=== PATIENT | female | born 1955 | race Caucasian/White ===

== ENCOUNTER → 2017-06-19 | Outpatient (REF) ==
--- NOTE | 2017-06-20 07:25 | REP ---
LUMBOSACRAL SPINE: CLINICAL: Pain and disability. TECHNIQUE: AP, lateral and coned down views of the lumbosacral spine. COMPARISON: None. FINDINGS: Alignment and lordosis is relatively well maintained. Advanced degenerative disc osteophyte complex at the L5-S1 level includes end plate sclerosis, marginal spurring, disc space narrowing and hypertrophic facet disease. Approximately 1.5 m of chronic anterolisthesis at the L4-5 level is suggested with associated hypertrophic facet changes, minimal end plate sclerosis and very subtle marginal spurring. Moderate multilevel degenerative changes are noted throughout the remainder of the examination and include end plate sclerosis, marginal spurring and disc space narrowing. No acute fracture/compression injury. Multiple gallstones are identified. IMPRESSION: Moderate to advanced multilevel degenerative changes as described above. Signed by Navjot Salcedo MD 06/25/2017 12:02 A
== END ==
LOC: M SMT 14:00
PROVIDERS: ATTEND Internal Medicine
DX: M51.36 Other intervertebral disc degeneration, lumbar region (principal)

== ENCOUNTER → 2017-07-20 | Outpatient (CLI) | payer OTHER ==
[2017-07-20 11:11] LABS: BASO % 0.4 % (0.0-1.0); EOS # 0.1 10^3/uL (0.0-0.50); EOS % 1.4 % (0.0-3.0); HEMATOCRIT 41.3 % (36.0-47.0); HEMOGLOBIN 13.4 g/dl (12.0-16.0); IMMATURE GRANULOCYTE % 0.3 % (0-0); LYMPH # 3.1 10^3/uL (1.5-4.5); LYMPH % 39.1 % (24.0-44.0); MEAN CORPUSCULAR HEMOGLOBIN 29.6 pg (27.0-33.0); MEAN CORPUSCULAR HGB CONC 32.4 g/dl (32.0-36.5); MEAN CORPUSCULAR VOLUME 91.4 fl (80.0-96.0); MONO # 0.4 10^3/uL (0.0-0.8); MONO % 5.1 % (0.0-5.0); NEUTROPHILS # 4.2 10^3/uL (1.8-7.7); NEUTROPHILS % 53.7 % (36.0-66.0); PLATELET COUNT, AUTOMATED 331 10^3/uL (150-450); RED BLOOD COUNT 4.52 10^6/uL (4.00-5.40); RED CELL DISTRIBUTION WIDTH 13.2 % (11.5-14.5); WHITE BLOOD COUNT 7.8 10^3/uL (4.0-10.0)
[2017-07-20 11:33] LABS: TOTAL 25(OH) VITAMIN D 36.6 NG/ML (30.0-100.0)
[2017-07-20 11:36] LABS: ALBUMIN 3.8 GM/DL (3.2-5.2); ALBUMIN/GLOBULIN RATIO 1.06 (1.00-1.93); ALKALINE PHOSPHATASE 133 U/L (45-117); ALT/SGPT 74 U/L (12-78); ANION GAP 6 MEQ/L (8-16); AST/SGOT 31 U/L (7-37); BILIRUBIN,TOTAL 0.3 MG/DL (0.2-1.0); BLOOD UREA NITROGEN 15 MG/DL (7-18); CALCIUM LEVEL 9.2 MG/DL (8.8-10.2); CARBON DIOXIDE LEVEL 29 MEQ/L (21-32); CHLORIDE LEVEL 108 MEQ/L (98-107); CHOLESTEROL LEVEL 285 MG/DL (<200); CHOLESTEROL RISK RATIO 4.253 (<5); CREATININE FOR GFR 0.72 MG/DL (0.55-1.02); FREE T4 0.96 NG/DL (0.76-1.46); GLOMERULAR FILTRATION RATE > 60.0 (>45); GLUCOSE, FASTING 106 MG/DL (80-110); HDL CHOLESTEROL 67 MG/DL (>40); LDL CHOLESTEROL 151.4 MG/DL (<100); NON-HDL-C 218 MG/DL; POTASSIUM SERUM 4.3 MEQ/L (3.5-5.1); SODIUM LEVEL 143 MEQ/L (136-145); TOTAL PROTEIN 7.4 GM/DL (6.4-8.2); TRIGLYCERIDES LEVEL 333 MG/DL (<150)
== END ==
LOC: M LAB 10:45
DX: Z00.00 Encounter for general adult medical examination without abnormal findings (principal)
CPT/HCPCS: 72052

== ENCOUNTER → 2017-08-06 | Outpatient (REF) | payer OTHER, MEDICAID | LOC: M LAB REF 18:35 | DX: Z12.4 Encounter for screening for malignant neoplasm of cervix (principal) | CPT/HCPCS: 88142 ==

== ENCOUNTER → 2017-08-07 | Outpatient (CLI) | payer OTHER | LOC: M WHC 13:22 | DX: Z12.31 Encounter for screening mammogram for malignant neoplasm of breast (principal) | CPT/HCPCS: 77067 ==

== ENCOUNTER 2017-08-27 09:08 | Outpatient (RCR) | payer OTHER | END 2017-09-12 | LOC: M PT 09:08 | DX: Z51.89 Encounter for other specified aftercare (principal); M54.2 Cervicalgia; M54.42 Lumbago with sciatica, left side | CPT/HCPCS: 97010 ==

== ENCOUNTER → 2017-09-21 | Outpatient (CLI) | payer OTHER | LOC: M PAIN 13:30 | DX: G89.29 Other chronic pain (principal); M79.1 Myalgia; M54.5 Low back pain; L71.9 Rosacea, unspecified; Z79.899 Other long term (current) drug therapy | CPT/HCPCS: G0463 ==

== ENCOUNTER → 2017-10-29 | Outpatient (CLI) | payer OTHER ==
[~2017-10-29] MED LIST: BUPIVACAINE HCL 0.25% 10 ML VIAL As Ordered; BUPIVACAINE HCL 0.25% 30 ML VIAL As Ordered; TRIAMCINOLONE ACETONIDE SUSP 40 MG/ML VIAL (J3301) As Ordered; diazePAM 5 MG TAB As Ordered; oxyCODONE 5MG TAB As Ordered
== END ==
LOC: M PAIN 15:00
DX: G89.29 Other chronic pain (principal); M25.511 Pain in right shoulder; M25.512 Pain in left shoulder; M54.5 Low back pain; M79.1 Myalgia; L71.9 Rosacea, unspecified; Z79.899 Other long term (current) drug therapy
CPT/HCPCS: J3301

== ENCOUNTER → 2017-11-19 | Outpatient (CLI) | payer OTHER | LOC: M PAIN 14:45 | DX: M79.7 Fibromyalgia (principal); L71.9 Rosacea, unspecified; Z79.899 Other long term (current) drug therapy | CPT/HCPCS: G0463 ==

== ENCOUNTER → 2017-12-25 | Outpatient (CLI) | payer OTHER | LOC: M PAIN 14:30 | DX: M79.7 Fibromyalgia (principal); M54.42 Lumbago with sciatica, left side; L71.9 Rosacea, unspecified; Z79.899 Other long term (current) drug therapy | CPT/HCPCS: G0463 ==

== ENCOUNTER → 2018-02-11 | Outpatient (CLI) | payer OTHER | LOC: M PAIN 14:30 | DX: M79.7 Fibromyalgia (principal); L71.9 Rosacea, unspecified; Z79.899 Other long term (current) drug therapy | CPT/HCPCS: G0463 ==

== ENCOUNTER 2018-03-19 16:33 | Emergency (ER) | payer OTHER | END 2018-03-19 18:54 | disposition home or self-care (01) | LOC: M ED 16:33 | DX: M79.7 Fibromyalgia (principal); M54.2 Cervicalgia; Z79.899 Other long term (current) drug therapy | CPT/HCPCS: 99283 ==

== ENCOUNTER → 2018-05-14 | Outpatient (CLI) | payer OTHER | LOC: M PAIN 13:15 | DX: M79.7 Fibromyalgia (principal); L71.9 Rosacea, unspecified; Z79.899 Other long term (current) drug therapy | CPT/HCPCS: G0463 ==

== ENCOUNTER → 2018-06-19 | Outpatient (CLI) | payer OTHER ==
[~2018-06-19] MED LIST changes: -BUPIVACAINE HCL 0.25% 10 ML VIAL As Ordered; -BUPIVACAINE HCL 0.25% 30 ML VIAL As Ordered; +DULO1CAP2; +NAPR-49 PO; +ROBA500T PO; -TRIAMCINOLONE ACETONIDE SUSP 40 MG/ML VIAL (J3301) As Ordered; -diazePAM 5 MG TAB As Ordered; -oxyCODONE 5MG TAB As Ordered
--- NOTE | 2018-07-11 00:27 | ECWPNPC ---
PATIENT NAME: CATALINA MEYERS : 1955 GENDER: FEMALE VISIT DATE: 06/19/2018 DISCHARGE DATE: 06/19/18 1420 VISIT LOCKED DATE TIME: PHYSICIAN: JULY SOSA RESOURCE: JULY SOSA HISTORY OF PRESENT ILLNESS HISTORY OF PRESENT ILLNESS: HERE FOR F/U OF CHRONIC LOW BACK PAIN AND LOWER EXTREMITY PAIN.ALSO SUFFERS FROM CHRONIC GENERALIZED BODY PAIN AND ARM PAIN.DESCRIBES EPISODES OF LOWER EXTREMITY WEAKNESS AND LEGS GIVING OUT.RATING PAIN VAS 10/10.CURRENTLY USING NAPROXEN 500MG BID ,CYMBALTA 30MG BID,AND METHOCARBOMAL 500MG Q6H.NAPROXEN AND METHACARBOMAL WERE STARTED AT LAST VISIT.REPORTING NO IMPROVEMENT IN PAIN SINCE STARTING THESE MEDICATIONS. PAIN THE PATIENT DESCRIBES THE PAIN... FALL RISK SCREENING: SCREENING :NO FALLS IN THE PAST YEAR CURRENT MEDICATIONS TAKING MULTIVITAMIN - TABLET CHEWABLE VITMAIN ELIZA ORALLY 1 TAB BID, FROM CHIROPRACTER TAKING CYMBALTA 30 MG CAPSULE DELAYED RELEASE PARTICLES 1 CAPSULE ORALLY BID TAKING NAPROXEN 500 MG TABLET 1 TABLET WITH FOOD OR MILK NEEDED ORALLY EVERY 12 HRS TAKING METHOCARBAMOL 500 MG TABLET 1 CAP ORALLY EVERY 6H PRN NOT-TAKING GABAPENTIN 300 MG CAPSULE 1 CAPSULE BEFORE BEDTIME ORALLY FOR PAIN BEFORE BEDTIME FOR ONE WEEK THEN INCREASE TO BID NOT-TAKING CALCIUM 600 + D 600-400 MG-UNIT TABLET OTC 1 TABLET ORALLY ONCE A DAY NOT-TAKING VITAMIN D 5000 UNIT TABLET OTC 1 TABLET ORALLY ONCE A DAY NOT-TAKING MULTIVITAMINS OTC TABLET 1 TABLET ORALLY ONCE A DAY NOT-TAKING VITAMIN B-12 500MG OTC 1 TABLET ORALLY ONCE A DAY NOT-TAKING PREMPRO 0.625-2.5 MG TABLET 1 TABLET ORALLY ONCE A DAY MEDICATION LIST REVIEWED AND RECONCILED WITH THE PATIENT PAST MEDICAL HISTORY ROSACEA UTERINE PROLAPSE CYSTOCELE HX ENDOMETRIAL POLYPS/PMB LEFT SIDE SCIATICA, LUMBAGO ALLERGIES N.K.D.A. SURGICAL HISTORY TUBAL LIGATION ENDOMETRIAL POLYP REMOVAL/HYSTEROSCOPY, D&C (ANIKET) 2010 COLONOSCOPY: NEGATIVE FOR POLYPS; DIVERTICULOSIS; HEMORRHOIDS (JEFFREY) 2010 LEFT SHOULDER- ROTATOR CUFF, 3 TEARS, AMB SURGERY 2015 FAMILY HISTORY FATHER: 69 YRS, AMI MOTHER: 80 YRS, CAUSE OF UNKNOWN TO PT SON(S): ALIVE 35,31 YRS, ONE SON 3 HRS AFTER . TWO OTHER SONS, BOTH ALIVE, NO KNOWN MEDICAL PROBLEMS DAUGHTER(S): ALIVE 34,27 YRS, BOTH, NO KNOWN MEDICAL PROBLEMS DENIES FAMILY HX BREAST, COLON OR OVARIAN CANCERS. SOCIAL HISTORY GENERAL: TOBACCO USE ARE YOU A:: NEVER SMOKER . ALCOHOL SCREENING DID YOU HAVE A DRINK CONTAINING ALCOHOL IN THE PAST YEAR?YES HOW OFTEN DID YOU HAVE A DRINK CONTAINING ALCOHOL IN THE PAST YEAR?MONTHLY OR LESS (1 POINT) HOW MANY DRINKS DID YOU HAVE ON A TYPICAL DAY WHEN YOU WERE DRINKING IN THE PAST YEAR?3 OR 4 (1 POINT) HOW OFTEN DID YOU HAVE SIX OR MORE DRINKS ON ONE OCCASION IN THE PAST YEAR?LESS THAN MONTHLY (1 POINT) POINTS3 INTERPRETATIONPOSITIVE RECREATIONAL DRUG USE DRUG USE?NO CAFFEINE CAFFEINE USE?YES 2 CUPS DAILY SEXUAL HX HAD SEX IN THE LAST 12 MONTHS (VAGINAL, ORAL, OR ANAL)?YES WITHMEN ONLY USE PROTECTION?NO PREVENTION STRATEGIES DISCUSSED:OTHER HAVE YOU EVER HAD AN STD?YES CHLAMYDIA?NO GC?NO SYPHILIS?NO HERPES?NO LMP:POST MENOPAUSE HIV / HEP-C SCREENING HIV TEST OFFERED TO PATIENT:NO HEP-C TEST OFFERED TO PATIENT:NO JEHOVAH'S WITNESS [id number] NONE LANGUAGE LANGUAGES SPOKEN:ANGUILLAN EDUCATION LEVEL OF EDUCATION:HIGH SCHOOL LEARNING BARRIERS / SPECIAL NEEDS CHANGE FROM LAST VISIT?NO BARRIERS TO LEARNING?NO HEARING IMPAIRED?NO VISION IMPAIRED?YES :CORRECTIVE LENSES COGNITIVELY IMPAIRED?NO READINESS TO LEARN?YES DOMESTIC VIOLENCE DENIES SEXUAL, PHYSICAL OR EMOTIONAL ABUSE. OCCUPATION: NOT WORKING , PHYICALLY DISABLED. DIET: NO HX EATING DISORDERS. EXERCISE: WALKS. MARITAL STATUS: , 2008, WERE 34 YRS, REMARRIED 2014. OTHERS AT HOME: CHILD (ADULT SON),. PAIN CLINIC PFS, CLERGY, PUBLIC HEALTH REFERRALS PFS REFERRAL NEEDED?NO CLERGY REFERRAL NEEDED?NO PUBLIC HEALTH REFERRAL NEEDED?NO WAS THE PROVIDER NOTIFIED OF ANY PERTINENT INFO?NO HAS THE PATIENT BEEN EDUCATED REGARDING HIS/HER PLAN OF CARE?YES HAS THE PATIENT BEEN EDUCATED REGARDING PAIN, THE RISK FOR PAIN, THE IMPORTANCE OF EFFECTIVE PAIN MANAGEMENT, AND THE PAIN ASSESSMENT PROCESS?YES ADVANCE DIRECTIVE ADVANCE DIRECTIVE DISCUSSED WITH PATIENT:YES HCP INFORMATION GIVEN, PATIENT REFUSED ASSISTANCE WITH FILLING IT OUT. 06/19/18 1316 JS REVIEWED WITH PT 12/25/17 1423 BVREVIEWED WITH PATIENT 06/19/18 1316 JS. HOSPITALIZATION/MAJOR DIAGNOSTIC PROCEDURE NO HOSPITALIZATION HISTORY. REVIEW OF SYSTEMS REVIEWED BY: PROVIDER: JULY TERRY . CONSTITUTIONAL: ANY CHANGE IN YOUR MEDICAL CONDITION? YES, STATES HER KNEES WENT OUT WALKING DOWN STAIRS AT A FOOTBALL GAME AND THAT WAS NOTHING THAT HAS HAPPENED TO HER IN THE PAST. ALSO BENT DOWN A COUPLE OF DAYS AGO TO PICK SOMETHING UP AND THAT SHE LOST HER BALANCE AND WOULD HAVE FALLEN IF HER HAD NOT BEEN WITH HER . CHILLS NO . FEVER NO . INFECTION: DO YOU HAVE NEW INFECTIONS? NO . DO YOU HAVE HISTORY OF MRSA? NO . MUSCULOSKELETAL: ANY NEW PATTERNS OF PAIN OR NUMBNESS? YES, STATES WORSENING PAIN AND WEAKNESS TO BILATERAL LEGS, CAUSING HER TO LOSE HER BALANCE. STATES PAIN 10/10 AT THIS TIME TO LOW BACK AND BILATERAL LEGS . GASTROENTEROLOGY: ANY NEW CHANGE IN BOWEL CONTROL? NO . GENITOURINARY: ANY NEW CHANGE IN BLADDER CONTROL? NO . IS THERE A CHANCE YOU COULD BE ? NO . HEMATOLOGY/LYMPH: DO YOU TAKE ANY BLOOD THINNERS? (FOR EXAMPLE- COUMADIN, PLAVIX, AGGRENOX, PLATEL, PRADAXA, OR XARELTO) NO . WHEN WAS YOUR LAST DOSE? DATE: TIME: . NEUROLOGY: HAVE YOU FALLEN IN THE PAST 6 MONTHS? NO . ANY NEW EXTREMITY NUMBNESS OR WEAKNESS? NO . CARDIOLOGY: DO YOU HAVE A PACEMAKER OR DEFIBRILLATOR? NO . RESPIRATORY: HAVE YOU BEEN SICK IN THE PAST WEEK? NO . FEVER NO . FLU LIKE SYMPTOMS? NO . COUGH NO . INTEGUMENTARY: DO YOU HAVE ANY RASHES OR OPEN SORES? NO . ALLERGIC/IMMUNO: ARE YOU ALLERGIC TO SHELLFISH OR IV DYE? NO . ANY NEW ALLERGIES? NO . PSYCHIATRIC: DO YOU HAVE THOUGHTS OF HURTING YOURSELF OR SOMEONE ELSE? NO . ARE YOU ABUSED, NEGLECTED, OR IN AN UNSAFE ENVIRONMENT? NO . ENDOCRINOLOGY: ARE YOU DIABETIC? NO . OTHER: DO YOU NEED ANY PRESCRIPTIONS? NO . IF YES, PLEASE LIST: ____ . ANY NEW PROBLEMS WITH YOUR MEDICATIONS? NO . WHEN DID YOU LAST EAT? ____ . WHEN DID YOU LAST DRINK? ____ . WHAT DID YOU LAST DRINK? ____ . NAME OF PERSON DRIVING YOU HOME? ____ . DO YOU HAVE ANY OTHER QUESTIONS OR CONCERNS NO . VITAL SIGNS WT 163.8 LBS, HT 61 IN, BMI 30.95 INDEX, BP 133/63 MM HG, HR 104 /MIN, RR 18 /MIN, TEMP 98.1 F, OXYGEN SAT % 94%, SAFE IN ENV? (Y/N) YES, NA INITIALS AW 1308, REVIEWED BY: CARRIE. EXAMINATION GENERAL EXAMINATION: GENERAL APPEARANCE:AWAKE,ALERT ,PLEAASANT . PSYCHAFFECT NORMAL . LUNGS:LUNG GARCIA ARE CLEAR TO AUSCULTATION BILATERALLY. GOOD MOVEMENT OF AIR . HEART:S1, S2 IN A REGULAR RATE AND RHYTHM. NO SIGNIFICANT MURMURS, RUBS OR GALLOPS NOTED . MUSCULOSKELETAL:MUSCLE STRENGTH TESTING 5/5 BILATERAL UPPER/LOWER EXTREMITIES. NEUROLOGIC EXAM:NORMAL SENSATION TO LIGHT TOUCH UPPER/LOWER EXTREMITIES. ASSESSMENTS FIBROMYALGIA - M79.7 (PRIMARY) TREATMENT FIBROMYALGIA STOP CYMBALTA CAPSULE DELAYED RELEASE PARTICLES, 30 MG, 1 CAPSULE, ORALLY, BID CONTINUE NAPROXEN TABLET, 500 MG, 1 TABLET WITH FOOD OR MILK NEEDED, ORALLY, EVERY 12 HRS CONTINUE METHOCARBAMOL TABLET, 500 MG, 1 CAP, ORALLY, EVERY 6H [facility]:LOWER EXTREMITY WEAKNESS/NEUROPATHY SYMPTOMS OTHERS START LYRICA CAPSULE, 100 MG, 1 CAPSULE, ORALLY, BID MDD2, 30 DAY(S), 60, REFILLS 2 NOTES: PATIENT HAS TRIED GABAPENTIN AND CYMBALTA WITHOUT IMPROVEMENT IN HER FIBROMYALGIA SYMPTOMS.RECOMMEND TRIAL OF LYRICA 100MG BID. PROCEDURE CODES FA211 ESTABILISHED PATIENT [facility] CHARGE DISPOSITION & COMMUNICATION FOLLOW UP 2 MONTHS ELECTRONICALLY SIGNED BY HARRISON RUSHING ON 07/10/2018 AT 09:19 AM EST DISCLAIMER : THIS IS A VISIT SUMMARY EXTRACTED FROM THE [employer] [facility] CHART. IT IS NOT A COPY OF THE [employer] PROGRESS NOTE. MTDD
== END ==
LOC: M PAIN 13:15
PROVIDERS: ATTEND Nurse Practitioner Family
DX: M79.7 Fibromyalgia (principal); L71.9 Rosacea, unspecified; Z79.899 Other long term (current) drug therapy

== ENCOUNTER → 2018-07-11 | Outpatient (CLI) | payer OTHER ==
[~2018-07-11] MED LIST changes: -NAPR-49 PO; +NAPR-50 PO
[2018-07-11 12:01] LABS: BASO % 0.3 % (0.0-1.0); EOS # 0.1 10^3/uL (0.0-0.50); EOS % 1.3 % (0.0-3.0); HEMATOCRIT 39.4 % (36.0-47.0); HEMOGLOBIN 12.6 g/dl (12.0-15.5); LYMPH # 2.8 10^3/uL (1.5-4.5); LYMPH % 31.6 % (24.0-44.0); MEAN CORPUSCULAR HEMOGLOBIN 30.4 pg (27.0-33.0); MEAN CORPUSCULAR VOLUME 94.9 fl (80.0-96.0); MONO # 0.3 10^3/uL (0.0-0.8); MONO % 3.7 % (0.0-5.0); NEUTROPHILS # 5.6 10^3/uL (1.8-7.7); NEUTROPHILS % 62.8 % (36.0-66.0); PLATELET COUNT, AUTOMATED 369 10^3/uL (150-450); RED BLOOD COUNT 4.15 10^6/uL (4.00-5.40); WHITE BLOOD COUNT 8.9 10^3/uL (4.0-10.0)
[2018-07-11 12:19] LABS: HEMOGLOBIN A1c 6.5 %
[2018-07-11 12:53] LABS: ALBUMIN 3.8 GM/DL (3.2-5.2); ALT/SGPT 63 U/L (12-78); BILIRUBIN,TOTAL 0.4 MG/DL (0.2-1.0); BLOOD UREA NITROGEN 19 MG/DL (7-18); CALCIUM LEVEL 9.1 MG/DL (8.8-10.2); CARBON DIOXIDE LEVEL 26 MEQ/L (21-32); CHLORIDE LEVEL 105 MEQ/L (98-107); CREATININE FOR GFR 0.84 MG/DL (0.55-1.30); FOLATE > 24.0 NG/ML (>5.4); GLOMERULAR FILTRATION RATE > 60.0 (>45); GLUCOSE, FASTING 117 MG/DL (70-100); POTASSIUM SERUM 4.2 MEQ/L (3.5-5.1); RHEUMATOID FACTOR QUANT < 10.0 IU/ML (<15.0); SODIUM LEVEL 141 MEQ/L (136-145); VITAMIN B12 LEVEL 495 PG/ML (247-911)
[2018-07-11 13:05] LABS: ERYTHROCYTE SEDIMENTATION RATE 43 mm/hr (0-30)
[2018-07-12 12:01] LABS: ALBUMIN 4.05 GM/DL (3.29-5.55); ALBUMIN % 57.9 % (55.8-66.1); ALPHA-1-GLOBULIN % 4.7 % (2.9-4.9); ALPHA-1-GLOBULINS 0.33 GM/DL (0.17-0.41); ALPHA-2-GLOBULINS 0.91 GM/DL (0.42-0.99); BETA-1-GLOBULINS 0.49 GM/DL (0.28-0.60); BETA-2-GLOBULINS 0.47 GM/DL (0.19-0.55); BETA-2-GLOBULINS % 6.7 % (3.2-6.5); GAMMA GLOBULIN % 10.7 % (11.1-18.8)
[2018-07-12 12:02] LABS: GAMMA GLOBULINS 0.75 GM/DL (0.65-1.58)
[2018-07-13 00:06] LABS: Lyme Disease IgG/IgM Antibodie <0.91 ISR (0.00-0.90); Lyme Disease IgM Ab Quantitati <0.80 index (0.00-0.79)
[2018-07-14 08:52] LABS: DRVV SCREEN 45.2 SEC
[2018-07-14 09:02] LABS: PTT LUPUS TYPE ANTICOAG SCREEN 1.1 (0-1.2)
[2018-07-16 00:32] LABS: ANCA-ATYPICAL <1:20 titer (Neg:<1:20); ANTI DOUBLE STRAND-DNA AB <1 IU/mL (0-9); ANTINUCLEAR ANTIBODIES DIRECT Negative (Negative); CERULOPLASMIN 29.4 mg/dL (19.0-39.0); COPPER PLASMA 125 ug/dL (72-166); CYTOPLASMIC NEUTROP AB ANCA-C <1:20 titer (Neg:<1:20); IgG P18 AB Absent (.); IgG P23 AB Absent (.); IgG P28 AB Absent (.); IgG P30 AB Absent (.); IgG P39 AB Absent (.); IgG P41 AB Absent (.); IgG P45 AB Absent (.); IgG P66 AB Absent (.); IgG P93 AB Absent (.); IgM P23 AB Absent (.); IgM P39 AB Absent (.); IgM P41 AB Absent (.); LEAD BLOOD ADULT <1 ug/dL (0-4); LYME IgG WB INTERPRETATION Negative (.); LYME IgM WB INTERPRETATION Negative (.); MERCURY LEVEL None Detected ug/L (0.0-14.9); PERINUCLEAR AB ANCA-P <1:20 titer (Neg:<1:20); SJOGREN'S ANTI SS-A <0.2 AI (0.0-0.9); SJOGREN'S ANTI SS-B <0.2 AI (0.0-0.9); VITAMIN B1 LEVEL WHOLE BLOOD 163.1 nmol/L (66.5-200.0); VITAMIN B6,PYRIDOXAL PHOSPHATE 15.7 ug/L (2.0-32.8); VITAMIN E(GAMMA TOCOPHEROL) 1.5 mg/L (0.5-4.9)
== END ==
LOC: M LAB 11:15
PROVIDERS: ATTEND Psychiatry & Neurology Neurology
DX: G62.9 Polyneuropathy, unspecified (principal)

== ENCOUNTER → 2018-08-20 | Outpatient (REF) | payer OTHER ==
[2018-08-24 00:06] LABS: HPV HYBRID CAPTURE II Positive (Negative)
== END ==
LOC: M LAB REF 09:29
PROVIDERS: ATTEND Obstetrics & Gynecology
DX: Z12.4 Encounter for screening for malignant neoplasm of cervix (principal); Z11.51 Encounter for screening for human papillomavirus (HPV); N95.2 Postmenopausal atrophic vaginitis

== ENCOUNTER → 2018-08-23 | Outpatient (CLI) | payer OTHER ==
--- NOTE | 2018-08-23 14:11 | REPMRS ---
Patient History The patient states she had a clinical breast exam in 2018. No known family history of cancer. Took estrogen for 6 years. Digital Mammo Screening Bilat: August 23, 2018 - Exam #: [id number] Bilateral CC and MLO view(s) were taken. Technologist: Lydia Felix, Technologist Prior study comparison: August 07, 2017, digital woman screen mammo, performed at [facility]. July 26, 2015, digital woman screen mammo, performed at [facility]. August 08, 2012, digital woman screen mammo, performed at [facility]. FINDINGS: The breast tissue is almost entirely fat. There has been no change in the appearance of the mammogram from the prior studies. There is no interval development of dominant mass, architectural distortion, or clustered microcalcification typical of malignancy. 3-D tomosynthesis shows no additional findings. Assessment: BI-RADS/ACR category 1 mammogram. Negative Mammogram. Recommendation Routine screening mammogram of both breasts in 1 year (for women over age 40). This patient's Lifetime Breast Cancer RIsk is estimated at 6.1 %. This mammogram was interpreted with the aid of an FDA-approved computer-aided dectection system. Electronically Signed By: James Giles MD 08/23/18 [id number]
== END ==
LOC: M RAD 11:10
PROVIDERS: ATTEND Obstetrics & Gynecology
DX: Z12.31 Encounter for screening mammogram for malignant neoplasm of breast (principal)

== ENCOUNTER → 2018-08-23 | Outpatient (CLI) | payer OTHER ==
[2018-08-23 11:21] LABS: HEMOGLOBIN A1c 6.6 %
[2018-08-23 12:31] LABS: ALBUMIN 3.9 GM/DL (3.2-5.2); ALT/SGPT 48 U/L (12-78); BILIRUBIN,TOTAL 0.4 MG/DL (0.2-1.0); BLOOD UREA NITROGEN 22 MG/DL (7-18); CALCIUM LEVEL 9.1 MG/DL (8.8-10.2); CARBON DIOXIDE LEVEL 27 MEQ/L (21-32); CHLORIDE LEVEL 107 MEQ/L (98-107); CHOLESTEROL LEVEL 262 MG/DL (<200); CHOLESTEROL RISK RATIO 4.943 (<5); CREATININE FOR GFR 0.88 MG/DL (0.55-1.30); GLOMERULAR FILTRATION RATE > 60.0 (>45); GLUCOSE, FASTING 110 MG/DL (70-100); HDL CHOLESTEROL 53 MG/DL (>40); LDL CHOLESTEROL 157 MG/DL (<100); NON-HDL-C 209 MG/DL; POTASSIUM SERUM 4.8 MEQ/L (3.5-5.1); SODIUM LEVEL 142 MEQ/L (136-145); TOTAL PROTEIN 7.5 GM/DL (6.4-8.2); TRIGLYCERIDES LEVEL 262 MG/DL (<150)
[2018-08-23 12:37] LABS: TOTAL 25(OH) VITAMIN D 28.1 NG/ML (30.0-100.0)
== END ==
LOC: M LAB 10:21
PROVIDERS: ATTEND Nurse Practitioner Family
DX: E78.2 Mixed hyperlipidemia (principal)

== ENCOUNTER → 2018-09-23 | Outpatient (CLI) | payer OTHER ==
--- NOTE | 2018-10-09 01:21 | ECWPNPC ---
PATIENT NAME: CATALINA MEYERS : 1955 GENDER: FEMALE VISIT DATE: 09/23/2018 DISCHARGE DATE: 09/23/18 1522 VISIT LOCKED DATE TIME: PHYSICIAN: JULY SOSA RESOURCE: JULY SOSA REASON FOR APPOINTMENT 1. FIRBOMYALGIA HISTORY OF PRESENT ILLNESS HISTORY OF PRESENT ILLNESS: HERE FOR F/U OF CHRONIC LOW BACK PAIN AND GENERALIZED BODY PAIN.RATING PAIN VAS 10/10.TAKING CYMBALTA 60MG DAILY.CONTINUES WITH SEVERE LOW BACK PAIN. PAIN THE PATIENT DESCRIBES THE PAIN... FALL RISK SCREENING: SCREENING : NO FALLS IN THE PAST YEAR. CURRENT MEDICATIONS TAKING MULTIVITAMIN - TABLET CHEWABLE VITMAIN ELIZA ORALLY 1 TAB BID, FROM CHIROPRACTER TAKING LYRICA 100 MG CAPSULE 1 CAPSULE ORALLY BID MDD2, NOTES: PT REPORTS HAS NOT STARED YET TAKING GABAPENTIN 300 MG CAPSULE 1 CAPSULE ORALLY Q8H TID TAKING METHOCARBAMOL 500 MG TABLET 1 CAP ORALLY EVERY 6H PRN TAKING CYMBALTA 60 MG CAPSULE DELAYED RELEASE PARTICLES 1 CAPSULE ORALLY ONCE A DAY TAKING METFORMIN HCL 500 MG TABLET 1 TABLET WITH A MEAL ORALLY BID TAKING ASPIRIN 81 81 MG TABLET CHEWABLE 1 TABLET ORALLY ONCE A DAY TAKING ATORVASTATIN CALCIUM 20 MG TABLET 1 TABLET ORALLY ONCE A DAY TAKING GLUCOMETER DIRECTED DXE11.9 - TAKING BLOOD GLUCOSE TEST - STRIP DIRECTED DXE11.9 DAILY TAKING LANCETS - MISCELLANEOUS DIRECTED DXE11.9 DAILY TAKING NAPROXEN 500 MG TABLET 1 TABLET WITH FOOD OR MILK NEEDED ORALLY EVERY 12 HRS NOT-TAKING CYMBALTA 30 MG CAPSULE DELAYED RELEASE PARTICLES 1 CAPSULE ORALLY BID MEDICATION LIST REVIEWED AND RECONCILED WITH THE PATIENT PAST MEDICAL HISTORY ROSACEA UTERINE PROLAPSE CYSTOCELE HX ENDOMETRIAL POLYPS/PMB LEFT SIDE SCIATICA, LUMBAGO SYPHILLIS-COMPLETED AT [facility] SYMPTOMATIC MENOPAUSAL OR FEMALE CLIMACTERIC STATES POSTMENOPAUSAL ATROPHIC VAGINITIS COUNSELING ON OTHER SEXUALLY TRANSMITTED DISEASES HGSIL ON PAP SMEAR NERVE CONDUCTION STUDY: NEUROLOGY ALLERGIES N.K.D.A. SURGICAL HISTORY TUBAL LIGATION ENDOMETRIAL POLYP REMOVAL/HYSTEROSCOPY, D&C (ANIKET) 2010 COLONOSCOPY: NEGATIVE FOR POLYPS; DIVERTICULOSIS; HEMORRHOIDS (JEFFREY) 2010 LEFT SHOULDER- ROTATOR CUFF, 3 TEARS, AMB SURGERY 2015 FAMILY HISTORY FATHER: 69 YRS, AMI MOTHER: 80 YRS, CAUSE OF UNKNOWN TO PT SON(S): ALIVE 35,31 YRS, ONE SON 3 HRS AFTER . TWO OTHER SONS, BOTH ALIVE, NO KNOWN MEDICAL PROBLEMS DAUGHTER(S): ALIVE 34,27 YRS, BOTH, NO KNOWN MEDICAL PROBLEMS DENIES FAMILY HX BREAST, COLON OR OVARIAN CANCERS. SOCIAL HISTORY GENERAL: TOBACCO USE ARE YOU A:: NEVER SMOKER . ALCOHOL SCREENING DID YOU HAVE A DRINK CONTAINING ALCOHOL IN THE PAST YEAR?YES HOW OFTEN DID YOU HAVE SIX OR MORE DRINKS ON ONE OCCASION IN THE PAST YEAR?LESS THAN MONTHLY (1 POINT) HOW MANY DRINKS DID YOU HAVE ON A TYPICAL DAY WHEN YOU WERE DRINKING IN THE PAST YEAR?3 OR 4 (1 POINT) HOW OFTEN DID YOU HAVE A DRINK CONTAINING ALCOHOL IN THE PAST YEAR?MONTHLY OR LESS (1 POINT) POINTS3 INTERPRETATIONPOSITIVE RECREATIONAL DRUG USE DRUG USE?NO CAFFEINE CAFFEINE USE?YES 2 CUPS DAILY SEXUAL HX HAD SEX IN THE LAST 12 MONTHS (VAGINAL, ORAL, OR ANAL)?YES WITHMEN ONLY PREVENTION STRATEGIES DISCUSSED:OTHER USE PROTECTION?NO LMP:POST MENOPAUSE HAVE YOU EVER HAD AN STD?YES HERPES?NO SYPHILIS?NO GC?NO CHLAMYDIA?NO HIV / HEP-C SCREENING HIV TEST OFFERED TO PATIENT:NO HEP-C TEST OFFERED TO PATIENT:NO SABIANIST [id number] NONE LANGUAGE LANGUAGES SPOKEN:UKRAINIAN EDUCATION LEVEL OF EDUCATION:HIGH SCHOOL LEARNING BARRIERS / SPECIAL NEEDS CHANGE FROM LAST VISIT?NO BARRIERS TO LEARNING?NO HEARING IMPAIRED?NO VISION IMPAIRED?YES COGNITIVELY IMPAIRED?NO :CORRECTIVE LENSES READINESS TO LEARN?YES DOMESTIC VIOLENCE DENIES SEXUAL, PHYSICAL OR EMOTIONAL ABUSE. OCCUPATION: NOT WORKING , PHYICALLY DISABLED. DIET: NO HX EATING DISORDERS. EXERCISE: WALKS. MARITAL STATUS: , 2007, WERE 34 YRS, REMARRIED 2014. OTHERS AT HOME: CHILD (ADULT SON),. PAIN CLINIC PFS, CLERGY, PUBLIC HEALTH REFERRALS PFS REFERRAL NEEDED?NO CLERGY REFERRAL NEEDED?NO PUBLIC HEALTH REFERRAL NEEDED?NO WAS THE PROVIDER NOTIFIED OF ANY PERTINENT INFO?NO HAS THE PATIENT BEEN EDUCATED REGARDING HIS/HER PLAN OF CARE?YES HAS THE PATIENT BEEN EDUCATED REGARDING PAIN, THE RISK FOR PAIN, THE IMPORTANCE OF EFFECTIVE PAIN MANAGEMENT, AND THE PAIN ASSESSMENT PROCESS?YES ADVANCE DIRECTIVE ADVANCE DIRECTIVE DISCUSSED WITH PATIENT:YES HCP INFORMATION GIVEN, PATIENT REFUSED ASSISTANCE WITH FILLING IT OUT. REVIEWED WITH PT 12/25/17 1827 BVREVIEWED WITH PATIENT 06/19/18 1316 JS. HOSPITALIZATION/MAJOR DIAGNOSTIC PROCEDURE DENIES PAST HOSPITALIZATION REVIEW OF SYSTEMS REVIEWED BY: PROVIDER: JULY TERRY . CONSTITUTIONAL: ANY CHANGE IN YOUR MEDICAL CONDITION? NO . CHILLS NO . FEVER NO . INFECTION: DO YOU HAVE NEW INFECTIONS? NO . DO YOU HAVE HISTORY OF MRSA? NO . MUSCULOSKELETAL: ANY NEW PATTERNS OF PAIN OR NUMBNESS? YES, NECK AND RIGHT ARM COLDNESS FOLLOWED BY NUMBNESS . GASTROENTEROLOGY: ANY NEW CHANGE IN BOWEL CONTROL? NO . GENITOURINARY: ANY NEW CHANGE IN BLADDER CONTROL? NO . IS THERE A CHANCE YOU COULD BE ? NO . HEMATOLOGY/LYMPH: DO YOU TAKE ANY BLOOD THINNERS? (FOR EXAMPLE- COUMADIN, PLAVIX, AGGRENOX, PLATEL, PRADAXA, OR XARELTO) NO . WHEN WAS YOUR LAST DOSE? DATE: TIME: . NEUROLOGY: HAVE YOU FALLEN IN THE PAST 12 MONTHS? NO . ANY NEW EXTREMITY NUMBNESS OR WEAKNESS? YES, RIGHT ARM COLDNESS FOLLOWED BY NUMBNESS . CARDIOLOGY: DO YOU HAVE A PACEMAKER OR DEFIBRILLATOR? NO . RESPIRATORY: HAVE YOU BEEN SICK IN THE PAST WEEK? NO . FEVER NO . FLU LIKE SYMPTOMS? NO . COUGH NO . INTEGUMENTARY: DO YOU HAVE ANY RASHES OR OPEN SORES? YES, RASH TO LOWER LEFT LEG X 1 WEEK, PT STATES HER BOOTS ARE NEW X 2 WEEKS . ALLERGIC/IMMUNO: ARE YOU ALLERGIC TO IV DYE? NO . ANY NEW ALLERGIES? NO . PSYCHIATRIC: DO YOU HAVE THOUGHTS OF HURTING YOURSELF OR SOMEONE ELSE? NO . ARE YOU ABUSED, NEGLECTED, OR IN AN UNSAFE ENVIRONMENT? NO . ENDOCRINOLOGY: ARE YOU DIABETIC? YES . OTHER: DO YOU NEED ANY PRESCRIPTIONS? NO . IF YES, PLEASE LIST: ____ . ANY NEW PROBLEMS WITH YOUR MEDICATIONS? NO . WHEN DID YOU LAST EAT? ____ . WHEN DID YOU LAST DRINK? ____ . WHAT DID YOU LAST DRINK? ____ . NAME OF PERSON DRIVING YOU HOME? ____ . DO YOU HAVE ANY OTHER QUESTIONS OR CONCERNS YES, RECEIVED FLU VACCINE IN PAST 21 DAYS (08/2018) . VITAL SIGNS WT 165 LBS, HT 61 IN, BMI 31.17 INDEX, BP 136/89 MM HG, HR 112 /MIN, RR 18 /MIN, TEMP 95.9 F, OXYGEN SAT % 94%, NA INITIALS AW 1420, REVIEWED BY: EM. EXAMINATION GENERAL EXAMINATION: GENERAL APPEARANCE:AWAKE,ALERT ,PLEAASANT . PSYCHAFFECT NORMAL . LUNGS:LUNG GARCIA ARE CLEAR TO AUSCULTATION BILATERALLY. GOOD MOVEMENT OF AIR . HEART:S1, S2 IN A REGULAR RATE AND RHYTHM. NO SIGNIFICANT MURMURS, RUBS OR GALLOPS NOTED . ASSESSMENTS FIBROMYALGIA - M79.7 (PRIMARY) TREATMENT FIBROMYALGIA CONTINUE GABAPENTIN CAPSULE, 300 MG, 1 CAPSULE, ORALLY, Q8H TID CONTINUE METHOCARBAMOL TABLET, 500 MG, 1 CAP, ORALLY, EVERY 6H PRN CONTINUE CYMBALTA CAPSULE DELAYED RELEASE PARTICLES, 60 MG, 1 CAPSULE, ORALLY, ONCE A DAY START PERCOCET TABLET, 5-325 MG, 1 TABLET NEEDED, ORALLY, Q8H PRN MDD3 #45 TAB SHOULD LAST 30 DAYS, 30 DAY(S), 45, REFILLS 0 NOTES: ISTOP REGISTRY REVIEWED AND DEMONSTRATES COMPLLIANCE. , [facility] NARCOTIC AGREEMENT WAS REVIEWED AND SIGNED TODAY BY THE PATIENT. SEE ATTACHED DOCUMENT FOR FULL DETAILS; SPECIFIC ISSUES WERE REVIEWED: 1) KEEP PAIN MEDS IN THEIR ORIGINAL BOTTLES AND ANY WEEKLY PLANNERS ARE TO BE BROUGHT TO THE PAIN CENTER AT EVERY VISIT. 2) THE PATIENT IS NOT TO INCREASE DOSING OR TIMING OF THEIR PAIN MEDICATION WITHOUT SPECIFIC DIRECTION OF THEIR PAIN CENTERPROVIDER (NOT ER OR OTHER PROVIDERS). 3) ALL PAIN MEDS ARE TO BE KEPT SECURED, IN A LOCKED BOX. 4) NO PAIN MEDS ARE TO BE SHARED WITH ANY OTHER PERSON FOR ANY REASON. 5) NO PAIN MEDS MAY BE TAKEN FROM ANY FRIENDS OR RELATIVES FOR ANY REASON 6) NO MEDS OR SUBSTANCES WHICH ARE NOT LEGAL ARE TO BE USED- NO MARIJUANA, NO COCAINE, AMPHETAMINES, HEROIN, OR OTHERS ARE EVER TO BE USED. 7)URINE TESTING IS DONE TO ACCOUNT FOR MEDS AND SUBSTANCES BEING TAKEN AND WILL BE DONE RANDOMLY.. PROCEDURE CODES FA211 ESTABILISHED PATIENT [facility] FACILITY CHARGE DISPOSITION & COMMUNICATION FOLLOW UP 25 DAYS ELECTRONICALLY SIGNED BY HARRISON RUSHING ON 10/07/2018 AT 04:31 PM EDT DISCLAIMER : THIS IS A VISIT SUMMARY EXTRACTED FROM THE [employer] CHART. IT IS NOT A COPY OF THE [employer] PROGRESS NOTE. MTDD
== END ==
LOC: M PAIN 14:15
PROVIDERS: ATTEND Nurse Practitioner Family
DX: M79.7 Fibromyalgia (principal); E11.9 Type 2 diabetes mellitus without complications; L71.9 Rosacea, unspecified; Z79.84 Long term (current) use of oral hypoglycemic drugs; Z79.82 Long term (current) use of aspirin; Z79.899 Other long term (current) drug therapy

== ENCOUNTER → 2018-10-17 | Outpatient (CLI) | payer OTHER ==
[~2018-10-17] MED LIST changes: -NAPR-50 PO; +NAPR-837 PO
--- NOTE | 2018-11-01 01:46 | ECWPNPC ---
PATIENT NAME: CATALINA MEYERS : 1955 GENDER: FEMALE VISIT DATE: 10/17/2018 DISCHARGE DATE: 10/17/181536 VISIT LOCKED DATE TIME: PHYSICIAN: JULY SOSA RESOURCE: JULY SOSA REASON FOR APPOINTMENT 1. 25 DAYS HISTORY OF PRESENT ILLNESS HISTORY OF PRESENT ILLNESS: HERE FOR F/U OF CHRONIC GENERALIZED BODY PAIN.STARTED ON HYDROCODONE AT LAST VISIT TO USE SPARINGLY FOR SEVERE PAIN.THIS IS HELPING AND SHE IS USING THIS INFREQUENTLY WITH GOOD EFFECT.RATING PAIN VAS 7/10. PAIN THE PATIENT DESCRIBES THE PAIN... FALL RISK SCREENING: SCREENING :NO FALLS REPORTED IN THE LAST YEAR CURRENT MEDICATIONS TAKING MULTIVITAMIN - TABLET CHEWABLE VITMAIN ELIZA ORALLY 1 TAB BID, FROM CHIROPRACTER TAKING LYRICA 100 MG CAPSULE 1 CAPSULE ORALLY BID MDD2, NOTES: PT REPORTS HAS NOT STARED YET TAKING METFORMIN HCL 500 MG TABLET 1 TABLET WITH A MEAL ORALLY BID TAKING ASPIRIN 81 81 MG TABLET CHEWABLE 1 TABLET ORALLY ONCE A DAY TAKING ATORVASTATIN CALCIUM 20 MG TABLET 1 TABLET ORALLY ONCE A DAY TAKING GLUCOMETER DIRECTED DXE11.9 - TAKING BLOOD GLUCOSE TEST - STRIP DIRECTED DXE11.9 DAILY TAKING LANCETS - MISCELLANEOUS DIRECTED DXE11.9 DAILY TAKING NAPROXEN 500 MG TABLET 1 TABLET WITH FOOD OR MILK NEEDED ORALLY EVERY 12 HRS TAKING GABAPENTIN 300 MG CAPSULE 1 CAPSULE ORALLY Q8H TID TAKING METHOCARBAMOL 500 MG TABLET 1 CAP ORALLY EVERY 6H PRN TAKING CYMBALTA 60 MG CAPSULE DELAYED RELEASE PARTICLES 1 CAPSULE ORALLY ONCE A DAY TAKING PERCOCET 5-325 MG TABLET 1 TABLET NEEDED ORALLY Q8H PRN MDD3 #45 TAB SHOULD LAST 30 DAYS NOT-TAKING CYMBALTA 30 MG CAPSULE DELAYED RELEASE PARTICLES 1 CAPSULE ORALLY BID MEDICATION LIST REVIEWED AND RECONCILED WITH THE PATIENT PAST MEDICAL HISTORY ROSACEA UTERINE PROLAPSE CYSTOCELE HX ENDOMETRIAL POLYPS/PMB LEFT SIDE SCIATICA, LUMBAGO SYPHILLIS-COMPLETED AT [facility] SYMPTOMATIC MENOPAUSAL OR FEMALE CLIMACTERIC STATES POSTMENOPAUSAL ATROPHIC VAGINITIS COUNSELING ON OTHER SEXUALLY TRANSMITTED DISEASES HGSIL ON PAP SMEAR NERVE CONDUCTION STUDY: NEUROLOGY DIABETES TYPE 2 ALLERGIES N.K.D.A. SURGICAL HISTORY TUBAL LIGATION ENDOMETRIAL POLYP REMOVAL/HYSTEROSCOPY, D&C (ANIKET) 2010 COLONOSCOPY: NEGATIVE FOR POLYPS; DIVERTICULOSIS; HEMORRHOIDS (JEFFREY) 2010 LEFT SHOULDER- ROTATOR CUFF, 3 TEARS, AMB SURGERY 2016 FAMILY HISTORY FATHER: 69 YRS, AMI MOTHER: 80 YRS, CAUSE OF UNKNOWN TO PT SON(S): ALIVE 35,31 YRS, ONE SON 3 HRS AFTER . TWO OTHER SONS, BOTH ALIVE, NO KNOWN MEDICAL PROBLEMS DAUGHTER(S): ALIVE 34,27 YRS, BOTH, NO KNOWN MEDICAL PROBLEMS DENIES FAMILY HX BREAST, COLON OR OVARIAN CANCERS. SOCIAL HISTORY GENERAL: TOBACCO USE ARE YOU A:NONSMOKER LATEX QUESTIONNAIRE LATEX ALLERGY : HAVE YOU EVER DEVELOPED ANY TYPE OF REACTION AFTER HANDLING LATEX PRODUCTS SUCH RUBBER GLOVES, CONDOMS, DIAPHRAGMS, BALLOONS, SOCKS, OR UNDERWEAR?NO LATEX ALLERGY : HAVE YOU EVER DEVELOPED ANY TYPE OF REACTION DURING OR AFTER DENTAL APPOINTMENT, VAGINAL/RECTAL EXAMINATION, SURGICAL PROCEDURE, OR ANY OTHER EXPOSURE?NO LATEX RISK : HAVE YOU EVER HAD ANY DIFFICULTY BREATHING OR HIVES AFTER EATING OR HANDLING ANY FRUITS, OR VEGETABLES; SUCH KIWI, BANANAS, STONE FRUITS, OR CHESTNUTSNO LATEX RISK : DO YOU HAVE A PREVIOUS PERSONAL HISTORY OF MORE THAN NINE SURGERIES, SPINA BIFIDA, OR REPEATED CATHERTIZATIONS? NO LATEX RISK : ARE YOU FREQUENTLY EXPOSED TO LATEX PRODUCTS IN YOUR OCCUPATION?NO DATE ASKED : 10/17/2018 ALCOHOL SCREENING DID YOU HAVE A DRINK CONTAINING ALCOHOL IN THE PAST YEAR?YES HOW OFTEN DID YOU HAVE SIX OR MORE DRINKS ON ONE OCCASION IN THE PAST YEAR?LESS THAN MONTHLY (1 POINT) HOW MANY DRINKS DID YOU HAVE ON A TYPICAL DAY WHEN YOU WERE DRINKING IN THE PAST YEAR?3 OR 4 (1 POINT) HOW OFTEN DID YOU HAVE A DRINK CONTAINING ALCOHOL IN THE PAST YEAR?MONTHLY OR LESS (1 POINT) POINTS3 INTERPRETATIONPOSITIVE RECREATIONAL DRUG USE DRUG USE?NO CAFFEINE CAFFEINE USE?YES 2 CUPS DAILY SEXUAL HX HAD SEX IN THE LAST 12 MONTHS (VAGINAL, ORAL, OR ANAL)?YES WITHMEN ONLY PREVENTION STRATEGIES DISCUSSED:OTHER USE PROTECTION?NO LMP:POST MENOPAUSE HAVE YOU EVER HAD AN STD?YES HERPES?NO SYPHILIS?NO GC?NO CHLAMYDIA?NO HIV / HEP-C SCREENING HIV TEST OFFERED TO PATIENT:NO HEP-C TEST OFFERED TO PATIENT:NO RESTORATION [id number] NONE LANGUAGE LANGUAGES SPOKEN:[place]NADI[place] EDUCATION LEVEL OF EDUCATION:HIGH SCHOOL LEARNING BARRIERS / SPECIAL NEEDS CHANGE FROM LAST VISIT?NO BARRIERS TO LEARNING?NO HEARING IMPAIRED?NO VISION IMPAIRED?YES COGNITIVELY IMPAIRED?NO :CORRECTIVE LENSES READINESS TO LEARN?YES DOMESTIC VIOLENCE DENIES SEXUAL, PHYSICAL OR EMOTIONAL ABUSE. OCCUPATION: NOT WORKING , PHYICALLY DISABLED. DIET: NO HX EATING DISORDERS. EXERCISE: WALKS. MARITAL STATUS: , 2007, WERE 34 YRS, REMARRIED 2014. OTHERS AT HOME: CHILD (ADULT SON),. PAIN CLINIC PFS, CLERGY, PUBLIC HEALTH REFERRALS PFS REFERRAL NEEDED?NO CLERGY REFERRAL NEEDED?NO PUBLIC HEALTH REFERRAL NEEDED?NO WAS THE PROVIDER NOTIFIED OF ANY PERTINENT INFO?YES HAS THE PATIENT BEEN EDUCATED REGARDING HIS/HER PLAN OF CARE?YES HAS THE PATIENT BEEN EDUCATED REGARDING PAIN, THE RISK FOR PAIN, THE IMPORTANCE OF EFFECTIVE PAIN MANAGEMENT, AND THE PAIN ASSESSMENT PROCESS?YES ADVANCE DIRECTIVE ADVANCE DIRECTIVE DISCUSSED WITH PATIENT:YES HCP YRN MEYERS [phone] 2ND HCP LIZBETH RIVAS REVIEWED WITH PT 12/25/17 1426 BVREVIEWED WITH PATIENT 06/19/18 1316 JS. HOSPITALIZATION/MAJOR DIAGNOSTIC PROCEDURE NO HOSPITALIZATION HISTORY. REVIEW OF SYSTEMS REVIEWED BY: PROVIDER: JULY TERRY . CONSTITUTIONAL: ANY CHANGE IN YOUR MEDICAL CONDITION? NO . CHILLS NO . FEVER NO . INFECTION: DO YOU HAVE NEW INFECTIONS? NO . DO YOU HAVE HISTORY OF MRSA? NO . MUSCULOSKELETAL: ANY NEW PATTERNS OF PAIN OR NUMBNESS? NO . GASTROENTEROLOGY: ANY NEW CHANGE IN BOWEL CONTROL? NO . GENITOURINARY: ANY NEW CHANGE IN BLADDER CONTROL? NO . IS THERE A CHANCE YOU COULD BE ? NO . HEMATOLOGY/LYMPH: DO YOU TAKE ANY BLOOD THINNERS? (FOR EXAMPLE- COUMADIN, PLAVIX, AGGRENOX, PLATEL, PRADAXA, OR XARELTO) YES, ASA . WHEN WAS YOUR LAST DOSE? DATE: TIME: . NEUROLOGY: HAVE YOU FALLEN IN THE PAST 12 MONTHS? NO . ANY NEW EXTREMITY NUMBNESS OR WEAKNESS? NO . CARDIOLOGY: DO YOU HAVE A PACEMAKER OR DEFIBRILLATOR? NO . RESPIRATORY: HAVE YOU BEEN SICK IN THE PAST WEEK? NO . FEVER NO . FLU LIKE SYMPTOMS? NO . COUGH YES, COUGH, NO FEVER . INTEGUMENTARY: DO YOU HAVE ANY RASHES OR OPEN SORES? NO . ALLERGIC/IMMUNO: ARE YOU ALLERGIC TO IV DYE? NO . ANY NEW ALLERGIES? NO . PSYCHIATRIC: DO YOU HAVE THOUGHTS OF HURTING YOURSELF OR SOMEONE ELSE? NO . ARE YOU ABUSED, NEGLECTED, OR IN AN UNSAFE ENVIRONMENT? NO . ENDOCRINOLOGY: ARE YOU DIABETIC? YES, FSBS 105 10/17/18 . OTHER: DO YOU NEED ANY PRESCRIPTIONS? NO . IF YES, PLEASE LIST: ____ . ANY NEW PROBLEMS WITH YOUR MEDICATIONS? NO . WHEN DID YOU LAST EAT? ____ . WHEN DID YOU LAST DRINK? ____ . WHAT DID YOU LAST DRINK? ____ . NAME OF PERSON DRIVING YOU HOME? ____ . DO YOU HAVE ANY OTHER QUESTIONS OR CONCERNS NO . VITAL SIGNS WT 165.6 LBS, HT 61 IN, BMI 31.29 INDEX, BP 161/84 MM HG, HR 91 /MIN, RR 18 /MIN, TEMP 97.0 F, OXYGEN SAT % 93%, SAFE IN ENV? (Y/N) Y, NA INITIALS SC 14:58, REVIEWED BY: MARCUS. EXAMINATION GENERAL EXAMINATION: GENERAL APPEARANCE:AWAKE,ALERT ,PLEAASANT . PSYCHAFFECT NORMAL . LUNGS:LUNG GARCIA ARE CLEAR TO AUSCULTATION BILATERALLY. GOOD MOVEMENT OF AIR . HEART:S1, S2 IN A REGULAR RATE AND RHYTHM. NO SIGNIFICANT MURMURS, RUBS OR GALLOPS NOTED . ASSESSMENTS FIBROMYALGIA - M79.7 (PRIMARY) TREATMENT FIBROMYALGIA CONTINUE LYRICA CAPSULE, 100 MG, 1 CAPSULE, ORALLY, BID MDD2, NOTES: PT REPORTS HAS NOT STARED YET CONTINUE CYMBALTA CAPSULE DELAYED RELEASE PARTICLES, 60 MG, 1 CAPSULE, ORALLY, ONCE A DAY CONTINUE PERCOCET TABLET, 5-325 MG, 1 TABLET NEEDED, ORALLY, Q8H PRN MDD3 #45 TAB SHOULD LAST 30 DAYS NOTES: ISTOP REGISTRY REVIEWED AND DEMONSTRATES COMPLLIANCE. (REF # ) BRINGS IN MEDICATIONS WHICH IS APPROPRIATE FOR WHAT WAS DISPENSED. RECENT URINE TOXICOLOGY REVIEWED. NO UNAUTHORIZED MEDICATIONS. NO ILLICIT SUBSTANCES AND PRESCRIBED MEDICATIONS WERE PRESENT. URINE TOX TODAY, RISKS AND BENEFITS OF NARCOTIC/OPIOD MEDICATIONS WERE REVIEWED WITH PATIENT - THIS INCLUDES BUT IS NOT LIMITED TO RISK OF DEPENDANCE/DEVELOPMENT OF ADDICTION, MOOD DISTURBANCE AND DEPRESSION, OSTEOPOROSIS, HORMONAL AND LABIDAL CHANGES, RESPIRATORY DEPRESSION AND . PATIENT IS ADVISED NOT TO DRIVE OR DRINK ALCOHOL WHILE ON THESE MEDICATIONS. PROCEDURE CODES FA211 ESTABILISHED PATIENT [facility] FACILITY CHARGE DISPOSITION & COMMUNICATION FOLLOW UP 2 MONTHS ELECTRONICALLY SIGNED BY HARRISON RUSHING ON 10/31/2018 AT 01:11 PM EDT DISCLAIMER : THIS IS A VISIT SUMMARY EXTRACTED FROM THE [employer] CHART. IT IS NOT A COPY OF THE [employer] PROGRESS NOTE. MARY ANN
== END ==
LOC: M PAIN 14:45
PROVIDERS: ATTEND Nurse Practitioner Family
DX: M79.7 Fibromyalgia (principal); E11.9 Type 2 diabetes mellitus without complications; Z79.84 Long term (current) use of oral hypoglycemic drugs; Z79.82 Long term (current) use of aspirin; Z79.899 Other long term (current) drug therapy

== ENCOUNTER 2018-12-12 13:48 | Outpatient (RCR) | payer OTHER | END 2018-12-13 | LOC: M PT 13:48 | PROVIDERS: ATTEND Psychiatry & Neurology Neurology | DX: Z47.89 Encounter for other orthopedic aftercare (principal); M54.5 Low back pain; M54.2 Cervicalgia ==

== ENCOUNTER → 2019-01-06 | Outpatient (CLI) | payer OTHER ==
--- NOTE | 2019-01-07 01:49 | ECWPNPC ---
PATIENT NAME: CATALINA MEYERS : 1955 GENDER: FEMALE VISIT DATE: 01/06/2019 DISCHARGE DATE: 01/06/19 1504 VISIT LOCKED DATE TIME: PHYSICIAN: ELIEL RAZO RESOURCE: ELIEL RAZO REASON FOR APPOINTMENT 1. 6 WK F/U HISTORY OF PRESENT ILLNESS HISTORY OF PRESENT ILLNESS: 63 YEAR OLD FEMALE IN FOR FOLLOW UP RELATED TO CHRONIC LOW BACK PAIN WITH RADICULAR SYMPTOMS. SHE DOES ADMIT TO AN INCREASE IN PAIN RECENTLY RATING IT AT A 6/10 WHICH RESULTED HER IN TAKING AN EXTRA PERCOCET THROUGHOUT THE DAY. SHE FURTHER STATES THE PAIN THAT IS SHOOTING DOWN HER LEGS IS THE WORST. PAIN THE PATIENT DESCRIBES THE PAIN... FALL RISK SCREENING: SCREENING :NO FALLS REPORTED IN THE LAST YEAR CURRENT MEDICATIONS TAKING MULTIVITAMIN - TABLET CHEWABLE DIRECTED ORALLY OTC, DAILY TAKING GLUCOMETER DIRECTED DXE11.9 - TAKING BLOOD GLUCOSE TEST - STRIP DIRECTED DXE11.9 DAILY TAKING LANCETS - MISCELLANEOUS DIRECTED DXE11.9 DAILY TAKING NAPROXEN 500 MG TABLET 1 TABLET WITH FOOD OR MILK NEEDED ORALLY EVERY 12 HRS TAKING METHOCARBAMOL 500 MG TABLET 1 CAP ORALLY EVERY 6H PRN TAKING CYMBALTA 60 MG CAPSULE DELAYED RELEASE PARTICLES 1 CAPSULE ORALLY ONCE A DAY TAKING GABAPENTIN 300 MG CAPSULE 1 CAPSULE ORALLY Q8H TID TAKING SHINGRIX 50 MCG SUSPENSION RECONSTITUTED DIRECTED INTRAMUSCULAR ONCE, REPEAT 2-6 MONTHS TAKING PERCOCET 5-325 MG TABLET 1 TABLET NEEDED ORALLY Q8H PRN MDD3 #45 TAB SHOULD LAST 30 DAYS TAKING ATORVASTATIN CALCIUM 20 MG TABLET 1 TABLET ORALLY ONCE A DAY TAKING ASPIRIN 81 81 MG TABLET CHEWABLE 1 TABLET ORALLY ONCE A DAY TAKING METFORMIN HCL 500 MG TABLET 1 TABLET WITH A MEAL ORALLY BID NOT-TAKING LYRICA 100 MG CAPSULE 1 CAPSULE ORALLY BID MDD2, NOTES: PT REPORTS HAS NOT STARED YET NOT-TAKING CYMBALTA 30 MG CAPSULE DELAYED RELEASE PARTICLES 1 CAPSULE ORALLY BID MEDICATION LIST REVIEWED AND RECONCILED WITH THE PATIENT PAST MEDICAL HISTORY ROSACEA UTERINE PROLAPSE CYSTOCELE HX ENDOMETRIAL POLYPS/PMB LEFT SIDE SCIATICA, LUMBAGO SYPHILLIS-COMPLETED AT [facility] SYMPTOMATIC MENOPAUSAL OR FEMALE CLIMACTERIC STATES POSTMENOPAUSAL ATROPHIC VAGINITIS COUNSELING ON OTHER SEXUALLY TRANSMITTED DISEASES HGSIL ON PAP SMEAR NERVE CONDUCTION STUDY: NEUROLOGY DIABETES TYPE 2 COLONOSCOPY 2010, ENTIRE COLON CLEAR ALLERGIES N.K.D.A. SURGICAL HISTORY TUBAL LIGATION ENDOMETRIAL POLYP REMOVAL/HYSTEROSCOPY, D&C (ANIKET) 2010 COLONOSCOPY: NEGATIVE FOR POLYPS; DIVERTICULOSIS; HEMORRHOIDS (JEFFREY) 2010 LEFT SHOULDER- ROTATOR CUFF, 3 TEARS, AMB SURGERY 2016 FAMILY HISTORY FATHER: 69 YRS, AMI MOTHER: 80 YRS, CAUSE OF UNKNOWN TO PT SON(S): ALIVE 35,31 YRS, ONE SON 3 HRS AFTER . TWO OTHER SONS, BOTH ALIVE, NO KNOWN MEDICAL PROBLEMS DAUGHTER(S): ALIVE 34,27 YRS, BOTH, NO KNOWN MEDICAL PROBLEMS DENIES FAMILY HX BREAST, COLON OR OVARIAN CANCERS. SOCIAL HISTORY GENERAL: TOBACCO USE ARE YOU A:NONSMOKER HIV / HEP-C SCREENING HIV TEST OFFERED TO PATIENT:NO HEP-C TEST OFFERED TO PATIENT:NO OTHERS AT HOME: CHILD (ADULT SON),. EDUCATION LEVEL OF EDUCATION:HIGH SCHOOL DIET: NO HX EATING DISORDERS. LANGUAGE LANGUAGES SPOKEN:[place] DOMESTIC VIOLENCE DENIES SEXUAL, PHYSICAL OR EMOTIONAL ABUSE. RECREATIONAL DRUG USE DRUG USE?NO EXERCISE: WALKS. LEARNING BARRIERS / SPECIAL NEEDS CHANGE FROM LAST VISIT?NO BARRIERS TO LEARNING?NO HEARING IMPAIRED?NO VISION IMPAIRED?YES COGNITIVELY IMPAIRED?NO :CORRECTIVE LENSES READINESS TO LEARN?YES PAIN CLINIC PFS, CLERGY, PUBLIC HEALTH REFERRALS PFS REFERRAL NEEDED?NO CLERGY REFERRAL NEEDED?NO PUBLIC HEALTH REFERRAL NEEDED?NO WAS THE PROVIDER NOTIFIED OF ANY PERTINENT INFO?YES HAS THE PATIENT BEEN EDUCATED REGARDING HIS/HER PLAN OF CARE?YES HAS THE PATIENT BEEN EDUCATED REGARDING PAIN, THE RISK FOR PAIN, THE IMPORTANCE OF EFFECTIVE PAIN MANAGEMENT, AND THE PAIN ASSESSMENT PROCESS?YES LATEX QUESTIONNAIRE LATEX ALLERGY : HAVE YOU EVER DEVELOPED ANY TYPE OF REACTION AFTER HANDLING LATEX PRODUCTS SUCH RUBBER GLOVES, CONDOMS, DIAPHRAGMS, BALLOONS, SOCKS, OR UNDERWEAR?NO LATEX ALLERGY : HAVE YOU EVER DEVELOPED ANY TYPE OF REACTION DURING OR AFTER DENTAL APPOINTMENT, VAGINAL/RECTAL EXAMINATION, SURGICAL PROCEDURE, OR ANY OTHER EXPOSURE?NO LATEX RISK : HAVE YOU EVER HAD ANY DIFFICULTY BREATHING OR HIVES AFTER EATING OR HANDLING ANY FRUITS, OR VEGETABLES; SUCH KIWI, BANANAS, STONE FRUITS, OR CHESTNUTSNO LATEX RISK : DO YOU HAVE A PREVIOUS PERSONAL HISTORY OF MORE THAN NINE SURGERIES, SPINA BIFIDA, OR REPEATED CATHERTIZATIONS? NO LATEX RISK : ARE YOU FREQUENTLY EXPOSED TO LATEX PRODUCTS IN YOUR OCCUPATION?NO DATE ASKED : 10/17/2018 CAFFEINE CAFFEINE USE?YES 2 CUPS DAILY ADVANCE DIRECTIVE ADVANCE DIRECTIVE DISCUSSED WITH PATIENT:YES HCP YRN KEELYESPINOZA [phone] 2ND HCP LIZBETH RIVAS PRESYBETERIAN [id number] NONE MARITAL STATUS: , 2007, WERE 34 YRS, REMARRIED 2014. ALCOHOL SCREENING DID YOU HAVE A DRINK CONTAINING ALCOHOL IN THE PAST YEAR?YES HOW OFTEN DID YOU HAVE SIX OR MORE DRINKS ON ONE OCCASION IN THE PAST YEAR?LESS THAN MONTHLY (1 POINT) HOW MANY DRINKS DID YOU HAVE ON A TYPICAL DAY WHEN YOU WERE DRINKING IN THE PAST YEAR?3 OR 4 (1 POINT) HOW OFTEN DID YOU HAVE A DRINK CONTAINING ALCOHOL IN THE PAST YEAR?MONTHLY OR LESS (1 POINT) POINTS3 INTERPRETATIONPOSITIVE OCCUPATION: NOT WORKING , PHYICALLY DISABLED. SEXUAL HX HAD SEX IN THE LAST 12 MONTHS (VAGINAL, ORAL, OR ANAL)?YES WITHMEN ONLY PREVENTION STRATEGIES DISCUSSED:OTHER USE PROTECTION?NO LMP:POST MENOPAUSE HAVE YOU EVER HAD AN STD?YES HERPES?NO SYPHILIS?NO GC?NO CHLAMYDIA?NO REVIEWED WITH PT 12/25/17 1423 BVREVIEWED WITH PATIENT 06/19/18 1316 JSREVIEWED WITH PATIENT 01/06/19 1420 JS. HOSPITALIZATION/MAJOR DIAGNOSTIC PROCEDURE NO HOSPITALIZATION HISTORY. REVIEW OF SYSTEMS REVIEWED BY: PROVIDER: TARYN HERNANDEZ . CONSTITUTIONAL: ANY CHANGE IN YOUR MEDICAL CONDITION? NO . CHILLS NO . FEVER NO . INFECTION: DO YOU HAVE NEW INFECTIONS? NO . DO YOU HAVE HISTORY OF MRSA? NO . MUSCULOSKELETAL: ANY NEW PATTERNS OF PAIN OR NUMBNESS? YES, STATES INCREASED PAIN AND NUMBNESS TO BILATERAL LEGS - STARTED LAST SUNDAY, MADE IT DIFFICULT TO WALK . GASTROENTEROLOGY: ANY NEW CHANGE IN BOWEL CONTROL? NO . GENITOURINARY: ANY NEW CHANGE IN BLADDER CONTROL? NO . IS THERE A CHANCE YOU COULD BE ? NO . HEMATOLOGY/LYMPH: DO YOU TAKE ANY BLOOD THINNERS? (FOR EXAMPLE- COUMADIN, PLAVIX, AGGRENOX, PLATEL, PRADAXA, OR XARELTO) NO . WHEN WAS YOUR LAST DOSE? DATE: TIME: . NEUROLOGY: HAVE YOU FALLEN IN THE PAST 12 MONTHS? NO . ANY NEW EXTREMITY NUMBNESS OR WEAKNESS? NO . CARDIOLOGY: DO YOU HAVE A PACEMAKER OR DEFIBRILLATOR? NO . RESPIRATORY: HAVE YOU BEEN SICK IN THE PAST WEEK? NO . FEVER NO . FLU LIKE SYMPTOMS? NO . COUGH NO . INTEGUMENTARY: DO YOU HAVE ANY RASHES OR OPEN SORES? NO . ALLERGIC/IMMUNO: ARE YOU ALLERGIC TO IV DYE? NO . ANY NEW ALLERGIES? NO . PSYCHIATRIC: DO YOU HAVE THOUGHTS OF HURTING YOURSELF OR SOMEONE ELSE? NO . ARE YOU ABUSED, NEGLECTED, OR IN AN UNSAFE ENVIRONMENT? NO . ENDOCRINOLOGY: ARE YOU DIABETIC? YES . OTHER: DO YOU NEED ANY PRESCRIPTIONS? NO . IF YES, PLEASE LIST: ____ . ANY NEW PROBLEMS WITH YOUR MEDICATIONS? NO . WHEN DID YOU LAST EAT? ____ . WHEN DID YOU LAST DRINK? ____ . WHAT DID YOU LAST DRINK? ____ . NAME OF PERSON DRIVING YOU HOME? ____ . DO YOU HAVE ANY OTHER QUESTIONS OR CONCERNS NO . VITAL SIGNS WT 159.6 LBS, HT 61 IN, BMI 30.15 INDEX, BP 125/65 MM HG, HR 90 /MIN, RR 18 /MIN, TEMP 97.1 F, OXYGEN SAT % 94%, SAFE IN ENV? (Y/N) YES, NA INITIALS NH 13:56, REVIEWED BY: CARRIE. EXAMINATION GENERAL EXAMINATION: GENERAL APPEARANCE:NO ACUTE DISTRESS, WELL NOURISHED AND HYDRATED. LUNGS:CLEAR TO AUSCULTATION BILATERALLY, NO WHEEZES, RHONCHI, RALES. HEART:NO MURMURS, REGULAR RATE AND RHYTHM. BACK:POINT TENDER OVER L5-S1. NO ERYTHEMA, INCREASED WARMTH, OR SKIN ERUPTIONS NOTED AT SITE OF L5-S1. ASSESSMENTS LUMBAGO WITH SCIATICA, LEFT SIDE - M54.42 (PRIMARY) LUMBAGO WITH SCIATICA, RIGHT SIDE - M54.41 TREATMENT LUMBAGO WITH SCIATICA, LEFT SIDE NOTES: L5/S1 LESI. CLINICAL NOTES: 63 YEAR OLD FEMALE IN WITH A HX OF CHRONIC LOW BACK PAIN WITH RADICULAR SYMPTOMS. SHE DOES ADMIT TO INCREASED PAIN IN HER LEGS. EQUAL STRENGTH OF THE LOWER EXTREMITIES WITH FULL SENSATION. POSITIVE STRAIGHT LEG RAISE TEST BILATERALLY. GIVEN PRESENTING SYMPTOMS AND RESULTS OF PHYSICAL EXAMINATION RECOMMENDED BILATERAL EPIDURAL INJECTION AT L5-S1. WILL CONTINUE WITH CURRENT MEDICATIONS. PATIENT HAS EXPRESSED UNDERSTANDING OF AND WAS IN AGREEMENT WITH TREATMENT PLAN. , ISTOP REGISTRY REVIEWED AND DEMONSTRATES COMPLLIANCE. (REF # [id number] ) BRINGS IN MEDICATIONS WHICH IS APPROPRIATE FOR WHAT WAS DISPENSED. RECENT URINE TOXICOLOGY REVIEWED. NO UNAUTHORIZED MEDICATIONS. NO ILLICIT SUBSTANCES AND PRESCRIBED MEDICATIONS WERE PRESENT. , RISKS AND BENEFITS OF NARCOTIC/OPIOD MEDICATIONS WERE REVIEWED WITH PATIENT - THIS INCLUDES BUT IS NOT LIMITED TO RISK OF DEPENDANCE/DEVELOPMENT OF ADDICTION, MOOD DISTURBANCE AND DEPRESSION, OSTEOPOROSIS, HORMONAL AND LABIDAL CHANGES, RESPIRATORY DEPRESSION AND . PATIENT IS ADVISED NOT TO DRIVE OR DRINK ALCOHOL WHILE ON THESE MEDICATIONS. OTHERS CONTINUE PERCOCET TABLET, 5-325 MG, 1 TABLET NEEDED, ORALLY, Q8H PRN MDD3 #45 TAB SHOULD LAST 30 DAYS CONTINUE CYMBALTA CAPSULE DELAYED RELEASE PARTICLES, 30 MG, 1 CAPSULE, ORALLY, BID CONTINUE GABAPENTIN CAPSULE, 300 MG, 1 CAPSULE, ORALLY, Q8H TID PREVENTIVE MEDICINE PAIN CLINIC TEACHING: PROCEDURE TEACHING PRINTED AND REVIEWED INFORMATION ON EPIDURAL INJECTION WITH PATIENT. ALSO REVIEWED PRE-PROCEDURE INSTRUCTIONS. PATIENT VERBALIZED AN UNDERSTANDING. CYNDI BRUNO 01/06/2019 3:07:03 PM > . PROCEDURE CODES FA211 ESTABILISHED PATIENT [facility] CHARGE DISPOSITION & COMMUNICATION FOLLOW UP POST PROCEDURE (REASON: EPIDURAL L5-S1) ELECTRONICALLY SIGNED BY HARRISON DALEY ON 01/06/2019 AT 04:30 PM EDT DISCLAIMER : THIS IS A VISIT SUMMARY EXTRACTED FROM THE [email or web address] CHART. IT IS NOT A COPY OF THE [email or web address] PROGRESS NOTE. MARY ANN
== END ==
LOC: M PAIN 14:00
PROVIDERS: ATTEND Family Medicine
DX: M54.42 Lumbago with sciatica, left side (principal); M54.41 Lumbago with sciatica, right side; L71.9 Rosacea, unspecified; N81.4 Uterovaginal prolapse, unspecified; E11.9 Type 2 diabetes mellitus without complications; Z79.82 Long term (current) use of aspirin; Z79.84 Long term (current) use of oral hypoglycemic drugs; Z79.899 Other long term (current) drug therapy

== ENCOUNTER 2019-01-09 11:49 | Outpatient (RCR) | payer OTHER | END 2019-01-12 | LOC: M PT 11:49 | PROVIDERS: ATTEND Psychiatry & Neurology Neurology | DX: M54.5 Low back pain (principal); M54.2 Cervicalgia ==

== ENCOUNTER 2019-01-22 13:45 | Outpatient (RCR) | payer OTHER | END 2019-02-12 | LOC: M PT 13:45 | PROVIDERS: ATTEND Psychiatry & Neurology Neurology | DX: Z51.89 Encounter for other specified aftercare (principal); M54.2 Cervicalgia; M54.5 Low back pain ==

== ENCOUNTER → 2019-01-22 | Outpatient (CLI) | payer OTHER ==
[~2019-01-22] MED LIST changes: -DULO1CAP2; +DULO1CAP5
[2019-01-22 15:32] LABS: HEMOGLOBIN A1c 6.3 %
[2019-01-22 15:40] LABS: ALT/SGPT 37 U/L (12-78); BILIRUBIN,TOTAL 0.4 MG/DL (0.2-1.0); BLOOD UREA NITROGEN 21 MG/DL (7-18); CALCIUM LEVEL 9.7 MG/DL (8.8-10.2); CARBON DIOXIDE LEVEL 28 MEQ/L (21-32); CHLORIDE LEVEL 108 MEQ/L (98-107); CREATININE FOR GFR 0.96 MG/DL (0.55-1.30); GLOMERULAR FILTRATION RATE > 60.0 (>45); GLUCOSE, FASTING 94 MG/DL (70-100); POTASSIUM SERUM 4.7 MEQ/L (3.5-5.1); SODIUM LEVEL 143 MEQ/L (136-145); TOTAL PROTEIN 7.1 GM/DL (6.4-8.2)
[2019-01-22 15:48] LABS: TOTAL 25(OH) VITAMIN D 39.4 NG/ML (30.0-100.0)
== END ==
LOC: M LAB 14:36
PROVIDERS: ATTEND Nurse Practitioner Family
DX: E11.9 Type 2 diabetes mellitus without complications (principal); E78.2 Mixed hyperlipidemia; E55.9 Vitamin D deficiency, unspecified

== ENCOUNTER → 2019-02-04 | Outpatient (CLI) | payer OTHER | LOC: M PAIN 09:15 | PROVIDERS: ATTEND Anesthesiology | DX: M79.7 Fibromyalgia (principal); Z53.8 Procedure and treatment not carried out for other reasons ==

== ENCOUNTER → 2019-02-25 | Outpatient (CLI) | payer OTHER ==
--- NOTE | 2019-02-27 00:35 | ECWPNPC ---
PATIENT NAME: CATALINA MEYERS : 1955 GENDER: FEMALE VISIT DATE: 02/25/2019 DISCHARGE DATE: 02/25/19 1432 VISIT LOCKED DATE TIME: PHYSICIAN: ELIEL RAZO RESOURCE: ELIEL RAZO REASON FOR APPOINTMENT 1. FOLLOW UP-DISCUSS MEDS AND NO PROC HISTORY OF PRESENT ILLNESS HISTORY OF PRESENT ILLNESS: PAIN THE PATIENT DESCRIBES THE PAIN... 63 YEAR OLD FEMALE IN FOR CHRONIC PAIN FOLLOW UP. SHE WAS SCHEDULED FOR AN LESI AND HAS SINCE DECLINED TO HAVE THE PROCEDURE DONE SHE FEARS THE POTENTIAL SIDE EFFECTS. SHE HAS REQUESTED AN INCREASE IN THE QUANTITY OF PERCOCET SHE IS GIVEN. SHE RATES HER PAIN AT A 9/10 CURRENTLY AND DESCRIBES IT ACHING, SHARP, AND SHOOTING. SHE DENIES TAKING ANY MEDICATION TODAY. HER SCRIPT WAS FILLED ON 02/09/19 AND SHE IS NOTED TO HAVE 6 PILLS LEFT TODAY. FALL RISK SCREENING: SCREENING :NO FALLS REPORTED IN THE LAST YEAR CURRENT MEDICATIONS TAKING CYMBALTA 60 MG CAPSULE DELAYED RELEASE PARTICLES 1 CAPSULE ORALLY DAILY TAKING GABAPENTIN 300 MG CAPSULE 1 CAPSULE ORALLY Q8H TID TAKING MULTIVITAMIN - TABLET CHEWABLE DIRECTED ORALLY OTC, DAILY TAKING GLUCOMETER DIRECTED DXE11.9 - TAKING LANCETS - MISCELLANEOUS DIRECTED DXE11.9 DAILY TAKING NAPROXEN 500 MG TABLET 1 TABLET WITH FOOD OR MILK NEEDED ORALLY EVERY 12 HRS TAKING SHINGRIX 50 MCG SUSPENSION RECONSTITUTED DIRECTED INTRAMUSCULAR ONCE, REPEAT 2-6 MONTHS TAKING ATORVASTATIN CALCIUM 20 MG TABLET 1 TABLET ORALLY ONCE A DAY TAKING ASPIRIN 81 81 MG TABLET CHEWABLE 1 TABLET ORALLY ONCE A DAY TAKING METFORMIN HCL 500 MG TABLET 1 TABLET WITH A MEAL ORALLY BID TAKING METHOCARBAMOL 500 MG TABLET 1 CAP ORALLY EVERY 6H PRN TAKING BLOOD GLUCOSE TEST - STRIP DIRECTED DXE11.9 DAILY TAKING PERCOCET 5-325 MG TABLET 1 TABLET NEEDED ORALLY Q8H PRN MDD3 #45 TAB SHOULD LAST 30 DAYS TAKING CYMBALTA 60 MG CAPSULE DELAYED RELEASE PARTICLES 1 CAPSULE ORALLY ONCE A DAY NOT-TAKING LYRICA 100 MG CAPSULE 1 CAPSULE ORALLY BID MDD2, NOTES: PT REPORTS HAS NOT STARED YET MEDICATION LIST REVIEWED AND RECONCILED WITH THE PATIENT PAST MEDICAL HISTORY ROSACEA UTERINE PROLAPSE CYSTOCELE HX ENDOMETRIAL POLYPS/PMB LEFT SIDE SCIATICA, LUMBAGO SYPHILLIS-COMPLETED AT [facility] SYMPTOMATIC MENOPAUSAL OR FEMALE CLIMACTERIC STATES POSTMENOPAUSAL ATROPHIC VAGINITIS COUNSELING ON OTHER SEXUALLY TRANSMITTED DISEASES HGSIL ON PAP SMEAR NERVE CONDUCTION STUDY: NEUROLOGY DIABETES TYPE 2 COLONOSCOPY 2010, ENTIRE COLON CLEAR BACK PAIN ALLERGIES N.K.D.A. SURGICAL HISTORY TUBAL LIGATION ENDOMETRIAL POLYP REMOVAL/HYSTEROSCOPY, D&C (ANIKET) 2010 COLONOSCOPY: NEGATIVE FOR POLYPS; DIVERTICULOSIS; HEMORRHOIDS (REINMARINA) 2010 LEFT SHOULDER- ROTATOR CUFF, 3 TEARS, AMB SURGERY 2015 FAMILY HISTORY FATHER: 69 YRS, AMI MOTHER: 80 YRS, CAUSE OF UNKNOWN TO PT SON(S): ALIVE 35,31 YRS, ONE SON 3 HRS AFTER . TWO OTHER SONS, BOTH ALIVE, NO KNOWN MEDICAL PROBLEMS DAUGHTER(S): ALIVE 34,27 YRS, BOTH, NO KNOWN MEDICAL PROBLEMS DENIES FAMILY HX BREAST, COLON OR OVARIAN CANCERS. SOCIAL HISTORY GENERAL: TOBACCO USE ARE YOU A:NONSMOKER HIV / HEP-C SCREENING HIV TEST OFFERED TO PATIENT:NO HEP-C TEST OFFERED TO PATIENT:NO OTHERS AT HOME: CHILD (ADULT SON),. EDUCATION LEVEL OF EDUCATION:HIGH SCHOOL DIET: NO HX EATING DISORDERS. LANGUAGE LANGUAGES SPOKEN:[place] DOMESTIC VIOLENCE DENIES SEXUAL, PHYSICAL OR EMOTIONAL ABUSE. RECREATIONAL DRUG USE DRUG USE?NO EXERCISE: WALKS. LEARNING BARRIERS / SPECIAL NEEDS CHANGE FROM LAST VISIT?NO BARRIERS TO LEARNING?NO HEARING IMPAIRED?NO VISION IMPAIRED?YES COGNITIVELY IMPAIRED?NO :CORRECTIVE LENSES READINESS TO LEARN?YES PAIN CLINIC PFS, CLERGY, PUBLIC HEALTH REFERRALS PFS REFERRAL NEEDED?NO CLERGY REFERRAL NEEDED?NO PUBLIC HEALTH REFERRAL NEEDED?NO WAS THE PROVIDER NOTIFIED OF ANY PERTINENT INFO?YES HAS THE PATIENT BEEN EDUCATED REGARDING HIS/HER PLAN OF CARE?YES HAS THE PATIENT BEEN EDUCATED REGARDING PAIN, THE RISK FOR PAIN, THE IMPORTANCE OF EFFECTIVE PAIN MANAGEMENT, AND THE PAIN ASSESSMENT PROCESS?YES LATEX QUESTIONNAIRE LATEX ALLERGY : HAVE YOU EVER DEVELOPED ANY TYPE OF REACTION AFTER HANDLING LATEX PRODUCTS SUCH RUBBER GLOVES, CONDOMS, DIAPHRAGMS, BALLOONS, SOCKS, OR UNDERWEAR?NO LATEX ALLERGY : HAVE YOU EVER DEVELOPED ANY TYPE OF REACTION DURING OR AFTER DENTAL APPOINTMENT, VAGINAL/RECTAL EXAMINATION, SURGICAL PROCEDURE, OR ANY OTHER EXPOSURE?NO DATE ASKED : 10/17/2018 LATEX RISK : HAVE YOU EVER HAD ANY DIFFICULTY BREATHING OR HIVES AFTER EATING OR HANDLING ANY FRUITS, OR VEGETABLES; SUCH KIWI, BANANAS, STONE FRUITS, OR CHESTNUTSNO LATEX RISK : DO YOU HAVE A PREVIOUS PERSONAL HISTORY OF MORE THAN NINE SURGERIES, SPINA BIFIDA, OR REPEATED CATHERIZATIONS? NO LATEX RISK : ARE YOU FREQUENTLY EXPOSED TO LATEX PRODUCTS IN YOUR OCCUPATION?NO CAFFEINE CAFFEINE USE?YES 2 CUPS DAILY ADVANCE DIRECTIVE ADVANCE DIRECTIVE DISCUSSED WITH PATIENT:YES HCP YRN MEYERS [phone] 2ND HCP LIZBETH ROB TAOISM [id number] NONE MARITAL STATUS: , 2007, WERE 34 YRS, REMARRIED 2014. ALCOHOL SCREENING DID YOU HAVE A DRINK CONTAINING ALCOHOL IN THE PAST YEAR?YES HOW OFTEN DID YOU HAVE SIX OR MORE DRINKS ON ONE OCCASION IN THE PAST YEAR?LESS THAN MONTHLY (1 POINT) HOW MANY DRINKS DID YOU HAVE ON A TYPICAL DAY WHEN YOU WERE DRINKING IN THE PAST YEAR?3 OR 4 (1 POINT) HOW OFTEN DID YOU HAVE A DRINK CONTAINING ALCOHOL IN THE PAST YEAR?MONTHLY OR LESS (1 POINT) POINTS3 INTERPRETATIONPOSITIVE OCCUPATION: NOT WORKING , PHYICALLY DISABLED. SEXUAL HX HAD SEX IN THE LAST 12 MONTHS (VAGINAL, ORAL, OR ANAL)?YES WITHMEN ONLY PREVENTION STRATEGIES DISCUSSED:OTHER USE PROTECTION?NO LMP:POST MENOPAUSE HAVE YOU EVER HAD AN STD?YES HERPES?NO SYPHILIS?NO GC?NO CHLAMYDIA?NO REVIEWED WITH PT 12/25/17 1423 BVREVIEWED WITH PATIENT 06/19/18 1316 JSREVIEWED WITH PATIENT 01/06/19 1420 JSREVIEWED WITH PATIENT 02/25/19 1337 NLJ. HOSPITALIZATION/MAJOR DIAGNOSTIC PROCEDURE NO HOSPITALIZATION HISTORY. REVIEW OF SYSTEMS REVIEWED BY: PROVIDER: TARYN HERNANDEZ . CONSTITUTIONAL: ANY CHANGE IN YOUR MEDICAL CONDITION? NO . CHILLS NO . FEVER NO . INFECTION: DO YOU HAVE NEW INFECTIONS? NO . DO YOU HAVE HISTORY OF MRSA? NO . MUSCULOSKELETAL: ANY NEW PATTERNS OF PAIN OR NUMBNESS? YES- INCREASED PAIN IN NECK DOWN BILATERAL ARMS AND DOWN BILATERAL LEGS . GASTROENTEROLOGY: ANY NEW CHANGE IN BOWEL CONTROL? NO . GENITOURINARY: ANY NEW CHANGE IN BLADDER CONTROL? NO . IS THERE A CHANCE YOU COULD BE ? NO . HEMATOLOGY/LYMPH: DO YOU TAKE ANY BLOOD THINNERS? (FOR EXAMPLE- COUMADIN, PLAVIX, AGGRENOX, PLATEL, PRADAXA, OR XARELTO) YES- ASPRIN 81 MG DAILY . WHEN WAS YOUR LAST DOSE? DATE: TIME: . NEUROLOGY: HAVE YOU FALLEN IN THE PAST 12 MONTHS? NO . ANY NEW EXTREMITY NUMBNESS OR WEAKNESS? NO . CARDIOLOGY: DO YOU HAVE A PACEMAKER OR DEFIBRILLATOR? NO . RESPIRATORY: HAVE YOU BEEN SICK IN THE PAST WEEK? NO . FEVER NO . FLU LIKE SYMPTOMS? NO . COUGH NO . INTEGUMENTARY: DO YOU HAVE ANY RASHES OR OPEN SORES? NO . ALLERGIC/IMMUNO: ARE YOU ALLERGIC TO IV DYE? NO . ANY NEW ALLERGIES? NO . PSYCHIATRIC: DO YOU HAVE THOUGHTS OF HURTING YOURSELF OR SOMEONE ELSE? NO . ARE YOU ABUSED, NEGLECTED, OR IN AN UNSAFE ENVIRONMENT? NO . ENDOCRINOLOGY: ARE YOU DIABETIC? YES . OTHER: DO YOU NEED ANY PRESCRIPTIONS? YES- NEEDS PERCOCET REFILLED . IF YES, PLEASE LIST: ____PERCOCET REFILL, AND WOULD LIKE THEM INCREASED . ANY NEW PROBLEMS WITH YOUR MEDICATIONS? NO . WHEN DID YOU LAST EAT? ____ . WHEN DID YOU LAST DRINK? ____ . WHAT DID YOU LAST DRINK? ____ . NAME OF PERSON DRIVING YOU HOME? ____ . DO YOU HAVE ANY OTHER QUESTIONS OR CONCERNS YES- PATIENT DID NOT HAVE LESI DONE- STATES SHE DOES NOT WANT TO HAVE IT DONE, STATES PERCOCET IS NOT LASTING THE FULL 8 HOURS. . VITAL SIGNS WT 157 LBS, HT 61 IN, BMI 29.66 INDEX, BP 184/79 MM HG, HR 82 /MIN, RR 18 /MIN, TEMP 96.1 F, OXYGEN SAT % 98%, SAFE IN ENV? (Y/N) YES, NA INITIALS NM 13:41, REVIEWED BY: MERLY. EXAMINATION GENERAL EXAMINATION: GENERALNO ACUTE DISTRESS, WELL NOURISHED AND HYDRATED. PSYCHAPPROPRIATE MOOD AND AFFECT . LUNGS:CLEAR TO AUSCULTATION BILATERALLY, NO WHEEZES, RHONCHI, RALES. HEART:NO MURMURS, REGULAR RATE AND RHYTHM. ASSESSMENTS LOW BACK PAIN - M54.5 LUMBAGO WITH SCIATICA, LEFT SIDE - M54.42 LUMBAGO WITH SCIATICA, RIGHT SIDE - M54.41 TREATMENT OTHERS INCREASE GABAPENTIN CAPSULE, 300 MG, 1 CAPSULE IN THE AM AND IN THE AFTERNOON 2 BEFORE BED, ORALLY, Q8H TID, 30 DAYS, 120 CLINICAL NOTES: 63 YEAR OLD FEMALE IN FOR CHRONIC PAIN FOLLOW UP. GIVEN PRESENTING SYMPTOMS AND RESULTS OF PHYSICAL EXAMINATION RECOMMENDED INCREASING GABAPENTIN AND KEEPING PERCOCET QUANTITY THE SAME. PERCOCET DISCUSSED WITH PATIENT AND SHE WAS REMINDED THAT THIS WAS TO BE USED SPARINGLY AND THAT 45 TABS ARE TO LAST HER 30 DAYS. PATIENT HAS EXPRESSED UNDERSTANDING OF AND WAS IN AGREEMENT WITH TREATMENT PLAN. GIVEN TIME TO ASK QUESTIONS AND EXPRESS CONCERNS. , ISTOP REGISTRY REVIEWED AND DEMONSTRATES COMPLLIANCE. (REF # [id number] ) BRINGS IN MEDICATIONS WHICH IS APPROPRIATE FOR WHAT WAS DISPENSED. RECENT URINE TOXICOLOGY REVIEWED. NO UNAUTHORIZED MEDICATIONS. NO ILLICIT SUBSTANCES AND PRESCRIBED MEDICATIONS WERE PRESENT. PROCEDURE CODES FA211 ESTABILISHED [facility]IENT [facility] DISPOSITION & COMMUNICATION FOLLOW UP 2 MONTHS (REASON: MEDICATION CHANGE ) ELECTRONICALLY SIGNED BY HARRISON DALEY ON 02/26/2019 AT 01:25 PM EDT DISCLAIMER : THIS IS A VISIT SUMMARY EXTRACTED FROM THE [employer] CHART. IT IS NOT A COPY OF THE [employer] PROGRESS NOTE. MARY ANN
== END ==
LOC: M PAIN 13:30
PROVIDERS: ATTEND Family Medicine
DX: M54.42 Lumbago with sciatica, left side (principal); M54.41 Lumbago with sciatica, right side; G89.29 Other chronic pain; E11.9 Type 2 diabetes mellitus without complications; Z79.82 Long term (current) use of aspirin; Z79.84 Long term (current) use of oral hypoglycemic drugs; Z79.899 Other long term (current) drug therapy

== ENCOUNTER → 2019-03-19 | Outpatient (REF) | payer OTHER ==
[2019-03-19 14:23] LABS: ALBUMIN 3.6 GM/DL (3.2-5.2); ALT/SGPT 45 U/L (12-78); BILIRUBIN,TOTAL 0.4 MG/DL (0.2-1.0); BLOOD UREA NITROGEN 21 MG/DL (7-18); CARBON DIOXIDE LEVEL 30 MEQ/L (21-32); CHLORIDE LEVEL 109 MEQ/L (98-107); CREATININE FOR GFR 0.79 MG/DL (0.55-1.30); GLOMERULAR FILTRATION RATE > 60.0 (>45); GLUCOSE, FASTING 89 MG/DL (70-100); POTASSIUM SERUM 4.7 MEQ/L (3.5-5.1); SODIUM LEVEL 145 MEQ/L (136-145); TOTAL PROTEIN 6.4 GM/DL (6.4-8.2)
[2019-03-19 14:24] LABS: HEMOGLOBIN A1c 6.3 %
[2019-03-19 14:31] LABS: TOTAL 25(OH) VITAMIN D 36.1 NG/ML (30.0-100.0)
== END ==
LOC: M SFHCPLAZ 11:53
PROVIDERS: ATTEND Nurse Practitioner Family
DX: E11.9 Type 2 diabetes mellitus without complications (principal); E78.2 Mixed hyperlipidemia; E55.9 Vitamin D deficiency, unspecified

== ENCOUNTER → 2019-04-25 | Outpatient (CLI) | payer OTHER | LOC: M PAIN 13:30 | PROVIDERS: ATTEND Family Medicine | DX: M54.42 Lumbago with sciatica, left side (principal); M54.41 Lumbago with sciatica, right side; G89.29 Other chronic pain; E11.9 Type 2 diabetes mellitus without complications; Z79.82 Long term (current) use of aspirin; Z79.84 Long term (current) use of oral hypoglycemic drugs; Z79.899 Other long term (current) drug therapy ==

== ENCOUNTER → 2019-06-04 | Outpatient (REF) | payer OTHER ==
[2019-06-04 13:23] LABS: BASO % 0.4 % (0.0-1.0); EOS # 0.1 10^3/uL (0.0-0.5); EOS % 0.9 % (0.0-3.0); HEMATOCRIT 39.8 % (36.0-47.0); HEMOGLOBIN 12.2 g/dl (12.0-15.5); LYMPH % 32.6 % (24.0-44.0); MEAN CORPUSCULAR HEMOGLOBIN 29.1 pg (27.0-33.0); MEAN CORPUSCULAR HGB CONC 30.7 g/dl (32.0-36.5); MONO # 0.5 10^3/uL (0.0-0.8); MONO % 5.1 % (0.0-5.0); NEUTROPHILS # 5.7 10^3/uL (1.5-8.5); NEUTROPHILS % 60.7 % (36.0-66.0); PLATELET COUNT, AUTOMATED 374 10^3/uL (150-450); RED BLOOD COUNT 4.19 10^6/uL (4.00-5.40); WHITE BLOOD COUNT 9.3 10^3/uL (4.0-10.0)
[2019-06-04 13:50] LABS: BLOOD UREA NITROGEN 20 MG/DL (7-18); CALCIUM LEVEL 9.4 MG/DL (8.8-10.2); CARBON DIOXIDE LEVEL 31 MEQ/L (21-32); CHLORIDE LEVEL 108 MEQ/L (98-107); CREATININE FOR GFR 0.86 MG/DL (0.55-1.30); GLOMERULAR FILTRATION RATE > 60.0 (>45); GLUCOSE, FASTING 100 MG/DL (70-100); POTASSIUM SERUM 4.6 MEQ/L (3.5-5.1); SODIUM LEVEL 144 MEQ/L (136-145)
== END ==
LOC: M SFHCPLAZ 11:45
PROVIDERS: ATTEND Family Medicine
DX: Z01.818 Encounter for other preprocedural examination (principal)

== ENCOUNTER → 2019-06-25 | Outpatient (CLI) | payer OTHER ==
--- NOTE | 2019-06-27 04:13 | ECWPNPC ---
PATIENT NAME: CATALINA MEYERS : 1955 GENDER: FEMALE VISIT DATE: 06/25/2019 DISCHARGE DATE: 06/25/19 1419 VISIT LOCKED DATE TIME: PHYSICIAN: ELIEL RAZO RESOURCE: ELIEL RAZO REASON FOR APPOINTMENT 1. MEDS HISTORY OF PRESENT ILLNESS HISTORY OF PRESENT ILLNESS: PAIN THE PATIENT DESCRIBES THE PAIN... 63-YEAR-OLD FEMALE IN FOR CHRONIC PAIN FOLLOW-UP. SHE RATES HER PAIN CURRENTLY AT A 7 OUT OF 10 AND DESCRIBES IT ACHING, SORE, AND SHOOTING. SHE DOES ADMIT TO RECENT BACK SURGERY AND AN UPCOMING RIGHT ROTATOR CUFF REPAIR. FALL RISK SCREENING: SCREENING :NO FALLS REPORTED IN THE LAST YEAR CURRENT MEDICATIONS TAKING CYMBALTA 60 MG CAPSULE DELAYED RELEASE PARTICLES 1 CAPSULE ORALLY DAILY TAKING MULTIVITAMIN - TABLET CHEWABLE DIRECTED ORALLY OTC, DAILY TAKING GLUCOMETER DIRECTED DXE11.9 - TAKING BLOOD GLUCOSE TEST - STRIP DIRECTED DXE11.9 DAILY TAKING GABAPENTIN 300 MG CAPSULE 1 CAPSULE IN THE AM AND IN THE AFTERNOON 2 BEFORE BED ORALLY Q8H TID TAKING METFORMIN HCL 500 TABLET 1 TABLET WITH A MEAL ORALLY BID TAKING ATORVASTATIN CALCIUM 20 MG TABLET 1 TABLET ORALLY ONCE A DAY TAKING LANCETS - MISCELLANEOUS DIRECTED DXE11.9 DAILY TAKING METHOCARBAMOL 500 MG TABLET 1 CAP ORALLY EVERY 6H PRN TAKING PERCOCET 5-325 MG TABLET 1 TABLET NEEDED ORALLY Q8H PRN MDD3 #45 TAB SHOULD LAST 30 DAYS TAKING OXYCODONE-ACETAMINOPHEN 5-325 MG TABLET ORALLY 7 DAY SUPPLY, NOTES: POST OP NOT-TAKING ASPIRIN 81 81 MG TABLET CHEWABLE 1 TABLET ORALLY ONCE A DAY, NOTES: HOLDING CURRENTLY NOT-TAKING NAPROXEN 500 MG TABLET 1 TABLET WITH FOOD ORALLY EVERY 12 HRS, NOTES: CURRENTLY HOLDING PER SURGEON NOT-TAKING CIPRO 500 MG TABLET 1 TABLET ORALLY EVERY 12 HRS NOT-TAKING METFORMIN HCL 500 MG TABLET 1 TABLET WITH A MEAL ORALLY TWICE DAILY NOT-TAKING SHINGRIX 50 MCG SUSPENSION RECONSTITUTED DIRECTED INTRAMUSCULAR ONCE, REPEAT 2-6 MONTHS NOT-TAKING CYMBALTA 60 MG CAPSULE DELAYED RELEASE PARTICLES 1 CAPSULE ORALLY ONCE A DAY, NOTES: DUPLICATE NOT-TAKING LYRICA 100 MG CAPSULE 1 CAPSULE ORALLY BID MDD2, NOTES: PT REPORTS HAS NOT STARED YET MEDICATION LIST REVIEWED AND RECONCILED WITH THE PATIENT PAST MEDICAL HISTORY ROSACEA UTERINE PROLAPSE CYSTOCELE HX ENDOMETRIAL POLYPS/PMB LEFT SIDE SCIATICA, LUMBAGO SYPHILLIS-COMPLETED AT [facility] SYMPTOMATIC MENOPAUSAL OR FEMALE CLIMACTERIC STATES POSTMENOPAUSAL ATROPHIC VAGINITIS COUNSELING ON OTHER SEXUALLY TRANSMITTED DISEASES HGSIL ON PAP SMEAR NERVE CONDUCTION STUDY: NEUROLOGY DIABETES TYPE 2 COLONOSCOPY 2010, ENTIRE COLON CLEAR BACK PAIN ALLERGIES N.K.D.A. SURGICAL HISTORY TUBAL LIGATION ENDOMETRIAL POLYP REMOVAL/HYSTEROSCOPY, D&C (ANIKET) 2010 COLONOSCOPY: NEGATIVE FOR POLYPS; DIVERTICULOSIS; HEMORRHOIDS (REINMARINA) 2010 LEFT SHOULDER- ROTATOR CUFF, 3 TEARS, AMB SURGERY 2016 BACK SURGERY 2019-06-2 FAMILY HISTORY FATHER: 69 YRS, AMI MOTHER: 80 YRS, CAUSE OF UNKNOWN TO PT SON(S): ALIVE 35,31 YRS, ONE SON 3 HRS AFTER . TWO OTHER SONS, BOTH ALIVE, NO KNOWN MEDICAL PROBLEMS DAUGHTER(S): ALIVE 34,27 YRS, BOTH, NO KNOWN MEDICAL PROBLEMS DENIES FAMILY HX BREAST, COLON OR OVARIAN CANCERS. SOCIAL HISTORY GENERAL: TOBACCO USE ARE YOU A:NONSMOKER HIV / HEP-C SCREENING HIV TEST OFFERED TO PATIENT:NO HEP-C TEST OFFERED TO PATIENT:NO OTHERS AT HOME: CHILD (ADULT SON),. EDUCATION LEVEL OF EDUCATION:HIGH SCHOOL DIET: NO HX EATING DISORDERS. LANGUAGE LANGUAGES SPOKEN:[place] DOMESTIC VIOLENCE DENIES SEXUAL, PHYSICAL OR EMOTIONAL ABUSE. RECREATIONAL DRUG USE DRUG USE?NO EXERCISE: WALKS. LEARNING BARRIERS / SPECIAL NEEDS CHANGE FROM LAST VISIT?NO BARRIERS TO LEARNING?NO HEARING IMPAIRED?NO VISION IMPAIRED?YES COGNITIVELY IMPAIRED?NO :CORRECTIVE LENSES READINESS TO LEARN?YES PAIN CLINIC PFS, CLERGY, PUBLIC HEALTH REFERRALS PFS REFERRAL NEEDED?NO CLERGY REFERRAL NEEDED?NO PUBLIC HEALTH REFERRAL NEEDED?NO WAS THE PROVIDER NOTIFIED OF ANY PERTINENT INFO?YES HAS THE PATIENT BEEN EDUCATED REGARDING HIS/HER PLAN OF CARE?YES HAS THE PATIENT BEEN EDUCATED REGARDING PAIN, THE RISK FOR PAIN, THE IMPORTANCE OF EFFECTIVE PAIN MANAGEMENT, AND THE PAIN ASSESSMENT PROCESS?YES LATEX QUESTIONNAIRE LATEX ALLERGY : HAVE YOU EVER DEVELOPED ANY TYPE OF REACTION AFTER HANDLING LATEX PRODUCTS SUCH RUBBER GLOVES, CONDOMS, DIAPHRAGMS, BALLOONS, SOCKS, OR UNDERWEAR?NO LATEX ALLERGY : HAVE YOU EVER DEVELOPED ANY TYPE OF REACTION DURING OR AFTER DENTAL APPOINTMENT, VAGINAL/RECTAL EXAMINATION, SURGICAL PROCEDURE, OR ANY OTHER EXPOSURE?NO DATE ASKED : 10/17/2018 LATEX RISK : HAVE YOU EVER HAD ANY DIFFICULTY BREATHING OR HIVES AFTER EATING OR HANDLING ANY FRUITS, OR VEGETABLES; SUCH KIWI, BANANAS, STONE FRUITS, OR CHESTNUTSNO LATEX RISK : DO YOU HAVE A PREVIOUS PERSONAL HISTORY OF MORE THAN NINE SURGERIES, SPINA BIFIDA, OR REPEATED CATHERIZATIONS? NO LATEX RISK : ARE YOU FREQUENTLY EXPOSED TO LATEX PRODUCTS IN YOUR OCCUPATION?NO CAFFEINE CAFFEINE USE?YES 2 CUPS DAILY ADVANCE DIRECTIVE ADVANCE DIRECTIVE DISCUSSED WITH PATIENT:YES HCP YRN MEYERS [phone] 2ND HCP LIZBETH RIVAS [facility] [id number] NONE MARITAL STATUS: , 2007, WERE 34 YRS, REMARRIED 2014. ALCOHOL SCREENING DID YOU HAVE A DRINK CONTAINING ALCOHOL IN THE PAST YEAR?YES HOW OFTEN DID YOU HAVE SIX OR MORE DRINKS ON ONE OCCASION IN THE PAST YEAR?LESS THAN MONTHLY (1 POINT) HOW MANY DRINKS DID YOU HAVE ON A TYPICAL DAY WHEN YOU WERE DRINKING IN THE PAST YEAR?3 OR 4 (1 POINT) HOW OFTEN DID YOU HAVE A DRINK CONTAINING ALCOHOL IN THE PAST YEAR?MONTHLY OR LESS (1 POINT) POINTS3 INTERPRETATIONPOSITIVE OCCUPATION: NOT WORKING , PHYICALLY DISABLED. SEXUAL HX HAD SEX IN THE LAST 12 MONTHS (VAGINAL, ORAL, OR ANAL)?YES WITHMEN ONLY PREVENTION STRATEGIES DISCUSSED:OTHER USE PROTECTION?NO LMP:POST MENOPAUSE HAVE YOU EVER HAD AN STD?YES HERPES?NO SYPHILIS?NO GC?NO CHLAMYDIA?NO REVIEWED WITH PT 12/25/17 1423 BVREVIEWED WITH PATIENT 06/19/18 1316 JSREVIEWED WITH PATIENT 01/06/19 1420 JSREVIEWED WITH PATIENT 02/25/19 1337 NLJREVIEWED WITH PATIENT 04/25/19 1348 NLJ. HOSPITALIZATION/MAJOR DIAGNOSTIC PROCEDURE BACK SURGERY 2019-06-19 REVIEW OF SYSTEMS REVIEWED BY: PROVIDER: TARYN TERRY-Mode . CONSTITUTIONAL: ANY CHANGE IN YOUR MEDICAL CONDITION? NO . CHILLS NO . FEVER NO . INFECTION: DO YOU HAVE NEW INFECTIONS? NO . DO YOU HAVE HISTORY OF MRSA? NO . MUSCULOSKELETAL: ANY NEW PATTERNS OF PAIN OR NUMBNESS? YES RIGHT SHOULDER HAS BEEN IDENTIFIED WITH ROTATOR CUFF TEAR WILL BE SEEING ORTHO 07-21-18 . GASTROENTEROLOGY: ANY NEW CHANGE IN BOWEL CONTROL? NO . GENITOURINARY: ANY NEW CHANGE IN BLADDER CONTROL? NO . IS THERE A CHANCE YOU COULD BE ? NO . HEMATOLOGY/LYMPH: DO YOU TAKE ANY BLOOD THINNERS? (FOR EXAMPLE- COUMADIN, PLAVIX, AGGRENOX, PLATEL, PRADAXA, OR XARELTO) NO . WHEN WAS YOUR LAST DOSE? DATE: TIME: . NEUROLOGY: HAVE YOU FALLEN IN THE PAST 12 MONTHS? NO . ANY NEW EXTREMITY NUMBNESS OR WEAKNESS? NO . CARDIOLOGY: DO YOU HAVE A PACEMAKER OR DEFIBRILLATOR? NO . RESPIRATORY: HAVE YOU BEEN SICK IN THE PAST WEEK? NO . FEVER NO . FLU LIKE SYMPTOMS? NO . COUGH NO . INTEGUMENTARY: DO YOU HAVE ANY RASHES OR OPEN SORES? NO . ALLERGIC/IMMUNO: ARE YOU ALLERGIC TO IV DYE? NO . ANY NEW ALLERGIES? NO . PSYCHIATRIC: DO YOU HAVE THOUGHTS OF HURTING YOURSELF OR SOMEONE ELSE? NO . ARE YOU ABUSED, NEGLECTED, OR IN AN UNSAFE ENVIRONMENT? NO . ENDOCRINOLOGY: ARE YOU DIABETIC? NO . OTHER: DO YOU NEED ANY PRESCRIPTIONS? METHOCARBONAL AND DISCUSSED POST OP MEDICATIONS . IF YES, PLEASE LIST: ____ . ANY NEW PROBLEMS WITH YOUR MEDICATIONS? NO . WHEN DID YOU LAST EAT? ____ . WHEN DID YOU LAST DRINK? ____ . WHAT DID YOU LAST DRINK? ____ . NAME OF PERSON DRIVING YOU HOME? ____ . VITAL SIGNS WT 157.2 LBS, HT 61 IN, BMI 29.70 INDEX, BP 131/63 MM HG, HR 110 /MIN, RR 18 /MIN, TEMP 97.5 F, OXYGEN SAT % 97%, NA INITIALS AW 1331. EXAMINATION GENERAL EXAMINATION: GENERALNO ACUTE DISTRESS, WELL NOURISHED AND HYDRATED. PSYCHAPPROPRIATE MOOD AND AFFECT . LUNGS:CLEAR TO AUSCULTATION BILATERALLY, NO WHEEZES, RHONCHI, RALES. HEART:NO MURMURS, REGULAR RATE AND RHYTHM. ASSESSMENTS LUMBAGO WITH SCIATICA, LEFT SIDE - M54.42 (PRIMARY) LUMBAGO WITH SCIATICA, RIGHT SIDE - M54.41 TREATMENT LUMBAGO WITH SCIATICA, LEFT SIDE REFILL METHOCARBAMOL TABLET, 500 MG, 1 CAP, ORALLY, EVERY 6H PRN, 30 DAYS, 50, REFILLS 1 CLINICAL NOTES: 63-YEAR-OLD FEMALE IN FOR CHRONIC PAIN FOLLOW-UP. GIVEN PRESENTING SYMPTOMS AND RESULTS OF PHYSICAL EXAMINATION RECOMMENDED CONTINUATION OF CURRENT MEDICATION REGIMEN WITH FOLLOW-UP IN 3 MONTHS. PATIENT HAS EXPRESSED UNDERSTANDING OF AND WAS IN AGREEMENT WITH TREATMENT PLAN. GIVEN TIME TO ASK QUESTIONS AND EXPRESS CONCERNS., ISTOP REGISTRY REVIEWED AND DEMONSTRATES COMPLLIANCE. (REF # [id number] ) BRINGS IN MEDICATIONS WHICH IS APPROPRIATE FOR WHAT WAS DISPENSED. RECENT URINE TOXICOLOGY REVIEWED. NO UNAUTHORIZED MEDICATIONS. NO ILLICIT SUBSTANCES AND PRESCRIBED MEDICATIONS WERE PRESENT. PROCEDURE CODES FA211 ESTABILISHED PATIENT [facility] CHARGE DISPOSITION & COMMUNICATION FOLLOW UP 3 MONTHS (REASON: BACK PAIN) ELECTRONICALLY SIGNED BY HARRISON DALEY ON 06/26/2019 AT 10:31 AM EST DISCLAIMER : THIS IS A VISIT SUMMARY EXTRACTED FROM THE [employer] CHART. IT IS NOT A COPY OF THE [employer] PROGRESS NOTE. MTDD
== END ==
LOC: M PAIN 13:30
PROVIDERS: ATTEND Family Medicine
DX: M54.42 Lumbago with sciatica, left side (principal); M54.41 Lumbago with sciatica, right side; G89.29 Other chronic pain; E11.9 Type 2 diabetes mellitus without complications; Z79.84 Long term (current) use of oral hypoglycemic drugs; Z79.891 Long term (current) use of opiate analgesic; Z79.899 Other long term (current) drug therapy

== ENCOUNTER → 2019-08-11 | Outpatient (REF) | payer OTHER ==
[2019-08-11 19:06] LABS: HEMATOCRIT 39.4 % (36.0-47.0); HEMOGLOBIN 11.8 g/dl (12.0-15.5); MEAN CORPUSCULAR HEMOGLOBIN 27.5 pg (27.0-33.0); MEAN CORPUSCULAR HGB CONC 29.9 g/dl (32.0-36.5); MEAN CORPUSCULAR VOLUME 91.8 fl (80.0-96.0); PLATELET COUNT, AUTOMATED 423 10^3/uL (150-450); RED BLOOD COUNT 4.29 10^6/uL (4.00-5.40); WHITE BLOOD COUNT 8.4 10^3/uL (4.0-10.0)
[2019-08-11 19:26] LABS: BLOOD UREA NITROGEN 18 MG/DL (7-18); CALCIUM LEVEL 9.2 MG/DL (8.8-10.2); CARBON DIOXIDE LEVEL 31 MEQ/L (21-32); CHLORIDE LEVEL 106 MEQ/L (98-107); CREATININE FOR GFR 0.88 MG/DL (0.55-1.30); GLOMERULAR FILTRATION RATE > 60.0 (>45); GLUCOSE, FASTING 121 MG/DL (70-100); POTASSIUM SERUM 4.5 MEQ/L (3.5-5.1); SODIUM LEVEL 144 MEQ/L (136-145)
== END ==
LOC: M SFHCPLAZ 14:36
PROVIDERS: ATTEND Family Medicine
DX: Z01.818 Encounter for other preprocedural examination (principal)

== ENCOUNTER → 2019-08-13 | Outpatient (CLI) | payer OTHER ==
--- NOTE | 2019-08-13 15:28 | ECHO ---
DATE OF PROCEDURE: 08/13/2019 AGE: 63. GENDER: Female. Height 61 inches. Weight 155 pounds. Body surface area 1.7 meters squared. Location: Outpatient REFERRING PHYSICIAN: Dr. Radha Polanco INDICATION: Murmur. MEASUREMENTS 2-D measurements: RV - 3.0 cm LV - 4.0 cm Septum 1.0 cm Posterior wall 1.0 cm Aortic root 2.9 cm LA 3.3 cm LVEF 75% DOPPLER MEASUREMENTS: AV 1.6 meters per second LVOT diameter 1.8 cm MV-E 81, A 95, E/A ratio 0.85 Early mitral deceleration time 176 milliseconds E prime medial 7.3, A prime medial 9.9, E prime lateral 12.3 Average E/E prime ratio 8.3 /PCWP 12 mmHg PV 0.8 meters per second Pulmonary artery acceleration time 120 milliseconds RVSP 29 mmHg IVC 1.1 cm COMMENTS: Normal sinus rhythm without intraventricular conduction disturbance. M-mode and two-dimensional echocardiography was performed with pulsed, continuous wave, color flow and tissue Doppler studies. Normal left ventricular size, wall thickness and hyperkinetic wall motion. Normal left atrial size with grade 1 LV diastolic dysfunction but currently normal estimated mean left atrial pressure. Normal right heart chamber sizes and motion and estimated pulmonary arterial pressure. Normal IVC size and collapse against an elevated central venous pressure. Marginal aortic valvular sclerosis without stenosis and only trace insufficiency. Normal aortic root and proximal ascending aortic diameters. Normal appearing and functioning mitral valve. Normal appearing tricuspid valve with very mild insufficiency (physiologic). No apparent intracardiac mass or pericardial effusion. Thank you, Foreign Mejia MD [facility]
== END ==
LOC: M CARPUL 11:32
PROVIDERS: ATTEND Family Medicine
DX: R01.1 Cardiac murmur, unspecified (principal)

== ENCOUNTER 2019-09-10 12:30 | Outpatient (RCR) | payer OTHER | END 2019-09-13 | LOC: M PT 12:30 | PROVIDERS: ATTEND Orthopaedic Surgery | DX: M25.511 Pain in right shoulder (principal); S46.011D Strain of muscle(s) and tendon(s) of the rotator cuff of right shoulder, subsequent encounter; Z98.890 Other specified postprocedural states ==

== ENCOUNTER → 2019-09-11 | Outpatient (REF) | payer OTHER ==
[2019-09-11 12:29] LABS: BASO % 0.3 % (0.0-1.0); EOS # 0.1 10^3/uL (0.0-0.5); EOS % 1.5 % (0.0-3.0); HEMATOCRIT 34.3 % (36.0-47.0); HEMOGLOBIN 10.4 g/dl (12.0-15.5); LYMPH # 2.3 10^3/uL (1.5-5.0); LYMPH % 31.5 % (24.0-44.0); MEAN CORPUSCULAR HEMOGLOBIN 27.4 pg (27.0-33.0); MEAN CORPUSCULAR HGB CONC 30.3 g/dl (32.0-36.5); MEAN CORPUSCULAR VOLUME 90.5 fl (80.0-96.0); MONO # 0.4 10^3/uL (0.0-0.8); MONO % 5.3 % (0.0-5.0); NEUTROPHILS # 4.4 10^3/uL (1.5-8.5); PLATELET COUNT, AUTOMATED 440 10^3/uL (150-450); RED BLOOD COUNT 3.79 10^6/uL (4.00-5.40); WHITE BLOOD COUNT 7.2 10^3/uL (4.0-10.0)
[2019-09-11 12:53] LABS: BLOOD UREA NITROGEN 23 MG/DL (7-18); CALCIUM LEVEL 9.3 MG/DL (8.8-10.2); CARBON DIOXIDE LEVEL 29 MEQ/L (21-32); CHLORIDE LEVEL 107 MEQ/L (98-107); CREATININE FOR GFR 0.85 MG/DL (0.55-1.30); GLOMERULAR FILTRATION RATE > 60.0 (>45); GLUCOSE, FASTING 126 MG/DL (70-100); POTASSIUM SERUM 4.4 MEQ/L (3.5-5.1); SODIUM LEVEL 142 MEQ/L (136-145)
== END ==
LOC: M SFHCPLAZ 10:17
PROVIDERS: ATTEND Nurse Practitioner Family
DX: R31.0 Gross hematuria (principal)

== ENCOUNTER → 2019-09-12 | Outpatient (REF) | payer OTHER ==
[2019-09-12 13:09] LABS: AMORPHOUS SEDIMENT SMALL (NEGATIVE); APPEARANCE, URINE CLOUDY (CLEAR); BACTERIA, URINE AUTO NEGATIVE (NEGATIVE); BILIRUBIN, URINE AUTO NEGATIVE (NEGATIVE); BLOOD, URINE BLOOD 3+ (NEGATIVE); COLOR, URINE RED (YELLOW); GLUCOSE, URINE (UA) AUTO NEGATIVE (NEGATIVE); KETONE, URINE AUTO NEGATIVE (NEGATIVE); LEUKOCYTE ESTERASE, URINE AUTO NEGATIVE (NEGATIVE); MUCUS, URINE SMALL (NEGATIVE); NITRITE, URINE AUTO NEGATIVE (NEGATIVE); PROTEIN, URINE AUTO 2+ mg/dL (NEGATIVE); RBC, URINE AUTO TNTC /HPF (0-3); SPECIFIC GRAVITY URINE AUTO 1.014 (1.002-1.035); SQUAMOUS EPITHELIAL CELL UR AU 1 /HPF (0-6); TRANSITIONAL EPITHELIAL AUTO 1 /HPF; UROBILINOGEN, URINE AUTO 0.2 mg/dL (0.0-2.0); WBC, URINE AUTO 10 /HPF (0-3)
== END ==
LOC: M SFHCPLAZ 12:44
PROVIDERS: ATTEND Nurse Practitioner Family
DX: R31.0 Gross hematuria (principal)

== ENCOUNTER → 2019-09-16 | Outpatient (CLI) | payer OTHER ==
[~2019-09-16] MED LIST changes: +ISOVUE-370 76% 100ML VIAL (Q9967) As Ordered ONE
--- NOTE | 2019-09-16 09:09 | REPVR ---
PROCEDURE INFORMATION: Exam: CT Abdomen And Pelvis Without And With Contrast; Urography Exam date and time: 09/16/2019 7:56 AM Age: 63 years old Clinical indication: Other: Hematuria TECHNIQUE: Imaging protocol: Computed tomography of the abdomen and pelvis without and with intravenous contrast. Exam focused on the kidneys and ureters. Radiation optimization: All CT scans at this facility use at least one of these dose optimization techniques: automated exposure control; mA and/or kV adjustment per patient size (includes targeted exams where dose is matched to clinical indication); or iterative reconstruction. Contrast material: ISOVUE 370; Contrast volume: 100 ml; Contrast route: IV; COMPARISON: CR Spine. Lumbosacral, complete 07/20/2017 11:07 AM FINDINGS: Liver: Hepatomegaly and steatosis. Gallbladder and bile ducts: Cholelithiasis. Pancreas: Normal. No ductal dilation. Spleen: Normal. No splenomegaly. Adrenals: Normal. No mass. Kidneys and ureters: Normal. No hydronephrosis. Visualized ureters are unremarkable. Stomach and bowel: Normal. No obstruction. No mucosal thickening. Intraperitoneal space: Unremarkable. No free air. No significant fluid collection. Lymph nodes: Unremarkable. No enlarged lymph nodes. Vasculature: Unremarkable. No abdominal aortic aneurysm. Bladder: Focal enhancing exophytic soft tissue mass along the right posterolateral urinary bladder wall measuring approximately 1 cm in diameter. Reproductive: Unremarkable. Bones/joints: Postoperative changes in the lower lumbar spine. Transpedicular screws are noted at L4-L5. 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 Soft tissues: Unremarkable. IMPRESSION: Focal enhancing exophytic soft tissue mass along the right posterolateral urinary bladder wall measuring approximately 1 cm in diameter. Electronically signed by: Blake Samuels On 09/16/2019 09:08:50 AM
== END ==
LOC: M RAD 07:41
PROVIDERS: ATTEND Nurse Practitioner Family
DX: N32.89 Other specified disorders of bladder (principal); R31.0 Gross hematuria
CPT/HCPCS: 74178; Q9967

== ENCOUNTER → 2019-09-22 | Outpatient (REF) | payer OTHER ==
[~2019-09-22] MED LIST changes: -ISOVUE-370 76% 100ML VIAL (Q9967) As Ordered ONE
== END ==
LOC: M SMT 16:47
PROVIDERS: ATTEND Nurse Practitioner Family
DX: R31.0 Gross hematuria (principal)

== ENCOUNTER → 2019-09-24 | Outpatient (CLI) | payer OTHER ==
--- NOTE | 2019-09-26 06:02 | ECWPNPC ---
PATIENT NAME: CATALINA MEYERS : 1955 GENDER: FEMALE VISIT DATE: 09/24/2019 DISCHARGE DATE: 09/24/19 1220 VISIT LOCKED DATE TIME: PHYSICIAN: ELIEL RAZO RESOURCE: ELIEL RAZO REASON FOR APPOINTMENT 1. 3 MONTHS HISTORY OF PRESENT ILLNESS HISTORY OF PRESENT ILLNESS: PAIN THE PATIENT DESCRIBES THE PAIN... 63-YEAR-OLD FEMALE IN FOR CHRONIC PAIN FOLLOW-UP. SHE RATES HER PAIN CURRENTLY AT AN 8 OUT OF 10 AND DESCRIBES IT ACHING, SORE, AND SHOOTING. SHE FEELS HER MEDICATIONS ARE WORKING WELL AND DENIES MED SIDE EFFECTS AT THIS TIME. FALL RISK SCREENING: SCREENING :NO FALLS REPORTED IN THE LAST YEAR CURRENT MEDICATIONS TAKING CYMBALTA 60 MG CAPSULE DELAYED RELEASE PARTICLES 1 CAPSULE ORALLY DAILY TAKING MULTIVITAMIN - TABLET CHEWABLE DIRECTED ORALLY OTC, DAILY TAKING OXYCODONE-ACETAMINOPHEN 5-325 MG TABLET ORALLY 7 DAY SUPPLY, NOTES: POST OP TAKING GLUCOMETER DIRECTED DXE11.9 - TAKING LANCETS - MISCELLANEOUS DIRECTED DXE11.9 DAILY TAKING METHOCARBAMOL 500 MG TABLET 1 CAP ORALLY EVERY 6H PRN TAKING ATORVASTATIN CALCIUM 20 MG TABLET 1 TABLET ORALLY ONCE A DAY TAKING METFORMIN HCL 500 TABLET 1 TABLET WITH A MEAL ORALLY BID TAKING BLOOD GLUCOSE TEST - STRIP DIRECTED DXE11.9 DAILY AND PRN TAKING GABAPENTIN 300 MG CAPSULE 1 CAPSULE IN THE AM AND IN THE AFTERNOON 2 BEFORE BED ORALLY Q8H TID NOT-TAKING SULFAMETHOXAZOLE-TRIMETHOPRIM 800-160 MG TABLET 1 TABLET 1 HOUR PRIOR TO YOUR CYSTOSCOPY ORALLY ONCE NOT-TAKING ASPIRIN ADULT 325 MG TABLET 1 TAB ORALLY DAILY X 28 DAYS PER ORTHO MEDICATION LIST REVIEWED AND RECONCILED WITH THE PATIENT PAST MEDICAL HISTORY ROSACEA UTERINE PROLAPSE CYSTOCELE HX ENDOMETRIAL POLYPS/PMB LEFT SIDE SCIATICA, LUMBAGO SYPHILLIS-COMPLETED AT [facility] SYMPTOMATIC MENOPAUSAL OR FEMALE CLIMACTERIC STATES POSTMENOPAUSAL ATROPHIC VAGINITIS COUNSELING ON OTHER SEXUALLY TRANSMITTED DISEASES HGSIL ON PAP SMEAR NERVE CONDUCTION STUDY: NEUROLOGY DIABETES TYPE 2 COLONOSCOPY 2010, ENTIRE COLON CLEAR BACK PAIN BLADDER TUMOR ALLERGIES N.K.D.A. SURGICAL HISTORY TUBAL LIGATION ENDOMETRIAL POLYP REMOVAL/HYSTEROSCOPY, D&C (ANIKET) 2010 COLONOSCOPY: NEGATIVE FOR POLYPS; DIVERTICULOSIS; HEMORRHOIDS (JEFFREY) 2010 LEFT SHOULDER- ROTATOR CUFF, 3 TEARS, AMB SURGERY 2016 BACK SURGERY 2018--2 RIGHT ROTATOR CUFF SURGERY 2/4/20 FAMILY HISTORY FATHER: 69 YRS, AMI MOTHER: 80 YRS, CAUSE OF UNKNOWN TO PT SON(S): ALIVE 35,31 YRS, ONE SON 3 HRS AFTER . TWO OTHER SONS, BOTH ALIVE, NO KNOWN MEDICAL PROBLEMS DAUGHTER(S): ALIVE 34,27 YRS, BOTH, NO KNOWN MEDICAL PROBLEMS DENIES FAMILY HX BREAST, COLON OR OVARIAN CANCERS. SOCIAL HISTORY GENERAL: TOBACCO USE ARE YOU A:NONSMOKER HIV / HEP-C SCREENING HIV TEST OFFERED TO PATIENT:NO HEP-C TEST OFFERED TO PATIENT:NO OTHERS AT HOME: CHILD (ADULT SON),. EDUCATION LEVEL OF EDUCATION:HIGH SCHOOL DIET: NO HX EATING DISORDERS. LANGUAGE LANGUAGES SPOKEN:TRINIDADIAN DOMESTIC VIOLENCE DENIES SEXUAL, PHYSICAL OR EMOTIONAL ABUSE. RECREATIONAL DRUG USE DRUG USE?NO EXERCISE: WALKS. LEARNING BARRIERS / SPECIAL NEEDS CHANGE FROM LAST VISIT?NO BARRIERS TO LEARNING?NO HEARING IMPAIRED?NO VISION IMPAIRED?YES COGNITIVELY IMPAIRED?NO :CORRECTIVE LENSES READINESS TO LEARN?YES LEARNING PREFERENCES?NO LEARNING CAPABILITIES PRESENT?YES EMOTIONAL BARRIERS?NO SPECIAL DEVICES?YES :WALKER GIFT CONSULTANT NEEDED?NO PAIN CLINIC PFS, CLERGY, PUBLIC HEALTH REFERRALS PFS REFERRAL NEEDED?NO CLERGY REFERRAL NEEDED?NO PUBLIC HEALTH REFERRAL NEEDED?NO WAS THE PROVIDER NOTIFIED OF ANY PERTINENT INFO?YES HAS THE PATIENT BEEN EDUCATED REGARDING HIS/HER PLAN OF CARE?YES HAS THE PATIENT BEEN EDUCATED REGARDING PAIN, THE RISK FOR PAIN, THE IMPORTANCE OF EFFECTIVE PAIN MANAGEMENT, AND THE PAIN ASSESSMENT PROCESS?YES LATEX QUESTIONNAIRE LATEX ALLERGY : HAVE YOU EVER DEVELOPED ANY TYPE OF REACTION AFTER HANDLING LATEX PRODUCTS SUCH RUBBER GLOVES, CONDOMS, DIAPHRAGMS, BALLOONS, SOCKS, OR UNDERWEAR?NO LATEX ALLERGY : HAVE YOU EVER DEVELOPED ANY TYPE OF REACTION DURING OR AFTER DENTAL APPOINTMENT, VAGINAL/RECTAL EXAMINATION, SURGICAL PROCEDURE, OR ANY OTHER EXPOSURE?NO DATE ASKED : 09/24/2019 LATEX RISK : HAVE YOU EVER HAD ANY DIFFICULTY BREATHING OR HIVES AFTER EATING OR HANDLING ANY FRUITS, OR VEGETABLES; SUCH KIWI, BANANAS, STONE FRUITS, OR CHESTNUTSNO LATEX RISK : DO YOU HAVE A PREVIOUS PERSONAL HISTORY OF MORE THAN NINE SURGERIES, SPINA BIFIDA, OR REPEATED CATHERIZATIONS? NO LATEX RISK : ARE YOU FREQUENTLY EXPOSED TO LATEX PRODUCTS IN YOUR OCCUPATION?NO CAFFEINE CAFFEINE USE?YES 2 CUPS DAILY ADVANCE DIRECTIVE ADVANCE DIRECTIVE DISCUSSED WITH PATIENT:YES HCP YRN MEYERS [phone] 2ND HCP LIZBETH RIVAS CONGREGATION [id number] NONE MARITAL STATUS: , 2008, WERE 34 YRS, REMARRIED 2014. ALCOHOL SCREENING DID YOU HAVE A DRINK CONTAINING ALCOHOL IN THE PAST YEAR?YES HOW OFTEN DID YOU HAVE SIX OR MORE DRINKS ON ONE OCCASION IN THE PAST YEAR?LESS THAN MONTHLY (1 POINT) HOW MANY DRINKS DID YOU HAVE ON A TYPICAL DAY WHEN YOU WERE DRINKING IN THE PAST YEAR?3 OR 4 (1 POINT) HOW OFTEN DID YOU HAVE A DRINK CONTAINING ALCOHOL IN THE PAST YEAR?MONTHLY OR LESS (1 POINT) POINTS3 INTERPRETATIONPOSITIVE OCCUPATION: NOT WORKING , PHYICALLY DISABLED. SEXUAL HX HAD SEX IN THE LAST 12 MONTHS (VAGINAL, ORAL, OR ANAL)?YES WITHMEN ONLY PREVENTION STRATEGIES DISCUSSED:OTHER USE PROTECTION?NO LMP:POST MENOPAUSE HAVE YOU EVER HAD AN STD?YES HERPES?NO SYPHILIS?NO GC?NO CHLAMYDIA?NO HOSPITALIZATION/MAJOR DIAGNOSTIC PROCEDURE BACK SURGERY 2019-06-19 SHOULDER SURGERY 2019-08-19 REVIEW OF SYSTEMS REVIEWED BY: PROVIDER: TARYN TERRY-Mode . CONSTITUTIONAL: ANY CHANGE IN YOUR MEDICAL CONDITION? NO . CHILLS NO . FEVER NO . INFECTION: DO YOU HAVE NEW INFECTIONS? NO . DO YOU HAVE HISTORY OF MRSA? NO . MUSCULOSKELETAL: ANY NEW PATTERNS OF PAIN OR NUMBNESS? YES,PAIN HAS GOTTEN WORSE . GASTROENTEROLOGY: ANY NEW CHANGE IN BOWEL CONTROL? NO . GENITOURINARY: ANY NEW CHANGE IN BLADDER CONTROL? NO . IS THERE A CHANCE YOU COULD BE ? NO . HEMATOLOGY/LYMPH: DO YOU TAKE ANY BLOOD THINNERS? (FOR EXAMPLE- COUMADIN, PLAVIX, AGGRENOX, PLATEL, PRADAXA, OR XARELTO) NO . WHEN WAS YOUR LAST DOSE? DATE: TIME: . NEUROLOGY: HAVE YOU FALLEN IN THE PAST 12 MONTHS? NO . ANY NEW EXTREMITY NUMBNESS OR WEAKNESS? NO . CARDIOLOGY: DO YOU HAVE A PACEMAKER OR DEFIBRILLATOR? NO . RESPIRATORY: HAVE YOU BEEN SICK IN THE PAST WEEK? NO . FEVER NO . FLU LIKE SYMPTOMS? NO . COUGH NO . INTEGUMENTARY: DO YOU HAVE ANY RASHES OR OPEN SORES? NO . ALLERGIC/IMMUNO: ARE YOU ALLERGIC TO IV DYE? NO . ANY NEW ALLERGIES? NO . PSYCHIATRIC: DO YOU HAVE THOUGHTS OF HURTING YOURSELF OR SOMEONE ELSE? NO . ARE YOU ABUSED, NEGLECTED, OR IN AN UNSAFE ENVIRONMENT? NO . ENDOCRINOLOGY: ARE YOU DIABETIC? YES . OTHER: DO YOU NEED ANY PRESCRIPTIONS? YES, REFIIL FOR METHOCARBAMOL . IF YES, PLEASE LIST: ____ . ANY NEW PROBLEMS WITH YOUR MEDICATIONS? NO . WHEN DID YOU LAST EAT? ____ . WHEN DID YOU LAST DRINK? ____ . WHAT DID YOU LAST DRINK? ____ . NAME OF PERSON DRIVING YOU HOME? ____ . DO YOU HAVE ANY OTHER QUESTIONS OR CONCERNS NO . VITAL SIGNS WT 160.8 LBS, HT 61 IN, BMI 30.38 INDEX, BP 138/65 MM HG, HR 94 /MIN, RR 18 /MIN, TEMP 97.9 F, OXYGEN SAT % 94, SAFE IN ENV? (Y/N) YES, REVIEWED BY: ALFA HERNANDEZ LPN. EXAMINATION GENERAL EXAMINATION: GENERALNO ACUTE DISTRESS, WELL NOURISHED AND HYDRATED. PSYCHAPPROPRIATE MOOD AND AFFECT . LUNGS:CLEAR TO AUSCULTATION BILATERALLY, NO WHEEZES, RHONCHI, RALES. HEART:NO MURMURS, REGULAR RATE AND RHYTHM. 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 GIVEN PRESENTING SYMPTOMS AND RESULTS OF PHYSICAL EXAMINATION RECOMMENDED CONTINUATION OF CURRENT MEDICATION REGIMEN WITH FOLLOW-UP IN 3 MONTHS. PATIENT HAS EXPRESSED UNDERSTANDING OF AND WAS IN AGREEMENT WITH TREATMENT PLAN. GIVEN TIME TO ASK QUESTIONS AND EXPRESS CONCERNS., ISTOP REGISTRY REVIEWED AND DEMONSTRATES COMPLLIANCE. (REF # [id number] ) BRINGS IN MEDICATIONS WHICH IS APPROPRIATE FOR WHAT WAS DISPENSED. RECENT URINE TOXICOLOGY REVIEWED. NO UNAUTHORIZED MEDICATIONS. NO ILLICIT SUBSTANCES AND PRESCRIBED MEDICATIONS WERE PRESENT. LUMBAGO WITH SCIATICA, LEFT SIDE REFILL METHOCARBAMOL TABLET, 500 MG, 1 CAP, ORALLY, EVERY 6H PRN, 30 DAYS, 120 PROCEDURE CODES FA211 ESTABILISHED PATIENT [facility] CHARGE DISPOSITION & COMMUNICATION FOLLOW UP 3 MONTHS (REASON: BACK PAIN ) ELECTRONICALLY SIGNED BY HARRISON DALEY ON 09/25/2019 AT 08:35 AM EDT DISCLAIMER : THIS IS A VISIT SUMMARY EXTRACTED FROM THE [facility] CHART. IT IS NOT A COPY OF THE [facility] PROGRESS NOTE. MARY ANN
== END ==
LOC: M PAIN 11:30
PROVIDERS: ATTEND Family Medicine
DX: M79.7 Fibromyalgia (principal); M54.42 Lumbago with sciatica, left side

== ENCOUNTER → 2019-10-02 | Outpatient (CLI) | payer OTHER ==
[~2019-10-02] MED LIST changes: +ATOR1TAB21 PO; +DULO1CAP6 PO; +GABA-843 PO; +GABA600T4 PO; +METF500T13 PO; +METH1TAB40 PO; +MULTCAP PO; +OXYC1TAB23 PO
[2019-10-02 15:26] LABS: BLOOD UREA NITROGEN 25 MG/DL (7-18); CREATININE FOR GFR 0.83 MG/DL (0.55-1.30); GLOMERULAR FILTRATION RATE > 60.0 (>45)
== END ==
LOC: M LAB 14:34
PROVIDERS: ATTEND Physician Assistant Medical
DX: Z01.818 Encounter for other preprocedural examination (principal); M54.5 Low back pain; M43.16 Spondylolisthesis, lumbar region

== ENCOUNTER → 2019-10-03 | Outpatient (REF) | payer OTHER ==
[2019-10-03 17:52] LABS: HEMOGLOBIN A1c 6.3 %
== END ==
LOC: M SFHCPLAZ 14:58
PROVIDERS: ATTEND Family Medicine
DX: E11.9 Type 2 diabetes mellitus without complications (principal)

== ENCOUNTER → 2019-10-07 | Outpatient (CLI) | payer OTHER ==
[2019-10-07 14:13] LABS: BASO % 0.3 % (0.0-1.0); EOS # 0.1 10^3/uL (0.0-0.5); EOS % 1.4 % (0.0-3.0); HEMATOCRIT 35.7 % (36.0-47.0); HEMOGLOBIN 10.8 g/dl (12.0-15.5); LYMPH # 2.2 10^3/uL (1.5-5.0); LYMPH % 31.7 % (24.0-44.0); MEAN CORPUSCULAR HEMOGLOBIN 26.9 pg (27.0-33.0); MEAN CORPUSCULAR HGB CONC 30.3 g/dl (32.0-36.5); MONO # 0.3 10^3/uL (0.0-0.8); MONO % 4.8 % (0.0-5.0); NEUTROPHILS # 4.3 10^3/uL (1.5-8.5); NEUTROPHILS % 61.7 % (36.0-66.0); PLATELET COUNT, AUTOMATED 365 10^3/uL (150-450); RED BLOOD COUNT 4.01 10^6/uL (4.00-5.40); WHITE BLOOD COUNT 6.9 10^3/uL (4.0-10.0)
[2019-10-07 14:19] LABS: BLOOD UREA NITROGEN 21 MG/DL (7-18); CALCIUM LEVEL 9.4 MG/DL (8.8-10.2); CARBON DIOXIDE LEVEL 27 MEQ/L (21-32); CHLORIDE LEVEL 107 MEQ/L (98-107); CREATININE FOR GFR 0.95 MG/DL (0.55-1.30); GLOMERULAR FILTRATION RATE > 60.0 (>45); GLUCOSE, FASTING 221 MG/DL (70-100); SODIUM LEVEL 141 MEQ/L (136-145)
[2019-10-07 14:22] LABS: INR 0.92; PROTHROMBIN TIME 12.1 SECONDS (11.8-14.0)
== END ==
LOC: M PLALAB 11:46
PROVIDERS: ATTEND Urology
DX: R31.0 Gross hematuria (principal)

== ENCOUNTER 2019-10-09 13:29 | Outpatient (RCR) | payer OTHER | END 2019-10-14 | LOC: M PT 13:29 | PROVIDERS: ATTEND Orthopaedic Surgery | DX: Z51.89 Encounter for other specified aftercare (principal); Z47.89 Encounter for other orthopedic aftercare ==

== ENCOUNTER 2019-10-10 09:47 | Day surgery (SDC) | payer OTHER ==
[~2019-10-10] VITALS: Ht 154.9 cm; Wt 70.3 kg
[~2019-10-10 09:47] MED LIST changes: +LR 1,000 ML IV ONE; +ceFAZolin SOD 2 GM in IV 1 EA IV ONE
[2019-10-10] MEDS ORDERED: ONDANSETRON 4MG/2ML VIAL (J2405) As Ordered ONE (12:58)
[2019-10-10] MEDS ORDERED: dexameTHASONE 4 MG/ML 1ML VIAL (J1100) As Ordered ONE (12:58)
[2019-10-10] MEDS ORDERED: propofoL 200 MG/20 ML VIAL As Ordered ONE (12:58)
[2019-10-10] MEDS ORDERED: LIDOCAINE 2% INJ 100 MG/5 ML SDV (FOR ANES.) As Ordered ONE (12:58)
[2019-10-10] MEDS ORDERED: ROCURONIUM BROMIDE 50 MG/5 ML VIAL As Ordered ONE (12:58)
[2019-10-10] MEDS ORDERED: MIDAZOLAM INJ 2 MG/2 ML VIAL (J2250) As Ordered ONE (12:58)
[2019-10-10] MEDS ORDERED: fentaNYL 250 MCG/5 ML INJECTION (J3010) As Ordered ONE (12:58)
[2019-10-10] MEDS ORDERED: PHENYLephrine HCL 500 MCG/5 ML (100MCG/ML) SYRINGE (J2370) As Ordered ONE (14:09)
[2019-10-10] MEDS ORDERED: SUGAMMADEX SODIUM 500 MG/5 ML VIAL (BRIDION) As Ordered ONE (14:16)
[2019-10-10] MEDS: PERCOCET 5MG/325MG TAB PO PRN ×2 (14:57→15:22)
[2019-10-10] MEDS: fentaNYL 100 MCG/2 ML INJECTION (J3010) IV PRN ×4 (14:57→15:15)
[2019-10-10] MEDS ORDERED: LR 1,000 ML IV SCH (15:00)
[2019-10-10] MEDS ORDERED: ONDANSETRON 4MG/2ML VIAL (J2405) IV PRN (15:00)
[2019-10-10] MEDS ORDERED: ACETAMINOPHEN TAB 650MG DOSE (2X325MG) PO PRN (15:00)
[2019-10-10 17:50] VITALS: BP 132/67
--- NOTE | 2019-10-10 23:16 | RO ---
DATE OF PROCEDURE: 10/10/2019 PREPROCEDURE DIAGNOSIS: Bladder tumor. POSTPROCEDURE DIAGNOSIS: Bladder tumor. PROCEDURE: Cystoscopy, transurethral resection of bladder tumor (between 2 and 5 cm), examination under anesthesia SURGEON: Demarcus Winston MD INDUSTRIAL PSYCHOLOGY PROFESSOR: None. ANESTHESIA: General. OPERATIVE INDICATIONS: This is a 63-year-old female who was found to have an approximately 3 cm sized bladder tumor on office cystoscopy. She was brought to the operating room today for treatment. DESCRIPTION OF PROCEDURE: The patient was brought to the operating room and general anesthesia was induced. Prophylactic antibiotics were infused. She was then placed in the dorsal lithotomy position and prepped and draped in the usual sterile fashion. At this point a bimanual pelvic exam under anesthesia was performed. It was notable for freely mobile bladder. There were no palpable bladder masses. At this point the resectoscope was inserted into the meatus and advanced into the bladder using the visual obturator. The bladder was then thoroughly examined and the only abnormality seen was an approximately 3 cm sized tumor on the right posterior wall with a small satellite lesion next to it. These tumors were completely resected using the resectoscope. I made sure to resect down to the muscle layer. Once that was done all specimens were removed from the bladder. I then cauterized the base of the resection using the coagulation current. Once satisfied with hemostasis I observed the right ureteral orifice which was nearby and it still effluxed clear urine. I then removed the resectoscope and inserted and #18- Kinyarwanda Aviles catheter into the bladder. The balloon was filled with 10 mL of sterile water and then the catheter was connected to gravity drainage. This marked the conclusion of the procedure. The patient was taken out of the dorsal lithotomy position, awakened from anesthesia and transported to the recovery room in stable condition. ESTIMATED BLOOD LOSS: 5 mL COMPLICATIONS: None. SPECIMENS: Bladder tumors. PLAN: The patient will followup in the clinic next week for pathology results. Of note given the deep resection obtained today I want to leave her catheter in for at least 7 days to aid in bladder healing. MARY ANN
== END 2019-10-10 18:00 | disposition home or self-care (01) ==
LOC: M SDC 09:47
PROVIDERS: ATTEND Urology
DX: C67.9 Malignant neoplasm of bladder, unspecified (principal); E11.9 Type 2 diabetes mellitus without complications; E78.5 Hyperlipidemia, unspecified; R51 Headache; Z79.84 Long term (current) use of oral hypoglycemic drugs; Z79.899 Other long term (current) drug therapy
CPT/HCPCS: 52235; 88305; J0690; J1100; J2250; J2370; J2405; J3010

== ENCOUNTER → 2019-11-13 | Outpatient (RCR) | payer OTHER ==
[~2019-11-13] MED LIST changes: -LR 1,000 ML IV ONE; -ceFAZolin SOD 2 GM in IV 1 EA IV ONE
== END ==
LOC: M PT 10-29 11:23
PROVIDERS: ATTEND Orthopaedic Surgery
DX: M54.5 Low back pain (principal)

== ENCOUNTER 2019-12-11 13:24 | Outpatient (RCR) | payer OTHER | END 2019-12-14 | LOC: M PT 13:24 | PROVIDERS: ATTEND Orthopaedic Surgery | DX: Z47.89 Encounter for other orthopedic aftercare (principal); M25.511 Pain in right shoulder; M54.5 Low back pain ==

== ENCOUNTER → 2019-12-25 | Outpatient (CLI) | payer MEDICARE, OTHER ==
[2019-12-25 13:03] LABS: C REACTIVE PROTEIN QUANTITATIV 0.67 MG/DL (0.00-0.30)
== END ==
LOC: M LAB 12:11
PROVIDERS: ATTEND Nurse Practitioner Family
DX: Z00.00 Encounter for general adult medical examination without abnormal findings (principal); M54.5 Low back pain

== ENCOUNTER → 2019-12-25 | Outpatient (CLI) | payer OTHER ==
--- NOTE | 2019-12-30 05:20 | ECWPNPC ---
PATIENT NAME: CATALINA FRANZ : 1955 GENDER: FEMALE VISIT DATE: 12/25/2019 DISCHARGE DATE: 12/25/19 1332 VISIT LOCKED DATE TIME: PHYSICIAN: ELIEL RAZO RESOURCE: ELIEL RAZO HISTORY OF PRESENT ILLNESS GENERAL: -64-YEAR-OLD FEMALE IN FOR CHRONIC PAIN FOLLOW-UP. SHE RATES HER PAIN CURRENTLY AT AN 8 OUT OF 10 AND DESCRIBES IT ACHING AND STABBING. SHE FEELS HER MEDICATIONS ARE HELPFUL BUT DOES QUESTION IF AN INCREASE DOSE WOULD BE OF MORE BENEFIT. PAIN SCREENING: PATIENT HAS A COMPLAINT OF ACUTE OR CHRONIC PAIN :YES LOCATION OF PAIN:LOW BACK INTENSITY OF PAIN (SCALE OF 1 TO 10):8 WHAT DOES YOUR PAIN FEEL LIKE:ACHING, STABBING DURATION:CONTINOUS, CONSTANT, ALL DAY PAIN IS INCREASED BY:ACTIVITIES, PROLONGED STANDING PAIN IS DECREASED BY:USE OF PAIN MEDICATIONS OXYCODONE PAIN HAS INTERFERED WITH THE FOLLOWING:MOOD, WALKING ABILITY, SLEEP, RELATIONSHIP WITH OTHERS, ENJOYMENT OF LIFE PLAN/GOALS/TREATMENT/INTERVENTION/FOLLOW UP:SEE PLAN FALL RISK SCREENING: SCREENING :NO FALLS REPORTED IN THE LAST YEAR NURSING NOTE: INCREASE IN OXYCODONE-. PAIN CENTER INTAKE QUESTIONS: DO YOU HAVE A HISTORY OF MRSA? :NO DO YOU TAKE A BLOOD THINNERS? :NO DO YOU HAVE ANY BLEEDING DISORDERS? :NO ANY NEW NUMBNESS OR WEAKNESS IN YOUR LEGS OR ARMS? :NO ANY PACEMAKER,DEFIBRILLATOR, OR DORSAL COLUMN STIMULATOR? :NO DO YOU HAVE ANY RASHES OR OPEN SORES? :NO ARE YOU ALLERGIC TO IV DYE? :NO ARE YOU DIABETIC? :YES ANY NEW PROBLEMS WITH YOUR MEDICATIONS? :NO HAVE YOU RECEIVED A VACCINE IN THE PAST 30 DAYS? :NO DO YOU PLAN TO RECEIVE A VACCINE IN THE NEXT 21 DAYS? :NO DO YOU NEED ANY PRESCRIPTION? :YES OXYCODONE DO YOU TAKE ANY IMMUNOSUPPRESSIVE MEDICATIONS? :NO IS THERE A CHANCE YOU COULD BE ? :NO ARE YOU BREAST FEEDING? :NO CURRENT MEDICATIONS TAKING ATORVASTATIN CALCIUM 20 MG TABLET 1 TABLET ORALLY ONCE A DAY TAKING MULTIVITAMIN - TABLET CHEWABLE DIRECTED ORALLY OTC, DAILY TAKING GLUCOMETER DIRECTED DXE11.9 - TAKING LANCETS MISC - MISCELLANEOUS DIRECTED DXE11.9 DAILY TAKING TYLENOL EXTRA STRENGTH 500 MG TABLET 1 TABLET NEEDED ORALLY EVERY 6 HRS TAKING METFORMIN HCL 500 TABLET 1 TABLET WITH A MEAL ORALLY TWICE DAILY TAKING BLOOD GLUCOSE TEST - STRIP DIRECTED DXE11.9 DAILY AND PRN TAKING METHOCARBAMOL 500 MG TABLET 1 CAP ORALLY EVERY 6H PRN TAKING CYMBALTA 60 MG CAPSULE DELAYED RELEASE PARTICLES 1 CAPSULE ORALLY DAILY TAKING OXYCODONE-ACETAMINOPHEN 5-325 MG TABLET 1 TABLET NEEDED ORALLY EVERY 8 HRS NEEDED 45 TABS TO LAST 30 DAYS, NOTES: POST OP TAKING GABAPENTIN 300 MG CAPSULE 1 CAPSULE IN THE AM AND IN THE AFTERNOON 2 BEFORE BED ORALLY Q8H TID NOT-TAKING ASPIRIN ADULT 325 MG TABLET 1 TAB ORALLY DAILY X 28 DAYS PER ORTHO MEDICATION LIST REVIEWED AND RECONCILED WITH THE PATIENT PAST MEDICAL HISTORY ROSACEA UTERINE PROLAPSE CYSTOCELE HX ENDOMETRIAL POLYPS/PMB LEFT SIDE SCIATICA, LUMBAGO SYPHILLIS-COMPLETED AT [facility] SYMPTOMATIC MENOPAUSAL OR FEMALE CLIMACTERIC STATES POSTMENOPAUSAL ATROPHIC VAGINITIS COUNSELING ON OTHER SEXUALLY TRANSMITTED DISEASES HGSIL ON PAP SMEAR NERVE CONDUCTION STUDY: NEUROLOGY DIABETES TYPE 2 COLONOSCOPY 2010, ENTIRE COLON CLEAR BACK PAIN BLADDER TUMOR: LOW GRADE UROTHELIAL CARCINOMA ALLERGIES N.K.D.A. SURGICAL HISTORY TUBAL LIGATION ENDOMETRIAL POLYP REMOVAL/HYSTEROSCOPY, D&C (ANIKET) 2010 COLONOSCOPY: NEGATIVE FOR POLYPS; DIVERTICULOSIS; HEMORRHOIDS (JEFFREY) 2010 LEFT SHOULDER- ROTATOR CUFF, 3 TEARS, AMB SURGERY 2015 BACK SURGERY LAMINECTOMY W/ FUSION L4-5, L5-S1 DR SUBRAMANIAN, [facility] 2018--2 RIGHT ROTATOR CUFF SURGERY 08/19/19 TURBT 10/10/2019 FAMILY HISTORY FATHER: 69 YRS, AMI MOTHER: 80 YRS, CAUSE OF UNKNOWN TO PT SON(S): ALIVE 35,31 YRS, ONE SON 3 HRS AFTER . TWO OTHER SONS, BOTH ALIVE, NO KNOWN MEDICAL PROBLEMS DAUGHTER(S): ALIVE 34,27 YRS, BOTH, NO KNOWN MEDICAL PROBLEMS 2 SON(S) , 2 DAUGHTER(S) - HEALTHY. DENIES FAMILY HX BREAST, COLON OR OVARIAN CANCERS. SOCIAL HISTORY GENERAL: TOBACCO USE ARE YOU A:NONSMOKER LATEX QUESTIONNAIRE LATEX ALLERGY : HAVE YOU EVER DEVELOPED ANY TYPE OF REACTION AFTER HANDLING LATEX PRODUCTS SUCH RUBBER GLOVES, CONDOMS, DIAPHRAGMS, BALLOONS, SOCKS, OR UNDERWEAR?NO LATEX ALLERGY : HAVE YOU EVER DEVELOPED ANY TYPE OF REACTION DURING OR AFTER DENTAL APPOINTMENT, VAGINAL/RECTAL EXAMINATION, SURGICAL PROCEDURE, OR ANY OTHER EXPOSURE?NO LATEX RISK : HAVE YOU EVER HAD ANY DIFFICULTY BREATHING OR HIVES AFTER EATING OR HANDLING ANY FRUITS, OR VEGETABLES; SUCH KIWI, BANANAS, STONE FRUITS, OR CHESTNUTSNO LATEX RISK : DO YOU HAVE A PREVIOUS PERSONAL HISTORY OF MORE THAN NINE SURGERIES, SPINA BIFIDA, OR REPEATED CATHERIZATIONS? NO LATEX RISK : ARE YOU FREQUENTLY EXPOSED TO LATEX PRODUCTS IN YOUR OCCUPATION?NO DATE ASKED : 12/25/2019 ALCOHOL SCREENING DID YOU HAVE A DRINK CONTAINING ALCOHOL IN THE PAST YEAR?YES HOW OFTEN DID YOU HAVE SIX OR MORE DRINKS ON ONE OCCASION IN THE PAST YEAR?LESS THAN MONTHLY (1 POINT) HOW MANY DRINKS DID YOU HAVE ON A TYPICAL DAY WHEN YOU WERE DRINKING IN THE PAST YEAR?3 OR 4 (1 POINT) HOW OFTEN DID YOU HAVE A DRINK CONTAINING ALCOHOL IN THE PAST YEAR?MONTHLY OR LESS (1 POINT) POINTS3 INTERPRETATIONPOSITIVE RECREATIONAL DRUG USE DRUG USE?NO CAFFEINE CAFFEINE USE?YES 2 CUPS DAILY SEXUAL HX HAD SEX IN THE LAST 12 MONTHS (VAGINAL, ORAL, OR ANAL)?YES WITHMEN ONLY PREVENTION STRATEGIES DISCUSSED:OTHER USE PROTECTION?NO LMP:POST MENOPAUSE HAVE YOU EVER HAD AN STD?YES HERPES?NO SYPHILIS?NO GC?NO CHLAMYDIA?NO HIV / HEP-C SCREENING HIV TEST OFFERED TO PATIENT:NO HEP-C TEST OFFERED TO PATIENT:NO HINDU [id number] NONE LANGUAGE LANGUAGES SPOKEN:ROMANIAN EDUCATION LEVEL OF EDUCATION:HIGH SCHOOL LEARNING BARRIERS / SPECIAL NEEDS CHANGE FROM LAST VISIT?NO BARRIERS TO LEARNING?NO HEARING IMPAIRED?NO VISION IMPAIRED?YES COGNITIVELY IMPAIRED?NO :CORRECTIVE LENSES READINESS TO LEARN?YES LEARNING PREFERENCES?NO LEARNING CAPABILITIES PRESENT?YES EMOTIONAL BARRIERS?NO SPECIAL DEVICES?YES :WALKER PROFESSIONAL SERVICES CONSULTANT NEEDED?NO DOMESTIC VIOLENCE DENIES SEXUAL, PHYSICAL OR EMOTIONAL ABUSE. OCCUPATION: NOT WORKING , PHYICALLY DISABLED. DIET: NO HX EATING DISORDERS. EXERCISE: WALKS. MARITAL STATUS: , 2007, WERE 34 YRS, REMARRIED 2014. OTHERS AT HOME: CHILD (ADULT SON),. PAIN CLINIC PFS, CLERGY, PUBLIC HEALTH REFERRALS PFS REFERRAL NEEDED?NO CLERGY REFERRAL NEEDED?NO PUBLIC HEALTH REFERRAL NEEDED?NO WAS THE PROVIDER NOTIFIED OF ANY PERTINENT INFO?YES HAS THE PATIENT BEEN EDUCATED REGARDING HIS/HER PLAN OF CARE?YES HAS THE PATIENT BEEN EDUCATED REGARDING PAIN, THE RISK FOR PAIN, THE IMPORTANCE OF EFFECTIVE PAIN MANAGEMENT, AND THE PAIN ASSESSMENT PROCESS?YES ADVANCE DIRECTIVE ADVANCE DIRECTIVE DISCUSSED WITH PATIENT:YES HCP YRN MEYERS [phone] 2ND HCP LIZBETH RIVAS HOSPITALIZATION/MAJOR DIAGNOSTIC PROCEDURE BACK SURGERY 2019-06-19 SHOULDER SURGERY 2019-08-19 REVIEW OF SYSTEMS CONSTITUTIONAL: ANY RECENT FEVER OR ILLNESS NO . CHILLS NO . GASTROENTEROLOGY: BOWEL INCONTINENCE NO . ANY NEW CHANGE IN BOWEL CONTROL? NO . ABDOMINAL PAIN NO . CONSTIPATION NO . GENITOURINARY: ANY NEW CHANGE IN BLADDER CONTROL? NO . IS THERE A CHANCE YOU COULD BE ? NO . URINARY INCONTINENCE NO . CARDIOLOGY: CHEST PRESSURE NO . CHEST PAIN NO . RESPIRATORY: COUGH NO . SHORTNESS OF BREATH NO . VITAL SIGNS WT 164.6 LBS, HT 61 IN, BMI 31.10 INDEX, BP 137/65 MM HG, HR 100 /MIN, RR 17 /MIN, TEMP 97.1 F, OXYGEN SAT % 98%, NA INITIALS SC 12:43. EXAMINATION GENERAL EXAMINATION: GENERALNO ACUTE DISTRESS, WELL NOURISHED AND HYDRATED. PSYCHAPPROPRIATE MOOD AND AFFECT . LUNGS:CLEAR TO AUSCULTATION BILATERALLY, NO WHEEZES, RHONCHI, RALES. HEART:NO MURMURS, REGULAR RATE AND RHYTHM. ASSESSMENTS LUMBAGO WITH SCIATICA, LEFT SIDE - M54.42 (PRIMARY) LUMBAGO WITH SCIATICA, RIGHT SIDE - M54.41 TREATMENT LUMBAGO WITH SCIATICA, LEFT SIDE INCREASE OXYCODONE-ACETAMINOPHEN TABLET, 7.5-325 MG, 1 TABLET NEEDED, ORALLY, DAILY NEEDED, 30 DAYS, 30, NOTES: POST OP INCREASE GABAPENTIN TABLET, 600 MG, 1 CAPSULE, ORALLY, Q8H TID, 30 DAYS, 90 CLINICAL NOTES: 64-YEAR-OLD FEMALE IN FOR CHRONIC PAIN FOLLOW-UP. GIVEN PRESENTING SYMPTOMS RECOMMEND INCREASING PERCOCET TO 7.5 MG WITH FOLLOW-UP IN 2 MONTHS TO DETERMINE EFFICACY OF TREATMENT. FURTHER RECOMMENDED INCREASING GABAPENTIN TO 600 MG 3 TIMES A DAY. PATIENT HAS EXPRESSED UNDERSTANDING OF AND WAS IN AGREEMENT WITH TREATMENT PLAN. GIVEN TIME TO ASK QUESTIONS AND EXPRESS CONCERNS. , ISTOP REGISTRY REVIEWED AND DEMONSTRATES COMPLLIANCE. (REF # [id number] ) BRINGS IN MEDICATIONS WHICH IS APPROPRIATE FOR WHAT WAS DISPENSED. RECENT URINE TOXICOLOGY REVIEWED. NO UNAUTHORIZED MEDICATIONS. NO ILLICIT SUBSTANCES AND PRESCRIBED MEDICATIONS WERE PRESENT. PROCEDURE CODES FA211 ESTABILISHED PATIENT [facility] CHARGE DISPOSITION & COMMUNICATION FOLLOW UP 2 MONTHS (REASON: BACK PAIN ) ELECTRONICALLY SIGNED BY HARRISON DALEY ON 12/29/2019 AT 08:35 AM EDT DISCLAIMER : THIS IS A VISIT SUMMARY EXTRACTED FROM THE [facility] CHART. IT IS NOT A COPY OF THE [facility] PROGRESS NOTE. MARY ANN
== END ==
LOC: M PAIN 13:00
PROVIDERS: ATTEND Family Medicine
DX: M54.42 Lumbago with sciatica, left side (principal); M54.41 Lumbago with sciatica, right side

== ENCOUNTER 2020-01-01 15:15 | Outpatient (RCR) | payer OTHER | END 2020-01-13 | LOC: M PT 15:15 | PROVIDERS: ATTEND Orthopaedic Surgery | DX: M79.601 Pain in right arm (principal); M54.5 Low back pain ==

== ENCOUNTER → 2020-01-05 | Outpatient (CLI) | payer OTHER ==
[2020-01-05 14:34] LABS: BLOOD UREA NITROGEN 19 MG/DL (7-18); CREATININE FOR GFR 0.85 MG/DL (0.55-1.30); GLOMERULAR FILTRATION RATE > 60.0 (>45)
== END ==
LOC: M LAB 13:34
PROVIDERS: ATTEND Orthopaedic Surgery Orthopaedic Surgery of the Spine
DX: Z00.00 Encounter for general adult medical examination without abnormal findings (principal); M54.5 Low back pain

== ENCOUNTER → 2020-01-16 | Outpatient (CLI) | payer OTHER ==
[2020-01-16 11:04] LABS: ALBUMIN 3.6 GM/DL (3.2-5.2); ALT/SGPT 60 U/L (12-78); BILIRUBIN,TOTAL 0.3 MG/DL (0.2-1.0); BLOOD UREA NITROGEN 17 MG/DL (7-18); CALCIUM LEVEL 9.3 MG/DL (8.8-10.2); CARBON DIOXIDE LEVEL 26 MEQ/L (21-32); CHLORIDE LEVEL 111 MEQ/L (98-107); CHOLESTEROL LEVEL 213 MG/DL (<200); CHOLESTEROL RISK RATIO 3.132 (<5); CREATININE FOR GFR 0.83 MG/DL (0.55-1.30); GLOMERULAR FILTRATION RATE > 60.0 (>45); GLUCOSE, FASTING 110 MG/DL (70-100); HDL CHOLESTEROL 68 MG/DL (>40); LDL CHOLESTEROL 118 MG/DL (<100); NON-HDL-C 145 MG/DL; POTASSIUM SERUM 4.2 MEQ/L (3.5-5.1); SODIUM LEVEL 144 MEQ/L (136-145); TRIGLYCERIDES LEVEL 136 MG/DL (<150)
[2020-01-16 11:12] LABS: CREATININE, URINE 57.4 MG/DL; MALB URINE SIEMENS 9.6 MG/L; MAU/CREAT RATIO 16.7 MCG/MG (0.0-30.0); TOTAL 25(OH) VITAMIN D 41.8 NG/ML (30.0-100.0)
[2020-01-16 11:18] LABS: HEMOGLOBIN A1c 6.5 %
== END ==
LOC: M LAB 10:11
PROVIDERS: ATTEND Nurse Practitioner Family
DX: E11.9 Type 2 diabetes mellitus without complications (principal); E55.9 Vitamin D deficiency, unspecified; E78.2 Mixed hyperlipidemia; Z79.899 Other long term (current) drug therapy

== ENCOUNTER → 2020-02-16 | Outpatient (REF) | payer OTHER | LOC: M SMT 07:07 | PROVIDERS: ATTEND Urology | DX: C67.9 Malignant neoplasm of bladder, unspecified (principal) | CPT/HCPCS: 52000; 88108; G0463 ==

== ENCOUNTER → 2020-02-19 | Outpatient (CLI) | payer OTHER ==
--- NOTE | 2020-03-10 10:43 | REPMRS ---
Patient History The patient states she has not had a clinical breast exam in over a year. Patient is postmenopausal and has history of other cancer at age 63. No known family history of cancer. Took estrogen for 6 years. Digital Woman Screen Mammo: February 19, 2020 - Exam #: [id number] Bilateral CC and MLO view(s) were taken. Technologist: Kaylie Mccollum, Technologist Prior study comparison: August 23, 2018, bilateral digital mammo screening bilat, performed at [facility]. August 07, 2017, digital woman screen mammo performed at [facility]. July 26, 2015, digital woman screen mammo performed at [facility]. FINDINGS: There are scattered fibroglandular densities. The Volpara volumetric breast density category is:B. There has been no change in the appearance of the mammogram from the prior studies. There is a mild amount of scattered fibroglandular density which is fairly symmetric. There is no interval development of dominant mass, architectural distortion, or grouped microcalcification suggestive of malignancy. 3-D tomosynthesis shows no additional findings. Report was delayed due to a protracted computer network disruption experienced by this facility. Assessment: BI-RADS/ACR category 1 mammogram. Negative Mammogram. Recommendation Routine screening mammogram of both breasts in 1 year (for women over age 40). This patient's Lifetime Breast Cancer Risk is estimated at 5.7 %. This mammogram was interpreted with the aid of an FDA-approved computer-aided dectection system. Electronically Signed By: James Giles MD 03/10/20 2366
== END ==
LOC: M WHC 15:09
PROVIDERS: ATTEND Nurse Practitioner Family
DX: Z12.31 Encounter for screening mammogram for malignant neoplasm of breast (principal)

== ENCOUNTER → 2020-02-24 | Outpatient (CLI) | payer OTHER | LOC: M PAIN 08:15 | PROVIDERS: ATTEND Family Medicine | DX: M54.42 Lumbago with sciatica, left side (principal); M54.41 Lumbago with sciatica, right side ==

== ENCOUNTER → 2020-04-21 | Outpatient (CLI) | payer OTHER ==
[2020-04-21 14:55] LABS: HEMOGLOBIN A1c 6.1 %
[2020-04-21 15:08] LABS: ALBUMIN 3.6 GM/DL (3.2-5.2); ALT/SGPT 67 U/L (12-78); BILIRUBIN,TOTAL 0.4 MG/DL (0.2-1.0); BLOOD UREA NITROGEN 20 MG/DL (7-18); CALCIUM LEVEL 9.5 MG/DL (8.8-10.2); CARBON DIOXIDE LEVEL 30 MEQ/L (21-32); CHLORIDE LEVEL 106 MEQ/L (98-107); CREATININE FOR GFR 0.93 MG/DL (0.55-1.30); GLOMERULAR FILTRATION RATE > 60.0 (>45); GLUCOSE, FASTING 98 MG/DL (70-100); POTASSIUM SERUM 4.5 MEQ/L (3.5-5.1); SODIUM LEVEL 140 MEQ/L (136-145); TOTAL PROTEIN 7.3 GM/DL (6.4-8.2)
[2020-04-21 15:14] LABS: TOTAL 25(OH) VITAMIN D 29.6 NG/ML (30.0-100.0)
== END ==
LOC: M LAB 13:44
PROVIDERS: ATTEND Nurse Practitioner Family
DX: E55.9 Vitamin D deficiency, unspecified (principal); E11.9 Type 2 diabetes mellitus without complications; Z79.899 Other long term (current) drug therapy

== ENCOUNTER 2020-05-10 12:06 | Emergency (ER) | payer OTHER ==
[~2020-05-10] VITALS: Ht 165.1 cm; Wt 77.5 kg
[2020-05-10] MEDS ORDERED: DULO1CAP6 PO (13:37)
[2020-05-10 13:47] LABS: BASO % 0.2 % (0.0-1.0); EOS # 0.1 10^3/uL (0.0-0.5); EOS % 1.2 % (0.0-3.0); HEMATOCRIT 36.5 % (36.0-47.0); HEMOGLOBIN 11.1 g/dl (12.0-15.5); LYMPH # 2.1 10^3/uL (1.5-5.0); MEAN CORPUSCULAR HEMOGLOBIN 27.8 pg (27.0-33.0); MEAN CORPUSCULAR HGB CONC 30.4 g/dl (32.0-36.5); MEAN CORPUSCULAR VOLUME 91.5 fl (80.0-96.0); MONO # 0.5 10^3/uL (0.0-0.8); NEUTROPHILS # 6.1 10^3/uL (1.5-8.5); NEUTROPHILS % 68.3 % (36.0-66.0); PLATELET COUNT, AUTOMATED 379 10^3/uL (150-450); RED BLOOD COUNT 3.99 10^6/uL (4.00-5.40); WHITE BLOOD COUNT 8.9 10^3/uL (4.0-10.0)
[2020-05-10 14:15] LABS: BLOOD UREA NITROGEN 16 MG/DL (7-18); C REACTIVE PROTEIN QUANTITATIV 3.22 MG/DL (0.00-0.30); CALCIUM LEVEL 9.7 MG/DL (8.8-10.2); CARBON DIOXIDE LEVEL 29 MEQ/L (21-32); CHLORIDE LEVEL 107 MEQ/L (98-107); CREATININE FOR GFR 0.89 MG/DL (0.55-1.30); ERYTHROCYTE SEDIMENTATION RATE 56 mm/hr (0-30); GLOMERULAR FILTRATION RATE > 60.0 (>45); GLUCOSE, FASTING 86 MG/DL (70-100); NT-PRO BNP 58 PG/ML (<125); SODIUM LEVEL 140 MEQ/L (136-145)
[2020-05-10 14:55] VITALS: BP 136/76
== END 2020-05-10 14:59 | disposition home or self-care (01) ==
LOC: M ED 12:06
DX: M25.571 Pain in right ankle and joints of right foot (principal); M25.572 Pain in left ankle and joints of left foot; E11.9 Type 2 diabetes mellitus without complications; M79.7 Fibromyalgia; E78.5 Hyperlipidemia, unspecified; Z79.84 Long term (current) use of oral hypoglycemic drugs; Z79.891 Long term (current) use of opiate analgesic; Z79.899 Other long term (current) drug therapy

== ENCOUNTER → 2020-05-10 | Outpatient (CLI) | payer OTHER ==
--- NOTE | 2020-05-11 09:10 | ECWPNPC ---
PATIENT NAME: CATALINA FRANZ : 1955 GENDER: FEMALE VISIT DATE: 05/10/2020 DISCHARGE DATE: 05/10/20 1146 VISIT LOCKED DATE TIME: PHYSICIAN: ELIEL RAZO PHYSICIAN PAGER NO: ACTIVE RESOURCE: ELIEL RAZO REASON FOR APPOINTMENT 1. F/U- CLEARED HISTORY OF PRESENT ILLNESS DEPRESSION SCREENING: PHQ-2 (2015 EDITION) LITTLE INTEREST OR PLEASURE IN DOING THINGS?SEVERAL DAYS FEELING DOWN, DEPRESSED, OR HOPELESS?NOT AT ALL TOTAL SCORE1 64-YEAR-OLD FEMALE IN FOR CHRONIC PAIN FOLLOW-UP. SHE FEELS HER MEDICATIONS ARE HELPFUL AND DENIES MED SIDE EFFECTS AT THIS TIME. SHE RATES HER PAIN CURRENTLY AT AN 8 OUT OF 10 AND DESCRIBES IT ACHING, SHARP, AND CONTINUOUS. GENERAL: -. FALL RISK SCREENING: SCREENING :NO FALLS REPORTED IN THE LAST YEAR PAIN SCREENING: PATIENT HAS A COMPLAINT OF ACUTE OR CHRONIC PAIN :YES LOCATION OF PAIN:LOW BACK, LEG(S), FEET INTENSITY OF PAIN (SCALE OF 1 TO 10):8 WHAT DOES YOUR PAIN FEEL LIKE:ACHING, CONTINOUS, SHARP DURATION:CONTINOUS, CONSTANT PAIN IS INCREASED BY:ACTIVITIES PAIN IS DECREASED BY:USE OF PAIN MEDICATIONS NURSING NOTE: -. PAIN CENTER INTAKE QUESTIONS: DO YOU HAVE A HISTORY OF MRSA? :NO DO YOU TAKE A BLOOD THINNERS? :NO DO YOU HAVE ANY BLEEDING DISORDERS? :NO ANY NEW NUMBNESS OR WEAKNESS IN YOUR LEGS OR ARMS? :YES NOTES NEW NUMBNESS FROM THIGHS TO FEET X 1 WEEK BILATERALLY ANY PACEMAKER,DEFIBRILLATOR, OR DORSAL COLUMN STIMULATOR? :NO DO YOU HAVE ANY RASHES OR OPEN SORES? :NO ARE YOU ALLERGIC TO IV DYE? :NO ARE YOU DIABETIC? :YES ANY NEW PROBLEMS WITH YOUR MEDICATIONS? :NO HAVE YOU RECEIVED A VACCINE IN THE PAST 30 DAYS? :YES FLU VACCINE 1 WEEK AGO DO YOU PLAN TO RECEIVE A VACCINE IN THE NEXT 21 DAYS? :NO DO YOU NEED ANY PRESCRIPTION? :NO DO YOU TAKE ANY IMMUNOSUPPRESSIVE MEDICATIONS? :NO IS THERE A CHANCE YOU COULD BE ? :NO ARE YOU BREAST FEEDING? :NO CURRENT MEDICATIONS TAKING ATORVASTATIN CALCIUM 20 MG TABLET 1 TABLET ORALLY ONCE A DAY TAKING METFORMIN HCL 500 TABLET 1 TABLET WITH A MEAL ORALLY TWICE DAILY TAKING BLOOD GLUCOSE TEST - STRIP DIRECTED FOR ONE TOUCH DXE11.9 DAILY AND PRN TAKING GLUCOMETER (VERIO IQ) GLUCOMETER DIRECTED DX: E11.9 ONE TOUCH TWICE DAILY NEEDED TAKING MULTIVITAMIN - TABLET CHEWABLE DIRECTED ORALLY OTC, DAILY TAKING GLUCOMETER DIRECTED DXE11.9 - TAKING METHOCARBAMOL 500 MG TABLET 1 CAP ORALLY EVERY 6H PRN TAKING CYMBALTA 60 MG CAPSULE DELAYED RELEASE PARTICLES 1 CAPSULE ORALLY DAILY TAKING GABAPENTIN 600 MG TABLET 1 CAPSULE ORALLY Q8H TAKING OXYCODONE-ACETAMINOPHEN 7.5-325 MG TABLET 1 TABLET NEEDED ORALLY BID NEEDED MDD 2 45 TABS TO LAST 30 DAYS, NOTES: POST OP TAKING LANCETS - MISCELLANEOUS DIRECTED DXE11.9 DAILY NOT-TAKING VITAMIN D-3 25 MCG (1000 UT) CAPSULE 1 CAPSULE ORALLY ONCE A DAY WITH MEAL NOT-TAKING METFORMIN HCL 500 MG TABLET TAKE 1 TABLET BY MOUTH TWICE DAILY WITH A MEAL , NOTES: DUPLICATE SEE ABOVE NOT-TAKING TYLENOL EXTRA STRENGTH 500 MG TABLET 1 TABLET NEEDED ORALLY EVERY 6 HRS MEDICATION LIST REVIEWED AND RECONCILED WITH THE PATIENT PAST MEDICAL HISTORY ROSACEA UTERINE PROLAPSE CYSTOCELE HX ENDOMETRIAL POLYPS/PMB LEFT SIDE SCIATICA, LUMBAGO SYPHILLIS-COMPLETED AT [facility] SYMPTOMATIC MENOPAUSAL OR FEMALE CLIMACTERIC STATES POSTMENOPAUSAL ATROPHIC VAGINITIS COUNSELING ON OTHER SEXUALLY TRANSMITTED DISEASES HGSIL ON PAP SMEAR NERVE CONDUCTION STUDY: NEUROLOGY DIABETES TYPE 2 COLONOSCOPY 2010, ENTIRE COLON CLEAR BACK PAIN BLADDER TUMOR: LOW GRADE UROTHELIAL CARCINOMA HEART MURMUR - ECHO 07/2019 NORMAL ALLERGIES N.K.D.A. SURGICAL HISTORY TUBAL LIGATION ENDOMETRIAL POLYP REMOVAL/HYSTEROSCOPY, D&C (ANIKET) 2010 COLONOSCOPY: NEGATIVE FOR POLYPS; DIVERTICULOSIS; HEMORRHOIDS (JEFFREY) 2010 LEFT SHOULDER- ROTATOR CUFF, 3 TEARS, AMB SURGERY 2016 BACK SURGERY LAMINECTOMY W/ FUSION L4-5, L5-S1 DR SUBRAMANIAN, [facility] 2018-12-2 RIGHT ROTATOR CUFF SURGERY 08/19/19 TURBT 10/10/2019 FAMILY HISTORY FATHER: 69 YRS, AMI MOTHER: 80 YRS, CAUSE OF UNKNOWN TO PT SON(S): ALIVE 35,31 YRS, ONE SON 3 HRS AFTER . TWO OTHER SONS, BOTH ALIVE, NO KNOWN MEDICAL PROBLEMS DAUGHTER(S): ALIVE 34,27 YRS, BOTH, NO KNOWN MEDICAL PROBLEMS 2 SON(S) , 2 DAUGHTER(S) - HEALTHY. DENIES FAMILY HX BREAST, COLON OR OVARIAN CANCERS. SOCIAL HISTORY GENERAL: TOBACCO USE ARE YOU A:NONSMOKER LATEX QUESTIONNAIRE LATEX ALLERGY : HAVE YOU EVER DEVELOPED ANY TYPE OF REACTION AFTER HANDLING LATEX PRODUCTS SUCH RUBBER GLOVES, CONDOMS, DIAPHRAGMS, BALLOONS, SOCKS, OR UNDERWEAR?NO LATEX ALLERGY : HAVE YOU EVER DEVELOPED ANY TYPE OF REACTION DURING OR AFTER DENTAL APPOINTMENT, VAGINAL/RECTAL EXAMINATION, SURGICAL PROCEDURE, OR ANY OTHER EXPOSURE?NO LATEX RISK : HAVE YOU EVER HAD ANY DIFFICULTY BREATHING OR HIVES AFTER EATING OR HANDLING ANY FRUITS, OR VEGETABLES; SUCH KIWI, BANANAS, STONE FRUITS, OR CHESTNUTSNO LATEX RISK : DO YOU HAVE A PREVIOUS PERSONAL HISTORY OF MORE THAN NINE SURGERIES, SPINA BIFIDA, OR REPEATED CATHERIZATIONS? NO LATEX RISK : ARE YOU FREQUENTLY EXPOSED TO LATEX PRODUCTS IN YOUR OCCUPATION?NO DATE ASKED : 05/10/2020 ALCOHOL SCREENING DID YOU HAVE A DRINK CONTAINING ALCOHOL IN THE PAST YEAR?YES HOW OFTEN DID YOU HAVE A DRINK CONTAINING ALCOHOL IN THE PAST YEAR?MONTHLY OR LESS (1 POINT) HOW MANY DRINKS DID YOU HAVE ON A TYPICAL DAY WHEN YOU WERE DRINKING IN THE PAST YEAR?3 OR 4 (1 POINT) HOW OFTEN DID YOU HAVE SIX OR MORE DRINKS ON ONE OCCASION IN THE PAST YEAR?NEVER (0 POINTS) POINTS2 INTERPRETATIONNEGATIVE RECREATIONAL DRUG USE DRUG USE?NO CAFFEINE CAFFEINE USE?YES 2 CUPS DAILY SEXUAL HX HAD SEX IN THE LAST 12 MONTHS (VAGINAL, ORAL, OR ANAL)?YES WITHMEN ONLY PREVENTION STRATEGIES DISCUSSED:OTHER USE PROTECTION?NO LMP:POST MENOPAUSE HAVE YOU EVER HAD AN STD?YES HERPES?NO SYPHILIS?NO GC?NO CHLAMYDIA?NO HIV / HEP-C SCREENING HIV TEST OFFERED TO PATIENT:NO HEP-C TEST OFFERED TO PATIENT:NO BAHAI [id number] NONE LANGUAGE LANGUAGES SPOKEN:TAMAZIGHT EDUCATION LEVEL OF EDUCATION:HIGH SCHOOL LEARNING BARRIERS / SPECIAL NEEDS CHANGE FROM LAST VISIT?NO BARRIERS TO LEARNING?NO HEARING IMPAIRED?NO VISION IMPAIRED?YES :CORRECTIVE LENSES COGNITIVELY IMPAIRED?NO READINESS TO LEARN?YES LEARNING PREFERENCES?NO LEARNING CAPABILITIES PRESENT?YES EMOTIONAL BARRIERS?NO SPECIAL DEVICES?NO TRAINING DIRECTOR NEEDED?NO DOMESTIC VIOLENCE DO YOU FEEL SAFE IN YOUR ENVIRONMENT?YES OCCUPATION: NOT WORKING , PHYICALLY DISABLED. DIET: NO HX EATING DISORDERS. EXERCISE: WALKS. MARITAL STATUS: , 2007, WERE 34 YRS, REMARRIED 2014. OTHERS AT HOME: CHILD (ADULT SON),. PAIN CLINIC PFS, CLERGY, PUBLIC HEALTH REFERRALS PFS REFERRAL NEEDED?NO CLERGY REFERRAL NEEDED?NO PUBLIC HEALTH REFERRAL NEEDED?NO WAS THE PROVIDER NOTIFIED OF ANY PERTINENT INFO?YES HAS THE PATIENT BEEN EDUCATED REGARDING HIS/HER PLAN OF CARE?YES HAS THE PATIENT BEEN EDUCATED REGARDING PAIN, THE RISK FOR PAIN, THE IMPORTANCE OF EFFECTIVE PAIN MANAGEMENT, AND THE PAIN ASSESSMENT PROCESS?YES ADVANCE DIRECTIVE ADVANCE DIRECTIVE DISCUSSED WITH PATIENT:YES HCP YRN DAMONAaronALEXIS [phone] 2ND HCP LIZBETH [facility]NEIDERSOLITARIO HOSPITALIZATION/MAJOR DIAGNOSTIC PROCEDURE BACK SURGERY 2019-06-19 SHOULDER SURGERY 2019-08-19 REVIEW OF SYSTEMS CONSTITUTIONAL: ANY RECENT FEVER NO . CHILLS NO . WEIGHT CHANGE OF UNKNOWN REASONS NO . GASTROENTEROLOGY: NEW UNEXPLAINABLE CHANGES IN BOWEL CONTROL NO . CONSTIPATION NO . GENITOURINARY: ANY NEW CHANGE IN BLADDER CONTROL? NO . NEUROLOGY: NEW ONSET DIZZINESS OR NEUROLOGICAL CHANGES NOT MENTIONED NO . NEW NUMBNESS OR PAIN PATTERNS NOT MENTIONED AND PERTINENT TO TODAY'S VISIT NO . CARDIOLOGY: NEW CHEST PRESSURE NO . NEW CHEST PAIN NO . RESPIRATORY: UNEXPLAINABLE COUGH NO . NEW SHORTNESS OF BREATH NO . VITAL SIGNS WT 171.2 LBS, HT 61 IN, BMI 32.34 INDEX, BP 123/58 MM HG, HR 100 /MIN, RR 18 /MIN, TEMP 96.8 F, OXYGEN SAT % 91%, SAFE IN ENV? (Y/N) YES, REVIEWED BY: ANNA. EXAMINATION GENERAL EXAMINATION: GENERALNO ACUTE DISTRESS, WELL NOURISHED AND HYDRATED. PSYCHAPPROPRIATE MOOD AND AFFECT . LUNGS:CLEAR TO AUSCULTATION BILATERALLY, NO WHEEZES, RHONCHI, RALES. HEART:NO MURMURS, REGULAR RATE AND RHYTHM. ASSESSMENTS LOW BACK PAIN - M54.5 (PRIMARY) LUMBAGO WITH SCIATICA, LEFT SIDE - M54.42 TREATMENT LUMBAGO WITH SCIATICA, LEFT SIDE REFILL OXYCODONE-ACETAMINOPHEN TABLET, 7.5-325 MG, 1 TABLET NEEDED, ORALLY, BID NEEDED MDD 2 45 TABS TO LAST 30 DAYS, 30 DAYS, 60, NOTES: POST OP CLINICAL NOTES: 64-YEAR-OLD FEMALE IN FOR CHRONIC PAIN FOLLOW-UP. GIVEN PRESENTING SYMPTOMS RECOMMEND CONTINUATION OF CURRENT MEDICATION REGIMEN WITH FOLLOW-UP IN 3 MONTHS. DISCUSSED ANKLE EDEMA WITH PATIENT AND ENCOURAGED HER TO FOLLOW-UP IN THE ER FOR FURTHER EVALUATION. PATIENT HAS EXPRESSED UNDERSTANDING OF AND WAS IN AGREEMENT WITH TREATMENT PLAN. GIVEN TIME TO ASK QUESTIONS AND EXPRESS CONCERNS. , ISTOP REGISTRY REVIEWED AND DEMONSTRATES COMPLLIANCE. (REF # [id number] ) BRINGS IN MEDICATIONS WHICH IS APPROPRIATE FOR WHAT WAS DISPENSED. RECENT URINE TOXICOLOGY REVIEWED. NO UNAUTHORIZED MEDICATIONS. NO ILLICIT SUBSTANCES AND PRESCRIBED MEDICATIONS WERE PRESENT. PROCEDURE CODES FA211 ESTABILISHED PATIENT [facility] FACILITY CHARGE DISPOSITION & COMMUNICATION FOLLOW UP 3 MONTHS (REASON: BACK PAIN) ELECTRONICALLY SIGNED BY HARRISON DALEY ON 05/11/2020 AT 09:09 AM EDT DISCLAIMER : THIS IS A VISIT SUMMARY EXTRACTED FROM THE [employer] CHART. IT IS NOT A COPY OF THE [employer] PROGRESS NOTE. EBD
== END ==
LOC: M PAIN 10:00
PROVIDERS: ATTEND Family Medicine
DX: M54.42 Lumbago with sciatica, left side (principal); E11.9 Type 2 diabetes mellitus without complications; Z79.891 Long term (current) use of opiate analgesic; Z79.899 Other long term (current) drug therapy

== ENCOUNTER 2020-08-06 17:29 | Emergency (ER) | payer OTHER ==
[~2020-08-06] VITALS: Ht 165.1 cm; Wt 72.6 kg
[~2020-08-06 17:29] MED LIST changes: +GABA-282 PO; -GABA-843 PO; +METH-1164 PO; -METH1TAB40 PO
[2020-08-06] MEDS ORDERED: ONDANSETRON 4MG/2ML VIAL IV ONE (18:45)
[2020-08-06] MEDS ORDERED: NS 1,000 ML IV ONE (18:45)
[2020-08-06] MEDS ORDERED: KETOROLAC 30 MG/ML 1ML VIAL IV ONE (18:45)
[2020-08-06 19:00] LABS: BASO % 0.2 % (0.0-1.0); EOS # 0.1 10^3/uL (0.0-0.5); EOS % 1.1 % (0.0-3.0); HEMATOCRIT 39.7 % (36.0-47.0); HEMOGLOBIN 12.3 g/dl (12.0-15.5); LYMPH # 3.3 10^3/uL (1.5-5.0); LYMPH % 33.8 % (24.0-44.0); MEAN CORPUSCULAR HEMOGLOBIN 27.3 pg (27.0-33.0); MEAN CORPUSCULAR VOLUME 88.2 fl (80.0-96.0); MONO # 0.6 10^3/uL (0.0-0.8); MONO % 5.7 % (0.0-5.0); NEUTROPHILS # 5.7 10^3/uL (1.5-8.5); NEUTROPHILS % 58.9 % (36.0-66.0); PLATELET COUNT, AUTOMATED 352 10^3/uL (150-450); WHITE BLOOD COUNT 9.7 10^3/uL (4.0-10.0)
[2020-08-06] MEDS ORDERED: ISOVUE-370 76% 100ML VIAL As Ordered ONE (19:20)
[2020-08-06 19:31] LABS: ALBUMIN 3.9 GM/DL (3.2-5.2); ALT/SGPT 29 U/L (12-78); BILIRUBIN,DIRECT < 0.1 MG/DL (0.0-0.2); BILIRUBIN,TOTAL 0.2 MG/DL (0.2-1.0); LIPASE 166 U/L (73-393); TOTAL PROTEIN 7.6 GM/DL (6.4-8.2)
--- NOTE | 2020-08-06 20:13 | REPVR ---
PROCEDURE INFORMATION: Exam: CT Abdomen And Pelvis With Contrast Exam date and time: 08/06/2020 7:27 PM Age: 64 years old Clinical indication: Abdominal pain; Localized; Right lower quadrant (rlq); Additional info: Rlq pain TECHNIQUE: Imaging protocol: Computed tomography of the abdomen and pelvis with intravenous contrast. Radiation optimization: All CT scans at this facility use at least one of these dose optimization techniques: automated exposure control; mA and/or kV adjustment per patient size (includes targeted exams where dose is matched to clinical indication); or iterative reconstruction. Contrast material: ISOVUE 370; Contrast volume: 100 ml; Contrast route: INTRAVENOUS (IV); COMPARISON: CT ABD PELVIS W/O FOL BY WIT 09/16/2019 8:04 AM FINDINGS: Lungs: Calcified granuloma within the lateral aspect of the left lower lobe. Liver: Unremarkable. No mass. Gallbladder and bile ducts: Multiple calcified stones within the gallbladder. No cholecystitis. Normal caliber common bile duct. Pancreas: Unremarkable. No ductal dilation. Spleen: Unremarkable. No splenomegaly. Adrenal glands: Normal. No mass. Kidneys and ureters: Unremarkable. No stones. No hydronephrosis. Stomach and bowel: There is a well-defined fluid collection containing a small amount of gas within the right lower quadrant abutting multiple loops of distal ileum. This measures approximately 4.4 cm long by 5.1 cm transverse by 3.4 cm AP and is seen on axial images 97 through 110, sagittal images 37 through 50 and coronal images 32 through 45. This is new compared to the previous CT scan of the abdomen performed on 09/16/2019. No inflammatory changes are present within the surrounding fat and no wall thickening of adjacent loops of small bowel is noted. It is uncertain whether this represents an extraluminal collection or a collection the communicates with the small bowel. Follow-up evaluation with CT scan utilizing enteric contrast as well as surgical consultation is recommended. The stomach, small bowel and colon have normal appearances. Appendix: A normal appendix is visible on axial images 93 through 100. No appendicitis. Intraperitoneal space: Unremarkable. No free air. No significant fluid collection. Vasculature: Unremarkable. No abdominal aortic aneurysm. Lymph nodes: Slightly prominent bilateral hilar lymph nodes. Urinary bladder: Unremarkable as visualized. Reproductive: Unremarkable as visualized. Bones/joints: No acute fracture. Soft tissues: Unremarkable. IMPRESSION: 1. No acute abdominopelvic process. 2. Cholelithiasis. 3. Indeterminate cystic mass containing a small amount of gas within the right lower quadrant abutting multiple loops of distal ileum. No adjacent inflammatory changes are present. It is uncertain whether this represents an extraluminal collection or a collection which communicates with the small bowel. A distended Meckel's diverticulum without surrounding inflammatory change is possible. A cystic neoplasm is not excluded. Follow-up evaluation with CT scan utilizing enteric contrast as well as surgical consultation is recommended. Electronically signed by: Timur Sagastume On 08/06/2020 20:13:00 PM
[2020-08-06] MEDS ORDERED: BACT800T5 PO (21:46)
[2020-08-06] MEDS ORDERED: ONDA4TAB6 PO (21:50)
[2020-08-06 21:59] VITALS: BP 134/79
[2020-08-06] MEDS ORDERED: BACTRIM 160MG/800MG DS TAB PO ONE (22:00)
--- NOTE | 2020-08-09 10:58 | ED PDOC ---
Post-Departure Follow-Up ct abd/p faxed to dr espinoza and mirela baez for fu Ebenezer Doty MD Aug 09, 2020 10:58
== END 2020-08-06 22:11 | disposition home or self-care (01) ==
LOC: M ED 17:29
DX: R19.00 Intra-abdominal and pelvic swelling, mass and lump, unspecified site (principal); N39.0 Urinary tract infection, site not specified; M79.7 Fibromyalgia; Z78.0 Asymptomatic menopausal state; Z79.899 Other long term (current) drug therapy
CPT/HCPCS: 74177; 80047; 80076; 81001; 83690; 85025; 87086; 96361; 96374; 96375; 99284; J1885; J2405; Q9967

== ENCOUNTER → 2020-08-10 | Outpatient (CLI) | payer OTHER ==
[~2020-08-10] MED LIST changes: +BACT800T5 PO; +ONDA4TAB6 PO
--- NOTE | 2020-08-12 05:03 | ECWPNPC ---
PATIENT NAME: CATALINA MEYERS : 1955 GENDER: FEMALE VISIT DATE: 08/10/2020 DISCHARGE DATE: 08/10/20 1218 VISIT LOCKED DATE TIME: PHYSICIAN: ELIEL RAZO PHYSICIAN PAGER NO: ACTIVE RESOURCE: ELIEL RAZO REASON FOR APPOINTMENT 1. BACK PAIN HISTORY OF PRESENT ILLNESS GENERAL: 64-YEAR-OLD FEMALE FOR CHRONIC PAIN FOLLOW-UP. SHE RATES HER PAIN CURRENTLY AT AN 8 OUT OF 10 AND DESCRIBES IT ACHING, AND SHOOTING. SHE FEELS MEDICATIONS ARE HELPFUL AND DENIES MED SIDE EFFECTS AT THIS TIME. -. FALL RISK SCREENING: SCREENING :ONE FALL WITHOUT INJURY IN THE PAST YEAR PAIN SCREENING: PATIENT HAS A COMPLAINT OF ACUTE OR CHRONIC PAIN :YES LOCATION OF PAIN:LEG(S) INTENSITY OF PAIN (SCALE OF 1 TO 10):8 WHAT DOES YOUR PAIN FEEL LIKE:ACHING, SHOOTING DURATION:CONTINOUS, CONSTANT PAIN IS INCREASED BY:ACTIVITIES PAIN IS DECREASED BY:USE OF PAIN MEDICATIONS TREATMENT/MEDICATIONS USED TO MANAGE PAIN:OPIOIDS LEVEL OF RELIEF FROM PAIN TREATMENTS IN THE PAST:50% PAIN HAS INTERFERED WITH THE FOLLOWING:BATHING/DRESSING, WALKING ABILITY, HOUSEWORK, SLEEP, TRANSPORTATION, TOILETING NURSING NOTE: -. PAIN CENTER INTAKE QUESTIONS: DO YOU HAVE A HISTORY OF MRSA? :NO DO YOU TAKE A BLOOD THINNERS? :NO DO YOU HAVE ANY BLEEDING DISORDERS? :NO ANY NEW NUMBNESS OR WEAKNESS IN YOUR LEGS OR ARMS? :NO ANY PACEMAKER,DEFIBRILLATOR, OR DORSAL COLUMN STIMULATOR? :NO DO YOU HAVE ANY RASHES OR OPEN SORES? :NO ARE YOU ALLERGIC TO IV DYE? :NO ARE YOU DIABETIC? :YES ANY NEW PROBLEMS WITH YOUR MEDICATIONS? :NO HAVE YOU RECEIVED A VACCINE IN THE PAST 30 DAYS? :NO DO YOU PLAN TO RECEIVE A VACCINE IN THE NEXT 21 DAYS? :NO DO YOU NEED ANY PRESCRIPTION? :YES OXY DO YOU TAKE ANY IMMUNOSUPPRESSIVE MEDICATIONS? :NO IS THERE A CHANCE YOU COULD BE ? :NO ARE YOU BREAST FEEDING? :NO CURRENT MEDICATIONS TAKING METFORMIN HCL 500 TABLET 1 TABLET WITH A MEAL ORALLY TWICE DAILY TAKING BLOOD GLUCOSE TEST - STRIP DIRECTED FOR ONE TOUCH DXE11.9 DAILY AND PRN TAKING GLUCOMETER (VERIO IQ) GLUCOMETER DIRECTED DX: E11.9 ONE TOUCH TWICE DAILY NEEDED TAKING MULTIVITAMIN - TABLET CHEWABLE DIRECTED ORALLY OTC, DAILY TAKING GLUCOMETER DIRECTED DXE11.9 - TAKING LANCETS - MISCELLANEOUS DIRECTED DXE11.9 DAILY TAKING ATORVASTATIN CALCIUM 20 MG TABLET TAKE 1 TABLET BY MOUTH EVERY DAY TAKING CYMBALTA 60 MG CAPSULE DELAYED RELEASE PARTICLES 1 CAPSULE ORALLY DAILY TAKING GABAPENTIN 600 MG TABLET 1 CAPSULE ORALLY Q8H TAKING OXYCODONE-ACETAMINOPHEN 7.5-325 MG TABLET 1 TABLET NEEDED ORALLY BID NEEDED MDD 2 45 TABS TO LAST 30 DAYS, NOTES: POST OP TAKING METHOCARBAMOL 500 MG TABLET 1 CAP ORALLY EVERY 6H PRN NOT-TAKING VITAMIN D-3 25 MCG (1000 UT) CAPSULE 1 CAPSULE ORALLY ONCE A DAY WITH MEAL NOT-TAKING METFORMIN HCL 500 MG TABLET TAKE 1 TABLET BY MOUTH TWICE DAILY WITH A MEAL , NOTES: DUPLICATE SEE ABOVE NOT-TAKING TYLENOL EXTRA STRENGTH 500 MG TABLET 1 TABLET NEEDED ORALLY EVERY 6 HRS MEDICATION LIST REVIEWED AND RECONCILED WITH THE PATIENT PAST MEDICAL HISTORY ROSACEA UTERINE PROLAPSE CYSTOCELE HX ENDOMETRIAL POLYPS/PMB LEFT SIDE SCIATICA, LUMBAGO SYPHILLIS-COMPLETED AT [facility] SYMPTOMATIC MENOPAUSAL OR FEMALE CLIMACTERIC STATES POSTMENOPAUSAL ATROPHIC VAGINITIS COUNSELING ON OTHER SEXUALLY TRANSMITTED DISEASES HGSIL ON PAP SMEAR NERVE CONDUCTION STUDY: NEUROLOGY DIABETES TYPE 2 COLONOSCOPY 2010, ENTIRE COLON CLEAR BACK PAIN BLADDER TUMOR: LOW GRADE UROTHELIAL CARCINOMA HEART MURMUR - ECHO 07/2019 NORMAL INTESTINE MASS ALLERGIES N.K.D.A. SURGICAL HISTORY TUBAL LIGATION ENDOMETRIAL POLYP REMOVAL/HYSTEROSCOPY, D&C (ANIKET) 2010 COLONOSCOPY: NEGATIVE FOR POLYPS; DIVERTICULOSIS; HEMORRHOIDS (JEFFREY) 2010 LEFT SHOULDER- ROTATOR CUFF, 3 TEARS, AMB SURGERY 2015 BACK SURGERY LAMINECTOMY W/ FUSION L4-5, L5-S1 DR SUBRAMANIAN, [facility] 2018--2 RIGHT ROTATOR CUFF SURGERY 08/19/19 TURBT 10/10/2019 SOCIAL HISTORY GENERAL: TOBACCO USE ARE YOU A:NONSMOKER LATEX QUESTIONNAIRE LATEX ALLERGY : HAVE YOU EVER DEVELOPED ANY TYPE OF REACTION AFTER HANDLING LATEX PRODUCTS SUCH RUBBER GLOVES, CONDOMS, DIAPHRAGMS, BALLOONS, SOCKS, OR UNDERWEAR?NO LATEX ALLERGY : HAVE YOU EVER DEVELOPED ANY TYPE OF REACTION DURING OR AFTER DENTAL APPOINTMENT, VAGINAL/RECTAL EXAMINATION, SURGICAL PROCEDURE, OR ANY OTHER EXPOSURE?NO DATE ASKED : 05/10/2020 LATEX RISK : HAVE YOU EVER HAD ANY DIFFICULTY BREATHING OR HIVES AFTER EATING OR HANDLING ANY FRUITS, OR VEGETABLES; SUCH KIWI, BANANAS, STONE FRUITS, OR CHESTNUTSNO LATEX RISK : DO YOU HAVE A PREVIOUS PERSONAL HISTORY OF MORE THAN NINE SURGERIES, SPINA BIFIDA, OR REPEATED CATHERIZATIONS? NO LATEX RISK : ARE YOU FREQUENTLY EXPOSED TO LATEX PRODUCTS IN YOUR OCCUPATION?NO ALCOHOL SCREENING DID YOU HAVE A DRINK CONTAINING ALCOHOL IN THE PAST YEAR?YES HOW OFTEN DID YOU HAVE SIX OR MORE DRINKS ON ONE OCCASION IN THE PAST YEAR?NEVER (0 POINTS) HOW MANY DRINKS DID YOU HAVE ON A TYPICAL DAY WHEN YOU WERE DRINKING IN THE PAST YEAR?3 OR 4 (1 POINT) HOW OFTEN DID YOU HAVE A DRINK CONTAINING ALCOHOL IN THE PAST YEAR?MONTHLY OR LESS (1 POINT) POINTS2 INTERPRETATIONNEGATIVE RECREATIONAL DRUG USE DRUG USE?NO CAFFEINE CAFFEINE USE?YES 2 CUPS DAILY SEXUAL HX HAD SEX IN THE LAST 12 MONTHS (VAGINAL, ORAL, OR ANAL)?YES WITHMEN ONLY PREVENTION STRATEGIES DISCUSSED:OTHER USE PROTECTION?NO LMP:POST MENOPAUSE HAVE YOU EVER HAD AN STD?YES HERPES?NO SYPHILIS?NO GC?NO CHLAMYDIA?NO HIV / HEP-C SCREENING HIV TEST OFFERED TO PATIENT:NO HEP-C TEST OFFERED TO PATIENT:NO BUDDHISM [id number] NONE LANGUAGE LANGUAGES SPOKEN:SAMI EDUCATION LEVEL OF EDUCATION:HIGH SCHOOL LEARNING BARRIERS / SPECIAL NEEDS CHANGE FROM LAST VISIT?NO BARRIERS TO LEARNING?NO HEARING IMPAIRED?NO VISION IMPAIRED?YES COGNITIVELY IMPAIRED?NO :CORRECTIVE LENSES READINESS TO LEARN?YES LEARNING PREFERENCES?NO LEARNING CAPABILITIES PRESENT?YES EMOTIONAL BARRIERS?NO SPECIAL DEVICES?NO HEAVY THREADER NEEDED?NO DOMESTIC VIOLENCE DO YOU FEEL SAFE IN YOUR ENVIRONMENT?YES OCCUPATION: NOT WORKING , PHYICALLY DISABLED. DIET: NO HX EATING DISORDERS. EXERCISE: WALKS. MARITAL STATUS: , 2008, WERE 34 YRS, REMARRIED 2014. OTHERS AT HOME: CHILD (ADULT SON),. - PFS REFERRAL NEEDED?NO CLERGY REFERRAL NEEDED?NO PUBLIC HEALTH REFERRAL NEEDED?NO WAS THE PROVIDER NOTIFIED OF ANY PERTINENT INFO?YES HAS THE PATIENT BEEN EDUCATED REGARDING HIS/HER PLAN OF CARE?YES HAS THE PATIENT BEEN EDUCATED REGARDING PAIN, THE RISK FOR PAIN, THE IMPORTANCE OF EFFECTIVE PAIN MANAGEMENT, AND THE PAIN ASSESSMENT PROCESS?YES ADVANCE DIRECTIVE ADVANCE DIRECTIVE DISCUSSED WITH PATIENT:YES HCP YRN MEYERS [phone] 2ND HCP LIZBETH RIVAS HOSPITALIZATION/MAJOR DIAGNOSTIC PROCEDURE BACK SURGERY 2019-06-19 SHOULDER SURGERY 2019-08-19 REVIEW OF SYSTEMS CONSTITUTIONAL: ANY RECENT FEVER NO . CHILLS NO . WEIGHT CHANGE OF UNKNOWN REASONS NO . GASTROENTEROLOGY: NEW UNEXPLAINABLE CHANGES IN BOWEL CONTROL NO . CONSTIPATION NO . GENITOURINARY: ANY NEW CHANGE IN BLADDER CONTROL? NO . NEUROLOGY: NEW ONSET DIZZINESS OR NEUROLOGICAL CHANGES NOT MENTIONED NO . NEW NUMBNESS OR PAIN PATTERNS NOT MENTIONED AND PERTINENT TO TODAY'S VISIT NO . CARDIOLOGY: NEW CHEST PRESSURE NO . NEW CHEST PAIN NO . RESPIRATORY: UNEXPLAINABLE COUGH NO . NEW SHORTNESS OF BREATH NO . VITAL SIGNS WT 159 LBS, HT 61 IN, BMI 30.04 INDEX, BP 139/59 MM HG, HR 107 /MIN, RR 16 /MIN, TEMP 98.7 F, OXYGEN SAT % 95, SAFE IN ENV? (Y/N) Y, REVIEWED BY: EM. EXAMINATION GENERAL EXAMINATION: GENERALNO ACUTE DISTRESS, WELL NOURISHED AND HYDRATED. PSYCHAPPROPRIATE MOOD AND AFFECT . LUNGS:CLEAR TO AUSCULTATION BILATERALLY, NO WHEEZES, RHONCHI, RALES. HEART:NO MURMURS, REGULAR RATE AND RHYTHM. ASSESSMENTS LUMBAGO WITH SCIATICA, RIGHT SIDE - M54.41 (PRIMARY), RISK: (NULL) LUMBAGO WITH SCIATICA, LEFT SIDE - M54.42, RISK: (NULL) TREATMENT LUMBAGO WITH SCIATICA, RIGHT SIDE REFILL GABAPENTIN TABLET, 600 MG, 1 CAPSULE, ORALLY, Q8H, 30 DAYS, 90, REFILLS 2 REFILL OXYCODONE-ACETAMINOPHEN TABLET, 7.5-325 MG, 1 TABLET NEEDED, ORALLY, BID NEEDED MDD 2 45 TABS TO LAST 30 DAYS, 30 DAYS, 60, NOTES: POST OP NOTES: 64-YEAR-OLD FEMALE IN FOR CHRONIC PAIN FOLLOW-UP. GIVEN PRESENTING SYMPTOMS RECOMMENDED CONTINUATION OF CURRENT MEDICATION REGIMEN WITH FOLLOW-UP IN 3 MONTHS. PATIENT HAS EXPRESSED UNDERSTANDING OF AND WAS IN AGREEMENT WITH TREATMENT PLAN. GIVEN TIME TO ASK QUESTIONS AND EXPRESS CONCERNS. , ISTOP REGISTRY REVIEWED AND DEMONSTRATES COMPLLIANCE. (REF # [id number] ) BRINGS IN MEDICATIONS WHICH IS APPROPRIATE FOR WHAT WAS DISPENSED. RECENT URINE TOXICOLOGY REVIEWED. NO UNAUTHORIZED MEDICATIONS. NO ILLICIT SUBSTANCES AND PRESCRIBED MEDICATIONS WERE PRESENT. PROCEDURE CODES FA211 ESTABILISHED PATIENT [facility] CHARGE DISPOSITION & COMMUNICATION FOLLOW UP 3 MONTHS (REASON: BACK PAIN ) ELECTRONICALLY SIGNED BY HARRISON DALEY ON 08/11/2020 AT 01:01 PM EST DISCLAIMER : THIS IS A VISIT SUMMARY EXTRACTED FROM THE [employer] CHART. IT IS NOT A COPY OF THE [employer] PROGRESS NOTE. MARY ANN
== END ==
LOC: M PAIN 11:30
PROVIDERS: ATTEND Family Medicine
DX: M54.41 Lumbago with sciatica, right side (principal); M54.42 Lumbago with sciatica, left side; E11.9 Type 2 diabetes mellitus without complications; Z79.84 Long term (current) use of oral hypoglycemic drugs; Z79.899 Other long term (current) drug therapy

== ENCOUNTER → 2020-08-16 | Outpatient (CLI) | payer OTHER ==
[~2020-08-16] MED LIST changes: -METH-1164 PO; +METH1TAB40 PO
[2020-08-16 13:31] LABS: BLOOD UREA NITROGEN 20 MG/DL (7-18); CREATININE FOR GFR 0.96 MG/DL (0.55-1.30); GLOMERULAR FILTRATION RATE > 60.0 (>45)
== END ==
LOC: M LAB 12:28
PROVIDERS: ATTEND Surgery
DX: Z01.812 Encounter for preprocedural laboratory examination (principal)

== ENCOUNTER → 2020-09-08 | Outpatient (CLI) | payer OTHER ==
[~2020-09-08] MED LIST changes: +METH-1164 PO; -METH1TAB40 PO; +OXYC1TAB15 PO; +VITMTA PO
--- NOTE | 2020-09-10 00:35 | ECGEPIP ---
[facility] Test Date: 2020-09-08 Pat Name: CATALINA MEYERS Department: Room: - Gender: Female Research Center Director: [facility] : 1955 Requested By: RICHI Carty Order Number: [id number] Reading MD: Aubrey Holland Measurements Intervals [place] Rate: 94 P: 49 GA: 154 QRS: -16 QRSD: 82 T: 24 QT: 358 QTc: 447 Interpretive Statements Normal sinus rhythm Inferior infarct , age undetermined Anterior infarct , age undetermined Last tracing on 03/01/16 at 13:52, minimal changes Electronically Signed on 09-10-2020 0:34:49 EST by Aubrey Holland
== END ==
LOC: M EKG 09:43
PROVIDERS: ATTEND Anesthesiology
DX: Z01.818 Encounter for other preprocedural examination (principal); E78.00 Pure hypercholesterolemia, unspecified; E11.9 Type 2 diabetes mellitus without complications; K21.9 Gastro-esophageal reflux disease without esophagitis

== ENCOUNTER → 2020-09-15 | Outpatient (CLI) | payer OTHER | LOC: M LABSMTC 11:42 | PROVIDERS: ATTEND Anesthesiology | DX: Z01.812 Encounter for preprocedural laboratory examination (principal); Z20.822 Contact with and (suspected) exposure to COVID-19 ==

== ENCOUNTER 2020-09-20 09:06 | Day surgery (SDC) | payer OTHER ==
[~2020-09-20] VITALS: Ht 154.9 cm; Wt 72.8 kg
[~2020-09-20 09:06] MED LIST changes: +LIDOCAINE 1% MDV 20ML VIAL SQ PRN; +LR 1,000 ML IV ONE
[2020-09-20] MEDS ORDERED: KETOROLAC 60MG 2ML VIAL As Ordered ONE (09:39)
[2020-09-20] MEDS ORDERED: MIDAZOLAM INJ 2MG/2ML VIAL (J2250 PER 1MG) As Ordered ONE (09:39)
[2020-09-20] MEDS ORDERED: LIDOCAINE 2% 100MG/5ML SDV (FOR ANES.) As Ordered ONE (09:39)
[2020-09-20] MEDS ORDERED: dexameTHASONE 4 MG/ML 1ML VIAL (J1100 PER 1MG) As Ordered ONE (09:39)
[2020-09-20] MEDS ORDERED: ROCURONIUM BROMIDE 50 MG/5 ML VIAL As Ordered ONE ×2 (09:39→11:19)
[2020-09-20] MEDS ORDERED: fentaNYL 250 MCG/5 ML INJECTION (J3010) As Ordered ONE (09:39)
[2020-09-20] MEDS ORDERED: ONDANSETRON 4MG/2ML VIAL As Ordered ONE (09:39)
[2020-09-20] MEDS ORDERED: propofoL 200 MG/20 ML VIAL As Ordered ONE (09:39)
[2020-09-20] MEDS ORDERED: BUPIVACAINE/EPIN 0.25% 30 ML VIAL As Ordered ONE (10:13)
[2020-09-20] MEDS ORDERED: ACETAMINOPHEN 1000MG 100ML IV BTL (OFIRMEV) (J0131 PER 10MG) As Ordered ONE (10:57)
[2020-09-20] MEDS ORDERED: SUGAMMADEX SODIUM 500 MG/5 ML VIAL (BRIDION) As Ordered ONE (10:57)
[2020-09-20] MEDS ORDERED: PHENYLephrine 500MCG 5ML (100MCG/ML) SYRINGE As Ordered ONE (11:03)
[2020-09-20] MEDS ORDERED: ePHEDrine SULFATE 25 MG/5 ML(5MG/ML) SYRINGE As Ordered ONE (11:13)
[2020-09-20] MEDS ORDERED: LR 1,000 ML IV SCH (12:15)
[2020-09-20] MEDS ORDERED: ONDANSETRON 4MG/2ML VIAL IV PRN (12:15)
[2020-09-20] MEDS ORDERED: NORCO, ANEXSIA 5/325MG TABLET (HYDROcodone/ACETAMINOPHEN) PO PRN (12:20)
[2020-09-20] MEDS: oxyCODONE 5MG TAB PO PRN ×2 (12:33→13:08)
[2020-09-20] MEDS: HYDROMORPHONE HCL 0.5 MG/ 0.5 ML SYRINGE (J1170 PER 1) IV PRN ×4 (12:33→12:54)
--- NOTE | 2020-09-20 12:38 | RO ---
OPERATIVE NOTE DATE OF OPERATION: 09/20/2020 PREOPERATIVE DIAGNOSIS: Symptomatic cholelithiasis. POSTOPERATIVE DIAGNOSIS: Symptomatic cholelithiasis. PROCEDURE: Robotic cholecystectomy. SURGEON: Edgar Dooley DO PARAMEDIC SUPERVISOR: HARRISON Parada ANESTHESIA: General. ESTIMATED BLOOD LOSS: 5 mL. COMPLICATIONS: None. INDICATIONS FOR PROCEDURE: The patient is a 64-year-old female who presented with right upper quadrant pain found to have symptomatic cholelithiasis. Recommendation was to proceed with robotic cholecystectomy. The risks and benefits of the procedure not limited to, but including bleeding, infection, hernia formation, damage to surrounding structures, need for further surgery were discussed in detail with the patient. Informed consent was obtained and the procedure was planned. DESCRIPTION OF PROCEDURE: The patient was brought back to operating room #7. After sufficient sedation, the abdomen was sterilely prepped and draped. Next, a time-out was done to confirm the proper patient and the proper procedure. Following that, an 8-mm incision was made in the left lower quadrant, Veress needle inserted, and the abdomen was insufflated to 50 mmHg. The Veress needle was then removed and an 8-mm Optiview port was used to gain access to the abdomen. Once the abdomen was entered, three more ports were placed in the right upper quadrant. Next, the fundus of the gallbladder was elevated up towards the right shoulder. The cystic duct and cystic artery were carefully dissected free using a combination of sharp and blunt dissection. The cystic duct did have a stone in the middle of it that I was able to milk out and then, I was able to doubly clip it. The gallbladder was then dissected free from the gallbladder fossa and removed intact, placed inside of a 5-mm Endo Catch bag, and brought out through the right lateral port site. Once the gallbladder was removed, a 2-0 V-Loc suture was used to reapproximate the fascia on the peritoneum on the right lateral port site where the gallbladder was removed from. Once that was completed, the needle was removed, the abdomen was desufflated, and the skin incision was closed with 4-0 Vicryl subcuticular suture. The abdomen was cleaned and dried. Steri-Strips, 4 x 4, and tape were applied with this ending the procedure.
[2020-09-20] MEDS: fentaNYL 100 MCG/2 ML INJECTION (J3010) IV PRN ×4 (13:07→13:28)
[2020-09-20 15:55] VITALS: BP 120/91
== END 2020-09-20 15:55 | disposition home or self-care (01) ==
LOC: M SDC 09:06
PROVIDERS: ATTEND Surgery
DX: K80.10 Calculus of gallbladder with chronic cholecystitis without obstruction (principal); E78.5 Hyperlipidemia, unspecified; E11.9 Type 2 diabetes mellitus without complications; K21.9 Gastro-esophageal reflux disease without esophagitis; Z79.84 Long term (current) use of oral hypoglycemic drugs; Z79.899 Other long term (current) drug therapy; Z85.51 Personal history of malignant neoplasm of bladder
CPT/HCPCS: 47562; 88304; J0131; J1100; J1170; J1885; J2250; J2370; J2405; J3010; S2900

== ENCOUNTER → 2020-10-22 | Outpatient (REF) | payer OTHER ==
[~2020-10-22] MED LIST changes: -LIDOCAINE 1% MDV 20ML VIAL SQ PRN; -LR 1,000 ML IV ONE
== END ==
LOC: M SMT 17:21
PROVIDERS: ATTEND Urology
DX: C67.9 Malignant neoplasm of bladder, unspecified (principal)

== ENCOUNTER → 2020-10-26 | Outpatient (CLI) | payer OTHER ==
[2020-10-26 11:16] LABS: ALBUMIN 3.6 GM/DL (3.2-5.2); ALT/SGPT 43 U/L (12-78); BILIRUBIN,TOTAL 0.5 MG/DL (0.2-1.0); BLOOD UREA NITROGEN 20 MG/DL (7-18); CALCIUM LEVEL 10.2 MG/DL (8.8-10.2); CARBON DIOXIDE LEVEL 29 MEQ/L (21-32); CHLORIDE LEVEL 107 MEQ/L (98-107); CHOLESTEROL LEVEL 204 MG/DL (<200); GLOMERULAR FILTRATION RATE > 60.0 (>45); GLUCOSE, FASTING 129 MG/DL (70-100); HDL CHOLESTEROL 75 MG/DL (>40); LDL CHOLESTEROL 92 MG/DL (<100); NON-HDL-C 129 MG/DL; POTASSIUM SERUM 4.1 MEQ/L (3.5-5.1); SODIUM LEVEL 141 MEQ/L (136-145); TRIGLYCERIDES LEVEL 184 MG/DL (<150)
[2020-10-26 11:24] LABS: MAU/CREAT RATIO 14.3 MCG/MG (0.0-30.0)
[2020-10-26 12:00] LABS: HEMOGLOBIN A1c 6.1 %
== END ==
LOC: M LAB 10:21
PROVIDERS: ATTEND Nurse Practitioner Family
DX: E11.9 Type 2 diabetes mellitus without complications (principal); E78.2 Mixed hyperlipidemia; E55.9 Vitamin D deficiency, unspecified; Z79.84 Long term (current) use of oral hypoglycemic drugs; Z79.899 Other long term (current) drug therapy

== ENCOUNTER → 2020-11-08 | Outpatient (CLI) | payer OTHER ==
--- NOTE | 2020-11-11 05:54 | ECWPNPC ---
PATIENT NAME: CATALINA FRANZ : 1955 GENDER: FEMALE VISIT DATE: 11/08/2020 DISCHARGE DATE: 11/08/20 1414 VISIT LOCKED DATE TIME: PHYSICIAN: ELIEL RAZO PHYSICIAN PAGER NO: ACTIVE RESOURCE: ELIEL RAZO REASON FOR APPOINTMENT 1. BACK PAIN HISTORY OF PRESENT ILLNESS DEPRESSION SCREENING: PHQ-2 (2015 EDITION) LITTLE INTEREST OR PLEASURE IN DOING THINGS?NOT AT ALL FEELING DOWN, DEPRESSED, OR HOPELESS?NOT AT ALL TOTAL SCORE0 65-YEAR-OLD FEMALE IN FOR CHRONIC PAIN FOLLOW-UP. SHE RATES HER PAIN CURRENTLY AT AN 8 OUT OF 10 AND DESCRIBES IT STABBING, AND SHOOTING. PATIENT FEELS HER MEDICATIONS ARE HELPFUL AND DENIES MED SIDE EFFECTS AT THIS TIME. GENERAL: -. FALL RISK SCREENING: SCREENING : NO FALLS REPORTED IN THE LAST YEAR. PAIN SCREENING: PATIENT HAS A COMPLAINT OF ACUTE OR CHRONIC PAIN :YES LOCATION OF PAIN:LOW BACK, LEFT HIP, RIGHT HIP INTENSITY OF PAIN (SCALE OF 1 TO 10):8 WHAT DOES YOUR PAIN FEEL LIKE:STABBING, SHOOTING, OTHER FEELS LIKE A BRICK. HAS TO STOP TO CATCH HER BREATH. DURATION:CONTINOUS, CONSTANT, AWAKENS FROM SLEEP PAIN IS INCREASED BY:ACTIVITIES, PROLONGED STANDING PAIN IS DECREASED BY:USE OF PAIN MEDICATIONS, SITTING NURSING NOTE: -. PAIN CENTER INTAKE QUESTIONS: DO YOU HAVE A HISTORY OF MRSA? :NO DO YOU TAKE A BLOOD THINNERS? :NO DO YOU HAVE ANY BLEEDING DISORDERS? :NO ANY NEW NUMBNESS OR WEAKNESS IN YOUR LEGS OR ARMS? :YES NUMBNESS AND WEAKNESS IN BILATERAL LEGS. ANY PACEMAKER,DEFIBRILLATOR, OR DORSAL COLUMN STIMULATOR? :NO DO YOU HAVE ANY RASHES OR OPEN SORES? :NO ARE YOU ALLERGIC TO IV DYE? :NO ARE YOU DIABETIC? :YES ANY NEW PROBLEMS WITH YOUR MEDICATIONS? :NO HAVE YOU RECEIVED A VACCINE IN THE PAST 30 DAYS? :YES IF SO WHAT VACCINE AND WHEN? SECOND COVID VACCINATION 11/04/2020 DO YOU PLAN TO RECEIVE A VACCINE IN THE NEXT 21 DAYS? :NO DO YOU NEED ANY PRESCRIPTION? :YES DULOXETINE DO YOU TAKE ANY IMMUNOSUPPRESSIVE MEDICATIONS? :NO IS THERE A CHANCE YOU COULD BE ? :NO ARE YOU BREAST FEEDING? :NO CURRENT MEDICATIONS TAKING BLOOD GLUCOSE TEST - STRIP DIRECTED FOR ONE TOUCH DXE11.9 DAILY AND PRN TAKING GLUCOMETER (VERIO IQ) GLUCOMETER DIRECTED DX: E11.9 ONE TOUCH TWICE DAILY NEEDED TAKING GLUCOMETER DIRECTED DXE11.9 - TAKING LANCETS - MISCELLANEOUS DIRECTED DXE11.9 DAILY TAKING CYMBALTA 60 MG CAPSULE DELAYED RELEASE PARTICLES 1 CAPSULE ORALLY DAILY TAKING METFORMIN HCL 500 TABLET 1 TABLET WITH A MEAL ORALLY TWICE DAILY TAKING ATORVASTATIN CALCIUM 20 MG TABLET TAKE 1 TABLET BY MOUTH EVERY DAY TAKING MULTIVITAMIN - TABLET CHEWABLE DIRECTED ORALLY OTC, DAILY TAKING VITAMIN D-3 25 MCG (1000 UT) CAPSULE 1 CAPSULE ORALLY ONCE A DAY WITH MEAL TAKING OXYCODONE-ACETAMINOPHEN 7.5-325 MG TABLET 1 TABLET NEEDED ORALLY BID NEEDED MDD 2 45 TABS TO LAST 30 DAYS, NOTES: POST OP TAKING GABAPENTIN 600 MG TABLET 1 CAPSULE ORALLY Q8H TAKING METHOCARBAMOL 500 MG TABLET 1 CAP ORALLY EVERY 6H PRN UNKNOWN METFORMIN HCL 500 MG TABLET TAKE 1 TABLET BY MOUTH TWICE DAILY WITH A MEAL , NOTES: DUPLICATE SEE ABOVE UNKNOWN TYLENOL EXTRA STRENGTH 500 MG TABLET 1 TABLET NEEDED ORALLY EVERY 6 HRS MEDICATION LIST REVIEWED AND RECONCILED WITH THE PATIENT PAST MEDICAL HISTORY ROSACEA UTERINE PROLAPSE CYSTOCELE HX ENDOMETRIAL POLYPS/PMB LEFT SIDE SCIATICA, LUMBAGO SYPHILLIS-COMPLETED AT [facility] SYMPTOMATIC MENOPAUSAL OR FEMALE CLIMACTERIC STATES POSTMENOPAUSAL ATROPHIC VAGINITIS COUNSELING ON OTHER SEXUALLY TRANSMITTED DISEASES HGSIL ON PAP SMEAR NERVE CONDUCTION STUDY: NEUROLOGY DIABETES TYPE 2 COLONOSCOPY 2010, ENTIRE COLON CLEAR BACK PAIN BLADDER TUMOR: LOW GRADE UROTHELIAL CARCINOMA HEART MURMUR - ECHO 07/2019 NORMAL INTESTINE MASS ALLERGIES N.K.D.A. SOCIAL HISTORY GENERAL: TOBACCO USE ARE YOU A:NONSMOKER LATEX QUESTIONNAIRE LATEX ALLERGY : HAVE YOU EVER DEVELOPED ANY TYPE OF REACTION AFTER HANDLING LATEX PRODUCTS SUCH RUBBER GLOVES, CONDOMS, DIAPHRAGMS, BALLOONS, SOCKS, OR UNDERWEAR?NO LATEX ALLERGY : HAVE YOU EVER DEVELOPED ANY TYPE OF REACTION DURING OR AFTER DENTAL APPOINTMENT, VAGINAL/RECTAL EXAMINATION, SURGICAL PROCEDURE, OR ANY OTHER EXPOSURE?NO LATEX RISK : HAVE YOU EVER HAD ANY DIFFICULTY BREATHING OR HIVES AFTER EATING OR HANDLING ANY FRUITS, OR VEGETABLES; SUCH KIWI, BANANAS, STONE FRUITS, OR CHESTNUTSNO LATEX RISK : DO YOU HAVE A PREVIOUS PERSONAL HISTORY OF MORE THAN NINE SURGERIES, SPINA BIFIDA, OR REPEATED CATHERIZATIONS? NO LATEX RISK : ARE YOU FREQUENTLY EXPOSED TO LATEX PRODUCTS IN YOUR OCCUPATION?NO DATE ASKED : 11/08/2020 ALCOHOL USE: NO. ALCOHOL SCREENING DID YOU HAVE A DRINK CONTAINING ALCOHOL IN THE PAST YEAR?YES HOW OFTEN DID YOU HAVE SIX OR MORE DRINKS ON ONE OCCASION IN THE PAST YEAR?NEVER (0 POINTS) HOW MANY DRINKS DID YOU HAVE ON A TYPICAL DAY WHEN YOU WERE DRINKING IN THE PAST YEAR?3 OR 4 (1 POINT) HOW OFTEN DID YOU HAVE A DRINK CONTAINING ALCOHOL IN THE PAST YEAR?MONTHLY OR LESS (1 POINT) POINTS2 INTERPRETATIONNEGATIVE RECREATIONAL DRUG USE DRUG USE?NO CAFFEINE CAFFEINE USE?YES 2 CUPS DAILY SEXUAL HX HAD SEX IN THE LAST 12 MONTHS (VAGINAL, ORAL, OR ANAL)?YES WITHMEN ONLY PREVENTION STRATEGIES DISCUSSED:OTHER USE PROTECTION?NO LMP:POST MENOPAUSE HAVE YOU EVER HAD AN STD?YES HERPES?NO SYPHILIS?NO GC?NO CHLAMYDIA?NO HIV / HEP-C SCREENING HIV TEST OFFERED TO PATIENT:NO HEP-C TEST OFFERED TO PATIENT:NO HINDUISM [id number] NONE LANGUAGE LANGUAGES SPOKEN:DIVEHI EDUCATION LEVEL OF EDUCATION:HIGH SCHOOL LEARNING BARRIERS / SPECIAL NEEDS CHANGE FROM LAST VISIT?NO BARRIERS TO LEARNING?NO HEARING IMPAIRED?NO VISION IMPAIRED?YES :CORRECTIVE LENSES COGNITIVELY IMPAIRED?NO READINESS TO LEARN?YES LEARNING PREFERENCES?NO LEARNING CAPABILITIES PRESENT?YES EMOTIONAL BARRIERS?NO SPECIAL DEVICES?NO 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 DIET: NO HX EATING DISORDERS. EXERCISE: WALKS. MARITAL STATUS: , 2007, WERE 34 YRS, REMARRIED 2014. OTHERS AT HOME: CHILD (ADULT SON),. - PFS REFERRAL NEEDED?NO CLERGY REFERRAL NEEDED?NO PUBLIC HEALTH REFERRAL NEEDED?NO WAS THE PROVIDER NOTIFIED OF ANY PERTINENT INFO?YES HAS THE PATIENT BEEN EDUCATED REGARDING HIS/HER PLAN OF CARE?YES HAS THE PATIENT BEEN EDUCATED REGARDING PAIN, THE RISK FOR PAIN, THE IMPORTANCE OF EFFECTIVE PAIN MANAGEMENT, AND THE PAIN ASSESSMENT PROCESS?YES ADVANCE DIRECTIVE ADVANCE DIRECTIVE DISCUSSED WITH PATIENT:YES HCP YRN MEYERS [phone] 2ND HCP LIZBETH RIVAS REVIEW OF SYSTEMS CONSTITUTIONAL: ANY RECENT FEVER NO, NO . CHILLS NO, NO . WEIGHT CHANGE OF UNKNOWN REASONS NO, NO . GASTROENTEROLOGY: NEW UNEXPLAINABLE CHANGES IN BOWEL CONTROL NO, NO . CONSTIPATION NO, NO . GENITOURINARY: ANY NEW CHANGE IN BLADDER CONTROL? NO, NO . NEUROLOGY: NEW ONSET DIZZINESS OR NEUROLOGICAL CHANGES NOT MENTIONED NO, NO . NEW NUMBNESS OR PAIN PATTERNS NOT MENTIONED AND PERTINENT TO TODAY'S VISIT NO, NO . CARDIOLOGY: NEW CHEST PRESSURE NO, NO . PATIENT DENIES NO, NO . RESPIRATORY: UNEXPLAINABLE COUGH NO, NO . NEW SHORTNESS OF BREATH NO, NO . VITAL SIGNS WT 160.0 LBS, HT 61 IN, BMI 30.23 INDEX, BP 150/70 MM HG, HR 89 /MIN, RR 18 /MIN, TEMP 98.0 F, OXYGEN SAT % 98%, SAFE IN ENV? (Y/N) YES, NA INITIALS AW 1349, REVIEWED BY: LUIS. EXAMINATION GENERAL EXAMINATION: GENERALNO ACUTE DISTRESS, WELL NOURISHED AND HYDRATED. PSYCHAPPROPRIATE MOOD AND AFFECT . LUNGS:CLEAR TO AUSCULTATION BILATERALLY, NO WHEEZES, RHONCHI, RALES. HEART:NO MURMURS, REGULAR RATE AND RHYTHM. 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 GIVEN PRESENTING SYMPTOMS RECOMMENDED CONTINUATION OF CURRENT MEDICATION REGIMEN WITH FOLLOW-UP IN 3 MONTHS. PATIENT HAS EXPRESSED UNDERSTANDING OF AND WAS IN AGREEMENT WITH TREATMENT PLAN. GIVEN TIME TO ASK QUESTIONS AND EXPRESS CONCERNS. , ISTOP REGISTRY REVIEWED AND DEMONSTRATES COMPLLIANCE. (REF # [id number] ) BRINGS IN MEDICATIONS WHICH IS APPROPRIATE FOR WHAT WAS DISPENSED. RECENT URINE TOXICOLOGY REVIEWED. NO UNAUTHORIZED MEDICATIONS. NO ILLICIT SUBSTANCES AND PRESCRIBED MEDICATIONS WERE PRESENT. SNF (CURRENT) USE OF OPIATE ANALGESIC LAB: URINE TEST GROUP ADAM CHAN 11/08/2020 2:13:06 PM > LAST DOSE: GABAPENTIN 11/08/2020, OXYCODONE 11/05/2020, METHOCARBAMOL 11/08/2020 PROCEDURE CODES FA211 ESTABILISHED PATIENT [facility] F[facility]ILITY CHARGE DISPOSITION & COMMUNICATION FOLLOW UP 3 MONTHS (REASON: BACK PAIN ) ELECTRONICALLY SIGNED BY HARRISON DALEY ON 11/10/2020 AT 08:15 AM EDT DISCLAIMER : THIS IS A VISIT SUMMARY EXTRACTED FROM THE [employer] CHART. IT IS NOT A COPY OF THE [employer] PROGRESS NOTE. MTDD
== END ==
LOC: M PAIN 13:45
PROVIDERS: ATTEND Family Medicine
DX: M54.42 Lumbago with sciatica, left side (principal); M54.41 Lumbago with sciatica, right side; L71.9 Rosacea, unspecified; N95.2 Postmenopausal atrophic vaginitis; E11.9 Type 2 diabetes mellitus without complications; Z79.84 Long term (current) use of oral hypoglycemic drugs; Z79.891 Long term (current) use of opiate analgesic; Z79.899 Other long term (current) drug therapy

== ENCOUNTER → 2020-11-19 | Outpatient (CLI) | payer OTHER ==
[2020-11-19 13:38] LABS: BLOOD UREA NITROGEN 16 MG/DL (7-18); GLOMERULAR FILTRATION RATE > 60.0 (>45)
== END ==
LOC: M LAB 10:59
PROVIDERS: ATTEND Physician Assistant Medical
DX: Z00.00 Encounter for general adult medical examination without abnormal findings (principal)

== ENCOUNTER 2021-01-11 12:26 | Emergency (ER) | payer OTHER ==
[~2021-01-11] VITALS: Ht 154.9 cm; Wt 72.3 kg
[~2021-01-11 12:26] MED LIST changes: -OXYC1TAB15 PO; +OXYC7.5T3 PO
[2021-01-11 12:37] VITALS: BP 130/65
[2021-01-11] MEDS ORDERED: LIDOCAINE 1% SDV 5ML VIAL DILUENT ONE (14:50)
[2021-01-11] MEDS ORDERED: cefTRIAXone 500MG VIAL (J0696 PER 250MG) IM ONE (14:50)
[2021-01-11] MEDS ORDERED: FLAG500T PO (16:09)
[2021-01-11 16:16] LABS: GC DNA AMPLIFICATION POSITIVE (NEGATIVE)
[2021-01-11] MEDS ORDERED: DOXY1CAP62 PO (16:18)
== END 2021-01-11 16:43 | disposition home or self-care (01) ==
LOC: M ED 12:26
DX: N30.00 Acute cystitis without hematuria (principal); A54.03 Gonococcal cervicitis, unspecified; E11.9 Type 2 diabetes mellitus without complications; M79.7 Fibromyalgia; E78.5 Hyperlipidemia, unspecified
CPT/HCPCS: 81001; 87088; 87186; 87210; 87491; 87591; 87661; 96372; 99283; J0696

== ENCOUNTER → 2021-01-19 | Outpatient (CLI) | payer OTHER ==
[~2021-01-19] MED LIST changes: +DOXY1CAP62 PO; +FLAG500T PO
[2021-01-19 13:43] LABS: ALBUMIN 3.5 GM/DL (3.2-5.2); BILIRUBIN,TOTAL 0.3 MG/DL (0.2-1.0); CALCIUM LEVEL 9.5 MG/DL (8.8-10.2); GLOMERULAR FILTRATION RATE 59.4 (>45); POTASSIUM SERUM 4.3 MEQ/L (3.5-5.1)
[2021-01-19 13:44] LABS: HEMOGLOBIN A1c 6.2 %
[2021-01-19 13:53] LABS: TOTAL 25(OH) VITAMIN D 40.4 NG/ML (30.0-100.0)
== END ==
LOC: M LAB 12:35
PROVIDERS: ATTEND Nurse Practitioner Family
DX: E11.9 Type 2 diabetes mellitus without complications (principal); E55.9 Vitamin D deficiency, unspecified

== ENCOUNTER → 2021-02-07 | Outpatient (CLI) | payer OTHER ==
--- NOTE | 2021-02-09 04:18 | ECWPNPC ---
PATIENT NAME: CATALINA FRANZ : 1955 GENDER: FEMALE VISIT DATE: 02/07/2021 DISCHARGE DATE: 02/07/21 1400 VISIT LOCKED DATE TIME: PHYSICIAN: ELIEL RAZO PHYSICIAN PAGER NO: ACTIVE RESOURCE: ELIEL RAZO REASON FOR APPOINTMENT 1. 3 MONTH BACK PAIN HISTORY OF PRESENT ILLNESS DEPRESSION SCREENING: PHQ-2 (2015 EDITION) LITTLE INTEREST OR PLEASURE IN DOING THINGS?NOT AT ALL FEELING DOWN, DEPRESSED, OR HOPELESS?NOT AT ALL TOTAL SCORE0 GENERAL: HPI 65-YEAR-OLD FEMALE IN FOR CHRONIC PAIN FOLLOW-UP. PATIENT DOES ADMIT TO BREAKTHROUGH PAIN AT TIMES. SHE RATES HER PAIN CURRENTLY AT AN 8 OUT OF 10 AND DESCRIBES IT ACHING AND CONTINUOUS. SHE DOES FEEL HER MEDICATIONS ARE HELPFUL AND DENIES MED SIDE EFFECTS AT THIS TIME.. -. FALL RISK SCREENING: SCREENING : NO FALLS REPORTED IN THE LAST YEAR. PAIN SCREENING: PATIENT HAS A COMPLAINT OF ACUTE OR CHRONIC PAIN :YES LOCATION OF PAIN:LOW BACK INTENSITY OF PAIN (SCALE OF 1 TO 10):8 WHAT DOES YOUR PAIN FEEL LIKE:ACHING, CONTINOUS DURATION:CONTINOUS, CONSTANT, AWAKENS FROM SLEEP PAIN IS INCREASED BY:ACTIVITIES, PROLONGED STANDING PAIN IS DECREASED BY:USE OF PAIN MEDICATIONS, SITTING NURSING NOTE: -. PAIN CENTER INTAKE QUESTIONS: DO YOU HAVE A HISTORY OF MRSA? :NO DO YOU TAKE A BLOOD THINNERS? :NO DO YOU HAVE ANY BLEEDING DISORDERS? :NO ANY NEW NUMBNESS OR WEAKNESS IN YOUR LEGS OR ARMS? :YES NUMBNESS AND WEAKNESS IN BILATERAL LEGS. ANY PACEMAKER,DEFIBRILLATOR, OR DORSAL COLUMN STIMULATOR? :NO DO YOU HAVE ANY RASHES OR OPEN SORES? :NO ARE YOU ALLERGIC TO IV DYE? :NO ARE YOU DIABETIC? :YES ANY NEW PROBLEMS WITH YOUR MEDICATIONS? :NO HAVE YOU RECEIVED A VACCINE IN THE PAST 30 DAYS? :NO DO YOU PLAN TO RECEIVE A VACCINE IN THE NEXT 21 DAYS? :NO DO YOU NEED ANY PRESCRIPTION? :YES DULOXETINE DO YOU TAKE ANY IMMUNOSUPPRESSIVE MEDICATIONS? :NO IS THERE A CHANCE YOU COULD BE ? :NO ARE YOU BREAST FEEDING? :NO CURRENT MEDICATIONS TAKING BLOOD GLUCOSE TEST - STRIP DIRECTED FOR ONE TOUCH DXE11.9 DAILY AND PRN TAKING GLUCOMETER (VERIO IQ) GLUCOMETER DIRECTED DX: E11.9 ONE TOUCH TWICE DAILY NEEDED TAKING GLUCOMETER DIRECTED DXE11.9 - TAKING LANCETS - MISCELLANEOUS DIRECTED DXE11.9 DAILY TAKING GABAPENTIN 600 MG TABLET 1 CAPSULE ORALLY Q8H TAKING CYMBALTA 60 MG CAPSULE DELAYED RELEASE PARTICLES 1 CAPSULE ORALLY DAILY TAKING METHOCARBAMOL 500 MG TABLET 1 CAP ORALLY EVERY 6H PRN TAKING METFORMIN HCL 500 TABLET 1 TABLET WITH A MEAL ORALLY TWICE DAILY TAKING ATORVASTATIN CALCIUM 20 MG TABLET TAKE 1 TABLET BY MOUTH EVERY DAY TAKING MULTIVITAMIN - TABLET CHEWABLE DIRECTED ORALLY OTC, DAILY TAKING VITAMIN D-3 25 MCG (1000 UT) CAPSULE 1 CAPSULE ORALLY ONCE A DAY WITH MEAL TAKING OXYCODONE-ACETAMINOPHEN 7.5-325 MG TABLET 1 TABLET NEEDED ORALLY BID NEEDED MDD 2 45 TABS TO LAST 30 DAYS, NOTES: POST OP UNKNOWN METFORMIN HCL 500 MG TABLET TAKE 1 TABLET BY MOUTH TWICE DAILY WITH A MEAL , NOTES: DUPLICATE SEE ABOVE UNKNOWN TYLENOL EXTRA STRENGTH 500 MG TABLET 1 TABLET NEEDED ORALLY EVERY 6 HRS MEDICATION LIST REVIEWED AND RECONCILED WITH THE PATIENT PAST MEDICAL HISTORY ROSACEA UTERINE PROLAPSE CYSTOCELE HX ENDOMETRIAL POLYPS/PMB LEFT SIDE SCIATICA, LUMBAGO SYPHILLIS-COMPLETED AT [facility] SYMPTOMATIC MENOPAUSAL OR FEMALE CLIMACTERIC STATES POSTMENOPAUSAL ATROPHIC VAGINITIS COUNSELING ON OTHER SEXUALLY TRANSMITTED DISEASES HGSIL ON PAP SMEAR NERVE CONDUCTION STUDY: NEUROLOGY DIABETES TYPE 2 COLONOSCOPY 2010, ENTIRE COLON CLEAR BACK PAIN BLADDER TUMOR: LOW GRADE UROTHELIAL CARCINOMA HEART MURMUR - ECHO 07/2019 NORMAL INTESTINE MASS ALLERGIES N.K.D.A. SOCIAL HISTORY GENERAL: TOBACCO USE ARE YOU A:NONSMOKER LATEX QUESTIONNAIRE LATEX ALLERGY : HAVE YOU EVER DEVELOPED ANY TYPE OF REACTION AFTER HANDLING LATEX PRODUCTS SUCH RUBBER GLOVES, CONDOMS, DIAPHRAGMS, BALLOONS, SOCKS, OR UNDERWEAR?NO LATEX ALLERGY : HAVE YOU EVER DEVELOPED ANY TYPE OF REACTION DURING OR AFTER DENTAL APPOINTMENT, VAGINAL/RECTAL EXAMINATION, SURGICAL PROCEDURE, OR ANY OTHER EXPOSURE?NO LATEX RISK : HAVE YOU EVER HAD ANY DIFFICULTY BREATHING OR HIVES AFTER EATING OR HANDLING ANY FRUITS, OR VEGETABLES; SUCH KIWI, BANANAS, STONE FRUITS, OR CHESTNUTSNO LATEX RISK : DO YOU HAVE A PREVIOUS PERSONAL HISTORY OF MORE THAN NINE SURGERIES, SPINA BIFIDA, OR REPEATED CATHERIZATIONS? NO LATEX RISK : ARE YOU FREQUENTLY EXPOSED TO LATEX PRODUCTS IN YOUR OCCUPATION?NO DATE ASKED : 02/07/2021 ALCOHOL USE: NO. ALCOHOL SCREENING DID YOU HAVE A DRINK CONTAINING ALCOHOL IN THE PAST YEAR?YES HOW OFTEN DID YOU HAVE SIX OR MORE DRINKS ON ONE OCCASION IN THE PAST YEAR?NEVER (0 POINTS) HOW MANY DRINKS DID YOU HAVE ON A TYPICAL DAY WHEN YOU WERE DRINKING IN THE PAST YEAR?3 OR 4 (1 POINT) HOW OFTEN DID YOU HAVE A DRINK CONTAINING ALCOHOL IN THE PAST YEAR?MONTHLY OR LESS (1 POINT) POINTS2 INTERPRETATIONNEGATIVE RECREATIONAL DRUG USE DRUG USE?NO CAFFEINE CAFFEINE USE?YES 2 CUPS DAILY SEXUAL HX HAD SEX IN THE LAST 12 MONTHS (VAGINAL, ORAL, OR ANAL)?YES WITHMEN ONLY PREVENTION STRATEGIES DISCUSSED:OTHER USE PROTECTION?NO LMP:POST MENOPAUSE HAVE YOU EVER HAD AN STD?YES HERPES?NO SYPHILIS?NO GC?NO CHLAMYDIA?NO HIV / HEP-C SCREENING HIV TEST OFFERED TO PATIENT:NO HEP-C TEST OFFERED TO PATIENT:NO ORTHODOX [id number] NONE LANGUAGE LANGUAGES SPOKEN:TURKMEN EDUCATION LEVEL OF EDUCATION:HIGH SCHOOL LEARNING BARRIERS / SPECIAL NEEDS CHANGE FROM LAST VISIT?YES BARRIERS TO LEARNING?NO HEARING IMPAIRED?NO VISION IMPAIRED?YES :CORRECTIVE LENSES COGNITIVELY IMPAIRED?NO READINESS TO LEARN?YES LEARNING PREFERENCES?NO LEARNING CAPABILITIES PRESENT?YES EMOTIONAL BARRIERS?NO SPECIAL 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 DIET: NO HX EATING DISORDERS. EXERCISE: WALKS. MARITAL STATUS: , 2008, WERE 34 YRS, REMARRIED 2014. OTHERS AT HOME: CHILD (ADULT SON),. - PFS REFERRAL NEEDED?NO CLERGY REFERRAL NEEDED?NO PUBLIC HEALTH REFERRAL NEEDED?NO WAS THE PROVIDER NOTIFIED OF ANY PERTINENT INFO?YES HAS THE PATIENT BEEN EDUCATED REGARDING HIS/HER PLAN OF CARE?YES HAS THE PATIENT BEEN EDUCATED REGARDING PAIN, THE RISK FOR PAIN, THE IMPORTANCE OF EFFECTIVE PAIN MANAGEMENT, AND THE PAIN ASSESSMENT PROCESS?YES ADVANCE DIRECTIVE ADVANCE DIRECTIVE DISCUSSED WITH PATIENT:YES HCP YRN MEYERS [phone] 2ND HCP LIZBETH RIVAS REVIEW OF SYSTEMS CONSTITUTIONAL: ANY RECENT FEVER NO . CHILLS NO . WEIGHT CHANGE OF UNKNOWN REASONS NO . GASTROENTEROLOGY: NEW UNEXPLAINABLE CHANGES IN BOWEL CONTROL NO . CONSTIPATION NO . GENITOURINARY: ANY NEW CHANGE IN BLADDER CONTROL? NO . NEUROLOGY: NEW ONSET DIZZINESS OR NEUROLOGICAL CHANGES NOT MENTIONED NO . NEW NUMBNESS OR PAIN PATTERNS NOT MENTIONED AND PERTINENT TO TODAY'S VISIT NO . CARDIOLOGY: NEW CHEST PRESSURE NO . PATIENT DENIES NO . RESPIRATORY: UNEXPLAINABLE COUGH NO . NEW SHORTNESS OF BREATH NO . VITAL SIGNS WT 162.2 LBS, HT 61 IN, BMI 30.64 INDEX, BP 186/81 MM HG, REPEAT BP 124/98 MANUAL RIGHT ARM, HR 105 /MIN, RR 20 /MIN, TEMP 96.0 F, OXYGEN SAT % 98%, SAFE IN ENV? (Y/N) YES, NA INITIALS ID [id number], REVIEWED BY: DELORIS HOUSTON MA. EXAMINATION GENERAL EXAMINATION: GENERALNO ACUTE DISTRESS, WELL NOURISHED AND HYDRATED. PSYCHAPPROPRIATE MOOD AND AFFECT . LUNGS:CLEAR TO AUSCULTATION BILATERALLY, NO WHEEZES, RHONCHI, RALES. HEART:NO MURMURS, REGULAR RATE AND RHYTHM. ASSESSMENTS LUMBAGO WITH SCIATICA, LEFT SIDE - M54.42 (PRIMARY), RISK: (NULL) LUMBAGO WITH SCIATICA, RIGHT SIDE - M54.41, RISK: (NULL) TREATMENT LUMBAGO WITH SCIATICA, LEFT SIDE INCREASE OXYCODONE-ACETAMINOPHEN TABLET, 7.5-325 MG, 1 TABLET NEEDED, ORALLY, BID NEEDED MDD 3 75 TABS TO LAST 30 DAYS, 30 DAYS, NOTES: POST OP NOTES: 65-YEAR-OLD FEMALE IN FOR CHRONIC PAIN FOLLOW-UP. GIVEN PRESENTING SYMPTOMS RECOMMEND INCREASING NUMBER OF PERCOCET TABS TO 75/MONTH SUCH PATIENT WILL BE ABLE TO TAKE 3 TABS A DAY BUT NOT EVERY DAY AND PATIENT IS AWARE OF THIS. PATIENT HAS EXPRESSED UNDERSTANDING OF AND WAS IN AGREEMENT WITH TREATMENT PLAN. GIVEN TIME TO ASK QUESTIONS AND EXPRESS CONCERNS. ISTOP REGISTRY REVIEWED AND DEMONSTRATES COMPLLIANCE. (REF #[id number] ) BRINGS IN MEDICATIONS WHICH IS APPROPRIATE FOR WHAT WAS DISPENSED. RECENT URINE TOXICOLOGY REVIEWED. NO UNAUTHORIZED MEDICATIONS. NO ILLICIT SUBSTANCES AND PRESCRIBED MEDICATIONS WERE PRESENT. PROCEDURE CODES FA211 ESTABILISHED PATIENT [facility] FACILITY CHARGE DISPOSITION & COMMUNICATION FOLLOW UP 3 MONTHS (REASON: BACK PAIN ) ELECTRONICALLY SIGNED BY HARRISON DALEY ON 02/08/2021 AT 09:49 AM EDT DISCLAIMER : THIS IS A VISIT SUMMARY EXTRACTED FROM THE [employer] CHART. IT IS NOT A COPY OF THE [employer] PROGRESS NOTE. MARY ANN
== END ==
LOC: M PAIN 13:45
PROVIDERS: ATTEND Family Medicine
DX: M54.42 Lumbago with sciatica, left side (principal); M54.41 Lumbago with sciatica, right side; L71.9 Rosacea, unspecified; N95.2 Postmenopausal atrophic vaginitis; E11.9 Type 2 diabetes mellitus without complications; Z79.891 Long term (current) use of opiate analgesic; Z79.84 Long term (current) use of oral hypoglycemic drugs; Z79.899 Other long term (current) drug therapy

== ENCOUNTER → 2021-02-28 | Outpatient (CLI) | payer OTHER ==
--- NOTE | 2021-02-28 15:27 | DEXAMM ---
INDICATION: Z78..0 POST MENOPAUSAL. COMPARISON: Comparison exam is August 04, 2010 and December 10, 2007.. TECHNIQUE: Bone density was measured using dual-energy x-ray absorptionmetry (DEXA). FINDINGS: AP SPINE L1-L4 BMD 1.224 g/cm2 Young Adult T-Score 0.4 Age Matched Z-Score 1.9. LT FEMUR, TOTAL BMD 0.957 g/cm2 Young Adult T-Score -0.4 Age Matched Z-Score 0.7. LT NECK BMD 1.006 g/cm2 Young Adult T-Score -0.2 Age Matched Z-Score 1.2. RT FEMUR, TOTAL BMD 0.944 g/cm2 Young Adult T-Score -0.5 Age Matched Z-Score 0.6. RT NECK BMD 1.056 g/cm2 Young Adult T-Score 0.1 Age Matched Z-Score 1.6. IMPRESSION: There is normal bone density of the spine. There is normal bone density of the left hip. There is normal bone density of the right hip. The density of the spine has increased 2.6% since the initial exam on December 10, 2007. The density of the spine increased 2.2% since most recent exam on August 04, 2010. The density of the left hip has decreased 3.8% since initial exam on December 10, 2007. The density of the left hip has decreased 5.2% since most recent exam on August 04, 2010. The density of the right hip has decreased 5.1% since the initial exam on December 10, 2007. The density of the right hip has decreased 7.2% since the most recent exam on August 04, 2010. FOLLOW-UP: Recommendation for the next bone density exam: 5 years. <Electronically signed by James Giles > 02/28/21 1528
== END ==
LOC: M WHC 13:50
PROVIDERS: ATTEND Nurse Practitioner Family
DX: M85.88 Other specified disorders of bone density and structure, other site (principal); Z78.0 Asymptomatic menopausal state

== ENCOUNTER → 2021-03-14 | Outpatient (REF) | payer OTHER | LOC: M SMT 13:39 | PROVIDERS: ATTEND Urology | DX: C67.9 Malignant neoplasm of bladder, unspecified (principal) ==

== ENCOUNTER → 2021-05-11 | Outpatient (CLI) | payer OTHER ==
[~2021-05-11] MED LIST changes: +DOXY-443 PO; -DOXY1CAP62 PO
--- NOTE | 2021-05-12 13:08 | REP ---
INDICATION: DETERMINE PROCEDURE. COMPARISON: None. TECHNIQUE: Single C-arm view lower lumbar spine. FINDINGS: There is posterior fusion hardware at L4-5. IMPRESSION: 11 seconds fluoroscopy time utilized. <Electronically signed by Edgar Caro > 05/12/21 [id number]
== END ==
LOC: M PAIN 14:15
PROVIDERS: ATTEND Anesthesiology
DX: M96.1 Postlaminectomy syndrome, not elsewhere classified (principal); L71.9 Rosacea, unspecified; N95.2 Postmenopausal atrophic vaginitis; E11.9 Type 2 diabetes mellitus without complications; Z85.51 Personal history of malignant neoplasm of bladder; Z79.84 Long term (current) use of oral hypoglycemic drugs; Z79.899 Other long term (current) drug therapy

== ENCOUNTER → 2021-06-13 | Outpatient (CLI) | payer OTHER | LOC: M LABSMTC 09:21 | PROVIDERS: ATTEND Anesthesiology | DX: Z01.812 Encounter for preprocedural laboratory examination (principal); Z11.52 Encounter for screening for COVID-19 ==

== ENCOUNTER 2021-06-17 06:49 | Day surgery (SDC) | payer OTHER ==
[~2021-06-17] VITALS: Ht 154.9 cm; Wt 74.1 kg
[~2021-06-17 06:49] MED LIST changes: +NS 1,000 ML IV ONE
--- OUTSIDE RECORDS SUMMARY | 2021-06-17 06:54 | CCD ---
Author Author [facility] Organization [facility] Address Unknown Phone Unavailable Care Team Providers Care Product Support Engineer Name Role Phone Jacob Fish Unavailable PROBLEMS Type Condition ICD9-CM Code ILU18-VT Code Onset Dates Condition S tatus W/U Status Risk SNOMED Code Notes Problem Mixed hyperlipidemia E78.2 Active confirmed 116252741 Problem Lumbago with sciatica, left side M54.42 Active confirmed 730907861 Problem Vitamin D deficiency, unspecified E55.9 Active con firmed 98053596 Problem Low back pain M54.5 Active confirmed 666843 009 Problem Other chronic pain G89.29 Active confirmed 8 8183304 Problem Fibromyalgia M79.7 Active confirmed 0151323 05 Problem Bladder cancer C67.9 Active confirmed 33941 6009 Problem Myalgia M79.1 Active confirmed 04900058 Problem Calculus of gallbladder without cholecystitis wi thout obstruction K80.20 Active confirmed 02332599 Problem Lumbago with sciatica, right side M54.41 Active confirmed 665293348825356 Problem Controlled type 2 diabetes m ellitus without complication, without long- term current use of insulin E11.9 Active confirmed 31 7295504 Problem Bladder mass N32.89 Active confirmed 4059587 04 Problem Gross hematuria R31.0 Active confirmed 1978 11745 Problem Other specified disorders of bladder N32.89 Act opal confirmed 56005345 ALLERGIES No Known Allergies ENCOUNTERS from 1955 to 2021-03-31 Encounter Location Date Provider Diagnosis [facility] [address] 3[address] Floor [phone] [place] [address] Mar, Jacob Fish Lumbago with sciatic a, left side M54.42 IMMUNIZATIONS Vaccine Route Administration Date Status COVID-19 dose #2 given elsewhere Unspecified Unknown Jan Administered COVID-19 dose #1 given elsewhere Unspecified Unknown Oct Administered [facility] Given Unknown January 27, 2019 Administ ered Influenza 18 yrs & older Flublok IM Intramuscular Apr 29, 2020 Administered Influenza 18 yrs & older Flublok IM Intramuscular Jun 04, 2019 Administered Influenza 18 yrs & older Flublok IM Intramuscular Aug 21, 2018 Administered Pneumococcal Adult 0.5mL Pneumovax 23 IM Intramuscular January 23, 2020 Administered Influenza 6mo & up Fluzone IM Intramuscular Jul 13, 2017 Admi nistered SOCIAL HISTORY Tobacco Use: Social History Observation Description Date Details (start date - stop date) Never Smoker Sex Assigned At : Social History Observation Description Sex Assigned At Unknown Education: Question Answer Notes Level of Education: High School Audit Question Answer Notes Total Score: 0 Interpretation: Alcohol Education Language: Question Answer Notes Languages spoken: Syriac Holiness: Question Answer Notes Holiness 33 None Sexual Hx: Question Answer Notes Had sex in the last 12 months (vaginal, oral, or anal)? Yes LMP: post menopause Have you ever had an STD? Yes Prevention Strategies discussed: Other with Men only Use protection? No Herpes? No Syphilis? No GC? No Chlamydia? No Drug and Alcohol Question Answer Notes Total Score: 0 Interpretation: No problems reported Alcohol Screening: Question Answer Notes Did you have a drink containing alcohol in the past year? Ye s Points 2 Interpretation Negative How often did you have six or more drinks on one occas ion in the past year? Never (0 points) How many drinks did you have on a typica l day when you were drinking in the past year? 3 or 4 (1 point) How often did you have a drink containing alcohol in t he past year? Monthly or less (1 point) Tobacco Use: Question Answer Notes Are you a: never smoker REASON FOR REFERRAL No Information VITAL SIGNS No information MEDICATIONS Medication SIG (Take, Route, Frequency, Duration) Notes Start Da te End Date Status Multivitamin - as directed Orally OTC, daily Active Gabapentin 600 MG 1 capsule Orally q8h for 90 days Jun, Active metFORMIN HCl 500 1 tablet with a meal Orally twice daily for 90 days Active Methocarbamol 500 MG 1 cap Orally every 6h prn for 30 days Active Atorvastatin Calcium 20 MG take 1 tablet by mouth every day for 90 da ys Active Glucometer as directed DxE11.9 - for 99 days Aug, Active Lancets - as directed DxE11.9 daily for 30 Active Blood Glucose Test - as directed for one touch Dx E11.9 daily and prn for 90 day(s) Active Glucometer (Verio IQ) as directed DX: E11.9 One to uch twice daily as needed for 90 day(s) Apr, Active Vitamin D-3 25 MCG (1000 UT) 1 capsule Orally Once a d ay with meal for 90 day(s) Active Tylenol Extra Strength 500 MG 1 tablet as needed Orally every 6 hrs Unknown oxyCODONE-Acetaminophen 10-325 MG 1 tablet as needed O rally for pain BID as needed MDD 2 for 30 Days post op Mar, Active Cymbalta 60 MG 1 capsule Orally Daily for 30 Days November, Active metFORMIN HCl 500 MG TAKE 1 TABLET BY MOUTH TWICE DAILY WITH A MEAL for 90 DUPLICATE SEE ABOVE Unknown PROCEDURES No Information RESULTS No Results REASON FOR VISIT refill Oxycodone/Acetamin MEDICAL (GENERAL) HISTORY Type Description Date Medical History rosacea Medical History uterine prolapse Medical History cystocele Medical History hx endometrial polyps/PMB Medical History left side Sciatica, lumbago Medical History Syphillis-completed at [facility] Medical History Symptomatic menopausal or female climact александр states Medical History Postmenopausal atrophic vaginitis Medical History Counseling on other sexually transmitted diseases Medical History HGSIL on Pap smear Medical History Nerve conduction study: Neurology Medical History DIABETES TYPE 2 Medical History Colonoscopy 2010, entire colon clear Medical History Back Pain Medical History Bladder Tumor: low grade urothelial car cinoma Medical History Heart murmur - Echo 07/2019 normal Medical History INTESTINE MASS Surgical History tubal ligation Surgical History endometrial polyp removal/hysteroscopy, D&C (Eric) 2010 Surgical History colonoscopy: negative for po lyps; diverticulosis; hemorrhoids (Reindl) 10/2010 Surgical History Colposcopy - [facility] 06/29 Surgical History Left shoulder- rotator cuff, 3 tears, AM B SURGERY 2015 Surgical History back surgery Laminectomy w/ fusion L4-5, L5-S1 Dr Grant, [facility] 2018-12-2 Surgical History Right Rotator Cuff surgery 08/19/19 Surgical History TURBT - cystoscopy [id number] - Urology Surgical History robotic lap cholecystectomy - [facility] 09/20 Surgical History EYE SURGERY Hospitalization History back surgery 2019-06-19 Hospitalization History shoulder surgery 2019-08-19 Goals Section No Information Health Concerns No Information MEDICAL EQUIPMENT No Information MENTAL STATUS No Information FUNCTIONAL STATUS No Information ASSESSMENTS Encounter Date Diagnosis Assessment Notes Treatment Notes Treatm ent Clinical Notes Mar, Lumbago with sciatica, left side (ICD-10 - M54.4 2) PLAN OF TREATMENT Medication Medication Name Sig Start Date Stop Date oxyCODONE-Acetaminophen 10-325 MG 1 tablet as needed O rally for pain BID as needed MDD 2 for 30 Days Mar, Next Appt Details Provider Name:Katharina Paulinon, 2021-04-20 0 1:40:00 PM, [address], , [place], [address], Provider Name:Berta Cao, 2021-05-11 10:3 0:00 AM, [address], , [place], [address], Provider Name:Jacob Fish, 2021-05-11 02:15:00 PM, [address] 3[address], , [place], [address], Provider Name:Demarcus Winston, 01:30:00 PM, [address], , [place], [address], Insurance Providers Payer Name Payer Address Payer Phone Insured Name Patient Relati onship to Insured Coverage Start Date Coverage End Date [employer] DEPT [address] [place] [phone] CATALINA FRANZ self HUMANA [facility] [address] [address] [facility] [address] CATALINA FRANZ self
--- OUTSIDE RECORDS SUMMARY | 2021-06-17 06:54 | CCD ---
Continuity of Care Document (CCD) Created on: 03/29/2021 Caryn Luna External Reference #: [id number] : 1955 Sex: Female Author Author Caryn BHAGAT [facility] Organization Unknown Address [address] [facility] [address] [place] [address] Phone [phone] Care Team Providers Care Senior It Architect Name Role Phone Cao Berta Mullins AUTM [phone] Ting AUTM [phone] Problems Active Problems Provider Date Screening for malignant neoplasm of cervix Katharina Duque MD Onset: 08/06/2017 Social History Type Date Description Comments Sex Unknown ETOH Use Rarely consumes alcohol twice pe r year Recreational Drug Use Denies Drug Use Tobacco Use Start: Unknown Denies Smoking Allergies, Adverse Reactions, Alerts Description No Known Drug Allergies Medications Active Medications SIG Qnty Indications Ordering Provide r Date Nulytely With Flavor Packs 420gm Solution Rec take per doctor's instructions for bowel prep. 4000ml Z 12.11 Harpreet Moore MD 03/22/2021 Milk Of Magnesia 1200mg/15ML Suspe nsion take 45 milliliters by mouth as directed on colonoscopy prep sheet. Z12.11 Harpreet Moore MD 03/22/2021 Multivitamins Tablets 1 qd Unknown Gabapentin 600mg Tablets Take 1 Tablet By Mouth Every 8 Hours Unknown Metformin HCL 500mg Tablets Take 1 Tablet By Mouth Twice Daily With A Meal Unknown Methocarbamol 500mg Tablets Take 1 Tablet By Mouth Every 6 Hours as Needed Unknown Oxycodone-Acetaminophen 7.5-325mg Tablets Take 1 Tablet By Mouth Twice Daily as Needed. Maximum Daily Dose Is 2 Tablets Unknown Duloxetine HCL 60mg Caps DR Part Daily Unknown Atorvastatin Calcium 20mg Tablets Daily Unknown Vitamin D 1000Unit Tablets da raji Unknown Immunizations Description No Information Available Vital Signs Date Vital Result Comment 03/22/2021 2:25pm BP Systolic 118 mmHg BP Diastolic 72 mmHg Height 61 inches 5'1" Weight 159.00 lb BMI (Body Mass Index) 30.0 kg/m2 [place] Body Weight 105 lb Weight 72.122 kg BSA (Body Surface Area) 1.71 m2 10/04/2020 10:05am BP Systolic 123 mmHg BP Diastolic 73 mmHg Height 61 inches 5'1" Weight 165.00 lb BMI (Body Mass Index) 31.2 kg/m2 [place] Body Weight 105 lb Weight 74.844 kg BSA (Body Surface Area) 1.74 m2 Results Description No Information Available Procedures Date Code Description Status 08/23/2018 [id number] Mammogram Completed Medical Devices Description No Information Available Encounters Type Date Location Provider Dx Diagnosis Office Visit 10/04/2020 10:00a [facility] MARIA E Lagunas K80.20 Calculus of gallbladder w/o cholecystiti s w/o obstruction Z48.815 Encntr for surgical aftcr fo llowing surgery on the dgstv sys Z90.49 Acquired absence of other sp ecified parts of digestive tract Assessments Date Code Description Provider 03/22/2021 Z12.11 Encounter for screening for kiko gnant neoplasm of colon JAYLON Hamilton 10/04/2020 K80.20 Calculus of gallblad iris without cholecystitis without obstruction MARIA E Avelar 10/04/2020 Z48.815 Encounter for surgic al aftercare following surgery on the digestive system MARIA E Avelar 10/04/2020 Z90.49 Acquired absence of other specif ied parts of digestive tract MARIA E Avelar Plan of Treatment 03/22/2021 - JAYLON Hamilton* Z12.11 Encounter for screening for malignant neoplasm of colon * * New Medication:* Nulytely With Flavor Packs 420 gm * Milk Of Magnesia 1200 mg/15ML * New Orders:* Colonoscopy, Ordered: 03/22/21 * Comments:* Will arrange for colonoscopy. Reviewed risks and benefits of the procedure, as well as other options, with the patient. Bowel prep procedure was discussed with patient, as well as risks and side effects associated with the bowel prep. Patient verbalized understanding of all of the above and is in agreement to proceed. Patient will seek medical attention for any acute changes. Will monitor. * Follow up:* As scheduled, sooner if needed. Functional Status Description No Information Available Mental Status Description No Information Available Referrals Refer to Reason for Referral Status Appt Date Harpreet Moore M.D. COLO SCREENING Created [facility], Gastroenterology [address] [place] [address], [address] [place], [place] [id number] [phone]
--- OUTSIDE RECORDS SUMMARY | 2021-06-17 06:54 | CCD ---
Author Author [facility] Organization [facility] Address Unknown Phone Unavailable Care Team Providers Care Numerical Control Tool Programmer Name Role Phone Jacob Fish Unavailable PROBLEMS Type Condition ICD9-CM Code MUU12-VB Code Onset Dates Condition S tatus W/U Status Risk SNOMED Code Notes Problem Mixed hyperlipidemia E78.2 Active confirmed 316481136 Problem Lumbago with sciatica, left side M54.42 Active confirmed 859771843 Problem Vitamin D deficiency, unspecified E55.9 Active con firmed 98902966 Problem Low back pain M54.5 Active confirmed 479639 009 Problem Other chronic pain G89.29 Active confirmed 8 0069484 Problem Fibromyalgia M79.7 Active confirmed 0114879 05 Problem Bladder cancer C67.9 Active confirmed 93277 6009 Problem Myalgia M79.1 Active confirmed 26841835 Problem Calculus of gallbladder without cholecystitis wi thout obstruction K80.20 Active confirmed 75445142 Problem Lumbago with sciatica, right side M54.41 Active confirmed 307981429469878 Problem Controlled type 2 diabetes m ellitus without complication, without long- term current use of insulin E11.9 Active confirmed 31 5921226 Problem Bladder mass N32.89 Active confirmed 4560018 04 Problem Gross hematuria R31.0 Active confirmed 1978 89521 Problem Other specified disorders of bladder N32.89 Act opal confirmed 76919195 ALLERGIES No Known Allergies ENCOUNTERS from 1955 to 2021-05-03 Encounter Location Date Provider Diagnosis [facility] [address] 3[address] Floor [phone] [place] [address] Apr, Jacob Fish Fibromyalgia M79.7 IMMUNIZATIONS Vaccine Route Administration Date Status COVID-19 dose #2 given elsewhere Unspecified Unknown Jan Administered COVID-19 dose #1 given elsewhere Unspecified Unknown Oct Administered [facility] Given Unknown January 27, 2019 Administ saray Influenza 18 yrs & older Flublok IM [...] Education Language: Question Answer Notes Languages spoken: Macedonian Scientologist: Question Answer Notes Scientologist 33 None Sexual Hx: Question Answer Notes [...] Notes Start Da te End Date Status Lancets - as directed DxE11.9 daily for 30 Active Gabapentin 600 MG 1 capsule Orally q8h for 90 days Jun, Active metFORMIN HCl 500 1 tablet with a meal Orally twice daily for 90 days Active Methocarbamol 500 MG 1 cap Orally every 6h prn for 30 days Active Atorvastatin Calcium 20 MG take 1 tablet by mouth every day for 90 da ys Active Tylenol Extra Strength 500 MG 1 tablet as needed Orally every 6 hrs Unknown Glucometer as directed DxE11.9 - for 99 days Aug, Active Blood Glucose Test - as directed for one touch Dx E11.9 daily and prn for 90 day(s) Active metFORMIN HCl 500 MG TAKE 1 TABLET BY MOUTH TWICE DAILY WITH A MEAL for 90 DUPLICATE SEE ABOVE Unknown Multivitamin - as directed Orally OTC, daily Active Glucometer (Verio IQ) as directed DX: E11.9 One to uch twice daily as needed for 90 day(s) Apr, Active Cymbalta 60 MG 1 capsule Orally Daily for 30 Days November, Active oxyCODONE-Acetaminophen 10-325 MG 1 tablet as needed O rally for pain BID as needed MDD 2 for 30 Days post op Apr, Active Vitamin D-3 25 MCG (1000 UT) 1 capsule Orally Once a day wit h meal for 30 days Active PROCEDURES No Information RESULTS No Results REASON FOR VISIT refill duloxetine MEDICAL (GENERAL) HISTORY Type Description Date Medical History rosacea Medical History uterine prolapse Medical History cystocele Medical History hx endometrial polyps/PMB Medical History left side Sciatica, lumbago Medical History [facility]illis[facility] Medical History Symptomatic menopausal or female climact [...] Laminectomy w/ fusion L4-5, L5-S1 Dr Grant, [facility] 2018-12-2 Surgical History Right Rotator Cuff surgery 08/19/19 Surgical History TURBT - cystoscopy [id number] - Urology Surgical History robotic lap cholecystectomy - [facility] 09/20 Surgical History EYE SURGERY Hospitalization History back surgery 2019-06-19 Hospitalization History shoulder surgery 2019-08-19 Goals Section No Information Health Concerns No Information MEDICAL EQUIPMENT No Information MENTAL STATUS No Information FUNCTIONAL STATUS No Information ASSESSMENTS Encounter Date Diagnosis Assessment Notes Treatment Notes Treatm ent Clinical Notes Apr, Fibromyalgia (ICD-10 - M79.7) PLAN OF TREATMENT Medication Medication Name Sig Start Date Stop Date oxyCODONE-Acetaminophen 10-325 MG 1 tablet as needed O rally for pain BID as needed MDD 2 for 30 Days Apr, Cymbalta 60 MG 1 capsule Orally Daily for 30 Days November, Vitamin D-3 25 MCG (1000 UT) 1 capsule Orally Once a day wit h meal for 30 days Next Appt Details Provider Name:Jacob Fish, 2021-05-11 02:15:00 PM, [address] [facility] [address] [facility], , [place], [address], Provider Name:Katharina Duque, 2021-06-21 0 8:40:00 AM, [address] [facility] [address], , [place], [address], Provider Name:Demarcus Winston, 01:30:00 PM, [address], , [place], [address], Provider Name:Becca Willis, 09-19 01:00:00 PM, [address] [facility], , [place], [address], Insurance Providers Payer Name Payer Address Payer Phone Insured Name Patient Relati onship to Insured Coverage Start Date Coverage End Date [facility] DEPT [address] [place] [phone] CATALINA FRANZ self [facility]MANA [facility] [address] [address] [facility] [phone] CATALINA FRANZ self
--- OUTSIDE RECORDS SUMMARY | 2021-06-17 06:54 | CCD ---
Author Author [facility] Organization [facility] Address Unknown Phone Unavailable Care Team Providers Care Freight Car Cleaner Delta System Name Role Phone Jacob Fish Unavailable PROBLEMS Type Condition ICD9-CM Code [id number] Code Onset Dates Condition S tatus W/U Status Risk SNOMED Code Notes Problem Mixed hyperlipidemia E78.2 Active confirmed 308833052 Problem Lumbago with sciatica, left side M54.42 Active confirmed 987528978 Problem Vitamin D deficiency, unspecified E55.9 Active con firmed 63659732 Problem Low back pain M54.5 Active confirmed 368119 009 Problem Other chronic pain G89.29 Active confirmed 8 5138890 Problem Fibromyalgia M79.7 Active confirmed 0826840 05 Problem Bladder cancer C67.9 Active confirmed 28272 6009 Problem Myalgia M79.1 Active confirmed 37046507 Problem Calculus of gallbladder without cholecystitis wi thout obstruction K80.20 Active confirmed 69865695 Problem Lumbago with sciatica, right side M54.41 Active confirmed 406405135625300 Problem Controlled type 2 diabetes m ellitus without complication, without long- term current use of insulin E11.9 Active confirmed 31 9832077 Problem Bladder mass N32.89 Active confirmed 6221300 04 Problem Gross hematuria R31.0 Active confirmed 1978 73005 Problem Other specified disorders of bladder N32.89 Act opal confirmed 69284262 ALLERGIES No Known Allergies ENCOUNTERS from 1955 to 2021-04-22 Encounter Location Date Provider Diagnosis [facility] [address] [facility] 3rd Floor [phone] [place] [address] Apr, Jacob Fish Lumbago with sciatic a, left side M54.42 IMMUNIZATIONS Vaccine Route Administration Date Status COVID-19 dose #2 given elsewhere Unspecified Unknown Jan Administered COVID-19 dose #1 given elsewhere Unspecified Unknown Oct Administered [facility] Given Unknown January 27, 2019 Administ erecolby Influenza 18 yrs & older Flublok IM [...] Education Language: Question Answer Notes Languages spoken: Indonesian Latter-Day: Question Answer Notes Latter-Day 33 None Sexual Hx: Question Answer Notes [...] daily and prn for 90 day(s) Active Methocarbamol 500 MG 1 cap Orally every 6h prn for 30 days Active Gabapentin 600 MG 1 capsule Orally q8h for 90 days Jun, Active metFORMIN HCl 500 1 tablet with a meal Orally twice daily for 90 days Active Tylenol Extra Strength 500 MG 1 tablet as needed Orally every 6 hrs Unknown Glucometer as directed DxE11.9 - for 99 days Aug, Active oxyCODONE-Acetaminophen 10-325 MG 1 tablet as needed O rally for pain BID as needed MDD 2 for 30 Days post op Apr, Active metFORMIN HCl 500 MG TAKE 1 TABLET BY MOUTH TWICE DAILY WITH A MEAL for 90 DUPLICATE SEE ABOVE Unknown Multivitamin - as directed Orally OTC, daily Active Glucometer (Verio IQ) as directed DX: E11.9 One to uch twice daily as needed for 90 day(s) Apr, Active Atorvastatin Calcium 20 MG take 1 tablet by mouth every day for 90 da ys Active Cymbalta 60 MG 1 capsule Orally Daily for 30 Days November, Active Vitamin D-3 25 MCG (1000 UT) 1 capsule Orally Once a day wit h meal for 30 days Active PROCEDURES No Information RESULTS No Results REASON FOR VISIT REFILL MEDICAL (GENERAL) HISTORY Type Description Date Medical History rosacea Medical History uterine prolapse Medical History cystocele Medical History hx endometrial polyps/PMB Medical History left side Sciatica, lumbago Medical History [facility]phillis-[facility] Medical History Symptomatic menopausal or female [...] colonoscopy: negative for po lyps; diverticulosis; hemorrhoids (Reindavid) 10/2010 Surgical History Colposcopy - [facility] 06/29 Surgical History Left shoulder- rotator cuff, 3 tears, AM B SURGERY 2015 Surgical History back surgery Laminectomy w/ fusion L4-5, L5-S1 Dr Grant, [facility] 2018-12-2 Surgical History Right Rotator Cuff surgery 08/19/19 Surgical History TURBT - cystoscopy [id number] - Urology Surgical History robotic lap cholecystectomy - [facility] 09/20 Surgical History EYE SURGERY Hospitalization History back surgery 2019-06-19 Hospitalization History shoulder surgery 2019-08-19 Goals Section No Information Health Concerns No Information MEDICAL EQUIPMENT No Information MENTAL STATUS No Information FUNCTIONAL STATUS No Information ASSESSMENTS Encounter Date Diagnosis Assessment Notes Treatment Notes Treatm ent Clinical Notes Apr, Lumbago with sciatica, left side (ICD-10 - M54.4 2) PLAN OF TREATMENT Medication Medication Name Sig Start Date Stop Date Vitamin D-3 25 MCG (1000 UT) 1 capsule Orally Once a day wit h meal for 30 days oxyCODONE-Acetaminophen 10-325 MG 1 tablet as needed O rally for pain BID as needed MDD 2 for 30 Days Apr, Next Appt Details Provider Name:Jacob Polina, 2021-05-11 02:15:00 PM, [address] [facility] [facility] [address] [facility], , [place], [address], Provider Name:Katharina Duque, 2021-06-21 0 8:40:00 AM, [address] [facility], , [place], [address], Provider Name:Demarcus Winston, 01:30:00 PM, [address], , [place], [address], Provider Name:Becca Willis, 09-19 01:00:00 PM, [address] [facility], , [place], [address], Insurance Providers Payer Name Payer Address Payer Phone Insured Name Patient Relati onship to Insured Coverage Start Date Coverage End Date [facility] [employer] CLAIMS DEPT [address] [place] [phone] CATALINA FRANZ self [employer] [address] [facility] [phone] CATALINA FRANZ self
--- OUTSIDE RECORDS SUMMARY | 2021-06-17 06:54 | CCD ---
Author Author [facility] Organization [facility] em[facility] Address Unknown Phone Unavailable Care Team Providers Care Melt Supervisor Name Role Phone Kaylie Valdez Unavailable PROBLEMS Type Condition ICD9-CM Code HDH77-AZ Code Onset Dates Condition S tatus W/U Status Risk SNOMED Code Notes Problem Mixed hyperlipidemia E78.2 Active confirmed 112110560 Problem Lumbago with sciatica, left side M54.42 Active confirmed 897866904 Problem Vitamin D deficiency, unspecified E55.9 Active con firmed 13466181 Problem Low back pain M54.5 Active confirmed 770949 009 Problem Other chronic pain G89.29 Active confirmed 8 0896122 Problem Fibromyalgia M79.7 Active confirmed 8862579 05 Problem Bladder cancer C67.9 Active confirmed 30131 6009 Problem Myalgia M79.1 Active confirmed 26379823 Problem Calculus of gallbladder without cholecystitis wi thout obstruction K80.20 Active confirmed 10717072 Problem Lumbago with sciatica, right side M54.41 Active confirmed 756157002344931 Problem Controlled type 2 diabetes m ellitus without complication, without long- term current use of insulin E11.9 Active confirmed 31 1852638 Problem Bladder mass N32.89 Active confirmed 1161785 04 Problem Gross hematuria R31.0 Active confirmed 1978 05112 Problem Other specified disorders of bladder N32.89 Act opal confirmed 74752729 ALLERGIES No Known Allergies ENCOUNTERS from 1955 to 2021-04-19 Encounter Location Date Provider Diagnosis [address] [address] Apr, Kaylie José Miguel IMMUNIZATIONS Vaccine Route Administration Date Status COVID-19 [...] Education Language: Question Answer Notes Languages spoken: Swedish Yazidi: Question Answer Notes Yazidi 33 None Sexual Hx: Question Answer Notes [...] Information RESULTS No Results REASON FOR VISIT MAMMO ORDER MEDICAL (GENERAL) HISTORY Type Description Date Medical History rosacea Medical History uterine prolapse Medical History cystocele Medical History hx endometrial polyps/PMB Medical History left side Sciatica, lumbago Medical History Syphillis-completed at [facility] Medical History Symptomatic menopausal or [...] Laminectomy w/ fusion L4-5, L5-S1 Dr Grant, [facility] 2019-06- Surgical History Right Rotator Cuff surgery 08/19/19 Surgical History TURBT - cystoscopy [id number] - Urology Surgical History robotic lap cholecystectomy - Soumya 09/20 Surgical History EYE SURGERY Hospitalization History back surgery 2019-06-19 Hospitalization History shoulder surgery 2019-08-19 Goals Section No Information Health Concerns No Information MEDICAL EQUIPMENT No Information MENTAL STATUS No Information FUNCTIONAL STATUS No Information ASSESSMENTS No Information PLAN OF TREATMENT Medication Medication Name Sig Start Date Stop Date oxyCODONE-Acetaminophen 10-325 MG 1 tablet as needed O rally for pain BID as needed MDD 2 for 30 Days Mar, Next Appt Details Provider Name:Katharina Duque, 2021-04-20 0 1:40:00 PM, [address] [facility], , [place], [address], Provider Name:Berta Cao, 2021-05-11 10:3 0:00 AM, [address] [facility], , [place], [address], Provider Name:Jacob Fish, 2021-05-11 02:15:00 PM, [address] [facility] [address] [facility], , [place], [address], Provider Name:Demarcus Winston, 01:30:00 PM, [address], , [place], [address], Insurance Providers Payer Name Payer Address Payer Phone Insured Name Patient Relati onship to Insured Coverage Start Date Coverage End Date [employer] DEPT [address] [place] [phone] CATALINA FRANZ self [employer] GOLD [address] [address] [facility] [phone] CATALINA FRANZ self
--- OUTSIDE RECORDS SUMMARY | 2021-06-17 06:54 | CCD | Continuity of Care Document ---
Author Author Caryn [facility] Organization Unknown Address [address], [address] [place] [address] Phone [phone] Care Team Providers Care Computer Game Tester Name Role Phone Cao Berta Mullins AUTM [phone] Ting AUTM [phone] Problems Active Problems Provider Date Screening for [...] lb BMI (Body Mass Index) 30.0 kg/m2 [place] Body Weight 105 lb Weight 72.122 kg BSA (Body Surface Area) 1.71 m2 10/04/2020 10:05am BP Systolic 123 mmHg BP Diastolic 73 mmHg Height 61 inches 5'1" Weight 165.00 lb BMI (Body Mass Index) 31.2 kg/m2 [place] Body Weight 105 lb Weight 74.844 kg BSA (Body Surface Area) 1.74 m2 Results Test Acquired Date Facility Test Result H/L Range Note Laboratory test finding 09/20/2020 [facility] [address], [place] [id number] [phone] Pathology Request For Service (SEE NOTE) 1 Laboratory test finding 09/20/2020 [facility] [address] [place] [address] [phone] Bedside Glucose 95 mg/dL Normal 80-115 1 FINAL DIAGNOSIS Gallbladder, Cholecystectomy: Cholelithiasis. Chronic cholecystitis. 09/21/2020 - 100 CLINICAL DIAGNOSIS Symptomatic cholelithiasis 09/20/2020 - 1515 GROSS DIAGNOSIS Received in formalin labeled "gallbladder" and consists of a gallbladder 9 x 3.5 x 3.0 cm. The specimen is opene d to reveal multiple gallstones measuring from 0.5-1.5 cm. The mucosa is grossly unremarkable. No polyp or mass/lesion is identified. At Risk Paraprofessional section submitted in one. -OA 09/20/2020 - 1515 Signed ERIN HERNANDEZ MD 09/21/2020 1005 Procedures Date Code Description Status 09/20/2020 48060 Laparoscopy,Surgical;Cholecystec lakeisha Completed 08/23/2018 29105005 Mammogram Completed Medical Devices Description No Information Available Encounters Type Date Location Provider Dx Diagnosis Office Visit 10/04/2020 10:00a [facility] MARIA E Lagunas K80.20 Calculus of gallbladder w/o cholecystiti s w/o obstruction Z48.815 Encntr for surgical aftcr fo llowing surgery on the dgstv sys Z90.49 Acquired absence of other sp ecified parts of digestive tract Assessments Date Code Description Provider 03/22/2021 Z12.11 Encounter for screening for kiko gnant neoplasm of colon JAYLON aHmilton 10/04/2020 K80.20 Calculus of gallblad iris without cholecystitis without obstruction MARIA E Avelar 10/04/2020 Z48.815 Encounter for surgic al aftercare following surgery on the digestive system MARIA E Avelar 10/04/2020 Z90.49 Acquired absence of other specif ied parts of digestive tract MARIA E Avelar 09/20/2020 K80.10 Calculus of gallblad iris with chronic cholecystitis without obstruction Edgar Dooley, DO Plan of Treatment 03/22/2021 - JAYLON Hamilton* [...] Date Harpreet Moore M.D. COLO SCREENING Created [facility], Gastroenterology [address], [address] [place] [address] [phone]
--- OUTSIDE RECORDS SUMMARY | 2021-06-17 06:55 | CCD ---
Author Author [facility] Organization [facility] Address Unknown Phone Unavailable Care Team Providers Care Studio Designer Name Role Phone NO, PCP Unavailable Unavailable LOREDO, H MADISYN HAZARDOUS WASTE MANAGEMENT SPECIALIST Unavailable Unavailable LOREDO, H MADISYN HAZARDOUS WASTE MANAGEMENT SPECIALIST Unavailable Unavailable LOREDO, H MADISYN HAZARDOUS WASTE MANAGEMENT SPECIALIST Unavailable Unavailable LOREDO, H MADISYN HAZARDOUS WASTE MANAGEMENT SPECIALIST Unavailable Unavailable LOREDO, H MADISYN HAZARDOUS WASTE MANAGEMENT SPECIALIST Unavailable Unavailable LOREDO, H MADISYN HAZARDOUS WASTE MANAGEMENT SPECIALIST Unavailable Unavailable LOREDO, H MADISYN HAZARDOUS WASTE MANAGEMENT SPECIALIST Unavailable Unavailable LOREDO, H MADISYN HAZARDOUS WASTE MANAGEMENT SPECIALIST Unavailable Unavailable LOREDO, H MADISYN HAZARDOUS WASTE MANAGEMENT SPECIALIST Unavailable Unavailable LOREDO, H MADISYN HAZARDOUS WASTE MANAGEMENT SPECIALIST Unavailable Unavailable LOREDO, H MADISYN HAZARDOUS WASTE MANAGEMENT SPECIALIST Unavailable Unavailable LOREDO, H MADISYN HAZARDOUS WASTE MANAGEMENT SPECIALIST Unavailable Unavailable LOREDO, H MDAISYN HAZARDOUS WASTE MANAGEMENT SPECIALIST Unavailable Unavailable LOREDO, H MADISYN HAZARDOUS WASTE MANAGEMENT SPECIALIST Unavailable Unavailable LOREDO, H MADISYN HAZARDOUS WASTE MANAGEMENT SPECIALIST Unavailable Unavailable LOREDO, H MADISYN HAZARDOUS WASTE MANAGEMENT SPECIALIST Unavailable Unavailable LOREDO, H MADISYN HAZARDOUS WASTE MANAGEMENT SPECIALIST Unavailable Unavailable LOREDO, H MADISYN HAZARDOUS WASTE MANAGEMENT SPECIALIST Unavailable Unavailable LOREDO, H MADISYN HAZARDOUS WASTE MANAGEMENT SPECIALIST Unavailable Unavailable LOREDO, H MADISYN HAZARDOUS WASTE MANAGEMENT SPECIALIST Unavailable Unavailable LOREDO, H MADISYN HAZARDOUS WASTE MANAGEMENT SPECIALIST Unavailable Unavailable LOREDO, H MADISYN HAZARDOUS WASTE MANAGEMENT SPECIALIST Unavailable Unavailable LOREDO, H MADISYN HAZARDOUS WASTE MANAGEMENT SPECIALIST Unavailable Unavailable LOREDO, H MADISYN HAZARDOUS WASTE MANAGEMENT SPECIALIST Unavailable Unavailable LOREDO, H MADISYN HAZARDOUS WASTE MANAGEMENT SPECIALIST Unavailable Unavailable LOREDO, H MADISYN HAZARDOUS WASTE MANAGEMENT SPECIALIST Unavailable Unavailable LOREDO, H MADISYN HAZARDOUS WASTE MANAGEMENT SPECIALIST Unavailable Unavailable LOREDO, H MADISYN HAZARDOUS WASTE MANAGEMENT SPECIALIST Unavailable Unavailable LOREDO, H MADISYN HAZARDOUS WASTE MANAGEMENT SPECIALIST Unavailable Unavailable LOREDO, H MADISYN HAZARDOUS WASTE MANAGEMENT SPECIALIST Unavailable Unavailable LOREDO, H MADISYN HAZARDOUS WASTE MANAGEMENT SPECIALIST Unavailable Unavailable LOREDO, H MADISYN HAZARDOUS WASTE MANAGEMENT SPECIALIST Unavailable Unavailable LOREDO, H MADISYN HAZARDOUS WASTE MANAGEMENT SPECIALIST Unavailable Unavailable LOREDO, H MADISYN HAZARDOUS WASTE MANAGEMENT SPECIALIST Unavailable Unavailable LOREDO, H MADISYN HAZARDOUS WASTE MANAGEMENT SPECIALIST Unavailable Unavailable LOREDO, H MADISYN HAZARDOUS WASTE MANAGEMENT SPECIALIST Unavailable Unavailable LOREDO, H MADISYN HAZARDOUS WASTE MANAGEMENT SPECIALIST Unavailable Unavailable LOREDO, H MADISYN HAZARDOUS WASTE MANAGEMENT SPECIALIST Unavailable Unavailable LOREDO, H MADISYN HAZARDOUS WASTE MANAGEMENT SPECIALIST Unavailable Unavailable LOREDO, H MADISYN HAZARDOUS WASTE MANAGEMENT SPECIALIST Unavailable Unavailable LOREDO, H MADISYN HAZARDOUS WASTE MANAGEMENT SPECIALIST Unavailable Unavailable LOREDO, H MADISYN HAZARDOUS WASTE MANAGEMENT SPECIALIST Unavailable Unavailable LOREDO, H MADISYN HAZARDOUS WASTE MANAGEMENT SPECIALIST Unavailable Unavailable LOREDO, H MADISYN HAZARDOUS WASTE MANAGEMENT SPECIALIST Unavailable Unavailable LOREDO, H MADISYN HAZARDOUS WASTE MANAGEMENT SPECIALIST Unavailable Unavailable LOREDO, H MADISYN HAZARDOUS WASTE MANAGEMENT SPECIALIST Unavailable Unavailable LOREDO, H MADISYN HAZARDOUS WASTE MANAGEMENT SPECIALIST Unavailable Unavailable LOREDO, H MADISYN HAZARDOUS WASTE MANAGEMENT SPECIALIST Unavailable Unavailable LOREDO, H MADISYN HAZARDOUS WASTE MANAGEMENT SPECIALIST Unavailable Unavailable LOREDO, H MADISYN HAZARDOUS WASTE MANAGEMENT SPECIALIST Unavailable Unavailable LOREDO, H MADISYN HAZARDOUS WASTE MANAGEMENT SPECIALIST Unavailable Unavailable LOREDO, H MADISYN HAZARDOUS WASTE MANAGEMENT SPECIALIST Unavailable Unavailable LOREDO, H MADISYN HAZARDOUS WASTE MANAGEMENT SPECIALIST Unavailable Unavailable LOREDO, H MADISYN HAZARDOUS WASTE MANAGEMENT SPECIALIST Unavailable Unavailable LOREDO, H MADISYN HAZARDOUS WASTE MANAGEMENT SPECIALIST Unavailable Unavailable LOREDO, H MADISYN HAZARDOUS WASTE MANAGEMENT SPECIALIST Unavailable Unavailable Manuel Girard MD Unavailable Unavailable Manuel Girard MD Unavailable Unavailable Manuel Girard MD Unavailable Unavailable Manuel Girard MD Unavailable Unavailable Manuel Girard MD Unavailable Unavailable Manuel Girard MD Unavailable Unavailable Manuel Girard MD Unavailable Unavailable Manuel Girard MD Unavailable Unavailable Manuel Girard MD Unavailable Unavailable Manuel Girard MD Unavailable Unavailable Manuel Girard MD Unavailable Unavailable Manuel Girard MD Unavailable Unavailable Manuel Girard MD Unavailable Unavailable Manuel Girard MD Unavailable Unavailable Manuel Girard MD Unavailable Unavailable Manuel Girard MD Unavailable Unavailable Manuel Girard MD Unavailable Unavailable Manuel Girard MD Unavailable Unavailable Manuel Girard MD Unavailable Unavailable Manuel Girard MD Unavailable Unavailable Manuel Girard MD Unavailable Unavailable Manuel Girard MD Unavailable Unavailable Manuel Girard MD Unavailable Unavailable Manuel Girard MD Unavailable Unavailable Manuel Girard MD Unavailable Unavailable Manuel Girard MD Unavailable Unavailable Manuel Girard MD Unavailable Unavailable Manuel Girard MD Unavailable Unavailable Manuel Girard MD Unavailable Unavailable Manuel Girard MD Unavailable Unavailable Manuel Girard MD Unavailable Unavailable Manuel Girard MD Unavailable Unavailable Manuel Giradr MD Unavailable Unavailable Manuel Girard MD Unavailable Unavailable Manuel Girard MD Unavailable Unavailable VanArnam JR, W Owen PA Unavailable Unavailable VanArnam JR, W Owen PA Unavailable Unavailable VanArnam JR, W Owen PA Unavailable Unavailable VanArnam JR, W Owen PA Unavailable Unavailable VanArnam JR, W Owen PA Unavailable Unavailable VanArnam JR, W Owen PA Unavailable Unavailable VanArnam JR, W Owen PA Unavailable Unavailable VanArnam JR, W Owen PA Unavailable Unavailable VanArnam JR, W Owen PA Unavailable Unavailable VanArnam JR, W Owen PA Unavailable Unavailable VanArnam JR, W Owen PA Unavailable Unavailable VanArnam JR, W Owen PA Unavailable Unavailable VanArnam JR, W Owen PA Unavailable Unavailable VanArnam JR, W Owen PA Unavailable Unavailable VanArnam JR, W Owen PA Unavailable Unavailable VanArnam JR, W Owen PA Unavailable Unavailable VanArnam JR, W Owen PA Unavailable Unavailable VanArnam JR, W Owen PA Unavailable Unavailable VanArnam JR, W Owen PA Unavailable Unavailable VanArnam JR, W Owen PA Unavailable Unavailable VanArnam JR, W Owen PA Unavailable Unavailable VanArnam JR, W Owen PA Unavailable Unavailable VanArnam JR, W Owen PA Unavailable Unavailable VanArnam JR, W Owen PA Unavailable Unavailable VanArnam JR, W Owen PA Unavailable Unavailable VanArnam JR, W Owen PA Unavailable Unavailable VanArnam JR, W Owen PA Unavailable Unavailable VanArnam JR, W Owen PA Unavailable Unavailable VanArnam JR, W Owen PA Unavailable Unavailable VanArnam JR, W Owen PA Unavailable Unavailable VanArnam JR, W Owen PA Unavailable Unavailable VanArnam JR, W Owen PA Unavailable Unavailable VanArnam JR, W Owen PA Unavailable Unavailable VanArnam JR, W Owen PA Unavailable Unavailable VanArnam JR, W Owen PA Unavailable Unavailable VanArnam JR, W Owen PA Unavailable Unavailable VanArnam JR, W Owen PA Unavailable Unavailable VanArnam JR, W Owen PA Unavailable Unavailable VanArnam JR, W Owen PA Unavailable Unavailable VanArnam JR, W Owen PA Unavailable Unavailable VanArnam JR, W Owen PA Unavailable Unavailable VanArnam JR, W Owen PA Unavailable Unavailable VanArnam JR, W Owen PA Unavailable Unavailable BRYDEN, A EDGAR DO Unavailable Unavailable BRYDEN, A EDGAR DO Unavailable Unavailable BRYDEN, A EDGAR DO Unavailable Unavailable BRYDEN, A EDGAR DO Unavailable Unavailable BRYDEN, A EDGAR DO Unavailable Unavailable BRYDEN, A EDGAR DO Unavailable Unavailable BRYDEN, A EDGAR DO Unavailable Unavailable BRYDEN, A EDGAR DO Unavailable Unavailable BRYDEN, A EDGAR DO Unavailable Unavailable BRYDEN, A EDGAR DO Unavailable Unavailable BRYDEN, A EDGAR DO Unavailable Unavailable BRYDEN, A EDGAR DO Unavailable Unavailable BRYDEN, A EDGAR DO Unavailable Unavailable BRYDEN, A EDGAR DO Unavailable Unavailable BRYDEN, A EDGAR DO Unavailable Unavailable BRYDEN, A EDGAR DO Unavailable Unavailable BRYDEN, A EDGAR DO Unavailable Unavailable BRYDEN, A EDGAR DO Unavailable Unavailable BRYDEN, A EDGAR DO Unavailable Unavailable BRYDEN, A EDGAR DO Unavailable Unavailable BRYDEN, A EDGAR DO Unavailable Unavailable BRYDEN, A EDGAR DO Unavailable Unavailable BRYDEN, A EDGAR DO Unavailable Unavailable BRYDEN, A EDGAR DO Unavailable Unavailable BRYDEN, A EDGAR DO Unavailable Unavailable BRYDEN, A EDGAR DO Unavailable Unavailable BRYDEN, A EDGAR DO Unavailable Unavailable BRYDEN, A EDGAR DO Unavailable Unavailable BRYDEN, A EDGAR DO Unavailable Unavailable Villavicencio, L Amalia RPA Unavailable Unavailable Villavicencio, L Amalia RPA Unavailable Unavailable Villavicencio, L Amalia RPA Unavailable Unavailable Villavicencio, L Amalia RPA Unavailable Unavailable Villavicencio, L Amalia RPA Unavailable Unavailable Villavicencio, L Amalia RPA Unavailable Unavailable Villavicencio, L Amalia RPA Unavailable Unavailable Villavicencio, L Amalia RPA Unavailable Unavailable Villavicencio, L Amalia RPA Unavailable Unavailable Villavicencio, L Amalia RPA Unavailable Unavailable Villavicencio, L Amalia RPA Unavailable Unavailable Villavicencio, L Amalia RPA Unavailable Unavailable Villavicencio, L Amalia RPA Unavailable Unavailable Villavicencio, L Amalia RPA Unavailable Unavailable Villavicencio, L Amalia RPA Unavailable Unavailable Villavicencio, L Amalia RPA Unavailable Unavailable Villavicencio, L Amalia RPA Unavailable Unavailable Villavicencio, L Amalia RPA Unavailable Unavailable Villavicencio, L Amalia RPA Unavailable Unavailable Villavicencio, L Amalia RPA Unavailable Unavailable Villavicencio, L Amalia RPA Unavailable Unavailable Villavicencio, L Amalia RPA Unavailable Unavailable Villavicencio, L Amalia RPA Unavailable Unavailable Villavicencio, L Amalia RPA Unavailable Unavailable Villavicencio, L Amalia RPA Unavailable Unavailable Villavicencio, L Amalia RPA Unavailable Unavailable Villavicencio, L Amalia RPA Unavailable Unavailable Villavicencio, L Amalia RPA Unavailable Unavailable Villavicencio, L Amalia RPA Unavailable Unavailable Villavicencio, L Amalia RPA Unavailable Unavailable Villavicencio, L Amalia RPA Unavailable Unavailable Villavicencio, L Amalia RPA Unavailable Unavailable Nila SUBRAMANIAN MD Unavailable Unavailable Nila SUBRAMANIAN MD Unavailable Unavailable Nila SUBRAMANIAN MD Unavailable Unavailable Nila SUBRAMANIAN MD Unavailable Unavailable Nila SUBRAMANIAN MD Unavailable Unavailable Nila SUBRAMANIAN MD Unavailable Unavailable Nila SUBRAMANIAN MD Unavailable Unavailable Nila SUBRAMANIAN MD Unavailable Unavailable Nila SUBRAMANIAN MD Unavailable Unavailable Nila SUBRAMANIAN MD Unavailable Unavailable Nila SUBRAMANIAN MD Unavailable Unavailable Nila SUBRAMANIAN MD Unavailable Unavailable Nila SUBRAMANIAN MD Unavailable Unavailable Nila SUBRAMANIAN MD Unavailable Unavailable Nila SUBRAMANIAN MD Unavailable Unavailable Nila SUBRAMANIAN MD Unavailable Unavailable Nila SUBRAMANIAN MD Unavailable Unavailable Nila SUBRAMANIAN MD Unavailable Unavailable Nila SUBRAMANIAN MD Unavailable Unavailable Nila SUBRAMANIAN MD Unavailable Unavailable Nila SUBRAMANIAN MD Unavailable Unavailable Nila SUBRAMANIAN MD Unavailable Unavailable Nila SUBRAMANIAN MD Unavailable Unavailable Nila SUBRAMANIAN MD Unavailable Unavailable Nila SUBRAMANIAN MD Unavailable Unavailable Nila SUBRAMANIAN MD Unavailable Unavailable Nila SUBRAMANIAN MD Unavailable Unavailable Nila SUBRAMANIAN MD Unavailable Unavailable Nila SUBRAMANIAN MD Unavailable Unavailable Nila SUBRAMANIAN MD Unavailable Unavailable Nila SUBRAMANIAN MD Unavailable Unavailable Nila SUBRAMANIAN MD Unavailable Unavailable Nila SUBRAMANIAN MD Unavailable Unavailable Nila SUBRAMANIAN MD Unavailable Unavailable Nila SUBRAMANIAN MD Unavailable Unavailable Nila SUBRAMANIAN MD Unavailable Unavailable Nila SUBRAMANIAN MD Unavailable Unavailable Nila SUBRAMANIAN MD Unavailable Unavailable Nila SUBRAMANIAN MD Unavailable Unavailable Nila SUBRAMANIAN MD Unavailable Unavailable Nila SUBRAMANIAN MD Unavailable Unavailable Nila SUBRAMANIAN MD Unavailable Unavailable Nila SUBRAMANIAN MD Unavailable Unavailable Nila SUBRAMANIAN MD Unavailable Unavailable Nila SUBRAMANIAN MD Unavailable Unavailable Nila SUBRAMANIAN MD Unavailable Unavailable Nila SUBRAMANIAN MD Unavailable Unavailable Nila SUBRAMANIAN MD Unavailable Unavailable Nila SUBRAMANIAN MD Unavailable Unavailable Nila SUBRAMANIAN MD Unavailable Unavailable Nila SUBRAMANIAN MD Unavailable Unavailable Nila SUBRAMANIAN MD Unavailable Unavailable Nila SUBRAMANIAN MD Unavailable Unavailable Nila SUBRAMANIAN MD Unavailable Unavailable Nila SUBRAMANIAN MD Unavailable Unavailable Nila SUBRAMANIAN MD Unavailable Unavailable Nila SUBRAMANIAN MD Unavailable Unavailable Nila SUBRAMANIAN MD Unavailable Unavailable Nila SUBRAMANIAN MD Unavailable Unavailable Nila SUBRAMANIAN MD Unavailable Unavailable Nila SUBRAMANIAN MD Unavailable Unavailable Nila SUBRAMANIAN MD Unavailable Unavailable Nila SUBRAMANIAN MD Unavailable Unavailable Nila SUBRAMANIAN MD Unavailable Unavailable Nila SUBRAMANIAN MD Unavailable Unavailable Nila SUBRAMANIAN MD Unavailable Unavailable Nila SUBRAMANIAN MD Unavailable Unavailable Nila SUBRAMANIAN MD Unavailable Unavailable Nila SUBRAMANIAN MD Unavailable Unavailable Nila SUBRAMANIAN MD Unavailable Unavailable Nila SUBRAMANIAN MD Unavailable Unavailable Nila SUBRAMANIAN MD Unavailable Unavailable Nila SUBRAMANIAN MD Unavailable Unavailable Nila SUBRAMANIAN MD Unavailable Unavailable Nila SUBRAMANIAN MD Unavailable Unavailable Nila SUBRAMANIAN MD Unavailable Unavailable Nila SUBRAMANIAN MD Unavailable Unavailable Nila SUBRAMANIAN MD Unavailable Unavailable Nila SUBRAMANIAN MD Unavailable Unavailable Nila SUBRAMANIAN MD Unavailable Unavailable Nila SUBRAMANIAN MD Unavailable Unavailable Nila SUBRAMANIAN MD Unavailable Unavailable Nila SUBRAMANIAN MD Unavailable Unavailable Nila SUBRAMANIAN MD Unavailable Unavailable Nila SUBRAMANIAN MD Unavailable Unavailable Nila SUBRAMANIAN MD Unavailable Unavailable Nila SUBRAMANIAN MD Unavailable Unavailable Nila SUBRAMANIAN MD Unavailable Unavailable Nila SUBRAMANIAN MD Unavailable Unavailable Nila SUBRAMANIAN MD Unavailable Unavailable Nila SUBRAMANIAN MD Unavailable Unavailable Nila SUBRAMANIAN MD Unavailable Unavailable Nila SUBRAMANIAN MD Unavailable Unavailable Nila SUBRAMANIAN MD Unavailable Unavailable Nila SUBRAMANIAN MD Unavailable Unavailable Nila SUBRAMANIAN MD Unavailable Unavailable Re-disclosure Warning The records that you are about to access may contain information from federally-assisted alcohol or drug abuse programs. If such information is present, then the following federally mandated warning applies: This information has been disclosed to you from records protected by federal confidentiality rules (42 CFR part 2). The federal rules prohibit you from making any further disclosure of this information unless further disclosure is expressly permitted by the written consent of the person to whom it pertains or as otherwise permitted by 42 CFR part 2. A general authorization for the release of medical or other information is NOT sufficient for this purpose. The Federal rules restrict any use of the information to criminally investigate or prosecute any alcohol or drug abuse patient.The records that you are about to access may contain highly sensitive health information, the redisclosure of which is protected by Article 27-F of the [facility] Public Health law. If you continue you may have access to information: Regarding HIV / AIDS; Provided by facilities licensed or operated by the [facility] Office of Mental Health; or Provided by the [facility] Office for People With Developmental Disabilities. If such information is present, then the following [facility] mandated warning applies: This information has been disclosed to you from confidential records which are protected by state law. State law prohibits you from making any further disclosure of this information without the specific written consent of the person to whom it pertains, or as otherwise permitted by law. Any unauthorized further disclosure in violation of state law may result in a fine or half-way sentence or both. A general authorization for the release of medical or other information is NOT sufficient authorization for further disc losure. Allergies and Adverse Reactions Type Description Substance Reaction Status Data Source(s ) No Known Drug Allergies No Known Drug Allergies [facility] No Known Food Allergies No Known Food Allergies [facility] Family History Family Member Name Family Member Gender Family Member Status Date o f Status Description Data Source(s) Unknown Unknown Problem [facility] ([facility]) Unknown Female Problem MEDENT ([facility]) Unknown Unknown Problem [facility] ([facility]) Encounters Encounter Providers Location Date Indications Data Source(s ) [place] [address] [facility] [address] 05/02/2021 12:00:00 AM EDT eCW1 (Critical access hospital) [place] [address] [facility] [address] 04/22/2021 12:00:00 AM EDT [facility] [place] [address] [facility] [address] 04/19/2021 12:00:00 AM EDT [facility] [place] [address] [facility] [address] 03/30/2021 12:00:00 AM EDT eCW1 ([facility]) Outpatient Attender: Manuel Girard MDConsultant: PCP NO 03/16/2021 08:45:00 AM EDT - 03/16/2021 11:37:00 AM EDT [facility] Patient discharged[facility] (Cysto1) Urology [address] [place] [address] 03/14/2021 12:00:00 AM EDT [facility]CW1 [facility]) Outpatient Attender: Manuel Girard MDConsultant: PCP NO 03/10/2021 01:30:00 PM EDT - 03/10/2021 03:30:00 PM EDT [facility] Patient discharged. [place] [address] [facility] [address] 03/09/2021 12:00:00 AM EDT [facility] [place] [address] [facility] [address] 02/28/2021 12:00:00 AM EDT [facility] [place] [address] [facility] [address] 02/22/2021 12:00:00 AM EDT [facility]CW[facility] [place] [address] [facility] [address] 02/21/2021 12:00:00 AM EDT [facility] [place] [address] [facility] [address] 02/11/2021 12:00:00 AM EDT [facility] [place] [address] [facility] [address] 02/07/2021 12:00:00 AM EDT [facility]) [place] [address] [facility] [address] 01/28/2021 12:00:00 AM EDT [facility]CW1 ([facility]) Outpatient [address] [facility] [place] [address] 01/27/2021 12:00:00 AM EDT [facility]CW1 ([facility]) [place] [address] [facility] [address] 01/04/2021 12:00:00 AM EDT eCW1 ([facility]) Unknown [address] [facility] [address] 12/31/2020 12:00:00 AM EDT [facility]CW1 ([facility]) Unknown [address] [facility] [place] [address] 12/03/2020 12:00:00 AM EDT [facility]CW1 ([facility]) Outpatient Attender: JOSE M SUBRAMANIAN MDReferrer: MADISYN Crawford NP 11/26/2020 02:19:51 PM EDT [facility] Outpatient Attender: Owen Mckeon JRReferrer: MADISYN LOREDO NP 11/09/2020 02:10:16 PM EDT [facility] Outpatient [address] [facility] [place] [address] 11/08/2020 12:00:00 AM EDT [facility]CW1 [facility]) Recurring Patient Referrer: JOSE M SUBRAMANIAN MD 11:01:14 AM EDT [facility] Unknown [address] [facility] [place] [address] 11/04/2020 12:00:00 AM EDT [facility]CW1 ([facility]) Unknown [address] [facility] [place] [address] 11/03/2020 12:00:00 AM EDT eCW1 (Critical access hospital) Office Visit, Est Pt., Level 4 PC [address] [place] [address] 10/28/2020 12:00:00 AM EDT eCW1 ([facility]) (Cysto1) Urology [address] [place] [address] 10/22/2020 12:00:00 AM EDT eCW1 (Critical access hospital) Recurring Patient Referrer: JOSE M SUBRAMANIAN MD 02:38:14 PM EDT [facility] Recurring Patient Referrer: JOSE M SUBRAMANIAN MD 02:35:56 PM EDT [facility] [place] [address] [facility] [address] 10/05/2020 12:00:00 AM EDT eCW1 (Critical access hospital) Office Visit Attender: Amalia Steiner/Kizzy/Adalberto/Theresa schneider 10/04/2020 10:00:00 AM EDT [facility] ([facility]) [place] [address] [facility] [address] 09/16/2020 12:00:00 AM EST eCW1 (Critical access hospital) Unknown [address] [facility] [place] [address] 09/15/2020 12:00:00 AM EST eCW1 (Critical access hospital) [place] [address] [facility] [address] 09/09/2020 12:00:00 AM EST eCW1 (Critical access hospital) Unknown [address] [facility] [place] [address] 09/06/2020 12:00:00 AM EST eCW1 (Critical access hospital) Unknown [address] [facility] [place] [address] 09/03/2020 12:00:00 AM EST eCW1 (Critical access hospital) Outpatient Attender: EDGAR Bowman/[place]/Adalberto/Deshawn ndl 08/26/2020 10:30:00 AM EST [facility] ([facility]) [place] [address] [facility] [address] 08/18/2020 12:00:00 AM EST eCW1 ([facility]) Outpatient Attender: EDGAR Bowman/[place]/Adalberto/Deshawn ndl 08/10/2020 10:00:00 AM EST [facility] ([facility] [place] [address] [facility] [address] 08/10/2020 12:00:00 AM EST eCW1 ([facility]) [place] [address] [facility] [address] 08/09/2020 12:00:00 AM EST eCW1 ([facility]) Unknown [address] [facility] [place] [address] 07/22/2020 12:00:00 AM EST eCW1 ([facility]) [place] [address] [facility] [address] 07/08/2020 12:00:00 AM EST eCW1 ([facility]) [place] [address] [facility] [address] 06/28/2020 12:00:00 AM EST eCW1 ([facility]) [place] [address] [facility] [place] [address] 06/16/2020 12:00:00 AM EST eCW1 ([facility]) [place] [address] [facility] [place] [address] 06/14/2020 12:00:00 AM EST eCW1 ([facility]) [place] [address] [facility] [address] 05/11/2020 12:00:00 AM EDT eCW1 [facility] [facility]) Outpatient [address] [facility] [id number] 05/10/2020 12:00:00 AM EDT eCW1 (Critical access hospital) Unknown [address] [facility] [address] 05/05/2020 12:00:00 AM EDT eCW1 (Critical access hospital) Outpatient [address] [facility] [address] 04/29/2020 12:00:00 AM EDT eCW1 (Critical access hospital) Immunizations Vaccine Date Status Description Data Source(s) COVID-19 dose #2 given elsewhere Unspecified 01/27/2021 11:2 7:00 AM EDT completed eCW1 (Critical access hospital) COVID-19 dose #2 given elsewhere Unspecified 01/27/2021 11:2 7:00 AM EDT completed eCW1 (Critical access hospital) COVID-19 dose #2 given elsewhere Unspecified 01/27/2021 11:2 7:00 AM EDT completed eCW1 (Critical access hospital) COVID-19 dose #2 given elsewhere Unspecified 01/27/2021 11:2 7:00 AM EDT completed eCW1 (Critical access hospital) COVID-19 dose #2 given elsewhere Unspecified 01/27/2021 11:2 7:00 AM EDT completed eCW1 (Critical access hospital) COVID-19 dose #2 given elsewhere Unspecified 01/27/2021 11:2 7:00 AM EDT completed eCW1 (Critical access hospital) COVID-19 dose #2 given elsewhere Unspecified 01/27/2021 11:2 7:00 AM EDT completed eCW1 (Critical access hospital) COVID-19 dose #2 given elsewhere Unspecified 01/27/2021 11:2 7:00 AM EDT completed eCW1 (Critical access hospital) COVID-19 dose #2 given elsewhere Unspecified 01/27/2021 11:2 7:00 AM EDT completed eCW1 (Critical access hospital) COVID-19 dose #2 given elsewhere Unspecified 01/27/2021 11:2 7:00 AM EDT completed eCW1 (Critical access hospital) COVID-19 dose #2 given elsewhere Unspecified 01/27/2021 11:2 7:00 AM EDT completed eCW1 (Critical access hospital) COVID-19 dose #2 given elsewhere Unspecified 01/27/2021 11:2 7:00 AM EDT completed eCW1 (Critical access hospital) COVID-19 dose #2 given elsewhere Unspecified 01/27/2021 11:2 7:00 AM EDT completed eCW1 (Critical access hospital) COVID-19 VACCINE Moderna 11/04/2020 12:00:00 AM EDT completed [employer] Vaccine Series Complete: YESThis Data wa s Submitted to [facility] Via [employer]. COVID-19 dose #1 given elsewhere Unspecified 10/28/2020 02:1 0:00 PM EDT completed eCW1 (Critical access hospital) COVID-19 dose #1 given elsewhere Unspecified 10/28/2020 02:1 0:00 PM EDT completed eCW1 (Critical access hospital) COVID-19 dose #1 given elsewhere Unspecified 10/28/2020 02:1 0:00 PM EDT completed eCW1 (Critical access hospital) COVID-19 dose #1 given elsewhere Unspecified 10/28/2020 02:1 0:00 PM EDT completed eCW1 (Critical access hospital) COVID-19 dose #1 given elsewhere Unspecified 10/28/2020 02:1 0:00 PM EDT completed eCW1 (Critical access hospital) COVID-19 dose #1 given elsewhere Unspecified 10/28/2020 02:1 0:00 PM EDT completed eCW1 (Critical access hospital) COVID-19 dose #1 given elsewhere Unspecified 10/28/2020 02:1 0:00 PM EDT completed eCW1 (Critical access hospital) COVID-19 dose #1 given elsewhere Unspecified 10/28/2020 02:1 0:00 PM EDT completed eCW1 (Critical access hospital) COVID-19 dose #1 given elsewhere Unspecified 10/28/2020 02:1 0:00 PM EDT completed eCW1 (Critical access hospital) COVID-19 dose #1 given elsewhere Unspecified 10/28/2020 02:1 0:00 PM EDT completed eCW1 (Critical access hospital) COVID-19 dose #1 given elsewhere Unspecified 10/28/2020 02:1 0:00 PM EDT completed eCW1 (Critical access hospital) COVID-19 dose #1 given elsewhere Unspecified 10/28/2020 02:1 0:00 PM EDT completed eCW1 (Critical access hospital) COVID-19 dose #1 given elsewhere Unspecified 10/28/2020 02:1 0:00 PM EDT completed eCW1 (Critical access hospital) COVID-19 dose #1 given elsewhere Unspecified 10/28/2020 02:1 0:00 PM EDT completed eCW1 (Critical access hospital) COVID-19 dose #1 given elsewhere Unspecified 10/28/2020 02:1 0:00 PM EDT completed eCW1 (Critical access hospital) COVID-19 dose #1 given elsewhere Unspecified 10/28/2020 02:1 0:00 PM EDT completed eCW1 (Critical access hospital) COVID-19 dose #1 given elsewhere Unspecified 10/28/2020 02:1 0:00 PM EDT completed eCW1 (Critical access hospital) COVID-19 dose #1 given elsewhere Unspecified 10/28/2020 02:1 0:00 PM EDT completed eCW1 (Critical access hospital) COVID-19 dose #1 given elsewhere Unspecified 10/28/2020 02:1 0:00 PM EDT completed eCW1 (Critical access hospital) COVID-19 dose #1 given elsewhere Unspecified 10/28/2020 02:1 0:00 PM EDT completed eCW1 (Critical access hospital) COVID-19 VACCINE Moderna 10/07/2020 12:00:00 AM EDT completed [employer] Vaccine Series Complete: NOThis Data was Submitted to [facility] Via [employer]. influenza, recombinant, quadrIvalent,injectable, prese rvative free 04/29/2020 03:28:00 PM EDT completed eCW1 ([facility]) influenza, recombinant, quadrIvalent,injectable, prese rvative free 04/29/2020 03:28:00 PM EDT completed eCW1 ([facility]) influenza, recombinant, quadrIvalent,injectable, prese rvative free 04/29/2020 03:28:00 PM EDT completed eCW1 ([facility]) influenza, recombinant, quadrIvalent,injectable, prese rvative free 04/29/2020 03:28:00 PM EDT completed eCW1 ([facility]) influenza, recombinant, quadrIvalent,injectable, prese rvative free 04/29/2020 03:28:00 PM EDT completed eCW1 ([facility]) influenza, recombinant, quadrIvalent,injectable, prese rvative free 04/29/2020 03:28:00 PM EDT completed eCW1 ([facility]) influenza, recombinant, quadrIvalent,injectable, prese rvative free 04/29/2020 03:28:00 PM EDT completed eCW1 ([facility]) influenza, recombinant, quadrIvalent,injectable, prese rvative free 04/29/2020 03:28:00 PM EDT completed eCW1 ([facility]) influenza, recombinant, quadrIvalent,injectable, prese rvative free 04/29/2020 03:28:00 PM EDT completed eCW1 ([facility]) influenza, recombinant, quadrIvalent,injectable, prese rvative free 04/29/2020 03:28:00 PM EDT completed eCW1 ([facility]) influenza, recombinant, quadrIvalent,injectable, prese rvative free 04/29/2020 03:28:00 PM EDT completed eCW1 ([facility]) influenza, recombinant, quadrIvalent,injectable, prese rvative free 04/29/2020 03:28:00 PM EDT completed eCW1 ([facility]) influenza, recombinant, quadrIvalent,injectable, prese rvative free 04/29/2020 03:28:00 PM EDT completed eCW1 ([facility]) influenza, recombinant, quadrIvalent,injectable, prese rvative free 04/29/2020 03:28:00 PM EDT completed eCW1 ([facility]) influenza, recombinant, quadrIvalent,injectable, prese rvative free 04/29/2020 03:28:00 PM EDT completed eCW1 ([facility]) influenza, recombinant, quadrIvalent,injectable, prese rvative free 04/29/2020 03:28:00 PM EDT completed eCW1 ([facility]) influenza, recombinant, quadrIvalent,injectable, prese rvative free 04/29/2020 03:28:00 PM EDT completed eCW1 ([facility]) influenza, recombinant, quadrIvalent,injectable, prese rvative free 04/29/2020 03:28:00 PM EDT completed eCW1 ([facility]) influenza, recombinant, quadrIvalent,injectable, prese rvative free 04/29/2020 03:28:00 PM EDT completed eCW1 ([facility]) influenza, recombinant, quadrIvalent,injectable, prese rvative free 04/29/2020 03:28:00 PM EDT completed eCW1 ([facility]) influenza, recombinant, quadrIvalent,injectable, prese rvative free 04/29/2020 03:28:00 PM EDT completed eCW1 ([facility]) influenza, recombinant, quadrIvalent,injectable, prese rvative free 04/29/2020 03:28:00 PM EDT completed eCW1 ([facility]) influenza, recombinant, quadrIvalent,injectable, prese rvative free 04/29/2020 03:28:00 PM EDT completed eCW1 ([facility]) influenza, recombinant, quadrIvalent,injectable, prese rvative free 04/29/2020 03:28:00 PM EDT completed eCW1 ([facility]) influenza, recombinant, quadrIvalent,injectable, prese rvative free 04/29/2020 03:28:00 PM EDT completed eCW1 ([facility]) influenza, recombinant, quadrIvalent,injectable, prese rvative free 04/29/2020 03:28:00 PM EDT completed eCW1 ([facility]) influenza, recombinant, quadrIvalent,injectable, prese rvative free 04/29/2020 03:28:00 PM EDT completed eCW1 ([facility]) influenza, recombinant, quadrIvalent,injectable, prese rvative free 04/29/2020 03:28:00 PM EDT completed eCW1 ([facility]) influenza, recombinant, quadrIvalent,injectable, prese rvative free 04/29/2020 03:28:00 PM EDT completed eCW1 ([facility]) influenza, recombinant, quadrIvalent,injectable, prese rvative free 04/29/2020 03:28:00 PM EDT completed eCW1 ([facility]) influenza, recombinant, quadrIvalent,injectable, prese rvative free 04/29/2020 03:28:00 PM EDT completed eCW1 ([facility]) influenza, recombinant, quadrIvalent,injectable, prese rvative free 04/29/2020 03:28:00 PM EDT completed eCW1 ([facility]) influenza, recombinant, quadrIvalent,injectable, prese rvative free 04/29/2020 03:28:00 PM EDT completed eCW1 ([facility]) influenza, recombinant, quadrIvalent,injectable, prese rvative free 04/29/2020 03:28:00 PM EDT completed eCW1 ([facility]) influenza, recombinant, quadrIvalent,injectable, prese rvative free 04/29/2020 03:28:00 PM EDT completed eCW1 ([facility]) influenza, recombinant, quadrIvalent,injectable, prese rvative free 04/29/2020 03:28:00 PM EDT completed eCW1 ([facility]) influenza, recombinant, quadrIvalent,injectable, prese rvative free 04/29/2020 03:28:00 PM EDT completed eCW1 ([facility]) influenza, recombinant, quadrIvalent,injectable, prese rvative free 04/29/2020 03:28:00 PM EDT completed eCW1 ([facility]) influenza, recombinant, quadrIvalent,injectable, prese rvative free 04/29/2020 03:28:00 PM EDT completed eCW1 ([facility]) Medications Medication Brand Name Start Date Product Form Dose Route Admi nistrative Instructions Pharmacy Instructions Status Indications Reaction Description Data Source(s) Acetaminophen 325 MG / Oxycodone Hydroch loride 10 MG Oral Tablet oxyCODONE- Acetaminophen 10-325 MG oxyCODONE-Acetaminophen 10-325 MG 04/22/2021 12:00:00 AM EDT 1.0 {tablet_as_needed} active o xyCODONE-Acetaminophen 10-325 MG eCW1 ([facility]) Acetaminophen 325 MG / Oxycodone Hydroch loride 10 MG Oral Tablet oxyCODONE- Acetaminophen 10-325 MG oxyCODONE-Acetaminophen 10-325 MG 04/22/2021 12:00:00 AM EDT 1.0 {tablet_as_needed} active o xyCODONE-Acetaminophen 10-325 MG eCW1 ([facility]) Acetaminophen 325 MG / Oxycodone Hydroch loride 10 MG Oral Tablet oxyCODONE- Acetaminophen 10-325 MG oxyCODONE-Acetaminophen 10-325 MG 03/30/2021 12:00:00 AM EDT 1.0 {tablet_as_needed} active o xyCODONE-Acetaminophen 10-325 MG eCW1 ([facility]) Acetaminophen 325 MG / Oxycodone Hydroch loride 10 MG Oral Tablet oxyCODONE- Acetaminophen 10-325 MG oxyCODONE-Acetaminophen 10-325 MG 03/30/2021 12:00:00 AM EDT 1.0 {tablet_as_needed} active o xyCODONE-Acetaminophen 10-325 MG eCW1 ([facility]) POLYETHYLENE GLYCOL 3350 105 MG/ML / Pot assium Chloride 0.01603 MEQ/ML / Sodium Bicarbonate 0.017 MEQ/ML / Sodium Chloride 0.0479 MEQ/ML Oral Solution [NuLytely] Nulytely With Flavor Packs 03/22/2021 12:00:00 AM EDT active MEDENT ([facility], ) Magnesium Hydroxide 80 MG/ML Oral Suspension Milk Of Magnesi a 03/22/2021 12:00:00 AM EDT ORAL active M EDENT ([facility], ) Acetaminophen 325 MG / Oxycodone Hydroch loride 10 MG Oral Tablet oxyCODONE- Acetaminophen 10-325 MG oxyCODONE-Acetaminophen 10-325 MG 02/28/2021 12:00:00 AM EDT 1.0 {tablet_as_needed} active oxyCODONE-Acetaminophen 10-325 MG eCW1 ([facility]) Acetaminophen 325 MG / Oxycodone Hydroch loride 10 MG Oral Tablet oxyCODONE- Acetaminophen 10-325 MG oxyCODONE-Acetaminophen 10-325 MG 02/28/2021 12:00:00 AM EDT 1.0 {tablet_as_needed} active oxyCODONE-Acetaminophen 10-325 MG eCW1 ([facility]) Acetaminophen 325 MG / Oxycodone Hydroch loride 10 MG Oral Tablet oxyCODONE- Acetaminophen 10-325 MG oxyCODONE-Acetaminophen 10-325 MG 02/28/2021 12:00:00 AM EDT 1.0 {tablet_as_needed} active oxyCODONE-Acetaminophen 10-325 MG eCW1 ([facility]) Acetaminophen 325 MG / Oxycodone Hydroch loride 7.5 MG Oral Tablet oxyCODONE- Acetaminophen 7.5-325 MG oxyCODONE-Acetaminophen 7.5-325 MG 02/21/2021 12:00:00 AM EDT 1.0 {tablet_as_needed} active oxyCODONE-Acetaminophen 7.5-325 MG eCW1 ([facility]) Acetaminophen 325 MG / Oxycodone Hydroch loride 7.5 MG Oral Tablet oxyCODONE- Acetaminophen 7.5-325 MG oxyCODONE-Acetaminophen 7.5-325 MG 02/21/2021 12:00:00 AM EDT 1.0 {tablet_as_needed} active oxyCODONE-Acetaminophen 7.5-325 MG eCW1 ([facility]) Acetaminophen 325 MG / Oxycodone Hydroch loride 7.5 MG Oral Tablet oxyCODONE- Acetaminophen 7.5-325 MG oxyCODONE-Acetaminophen 7.5-325 MG 01/31/2021 12:00:00 AM EDT 1.0 {tablet_as_needed} active oxyCODONE-Acetaminophen 7.5-325 MG eCW1 ([facility]) Acetaminophen 325 MG / Oxycodone Hydroch loride 7.5 MG Oral Tablet oxyCODONE- Acetaminophen 7.5-325 MG oxyCODONE-Acetaminophen 7.5-325 MG 01/31/2021 12:00:00 AM EDT 1.0 {tablet_as_needed} active oxyCODONE-Acetaminophen 7.5-325 MG eCW1 ([facility]) Acetaminophen 325 MG / Oxycodone Hydroch loride 7.5 MG Oral Tablet oxyCODONE- Acetaminophen 7.5-325 MG oxyCODONE-Acetaminophen 7.5-325 MG 01/31/2021 12:00:00 AM EDT 1.0 {tablet_as_needed} active oxyCODONE-Acetaminophen 7.5-325 MG eCW1 ([facility]) Acetaminophen 325 MG / Oxycodone Hydroch loride 7.5 MG Oral Tablet oxyCODONE- Acetaminophen 7.5-325 MG oxyCODONE-Acetaminophen 7.5-325 MG 01/31/2021 12:00:00 AM EDT 1.0 {tablet_as_needed} active oxyCODONE-Acetaminophen 7.5-325 MG eCW1 ([facility]) Acetaminophen 325 MG / Oxycodone Hydroch loride 7.5 MG Oral Tablet oxyCODONE- Acetaminophen 7.5-325 MG oxyCODONE-Acetaminophen 7.5-325 MG 01/03/2021 12:00:00 AM EDT 1.0 {tablet_as_needed} active oxyCODONE-Acetaminophen 7.5-325 MG eCW1 ([facility]) Acetaminophen 325 MG / Oxycodone Hydroch loride 7.5 MG Oral Tablet oxyCODONE- Acetaminophen 7.5-325 MG oxyCODONE-Acetaminophen 7.5-325 MG 01/03/2021 12:00:00 AM EDT 1.0 {tablet_as_needed} active oxyCODONE-Acetaminophen 7.5-325 MG eCW1 ([facility]) Acetaminophen 325 MG / Oxycodone Hydroch loride 7.5 MG Oral Tablet Oxycodone- Acetaminophen 7.5-325 MG Oxycodone-Acetaminophen 7.5-325 MG 12/03/2020 12:00:00 AM EDT 1.0 {tablet_as_needed} active Oxycodone-Acetaminophen 7.5-325 MG eCW1 ([facility]) Acetaminophen 325 MG / Oxycodone Hydroch loride 7.5 MG Oral Tablet Oxycodone- Acetaminophen 7.5-325 MG Oxycodone-Acetaminophen 7.5-325 MG 11/04/2020 12:00:00 AM EDT 1.0 {tablet_as_needed} active Oxycodone-Acetaminophen 7.5-325 MG eCW1 ([facility]) Acetaminophen 325 MG / Oxycodone Hydroch loride 7.5 MG Oral Tablet Oxycodone- Acetaminophen 7.5-325 MG Oxycodone-Acetaminophen 7.5-325 MG 11/04/2020 12:00:00 AM EDT 1.0 {tablet_as_needed} active Oxycodone-Acetaminophen 7.5-325 MG eCW1 ([facility]) Acetaminophen 325 MG / Oxycodone Hydroch loride 7.5 MG Oral Tablet Oxycodone- Acetaminophen 7.5-325 MG Oxycodone-Acetaminophen 7.5-325 MG 11/04/2020 12:00:00 AM EDT 1.0 {tablet_as_needed} active Oxycodone-Acetaminophen 7.5-325 MG eCW1 ([facility]) Acetaminophen 325 MG / Oxycodone Hydroch loride 7.5 MG Oral Tablet Oxycodone- Acetaminophen 7.5-325 MG Oxycodone-Acetaminophen 7.5-325 MG 10/05/2020 12:00:00 AM EDT 1.0 {tablet_as_needed} active Oxycodone-Acetaminophen 7.5-325 MG eCW1 ([facility]) Acetaminophen 325 MG / Oxycodone Hydroch loride 7.5 MG Oral Tablet Oxycodone- Acetaminophen 7.5-325 MG Oxycodone-Acetaminophen 7.5-325 MG 10/05/2020 12:00:00 AM EDT 1.0 {tablet_as_needed} active Oxycodone-Acetaminophen 7.5-325 MG eCW1 ([facility]) Acetaminophen 325 MG / Oxycodone Hydroch loride 7.5 MG Oral Tablet Oxycodone- Acetaminophen 7.5-325 MG Oxycodone-Acetaminophen 7.5-325 MG 10/05/2020 12:00:00 AM EDT 1.0 {tablet_as_needed} active Oxycodone-Acetaminophen 7.5-325 MG eCW1 ([facility]) Acetaminophen 325 MG / Oxycodone Hydroch loride 7.5 MG Oral Tablet Oxycodone- Acetaminophen 7.5-325 MG Oxycodone-Acetaminophen 7.5-325 MG 09/06/2020 12:00:00 AM EST 1.0 {tablet_as_needed} active Oxycodone-Acetaminophen 7.5-325 MG eCW1 ([facility]) Acetaminophen 325 MG / Oxycodone Hydroch loride 7.5 MG Oral Tablet Oxycodone- Acetaminophen 7.5-325 MG Oxycodone-Acetaminophen 7.5-325 MG 09/06/2020 12:00:00 AM EST 1.0 {tablet_as_needed} active Oxycodone-Acetaminophen 7.5-325 MG eCW1 ([facility]) Acetaminophen 325 MG / Oxycodone Hydroch loride 7.5 MG Oral Tablet Oxycodone- Acetaminophen 7.5-325 MG Oxycodone-Acetaminophen 7.5-325 MG 09/06/2020 12:00:00 AM EST 1.0 {tablet_as_needed} active Oxycodone-Acetaminophen 7.5-325 MG eCW1 ([facility]) Acetaminophen 325 MG / Oxycodone Hydroch loride 7.5 MG Oral Tablet Oxycodone- Acetaminophen 7.5-325 MG Oxycodone-Acetaminophen 7.5-325 MG 09/06/2020 12:00:00 AM EST 1.0 {tablet_as_needed} active Oxycodone-Acetaminophen 7.5-325 MG eCW1 ([facility]) Acetaminophen 325 MG / Oxycodone Hydroch loride 7.5 MG Oral Tablet Oxycodone- Acetaminophen 7.5-325 MG Oxycodone-Acetaminophen 7.5-325 MG 09/06/2020 12:00:00 AM EST 1.0 {tablet_as_needed} active Oxycodone-Acetaminophen 7.5-325 MG eCW1 ([facility]) Acetaminophen 325 MG / Oxycodone Hydroch loride 7.5 MG Oral Tablet Oxycodone- Acetaminophen 7.5-325 MG Oxycodone-Acetaminophen 7.5-325 MG 08/10/2020 12:00:00 AM EST 1.0 {tablet_as_needed} active Oxycodone-Acetaminophen 7.5-325 MG eCW1 ([facility]) Acetaminophen 325 MG / Oxycodone Hydroch loride 7.5 MG Oral Tablet Oxycodone- Acetaminophen 7.5-325 MG Oxycodone-Acetaminophen 7.5-325 MG 08/10/2020 12:00:00 AM EST 1.0 {tablet_as_needed} active Oxycodone-Acetaminophen 7.5-325 MG eCW1 ([facility]) Acetaminophen 325 MG / Oxycodone Hydroch loride 7.5 MG Oral Tablet Oxycodone- Acetaminophen 7.5-325 MG Oxycodone-Acetaminophen 7.5-325 MG 07/12/2020 12:00:00 AM EST 1.0 {tablet_as_needed} active Oxycodone-Acetaminophen 7.5-325 MG eCW1 ([facility]) Acetaminophen 325 MG / Oxycodone Hydroch loride 7.5 MG Oral Tablet Oxycodone- Acetaminophen 7.5-325 MG Oxycodone-Acetaminophen 7.5-325 MG 07/12/2020 12:00:00 AM EST 1.0 {tablet_as_needed} active Oxycodone-Acetaminophen 7.5-325 MG eCW1 ([facility]) Acetaminophen 325 MG / Oxycodone Hydroch loride 7.5 MG Oral Tablet Oxycodone- Acetaminophen 7.5-325 MG Oxycodone-Acetaminophen 7.5-325 MG 07/12/2020 12:00:00 AM EST 1.0 {tablet_as_needed} active Oxycodone-Acetaminophen 7.5-325 MG eCW1 ([facility]) Acetaminophen 325 MG / Oxycodone Hydroch loride 7.5 MG Oral Tablet Oxycodone- Acetaminophen 7.5-325 MG Oxycodone-Acetaminophen 7.5-325 MG 06/14/2020 12:00:00 AM EST 1.0 {tablet_as_needed} active Oxycodone-Acetaminophen 7.5-325 MG eCW1 ([facility]) Acetaminophen 325 MG / Oxycodone Hydroch loride 7.5 MG Oral Tablet Oxycodone- Acetaminophen 7.5-325 MG Oxycodone-Acetaminophen 7.5-325 MG 06/14/2020 12:00:00 AM EST 1.0 {tablet_as_needed} active Oxycodone-Acetaminophen 7.5-325 MG eCW1 ([facility]) Acetaminophen 325 MG / Oxycodone Hydroch loride 7.5 MG Oral Tablet Oxycodone- Acetaminophen 7.5-325 MG Oxycodone-Acetaminophen 7.5-325 MG 06/14/2020 12:00:00 AM EST 1.0 {tablet_as_needed} active Oxycodone-Acetaminophen 7.5-325 MG eCW1 ([facility]) Acetaminophen 325 MG / Oxycodone Hydroch loride 7.5 MG Oral Tablet Oxycodone- Acetaminophen 7.5-325 MG Oxycodone-Acetaminophen 7.5-325 MG 05/10/2020 12:00:00 AM EDT 1.0 {tablet_as_needed} active Oxycodone-Acetaminophen 7.5-325 MG eCW1 ([facility]) Acetaminophen 325 MG / Oxycodone Hydroch loride 7.5 MG Oral Tablet Oxycodone- Acetaminophen 7.5-325 MG Oxycodone-Acetaminophen 7.5-325 MG 05/10/2020 12:00:00 AM EDT 1.0 {tablet_as_needed} active Oxycodone-Acetaminophen 7.5-325 MG eCW1 ([facility]) Vitamin D-3 25 MCG (1000 UT) Vitamin D-3 25 MCG (1000 UT) 12:00:00 AM EDT 1.0 {capsule} suspended Vitamin D-3 25 MCG (1000 UT) eCW1 ([facility]) Glucometer (Verio IQ) UNK 04/29/2020 12:00:00 AM EDT active Glucometer (Verio IQ) eCW1 ([facility]) Glucometer (Verio IQ) UNK 04/29/2020 12:00:00 AM EDT active Glucometer (Verio IQ) eCW1 ([facility]) Vitamin D-3 25 MCG (1000 UT) Vitamin D-3 25 MCG (1000 UT) 12:00:00 AM EDT 1.0 {capsule} suspended Vitamin D-3 25 MCG (1000 UT) eCW1 ([facility]) Vitamin D-3 25 MCG (1000 UT) Vitamin D-3 25 MCG (1000 UT) 12:00:00 AM EDT 1.0 {capsule} suspended Vitamin D-3 25 MCG (1000 UT) eCW1 ([facility]) Glucometer (Verio IQ) UNK 04/29/2020 12:00:00 AM EDT active Glucometer (Verio IQ) eCW1 ([facility]) Vitamin D-3 25 MCG (1000 UT) Vitamin D-3 25 MCG (1000 UT) 12:00:00 AM EDT 1.0 {capsule} suspended Vitamin D-3 25 MCG (1000 UT) eCW1 ([facility]) Glucometer (Verio IQ) UNK 04/29/2020 12:00:00 AM EDT active Glucometer (Verio IQ) eCW1 ([facility]) Glucometer (Verio IQ) UNK 04/29/2020 12:00:00 AM EDT active Glucometer (Verio IQ) eCW1 ([facility]) Glucometer (Verio IQ) UNK 04/29/2020 12:00:00 AM EDT active Glucometer (Verio IQ) eCW1 ([facility]) Vitamin D-3 25 MCG (1000 UT) Vitamin D-3 25 MCG (1000 UT) 12:00:00 AM EDT 1.0 {capsule} suspended Vitamin D-3 25 MCG (1000 UT) [facility]CW[facility] [facility]) Vitamin D-3 25 MCG (1000 UT) Vitamin D-3 25 MCG (1000 UT) 12:00:00 AM EDT 1.0 {capsule} active Vitamin D- 3 25 MCG (1000 UT) eCW1 ([facility]) Glucometer (Verio IQ) UNK 04/29/2020 12:00:00 AM EDT active Glucometer (Verio IQ) eCW1 ([facility]) Vitamin D-3 25 MCG (1000 UT) Vitamin D-3 25 MCG (1000 UT) 12:00:00 AM EDT 1.0 {capsule} suspended Vitamin D-3 25 MCG (1000 UT) eCW1 ([facility]) Glucometer (Verio IQ) UNK 04/29/2020 12:00:00 AM EDT active Glucometer (Verio IQ) eCW1 ([facility]) Vitamin D-3 25 MCG (1000 UT) Vitamin D-3 25 MCG (1000 UT) 12:00:00 AM EDT 1.0 {capsule} active Vitamin D- 3 25 MCG (1000 UT) eCW1 ([facility]) Glucometer (Verio IQ) UNK 04/29/2020 12:00:00 AM EDT active Glucometer (Verio IQ) eCW1 ([facility]) Glucometer (Verio IQ) UNK 04/29/2020 12:00:00 AM EDT active Glucometer (Verio IQ) eCW1 ([facility]) Vitamin D-3 25 MCG (1000 UT) Vitamin D-3 25 MCG (1000 UT) 12:00:00 AM EDT 1.0 {capsule} active Vitamin D- 3 25 MCG (1000 UT) eCW1 ([facility]) Vitamin D-3 25 MCG (1000 UT) Vitamin D-3 25 MCG (1000 UT) 12:00:00 AM EDT 1.0 {capsule} suspended Vitamin D-3 25 MCG (1000 UT) eCW1 ([facility]) Glucometer (Verio IQ) UNK 04/29/2020 12:00:00 AM EDT active Glucometer (Verio IQ) eCW1 ([facility]) Glucometer (Verio IQ) UNK 04/29/2020 12:00:00 AM EDT active Glucometer (Verio IQ) eCW1 ([facility]) Glucometer (Verio IQ) UNK 04/29/2020 12:00:00 AM EDT active Glucometer (Verio IQ) eCW1 ([facility]) Glucometer (Verio IQ) UNK 04/29/2020 12:00:00 AM EDT active Glucometer (Verio IQ) eCW1 ([facility]) Glucometer (Verio IQ) UNK 04/29/2020 12:00:00 AM EDT active Glucometer (Verio IQ) eCW1 ([facility]) Vitamin D-3 25 MCG (1000 UT) Vitamin D-3 25 MCG (1000 UT) 12:00:00 AM EDT 1.0 {capsule} active Vitamin D- 3 25 MCG (1000 UT) eCW1 ([facility]) Glucometer (Verio IQ) UNK 04/29/2020 12:00:00 AM EDT active Glucometer (Verio IQ) eCW1 ([facility]) Vitamin D-3 25 MCG (1000 UT) Vitamin D-3 25 MCG (1000 UT) 12:00:00 AM EDT 1.0 {capsule} suspended Vitamin D-3 25 MCG (1000 UT) eCW1 ([facility]) Glucometer (Verio IQ) UNK 04/29/2020 12:00:00 AM EDT active Glucometer (Verio IQ) eCW1 ([facility]) Glucometer (Verio IQ) UNK 04/29/2020 12:00:00 AM EDT active Glucometer (Verio IQ) eCW1 ([facility]) Glucometer (Verio IQ) UNK 04/29/2020 12:00:00 AM EDT active Glucometer (Verio IQ) eCW1 ([facility]) Vitamin D-3 25 MCG (1000 UT) Vitamin D-3 25 MCG (1000 UT) 12:00:00 AM EDT 1.0 {capsule} active Vitamin D- 3 25 MCG (1000 UT) eCW1 ([facility]) Glucometer (Verio IQ) UNK 04/29/2020 12:00:00 AM EDT active Glucometer (Verio IQ) eCW1 ([facility]) Vitamin D-3 25 MCG (1000 UT) Vitamin D-3 25 MCG (1000 UT) 12:00:00 AM EDT 1.0 {capsule} suspended Vitamin D-3 25 MCG (1000 UT) eCW1 ([facility]) Vitamin D-3 25 MCG (1000 UT) Vitamin D-3 25 MCG (1000 UT) 12:00:00 AM EDT 1.0 {capsule} suspended Vitamin D-3 25 MCG (1000 UT) eCW1 ([facility]) Glucometer (Verio IQ) UNK 04/29/2020 12:00:00 AM EDT active Glucometer (Verio IQ) eCW1 ([facility]) Glucometer (Verio IQ) UNK 04/29/2020 12:00:00 AM EDT active Glucometer (Verio IQ) eCW1 ([facility]) Glucometer (Verio IQ) UNK 04/29/2020 12:00:00 AM EDT active Glucometer (Verio IQ) eCW1 ([facility]) Vitamin D-3 25 MCG (1000 UT) Vitamin D-3 25 MCG (1000 UT) 12:00:00 AM EDT 1.0 {capsule} active Vitamin D- 3 25 MCG (1000 UT) eCW1 ([facility]) Vitamin D-3 25 MCG (1000 UT) Vitamin D-3 25 MCG (1000 UT) 12:00:00 AM EDT 1.0 {capsule} active Vitamin D- 3 25 MCG (1000 UT) eCW1 ([facility]) Glucometer (Verio IQ) UNK 04/29/2020 12:00:00 AM EDT active Glucometer (Verio IQ) eCW1 ([facility]) Glucometer (Verio IQ) UNK 04/29/2020 12:00:00 AM EDT active Glucometer (Verio IQ) eCW1 ([facility]) Glucometer (Verio IQ) UNK 04/29/2020 12:00:00 AM EDT active Glucometer (Verio IQ) eCW1 ([facility]) Vitamin D-3 25 MCG (1000 UT) Vitamin D-3 25 MCG (1000 UT) 12:00:00 AM EDT 1.0 {capsule} suspended Vitamin D-3 25 MCG (1000 UT) eCW1 ([facility]) Glucometer (Verio IQ) UNK 04/29/2020 12:00:00 AM EDT active Glucometer (Verio IQ) eCW1 ([facility]) Vitamin D-3 25 MCG (1000 UT) Vitamin D-3 25 MCG (1000 UT) 12:00:00 AM EDT 1.0 {capsule} suspended Vitamin D-3 25 MCG (1000 UT) eCW1 ([facility]) Glucometer (Verio IQ) UNK 04/29/2020 12:00:00 AM EDT active Glucometer (Verio IQ) eCW1 ([facility]) Glucometer (Verio IQ) UNK 04/29/2020 12:00:00 AM EDT active Glucometer (Verio IQ) eCW1 ([facility]) Glucometer (Verio IQ) UNK 04/29/2020 12:00:00 AM EDT active Glucometer (Verio IQ) eCW1 ([facility]) Glucometer (Verio IQ) UNK 04/29/2020 12:00:00 AM EDT active Glucometer (Verio IQ) eCW1 ([facility]) Glucometer (Verio IQ) UNK 04/29/2020 12:00:00 AM EDT active Glucometer (Verio IQ) eCW1 ([facility]) Vitamin D-3 25 MCG (1000 UT) Vitamin D-3 25 MCG (1000 UT) 12:00:00 AM EDT 1.0 {capsule} active Vitamin D- 3 25 MCG (1000 UT) eCW1 ([facility]) Glucometer (Verio IQ) UNK 04/29/2020 12:00:00 AM EDT active Glucometer (Verio IQ) eCW1 ([facility]) Vitamin D-3 25 MCG (1000 UT) Vitamin D-3 25 MCG (1000 UT) 12:00:00 AM EDT 1.0 {capsule} active Vitamin D- 3 25 MCG (1000 UT) eCW1 ([facility]) Glucometer (Verio IQ) UNK 04/29/2020 12:00:00 AM EDT active Glucometer (Verio IQ) eCW1 ([facility]) Vitamin D-3 25 MCG (1000 UT) Vitamin D-3 25 MCG (1000 UT) 12:00:00 AM EDT 1.0 {capsule} suspended Vitamin D-3 25 MCG (1000 UT) eCW1 ([facility]) Glucometer (Verio IQ) UNK 04/29/2020 12:00:00 AM EDT active Glucometer (Verio IQ) eCW1 ([facility]) Vitamin D-3 25 MCG (1000 UT) Vitamin D-3 25 MCG (1000 UT) 12:00:00 AM EDT 1.0 {capsule} suspended Vitamin D-3 25 MCG (1000 UT) eCW1 ([facility]) Glucometer (Verio IQ) UNK 04/29/2020 12:00:00 AM EDT active Glucometer (Verio IQ) eCW1 ([facility]) Glucometer (Verio IQ) UNK 04/29/2020 12:00:00 AM EDT active Glucometer (Verio IQ) eCW1 ([facility]) Vitamin D-3 25 MCG (1000 UT) Vitamin D-3 25 MCG (1000 UT) 12:00:00 AM EDT 1.0 {capsule} suspended Vitamin D-3 25 MCG (1000 UT) eCW1 ([facility]) Glucometer (Verio IQ) UNK 04/29/2020 12:00:00 AM EDT active Glucometer (Verio IQ) eCW1 ([facility]) Vitamin D-3 25 MCG (1000 UT) Vitamin D-3 25 MCG (1000 UT) 12:00:00 AM EDT 1.0 {capsule} suspended Vitamin D-3 25 MCG (1000 UT) eCW1 ([facility]) Vitamin D-3 25 MCG (1000 UT) Vitamin D-3 25 MCG (1000 UT) 12:00:00 AM EDT 1.0 {capsule} suspended Vitamin D-3 25 MCG (1000 UT) eCW1 ([facility]) Glucometer (Verio IQ) UNK 04/29/2020 12:00:00 AM EDT active Glucometer (Verio IQ) eCW1 ([facility]) Insurance Providers Payer name Policy type / Coverage type Policy ID Covered republican ID Covered republican's relationship to pretty Policy Pretty Plan Information [id number] [place] P[place] 302/307 [id number] SP [id number] BS [place] Commercial [id number] Self BILLY MEDICAID [id number] xxxxxxxxxxx [id number] BILLY MEDICAID [id number] Lori 7 [id number] [place] Medicaid F [id number] SELF 7 [id number] Billy Medicaid F [id number] SELF 7 [id number] Hum[place] Medicare F [id number] SELF [id number] Billy Medicaid F [id number] SELF 7 [id number] Medicare C [id number] SELF [id number] MEDICARE [id number] SP [id number] HUMANA GOLD [id number] SP [id number] ANSI-Commercial [id number] ANSI-Commercial [id number] [id number] ANSI-Commercial [id number]-mt5e-2c0h-0r17-z9w37xpl445c 4161878w-ws1e-0l8l-8i28-u5z90zsb902g ANSI-Commercial 435f70qs-131u-8644-s194-740mhmdroiqy 476y91xr-197c-5562-w056-064viujxqsei ANSI-Commercial gcjn5230-j569-99g0-3p00-3k768ivq1f9e aaky5763-n123-33s4-6k71-6n263djj9c1g ANSI-Commercial 136wf673-28or-8t45-[id number]-1l36-[id number] [facility] Commercial [id number] Self [id number] ANSI-Commercial [id number]-h5v4-9h24-49sv-[id number] ANSI-Commercial p34p25q8-9307-649t-6a20-ou70071p21j5 p55j46j0-4256-712w-2y90-ui56540q39i4 ANSI-Commercial 189k5382-7046-953j-151a-981a8k5b1g0d 310t5038-4107-083f-080u-250c1v9b3x7b ANSI-Commercial n6z62i14-1x00-9669-7erp-f8ry61u4236c k7z05v72-2f70-3816-4cbx-b7nt20l6029a ANSI-Commercial 8z24x51h-3jqu-131n-920n-74ar9v985rr1 2t05v20g-6fzb-105m-730q-80nk0f124lm2 ANSI-Commercial x328hp7b-7oar-50u2-123w-21752ee8989c p737cd7y-1pzn-75l2-651j-36683mj8664q ANSI-Commercial d868jl0c-s7jh-8he3-08x2-89857bh5802i e991kz8z-z1tp-9af2-87r7-05547wt8417u ANSI-Commercial j01py1vg-63m9-95jv-60yc-wnh4u4xfx6iw u55ik3pe-04t3-43ap-38kv-kpd0u2lxx0ow ANSI-Wild[employer] 28o78508-3vpz-5622-i047-2rz6kn8w9dh9 57v81875-6rtq-8884-g402-0qu8no6l8st8 ANSI-WildBlue 081621b8-y665-9h1f-w1w0-m37v73b108eh 415374h1-o116-6g0v-a9u2-r51m37g538ap ANSI-Commercial 5t76i6l9-96h2-4zd4-00ig-818k79x324y8 7z50v1v9-18f1-9xb0-81kg-646w04u386s3 ANSI-Commercial v10u5gs1-364z-66v4-5z5d-1228ocfwfmtd h21v8ob4-186p-13q3-5h4f-1764isouyjpk ANSI-Commercial 28wj693m-1905-83a2-tc6v-o3422n3qzzp5 08wi558k-6630-42m7-yp5p-p1772p6xarv7 ANSI-Commercial e76997pp-1p3t-136p-d389-rt92n2rj63cn h46454em-9m2x-954l-b539-tv20g7az45ew ANSI-Commercial et4362ra-a998-8d6c-5105-o87k81305f0x cj1433ne-n763-4s5d-9873-w03z66318e7z ANSI-Commercial hkv8k941-ec0c-947q-7529-lr0083n76366 wsz8i660-du8c-723m-5580-fe2910r04366 ANSI-Commercial 21767351-8j47-7175-wkq9-7w0ek88o7m23 81352627-4c14-3322-uuj8-6p2rx87g6a57 ANSI-Commercial 3io8369s-q1ht-7322-f043-218y444vz920 4fh7216u-t0ow-4239-u120-808e157nc422 ANSI-Commercial 0hudk980-xbe0-22m5-05lp-l80b4170t685 4xeha195-dqq8-88l4-23so-g81j2228t928 ANSI-Commercial 6gx71z87-6c6z-3rk3-dh95-id3n499318z2 7be62m35-5r5q-2um2-iq69-ab4y271334i9 ANSI-Commercial 3t6ba78n-k844-0l68-2x24-37363je7n326 3t8jk65b-k591-7j74-1v43-79975wg3a142 ANSI-Commercial 75s76o40-pn51-6831-045s-7975a6d65514 31m89a54-jo16-0920-452d-2047a0b24393 ANSI-Commercial 25a87979-588f-30gn-ss82-p304d6t57hxs 76w42992-575g-12qv-di32-m955q0x79zox ANSI-Commercial g0855b8u-8806-85cd-nicr-k2d0o107689s f0314b7w-2013-59mv-kucl-y9i2j402910b ANSI-Commercial wmq46913-8w18-54vd-8wq1-j0x7m673h9v2 pge20682-8i68-83qt-3ib1-i4e8c999h2b5 ANSI-Commercial 0r3565c2-0i25-709a-huf5-0178f440lvr2 0o1047u3-1h78-744a-mzg9-0233n468fnx0 ANSI-Commercial 18l53333-4uqt-12jc-i1a7-iuvb7198lw39 04n72518-7gmt-33cf-r4j4-rxpt8821gk23 ANSI-Commercial g1g8an8z-77do-2458-5u90-92516129b8ek t0q0kf2g-42se-5739-1x97-77973801c0vq ANSI-Commercial h5q40sz9-09t5-2q63-9090-0nj664z84rq2 t2p51ug1-26l8-0v62-1327-4vx666p35rt3 ANSI-Commercial 7q5bj43p-8710-0g49-6m71-1i499zku0514 9x3be10j-9036-0a83-9s27-0c309kzl1936 ANSI-Commercial 8863e6pv-in76-52x0-u1e0-1da9ns3dg625 7039x9bh-bt07-81v2-h9x1-3ps8fb9tf102 ANSI-Commercial t2a3t5gh-1r88-2d0d-q16t-92jq9h000gj6 h0r5o2wd-8k12-3b7y-t49n-79jm2s311cm7 ANSI-Commercial hh5b2244-1q97-7se2-0906-31i0p89ja2eo gu4r9488-4g66-9ms0-4800-74c6b21mt6uc ANSI-Commercial ueexsc64-8579-7v4r-f9cv-gv17939o893x oxubca63-8522-5t2i-r1uh-il37748d069c ANSI-Commercial y5t9hbk5-6672-73g3-86h7-9023yhvz187z q9f8xis8-4445-77r0-33b1-3735cpsz537f ANSI-Commercial zu33972m-tk1b-90r2-z8vs-5313c5fw6379 ek35199b-jt9v-20w5-v2ta-5391q4ok2267 ANSI-Commercial x26357b6-16i4-0e87-67a8-x73260031958 f15082w2-43z8-8s33-23a2-d75820832255 ANSI-Commercial 5941mqh5-j759-8zdt-5r62-kvtm4626523h 0482hue3-g476-3gdq-0l18-runr1170904e Medicaid [place] [facility] Part B [id number] Self [id number] Billy [facility] Medicaid [id number] Self [id number] ANSI-Commercial 52981a8z-g4l4-3784-1243-69s667p4m728 72565k4w-i7n8-4972-3556-89e393u8k631 ANSI-Commercial 8xzy2w99-f709-257b-40qh-kql60bq3yqp7 2ftk7a49-u767-810a-33ut-aep46al0isp3 ANSI-Commercial 3bdvqo5o-4068-8sw6-05nc-k1r2clb7s502 8svlms4n-2992-4sa1-48ub-x4e6xhi8h426 ANSI-Commercial v997m8ti-6804-297d-5ff6-760kh25r8j5z g658x8wt-9280-390j-7bk3-939pp81v4m3o ANSI-Commercial kv6iy12p-1716-5q26-y67n-i308gj2z6027 ei1aw85p-4822-6g72-r68c-p368wj9v1885 ANSI-Commercial 898rxm66-b80x-34vc-1499-26n46d61br96 846utv59-h58c-45qd-5297-32u71s12rs40 ANSI-Commercial 1frl2gi1-2342-60v8-480a-6813f0u4746w 3aqi5fd5-4344-54x1-351u-2714y4p9273p ANSI-Commercial cr8hrrq9-r590-4cg1-0039-90404hr05e9a mm8dpzv7-q163-4pw4-8552-59136ey99g8n ANSI-Commercial 4d5f0545-rk4z-90b7-2r9a-5an6r47sf75d 2m1c6160-tq9i-45a0-9s6s-1cu5n15qn00k ANSI-Commercial 299851qb-3lw7-97ib-4c5v-3bn5j3b1021w 149182qz-6uk1-72yl-9m0v-2qb2u7e9202s ANSI-Commercial d2c4dm0p-6670-2p47-0q9v-3j4o24pxgur4 z1z1zm5m-8457-1a28-2w5v-9c2s87lmumm3 ANSI-Commercial f2s223z7-jeu3-54j8-e9s2-0460837v19b7 w1b172d4-lts3-26z4-x0u7-6584755c01z9 ANSI-Commercial r91zlliz-1d37-46sd-25av-n5692u9j263h q70gjjsq-4b90-15xj-05zp-p2517k3x360x ANSI-Commercial 789ecl29-8gq6-1153-12c4-5u1hu69i9669 718nvu54-9zp8-2502-23a8-3o0ic63c0789 ANSI-Commercial 9tp04vx8-462h-997g-h4ky-m490248k2741 0gh51tk3-469d-750u-p9qd-q193795m2192 ANSI-Commercial a9f215g2-j619-4436-s5i6-j7mskt08025q r9a544l6-u259-5747-a8f8-e2jlgh16763u ANSI-Commercial 70238y36-377o-3324-w0os-j6273f24u51v 91835t46-983w-7466-b4ff-m8930a39d39e ANSI-Commercial 4g521975-v292-79jb-z6na-05ltn4wzmij0 2d849955-i736-12wu-w8fr-13egu6dyyyw8 ANSI-Commercial 452mnc6j-k616-3y8w-s28k-mk12e2841rq6 092knw0a-u973-1s9f-j70i-yr58i3069ut5 ANSI-Commercial 0h8775b5-17pa-100p-970t-gt7fzyew4rf3 0n9994m5-80wu-826a-484g-bt9vngvj7rc4 ANSI-Commercial eg1n7r89-e4y5-8f0b-47w3-2385x673jx1q sb9y8t68-m5k6-2j6n-48n7-0777e852fb1z ANSI-Commercial mw2169i7-1h11-251i-8f54-0he17418s874 fj6684q5-2q22-397x-1r86-2ra71175d038 ANSI-Commercial r011efhs-v3w3-13ah-8gqa-2rf14e2bb01b k800soen-v7z7-65vv-2enb-8km82o7kl34k ANSI-Commercial 9l427953-40cm-941b-64v4-37e43dkklz23 4m949868-74iy-079u-49f2-49f31pzoqe53 ANSI-Commercial gt61319h-1814-4794-hr08-o08p087w2n9j cf00838z-5415-3610-hf15-x03f255n5t6q ANSI-Commercial 9d5p9901-49rx-8z66-j6c9-894keu8arj05 7d9k6416-61xx-6l17-j9s8-318tme8cjr62 ANSI-Commercial 7hb61p38-094q-1175-rov0-390l1tv9i22k 2dp26i44-425l-8270-skf7-133q4in4r24l HUMANA GOLD [id number] SP [id number] Medicaid [place] [facility] Part B [id number] Self [id number] [employer] [place] Medicaid [id number] Self [id number] MEDICAID [id number] SP [id number] MEDICAID M [id number] S [id number] O UNAVAILABLE UNAVAILA BLE EXCELLUS BCBS B [id number] S VYS [id number] BCBS [place] PPO 302/307 [id number] SP [id number] BCBS/[employer] Commercial [id number] Self [place]BS [place] 306/806 [id number] SP [id number] [place] 306/806 [id number] SP [id number] ANSI-Commercial 64m6w12n-9631-54wq-bt29-6o45gv02q300 96w4z02f-2751-00oh-ye52-8u14cj97w003 BILLY [id number] SP [id number] HUMANA GOLD [id number] SP [id number] HUMANA GOLD PLUS -O/P [id number] HUMANA GOLD PLUS -O/P [id number] HUMANA GOLD O [id number] S [id number] BILLY CARE ME O [id number] S [id number] HUMANA GOLD O [id number] S [id number] [employer] Medicare Supplement Plan F [id number] SELF [id number] Problems, Conditions, and Diagnoses Code Display Name Description Problem Type Effective Dates Data Source(s) H61137 Preglaucoma, unspecified, bilateral Preglaucoma, unspecified, bilateral Diagnosis 03/10/2021 01:30:00 PM EDT [facility] [id number] Keratoconjunctivitis sicca, not specifie d as Sjogren's, bilateral Keratoconjunctivitis sicca, not specified as Sjogren's, bilateral Diagnosis 03/10/2021 01:30:00 PM EDT [facility] H524 Presbyopia Presbyopia Diagnosis 03/10/2021 01:30:00 PM ED T [facility] H2513 Age-related nuclear cataract, bilateral Age-related nuclear cataract, bilateral Diagnosis 03/10/2021 01:30:00 PM EDT 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 Diagnosis 03/10/2021 01:30:00 PM EDT [facility] K80.20 [id number] Calculus of gallblad iris without cholecystitis without obstruction Problem 09/16/2020 12:00:00 AM EST eCW1 ([facility]) Surgeries/Procedures Procedure Description Date Indications Data Source(s) TOBACCO USE ASSESSED 03/14/2021 12:00:00 AM EDT eCW1 ([facility]) Med: Lidocaine Jelly 2% 6ml Intravesically (Glydo) 03/14/2021 12:00:00 AM EDT eCW1 ([facility]) Medication: Lidocaine HCl 2% Jelly 5mL Intravesically 10/22/2020 12:00:00 AM EDT eCW1 ([facility]) TOBACCO USE ASSESSED 10/22/2020 12:00:00 AM EDT eCW1 ([facility]) Laparoscopy,Surgical;Cholecystectomy 09/20/2020 12:00: 00 AM EST MEDENT ([facility], ) CHOLECYSTECTOMY 09/20/2020 12:00:00 AM EST MEDENT ([facility], ) ECG ROUTINE ECG W/LEAST 12 LDS W/I&R 09/16/2020 12:00: 00 AM EST eCW1 ([facility]) Immunization: Flublok Quadrivalent (18 years & older) 0.5mL IM (Influenza) 04/29/2020 12:00:00 AM EDT eCW1 ([facility]) Results ID Date Data Source [id number] 06/13/2021 09:10:00 AM EST [facility] Name Value Range Interpretation Code Description Data Gaby rce(s) Supporting Document(s) SARS-CoV-2 (COVID-19) RNA [Presence] in Respiratory specimen by ALEYDA with probe detection Not Detected [facility] This lab was ordered by [facility] and reported by [employer]. ID Date Data Source [id number] 03/23/2021 07:22:00 [place] [address] OPERATIVE SUMMARYNAME: CAR ARNOLD DATE OF : 1955TTENDING PHYS: Manuel Girard MD DATE: 03/16/21 MR#: [id number] OF PROCEDURE: 03/16/2021REOPERATIVE DIAGNOSIS: Cataract, left eye.POSTOPERATIVE DIAGNOSIS: Cataract, left eyePROCEDURE: Phacoemulsification with intraocular lens implantation, AUOOTO power 23diopters.SURGEON: Manuel Girard MDASSISTANT: None.COMPLICATIONS: None.INDICATION: Decreased vision interfering with daily activities.DETAILS OF PROCEDURE: The patient was brought into the operating room and laid in thesupine position. The eye was prepped and draped in a sterile fashion for ophthalmic surgery,following which a lid speculum was placed. A side port incision was made and EndoCoat wasinjected into the anterior chamber. A clear corneal incision was made with a 2.4 mm Keratome,followed by capsulorhexis. Hydrodissection was then done using a balanced salt solution and thenucleus rotated within the capsular bag. Phacoemulsification was then done in a elnnzm-wyu-sbhndiy method within the capsular bag. Excess cortical material was then aspirated usingirrigation and aspiration cannula. Visco was then placed into the capsular bag and intraocular lenspower 23, Model AUOOTO was then inserted into the capsular bag. Excess Viscoelastic was thenaspirated, followed by hydration of the corneal wounds. No leaks were noted. Intracameralantibiotics and subtenon steroid injections were then given. The patient was returned to therecovery room after the lid speculum was removed and postop instructions were given out in detail. [address] [place] [address] OPERATIVE SUMMARYNAME: CAR ARNOLD DATE OF : 1955TTENDING PHYS: Manuel Girard MD DATE: 03/16/21 MR#: [id number]: Manuel Girard MD 03/19/21 09:29DT: SSR 03/23/21 07:21DS: Manuel Girard MD 05/25/21 07:48 2 Name Value Range Interpretation Code Description Data Gaby rce(s) Supporting Document(s) ID Date Data Source [id number] 03/23/2021 07:49:00 [place] [address] OPERATIVE SUMMARYNAME: CAR ARNOLD DATE OF : 1955TTENDING PHYS: Manuel Girard MD DATE: 03/10/21 MR#: [id number] OF PROCEDURE: 03/10/2021REOPERATIVE DIAGNOSIS: Cataract, right eye.POSTOPERATIVE DIAGNOSIS: Cataract, right eyePROCEDURE: Phacoemulsification with intraocular lens implantation, AUOOTO power 23.0.SURGEON: Manuel Girard MDASSISTANT: None.COMPLICATIONS: None.DETAILS OF PROCEDURE: The patient was brought into the operating room and laid in thesupine position. The eye was prepped and draped in a sterile fashion for ophthalmic surgery,following which a lid speculum was placed. A side port incision was made and EndoCoat wasinjected into the anterior chamber. A clear corneal incision was made with a 2.4 mm Keratome,followed by capsulorhexis. Hydrodissection was then done using a balanced salt solution and thenucleus rotated within the capsular bag. Phacoemulsification was then done in a zjotjp-qqs-arzkavk method within the capsular bag. Excess cortical material was then aspirated usingirrigation and aspiration cannula. Visco was then placed into the capsular bag and intraocular lenspower 23.0, Model AUOOTO was then inserted into the capsular bag. Excess Viscoelastic wasthen aspirated, followed by hydration of the corneal wounds. No leaks were noted. Intracameralantibiotics and subtenon steroid injections were then given. The patient was returned to therecovery room after the lid speculum was removed and postop instructions were given out in detail.DD: Manuel Girard MD 03/19/21 09:39DT: SSR 03/23/21 07:48DS: Manuel Girard MD 05/25/21 07:48 [address] [place] [address] OPERATIVE SUMMARYNAME: CAR ARNOLD DATE OF : 1955TTENDING PHYS: Manuel Girard MD DATE: 03/10/21 MR#: [id number] 2 Name Value Range Interpretation Code Description Data Gaby rce(s) Supporting Document(s) ID Date Data Source NON VENEER SANDER CYTOLOGY REQ FOR SERVI 03/14/2021 12:00:00 AM EDT eC W1 ([facility]) Name Value Range Interpretation Code Description Data Gaby rce(s) Supporting Document(s) URINE eCW1 ([facility]) ID Date Data Source [id number] 03/11/2021 06:26:00 PM EDT [facility] Name Value Range Interpretation Code Description Data Gaby rce(s) Supporting Document(s) SARS-CoV-2 (COVID-19) Negative [facility] This lab was ordered by [facility] and reported by [facility]. ID Date Data Source [id number] 03/05/2021 09:31:00 AM EDT [facility] Name Value Range Interpretation Code Description Data Gaby rce(s) Supporting Document(s) SARS-CoV-2 (COVID-19) Negative [facility] This lab was ordered by [facility] and reported by [facility]. ID Date Data Source [id number] 11/26/2020 02:19:51 PM EDT [facility], PCName: Caryn Enrrique BradleyDOB: 1955Provider: Mateus Subramanian: 11/26/2020 Reason For VisitBeverlana Enrrique Bradley is here today for Lumbar Spine. Caryn had her second Covid vaccine on 11-04-2020. Caryn Enrrique Bradley is here for evaluation of MRI results. L Spine MRI review Surgery DOS: 06-16-2019. Surgery Description: Laminectomy, spine, lumbar 4 5, lumbar 5 sacral 1, with posterolateral fusion, instrumentation, iliac crest bone graft, local bone graft.. Laminectomy, spine, lumbar 4 5, lumbar 5 sacral 1, with posterolateral fusion, instrumentation, iliac crest bone graft, local bone graft.. Laminectomy, spine, lumbar 4 5, lumbar 5 sacral 1, with posterolateral fusion, instrumentation, iliac crest bone graft, local bone graft.. . The patient has not had a course of physical therapy for greater than 4 weeks. The patient has not had a course of NSAIDs for greater than 4 weeks. The patient's pain is managed by [facility]. Patient states they are disabled. History of Present IllnessPatient is seen in follow up from last visit. Since last visit she has been evaluated with an MRI. Chronic low back painMain problem is axial low back painSeeing [facility] The patient complains of pain in the lumbar spine . The patient states that the timing of the pain is continuous . The pain radiates to both, anterior, posterior, lateral, buttock(s), thigh(s), leg(s), L4 distribution, L5 distribution and S1 distribution . The patient states that the timing of the pain is continuous . The patient denies signs of bladder dysfunct ion, bowel dysfunction, cancer/metastasis, infection and myelopathy . The pain is achy . The pain severity is rated 7 out of 10. Pain is aggravated by periods of activity . There is numbness involving both and anterior feet and leg(s). The numbness is intermittent. Results/Data OtherMRI cervical [facility] 12/18/18: Multilevel DDD. No significant central stenosis. Multilevel foraminal narrowingMRI lumbar [facility] 12/18/18: Multilevel DDD. L4-5 spondylolisthesis. L4-5 moderate stenosis. Small central L5-S1 protrusion. T11-T12 protrusion with minimal stenosis to my reviewMRI lumbar SOS 10-16-19: Postop changes. No significant stenosis. No herniation. L5 spinous process fracture--likely related to surgery. Also seroma at L3-4. Again clinically no signs of infectionMRI lumbar SOS 01/07/20: Multilevel DDD. Postop changes. .No significant compared to MRI of 10-16-19--see reportBelow diagnostic testing were independently reviewed as well as reviewed the official corresponding report s:MRI lumbar SOS 11/25/2020: Multilevel DDD. Postop changes. No significant stenosis. No significant herniation. No significant change compared to MRI 01/07/2020Reviewed in detail the results of the diagnostic testing. Reviewed the pertinent applicable clinical implications relating to the patient. Also provided a copy of the results for their personal records. Assessment 1. Lower back pain (724.2) (M54.5) 2. Postlaminectomy syndrome, lumbar (722.83) (M96.1) condition: Chronicetiology: age-related spine/joint degenerationlevels: L4-5, L34, L5-S1 PlanPlan, Assessment and Recommendation(s) Follow up as needed, if not improving, or getting worse. Long discussion reviewing the different treatment conservative options(observation, medication(s), physical therapy, day care teacher, acupuncture, pain clinic, home exercise program, etc.)--- with pros and cons, potential risks/potential benefits of each option, as well as the chances of successes/failures of each option.At this time, they wish to proceed with:Continue with pain management-Dr. Fraserunately I have nothing to offer them for direct surgical invention.Advised to discuss with their pain clinic the feasibility/ option of a spinal cord stimulator trial. If trial is performed and successful, then they can return to the office to discuss permanent implantation This document was dictated and electronically signed using Brevado software. A reasonable attempt at proof reading has been made to minimize errors. Please call with any questions. Signatures Electronically signed by : Jose M Subramanian M.D.; Nov 26 2020 2:19PM EST (Author) Name Value Range Interpretation Code Description Data Gaby rce(s) Supporting Document(s) ID Date Data Source [id number] 11/25/2020 03:42:00 PM EDT [facility] PATIENT MR#: [id number] NAME: Kirk Aquino OF : 1955REFERRING PHYSICIAN: Jose M SubramanianEXAM DATE: 11/25/2020XAM: LUMBAR SPINE MRI WITHOUT AND WITH GADOLINIUMINDICATION: Status post 06/16/2019 L4-L5 posterior instrumented fusion with L4-L5and L5-S1 laminectomies.COMPARISON: Lumbar spine radiographs I spine 01/07/2020TECHNIQUE: Multiple MRI sequences of the lumbar spine were obtained in thesagittal and axial planes before and after administration of IV gadolinium. CONTRAST: 15 ml Clariscan gadolinium IVFINDINGS: 5 mm grade 1 anterolisthesis of L4 on L5 is un changed. Minimal to moderateretrolisthesis of L2 on L3, unchanged. Minimal anterior wedging of the [id number] body and minimal anterior wedging of the L1 vertebral body, unchangedand chronic. Mild T11-T12, mild posterior L1-L2 3, mild posterior L4-L5, andmoderate L5-S1 disc space narrowing. Moderate L1 inferior greater than superiorendplate degenerative Schmorl's nodes are similar to prior. No acute fractureor destructive bone lesion. The conus terminates at the superior L2 level,unchanged.T11-T12: Seen on sagittal images only. There is again a midline posterior discprotrusion that moderately impresses on the ventral cord. Associated annulardisc tear. Likely moderate central canal stenosis. Bilateral facetjointhypertrophy contributes to mild right greater than left neuroforaminalstenosis. No change.T12-L1: Unremarkable.L1-L2: Mild bilateral facet joint hypertrophy. No posterior disc bulge, centralnarrowing, or neural femoral stenosis.L2-L3: Mild bilateral facet joint hypertrophy. Mild retrolisthesis. Mildbroad-based posterior disc osteophyte complex. Mild bilateral neural foraminalnarrowing is unchanged. Mild narrowing of the lateral recesses, unchanged. Nosignificant central canal stenosis.L3-L4: Mild to moderate bilateral facet joint hypertrophy. Mild broad-basedposterior disc bulge. Mild narrowing of the lateral recesses and borderlinecentral canal stenosis, unchanged. No significant neuroforaminal stenosis.L4-L5: Severe bilateral facet joint hypertrophy. Status post laminectomy andposterior instrumented fusion. Grade 1 anterolisthesis. The central canal ispatent. Mild to moderate bilateral neuroforaminal stenosis, unchanged.L5-S1: Mild bilateral facet joint hypertrophy. Midline posterior annular discand mild to moderate broad-based posterior disc bulge. Mild to moderatebilateral intraforaminal disc and endplate spurring. Unchanged moderate rightgreater than left neural foraminal stenosis. The central canal remains patent.No significant central canal epidural enhancement is seen. Left iliac bonegraft harvest site is again noted. Limited images of the retroperitoneum areunremarkable.IMPRESSION: Compared to 01/07/2020:1. Unchanged T11-T12 midline posterior disc protrusion that moderatelyimpresses on the ventral cord.2. Borderline mild L3-L4 central canal narrowing, unchanged.3. L4-L5 grade 1 anterolisthesis. Status post laminectomy and posteriorinstrumented fusion. Patent central canal with unchanged mild to moderatebilateral neural foraminal stenosis.4. Unchanged L5-S1 moderate right greater than left neural foraminal stenosis.5. Additional chronic findings as above.Read by: Perry Alberts by: Perry Alberts Date: 11/25/2020 3:42:12 PMElectronically signed by: Perry Tavarez signed: 11/25/2020 3:43:21 PM Name Value Range Interpretation Code Description Data Gaby rce(s) Supporting Document(s) ID Date Data Source [id number] 11/09/2020 02:10:16 PM EDT [facility] PCName: Caryn VicentelettyDOB: 1955Provider: Alejandra Acevedo: 11/05/2020 Reason For VisitBeverlana Bradley is here today for Lumbar Spine. Caryn had her second Covid vaccine on 11-04-2020. Caryn Bradley is an established patient here for follow up. Surgery DOS: 06-16-2019. Surgery Description: Laminectomy, spine, lumbar 4 5, lumbar 5 sacral 1, with posterolateral fusion, instrumentation, iliac crest bone graft, local bone graft.. Laminectomy, spine, lumbar 4 5, lumbar 5 sacral 1, with posterolateral fusion, instrumentation, iliac crest bone graft, local bone graft.. Laminectomy, spine, lumbar 4 5, lumbar 5 sacral 1, with posterolateral fusion, instrumentation, iliac crest bone graft, local bone graft.. . Patient states they are disabled. History of Present IllnessPatient is a 65-year-old female presents to the office with a chief complaint of constant low back pain. Has chronic low back pain which has been getting progressively worse over the past 2 months without injury. Associate with intermittent radiating pain in both lower extremities, right greater than left. Denies any numbness, tingling, weakness, or bowel/bladder dysfunction. [facility] where she is prescribed medications and has had lumbar injections. Medications include Cymbalta, Robaxin, Neurontin, and Percocet. Results/DataXRays were ordered, obtained and interpreted today in the office. Indication: pain/dysfunction. Site: Lumbar Spine Views: 2 Views, AP/Lateral Standing Impression: Stable hardware at L4-5. No additional pathologies. Results/Data OtherMRI cervical [facility] neurolog[facility] 12/18/18: Multilevel DDD. No 70 central stenosis. Multilevel foraminal narrowingMRI lumbar [facility] 12/18/18: Multilevel DDD. L4-5 spondylolisthesis. L4-5 moderate stenosis. Small central L5-S1 protrusion. T11- T12 protrusion with minimal stenosis to my reviewMRI lumbar SOS 10-16-19: Postop changes. No significant stenosis. No herniation. L5 spinous process fracture--likely related to surgery. Also seroma at L3-4. Again clinically no signs of infectionMRI lumbar SOS 01/07/20: Multilevel DDD. Postop changes. .No significant compared to MRI of 10-16-19--see report AssessmentAcute on chronic low back painBilateral lumbar radiculitis Plan BUN ( Blood Urea Nitrogen ); Status:Active; Requested for:05Nov2020; Perform:Outside Facility; Due:15Nov2020; Last Updated By:Lewis Shay; 11/05/2020 12:12:50 PM;Ordered; For:Health Maintenance; Ordered By:Owen Acevedo; Creatinine (CREATININE, GFR, GFR ( AMER), GFR INTERPRETATION);Status:Active; Requested for:05Nov2020; Perform:Outside Facility; Due:15Nov2020; Last Updated By:Lewis Shay; 11/05/2020 12:12:50 PM;Ordered; For:Health Maintenance; Ordered By:Owen Acevedo; X-Ray I Lumbosacral - 2 views (XRays were ordered, obtained and interpreted today inthe office. Indication: pain/dysfunction.); Status:Complete; Done: 05Nov2020 Perform:SOS22; Due:0 19Nov2020; Last Updated By:Nancy Villa; 11/05/2020 12:02:20 PM;Ordered; For:Lower back pain; Ordered By:Owen Acevedo; MRI (SOS) Referral Diagnostic Diagnostic Status: Need Information - FinancialAuthorization Requested for: 05Nov2020 Ordered;For: Lower back pain; Ordered By: Owen Acevedo Performed: Due: [id number]; Last Updated By: Lewis Shay; 11/05/2020 12:13:47 PMPatient will follow up with: : RJDMRI Ordered Contrast : 02: without and with Gado IVLaterality: : _Not Applicable Plan, Assessment and Recommendation(s) The nature of the diagnosis and various treatment alternativ es were discussed today, including invasive, operative, and non-operative options. Acute on chronic nontraumatic low back pain. Associated with her low back pain is radicular symptoms in both lower extremities. Refractory to medications and injections. Recommend further evaluation with MRI lumbar spine with and without contrast. Patient underwent L4-5 and L5-S1 laminectomy/fusion with instrumentation at L4-5 on 06/16/2019. Follow-up to review the results. This document was dictated and electronically signed using Brevado software. A reasonable attempt at proof reading has been made to minimize errors. Please call with any questions. Signatures Electronically signed by : Adrianna Ferguson; Nov 09 2020 1:15PM EST (Author) Electronically signed by : Jose M Subramanian M.D.; Nov 09 2020 2:10PM EST Name Value Range Interpretation Code Description Data Gaby rce(s) Supporting Document(s) ID Date Data Source [id number] 09/20/2020 11:26:00 AM EST [facility] ([facility], ) Name Value Range Interpretation Code Description Data Gaby rce(s) Supporting Document(s) Surgical pathology study Laboratory test result [facility] ([facility], ) FINAL DIAGNOSIS Gallbladder, Cholecystectomy: Cholelithiasis. Chronic cholecystitis. 09/21/2020 - 1005 CLINICAL DIAGNOSIS Symptomatic cholelithiasis 09/20/2020 - 1515 GROSS DIAGNOSIS Received in formalin labeled "gallbladder" and consists of a gallbladder 9 x 3.5 x 3.0 cm. The specimen is opene d to reveal multiple gallstones measuring from 0.5-1.5 cm. The mucosa is grossly unremarkable. No polyp or mass/lesion is identified. Bond Runner section submitted in one. -OA 09/20/2020 - 1515 Signed ERIN HERNANDEZ MD 09/21/2020 1005 ID Date Data Source [id number] 09/20/2020 10:27:00 AM EST [facility] ([facility], ) Name Value Range Interpretation Code Description Data Gaby rce(s) Supporting Document(s) Glucose [Mass/volume] in Capillary blood by Glucometer 95 mg/dL 80-115 Normal (applies to non-numeric results) [facility] ([facility] ) ID Date Data Source [id number] 09/15/2020 11:35:00 AM EST [facility] Name Value Range Interpretation Code Description Data Gaby rce(s) Supporting Document(s) SARS coronavirus 2 RNA Not Detected [facility] This lab was ordered by [facility] and reported by [facility]. ID Date Data Source [id number] 08/17/2020 12:00:00 AM EST [facility] Edgar Dooley DO Patient Name: LUIGI,[id number] [facility] Date of : 1955[address] Date of Exam: 08/17/2020[place]lettedlCESARIO [id number]#: Fax: [phone] EXAM: CT ABDOMEN & PELVIS WITH CONTRASTCLINICAL INFORMATION: Right lower quadrant abdominal swelling, mass andlump.Low dose [address] scanning of the abdomen and pelvis wasobtained with oral and IV contrast using 3 mm increments and reconstructedin both sagittal and coronal scan planes. Immediate and delayed postcontrast enhanced imaging was obtained through the abdomen. 75 cc ofOptiray 350 was administered intravenously.Comparison 08/06/2020 [facility].There is a stable 3 mm nodular density in the left lower lobe. Noabnormality is seen of the liver, spleen, adrenals, pancreas or kidneys.Multiple gallstones are seen in the gallbladder with no evidence forgallbladder wall thickening or edema. There is no abdominal aorticaneurysm. There is no adenopathy. There is a tiny umbilical herniacontaining non- inflamed fat. There is no free air or free fluid. Theurinary bladder is not well distended and not well evaluated. The uterusand ovaries appear grossly unremarkable. I see no pelvic mass. There isno bowel wall thickening. The appendix is normal. Posterior lumbar fusionhardware is again noted at the L4 and L5 levels. There are degenerativechanges of the spine without compression f racture. There is severearthritic change at the right hip joint with moderately severe arthriticchange at the left hip joint.IMPRESSION:No free air or free fluid. No bowel wall thickening or obstruction.Moderate fecal material in the colon. Normal appendix.Gallstones are seen in the gallbladder with no evidence of gallbladder wallthickening or edema.Diffuse degenerative changes of the spine. There are significantdegenerative changes at both hips.Accredited by the [employer] in [place].SHAHZAD Rodriguez/Kianna you for referring CARYN MEYERS to our office. Electronically Signed - EDGAR REYES MD 08/17/20 16:44 Name Value Range Interpretation Code Description Data [facility] Supporting Document(s) ID Date Data Source [id number] 08/16/2020 12:47:00 PM EST [facility], [facility] Name Value Range Interpretation Code Description Data Gaby rce(s) Supporting Document(s) Glomerular Filtration Rate Laboratory test result Normal (applies to non- numeric results) [facility] ([facility], ) <content>Units are mL/min/1.73 m2</content>
<content></content>
<content>Chronic Kidney Disease Staging per NKF:</content>
<content></content>
<content>Stage I & II GFR >=60 Normal to Mildly Decreased</content>
<content>Stage III GFR 30- 59 Moderately Decreased</content>
<content>Stage IV GFR 15-29 Severely Decreased</content>
<content>Stage V GFR <15 Very Little GFR Left</content>
<content>ESRD GFR <15 on CROSS ROLLER</content>
<content></content> Creatinine For GFR 0.96 mg/dL 0.55-1.30 Normal (applies to non -numeric results) [facility] ID Date Data Source [id number] 08/16/2020 12:47:00 PM EST [facility] ([facility]) Name Value Range Interpretation Code Description Data Gaby rce(s) Supporting Document(s) Urea nitrogen [Mass/volume] in Serum or Plasma 20 mg/dL 7-18 Above high normal [facility] ([facility]) <content>note:<nlbl:demographic_changed> </content>
<content></content> Procedure Social History Code Duration Value Status Description Data Source(s ) Smoking 04/19/2021 12:00:00 AM EDT Never Smoker completed Never S moker eCW1 ([facility]) Smoking 04/19/2021 12:00:00 AM EDT Never Smoker completed Never S moker eCW1 ([facility]) Smoking 04/19/2021 12:00:00 AM EDT Never Smoker completed Never S moker eCW1 ([facility]) Smoking 03/14/2021 12:00:00 AM EDT Never Smoker completed Never S moker eCW1 ([facility]) Smoking 03/14/2021 12:00:00 AM EDT Never Smoker completed Never S moker eCW1 ([facility]) Smoking 02/07/2021 12:00:00 AM EDT Never Smoker completed Never S moker eCW1 ([facility]) Smoking 02/07/2021 12:00:00 AM EDT Never Smoker completed Never S moker eCW1 ([facility]) Smoking 02/07/2021 12:00:00 AM EDT Never Smoker completed Never S moker eCW1 ([facility]) Smoking 02/07/2021 12:00:00 AM EDT Never Smoker completed Never S moker eCW1 ([facility]) Smoking 02/07/2021 12:00:00 AM EDT Never Smoker completed Never S moker eCW1 ([facility]) Smoking 02/07/2021 12:00:00 AM EDT Never Smoker completed Never S moker eCW1 ([facility]) Smoking 01/27/2021 12:00:00 AM EDT Never Smoker completed Never S moker eCW1 ([facility]) Smoking 01/27/2021 12:00:00 AM EDT Never Smoker completed Never S moker eCW1 ([facility]) Smoking 11/08/2020 12:00:00 AM EDT Never Smoker completed Never S moker eCW1 ([facility]) Smoking 11/08/2020 12:00:00 AM EDT Never Smoker completed Never S moker eCW1 ([facility]) Smoking 11/08/2020 12:00:00 AM EDT Never Smoker completed Never S moker eCW1 ([facility]) Smoking 11/08/2020 12:00:00 AM EDT Never Smoker completed Never S moker eCW1 ([facility]) Smoking 10/28/2020 12:00:00 AM EDT Never Smoker completed Never S moker eCW1 ([facility]) Smoking 10/28/2020 12:00:00 AM EDT Never Smoker completed Never S moker eCW1 ([facility]) Smoking 10/28/2020 12:00:00 AM EDT Never Smoker completed Never S moker eCW1 ([facility]) Smoking 10/22/2020 12:00:00 AM EDT Never Smoker completed Never S moker eCW1 ([facility]) Smoking 09/16/2020 12:00:00 AM EST Never Smoker completed Never S moker eCW1 ([facility]) Smoking 09/16/2020 12:00:00 AM EST Never Smoker completed Never S moker eCW1 ([facility]) Smoking 09/16/2020 12:00:00 AM EST Never Smoker completed Never S moker eCW1 ([facility]) Smoking 08/10/2020 12:00:00 AM EST Never Smoker completed Never S moker eCW1 ([facility]) Smoking 08/10/2020 12:00:00 AM EST Never Smoker completed Never S moker eCW1 ([facility]) Smoking 08/10/2020 12:00:00 AM EST Never Smoker completed Never S moker eCW1 ([facility]) Smoking 08/10/2020 12:00:00 AM EST Never Smoker completed Never S moker eCW1 ([facility]) Smoking 08/10/2020 12:00:00 AM EST Never Smoker completed Never S moker eCW1 ([facility]) Smoking 05/10/2020 12:00:00 AM EDT Never Smoker completed Never S moker eCW1 ([facility]) Smoking 05/10/2020 12:00:00 AM EDT Never Smoker completed Never S moker eCW1 ([facility]) Smoking 05/10/2020 12:00:00 AM EDT Never Smoker completed Never S moker eCW1 ([facility]) Smoking 05/10/2020 12:00:00 AM EDT Never Smoker completed Never S moker eCW1 ([facility]) Smoking 05/10/2020 12:00:00 AM EDT Never Smoker completed Never S moker eCW1 ([facility]) Smoking 05/10/2020 12:00:00 AM EDT Never Smoker completed Never S moker eCW1 ([facility]) Smoking 05/10/2020 12:00:00 AM EDT Never Smoker completed Never S moker eCW1 ([facility]) Smoking 05/10/2020 12:00:00 AM EDT Never Smoker completed Never S moker eCW1 ([facility]) Smoking 04/29/2020 12:00:00 AM EDT Never Smoker completed Never S moker eCW1 ([facility]) Smoking 04/29/2020 12:00:00 AM EDT Never Smoker completed Never S [place] eCW1 ([facility]) Vital Signs ID Date Data Source UNK Name Value Range Interpretation Code Description Data Source(s) Diastolic blood pressure 72 mm[Hg] 72 mm[Hg] [facility] ([facility]) Systolic blood pressure 118 mm[Hg] 118 mm[Hg] [facility] Body height 61 [in_i] 61 [in_i] [facility] ([facility]) 5'1" Body weight 159.00 [lb_av] 159.00 [lb_av] [facility] [facility] Body mass index (BMI) [Ratio] 30.0 kg/m2 30.0 k g/m2 [facility] ([facility]) [place] body weight 105 [lb_av] 105 [lb_av] [facility] Body weight 72.122 kg 72.122 kg [facility] ([facility]) Body surface area Derived from formula 1.71 m2 1.71 m2 [facility] ([facility]) Systolic blood pressure 134 mm[Hg] 134 mm[Hg] e CW1 ([facility]) Body weight 162 [lb_av] 162 [lb_av] eCW1 ([facility]) Body weight 73.48 kg 73.48 kg W1 ([facility]) Body height 61 [in_i] 61 [in_i] eCW1 ([facility]) Body mass index (BMI) [Ratio] 30.61 kg/m2 30.61 kg/m2 W1 ([facility]) Heart rate 103 /min 103 /min eCW1 ([facility]) Respiratory rate 19 /min 19 /min eCW1 ([facility]) Body temperature 96.8 [degF] 96.8 [degF] eCW1 ( [facility]) Diastolic blood pressure 78 mm[Hg] 78 mm[Hg] eCW1 ([facility]) Body weight 162.2 [lb_av] 162.2 [lb_av] eCW1 ([facility]) Body height 61 [in_i] 61 [in_i] eCW1 ([facility]) Body mass index (BMI) [Ratio] 30.64 kg/m2 30.64 kg/m2 eCW1 ([facility]) Heart rate 105 /min 105 /min eCW1 ([facility]) Respiratory rate 20 /min 20 /min eCW1 ([facility]) Body temperature 96.0 [degF] 96.0 [degF] eCW1 ( [facility]) Systolic blood pressure 186 mm[Hg] 186 mm[Hg] e CW1 ([facility]) Diastolic blood pressure 81 mm[Hg] 81 mm[Hg] eCW1 ([facility]) Body weight 160 [lb_av] 160 [lb_av] eCW1 ([facility]) Body height 61 [in_i] 61 [in_i] eCW1 ([facility]) Body mass index (BMI) [Ratio] 30.23 kg/m2 30.23 kg/m2 eCW1 ([facility]) Heart rate 88 /min 88 /min eCW1 ([facility]) Respiratory rate 20 /min 20 /min eCW1 ([facility]) Body temperature 97 [degF] 97 [degF] eCW1 ([facility]) Systolic blood pressure 124 mm[Hg] 124 mm[Hg] e CW1 ([facility]) Diastolic blood pressure 70 mm[Hg] 70 mm[Hg] eCW1 ([facility]) Body mass index (BMI) [Ratio] 30.23 kg/m2 30.23 kg/m2 eCW1 ([facility]) Heart rate 89 /min 89 /min eCW1 ([facility]) Respiratory rate 18 /min 18 /min eCW1 ([facility]) Body temperature 98.0 [degF] 98.0 [degF] eCW1 ( [facility]) Systolic blood pressure 150 mm[Hg] 150 mm[Hg] e CW1 ([facility]) Diastolic blood pressure 70 mm[Hg] 70 mm[Hg] eCW1 ([facility]) Body weight 160.0 [lb_av] 160.0 [lb_av] eCW1 ([facility]) Body height 61 [in_i] 61 [in_i] eCW1 ([facility]) Body weight 161 [lb_av] 161 [lb_av] eCW1 ([facility]) Body height 61 [in_i] 61 [in_i] eCW1 ([facility]) Body mass index (BMI) [Ratio] 30.42 kg/m2 30.42 kg/m2 eCW1 ([facility]) Heart rate 80 /min 80 /min eCW1 ([facility]) Respiratory rate 18 /min 18 /min eCW1 ([facility]) Body temperature 97 [degF] 97 [degF] eCW1 ([facility]) Systolic blood pressure 120 mm[Hg] 120 mm[Hg] e CW1 ([facility]) Diastolic blood pressure 80 mm[Hg] 80 mm[Hg] eCW1 ([facility]) Body weight 160 [lb_av] 160 [lb_av] eCW1 ([facility]) Body height 61 [in_i] 61 [in_i] eCW1 ([facility]) Body mass index (BMI) [Ratio] 30.23 kg/m2 30.23 kg/m2 eCW1 ([facility]) Heart rate 89 /min 89 /min eCW1 ([facility]) Respiratory rate 18 /min 18 /min eCW1 ([facility]) Body temperature 95.5 [degF] 95.5 [degF] eCW1 ( [facility]) Systolic blood pressure 128 mm[Hg] 128 mm[Hg] e CW1 ([facility]) Diastolic blood pressure 68 mm[Hg] 68 mm[Hg] eCW1 ([facility]) Body mass index (BMI) [Ratio] 31.2 kg/m2 31.2 k g/m2 [facility] ([facility]) Body weight 74.844 kg 74.844 kg [facility] ([facility]) Body surface area Derived from formula 1.74 m2 1.74 m2 [facility] ([facility]) [place] body weight 105 [lb_av] 105 [lb_av] [facility] T ([facility]) Body weight 165.00 [lb_av] 165.00 [lb_av] [facility] T ([facility]) Body height 61 [in_i] 61 [in_i] [facility] ([facility]) 5'1" Body surface area Derived from formula 1.74 m2 1.74 m2 [facility] ([facility]) Diastolic blood pressure 73 mm[Hg] 73 mm[Hg] [facility] ([facility]) Body mass index (BMI) [Ratio] 31.2 kg/m2 31.2 k g/m2 [facility] ([facility]) Body height 61 [in_i] 61 [in_i] [facility] ([facility]) 5'1" [place] body weight 105 [lb_av] 105 [lb_av] [facility] T ([facility]) Body weight 74.844 kg 74.844 kg [facility] ([facility]) Body weight 165.00 [lb_av] 165.00 [lb_av] [facility] T ([facility]) Systolic blood pressure 123 mm[Hg] 123 mm[Hg] M EDENT ([facility]) Body weight 159 [lb_av] 159 [lb_av] eCW1 ([facility]) Body height 61 [in_i] 61 [in_i] eCW1 ([facility]) Body mass index (BMI) [Ratio] 30.04 kg/m2 30.04 kg/m2 eCW1 ([facility]) Heart rate 120 /min 120 /min eCW1 ([facility]) Respiratory rate 18 /min 18 /min eCW1 ([facility]) Body temperature 97 [degF] 97 [degF] eCW1 ([facility]) Systolic blood pressure 120 mm[Hg] 120 mm[Hg] e CW1 ([facility]) Diastolic blood pressure 64 mm[Hg] 64 mm[Hg] eCW1 ([facility]) Body mass index (BMI) [Ratio] 29.7 kg/m2 29.7 k g/m2 [facility] ([facility]) Systolic blood pressure 110 mm[Hg] 110 mm[Hg] M EDENT ([facility]) Diastolic blood pressure 62 mm[Hg] 62 mm[Hg] [facility] ([facility]) Body height 61 [in_i] 61 [in_i] [facility] ([facility]) 5'1" Body weight 157.38 [lb_av] 157.38 [lb_av] [facility] T ([facility]) [place] body weight 105 [lb_av] 105 [lb_av] [facility] T ([facility]) Body weight 71.385 kg 71.385 kg [facility] ([facility]) Body surface area Derived from formula 1.71 m2 1.71 m2 [facility] ([facility]) Body temperature 98.7 [degF] 98.7 [degF] W1 ( [facility]) Body weight 159 [lb_av] 159 [lb_av] eCW1 ([facility]) Body height 61 [in_i] 61 [in_i] eCW1 ([facility]) Body mass index (BMI) [Ratio] 30.04 kg/m2 30.04 kg/m2 W1 ([facility]) Heart rate 107 /min 107 /min eCW1 ([facility]) Respiratory rate 16 /min 16 /min eCW1 ([facility]) Systolic blood pressure 139 mm[Hg] 139 mm[Hg] e CW1 ([facility]) Diastolic blood pressure 59 mm[Hg] 59 mm[Hg] eCW1 ([facility]) [place] body weight 105 [lb_av] 105 [lb_av] [facility] T ([facility]) Body weight 71.669 kg 71.669 kg [facility] ([facility]) Body surface area Derived from formula 1.71 m2 1.71 m2 [facility] ([facility]) Systolic blood pressure 130 mm[Hg] 130 mm[Hg] M EDENT ([facility]) Diastolic blood pressure 70 mm[Hg] 70 mm[Hg] [facility] ([facility]) Body height 61 [in_i] 61 [in_i] [facility] ([facility]) 5'1" Body weight 158.00 [lb_av] 158.00 [lb_av] [facility] T ([facility]) Body mass index (BMI) [Ratio] 29.9 kg/m2 29.9 k g/m2 [facility] ([facility]) Body weight 171.2 [lb_av] 171.2 [lb_av] eCW1 ([facility]) Respiratory rate 18 /min 18 /min eCW1 ([facility]) Body temperature 96.8 [degF] 96.8 [degF] eCW1 ( [facility]) Systolic blood pressure 123 mm[Hg] 123 mm[Hg] e CW1 ([facility]) Diastolic blood pressure 58 mm[Hg] 58 mm[Hg] eCW1 ([facility]) Body height 61 [in_i] 61 [in_i] eCW1 ([facility]) Body mass index (BMI) [Ratio] 32.34 kg/m2 32.34 kg/m2 eCW1 ([facility]) Heart rate 100 /min 100 /min eCW1 ([facility]) Body weight 169 [lb_av] 169 [lb_av] eCW1 ([facility]) Body height 61 [in_i] 61 [in_i] eCW1 ([facility]) Body mass index (BMI) [Ratio] 31.93 kg/m2 31.93 kg/m2 W1 ([facility]) Heart rate 88 /min 88 /min eCW1 ([facility]) Respiratory rate 20 /min 20 /min eCW1 ([facility]) Body temperature 97.4 [degF] 97.4 [degF] eCW1 ( [facility]) Systolic blood pressure 120 mm[Hg] 120 mm[Hg] e CW1 ([facility]) Diastolic blood pressure 60 mm[Hg] 60 mm[Hg] eCW1 ([facility]) ID Date Data Source [id number] 05/25/2021 07:52:43 AM [facility] Name Value Range Interpretation Code Description Data Source(s) WEIGHT RECORDED 185.00 pounds 185.00 pounds [facility] Height 61 Inches 061 Inches [facility] ID Date Data Source [id number] 05/25/2021 07:52:22 AM [facility] Name Value Range Interpretation Code Description Data Source(s) WEIGHT RECORDED 185.00 pounds 185.00 pounds [facility] Height 61 Inches 061 Inches [facility] Patient Treatment Plan of Care Planned Activity Planned Date Details Description Data Source (s) Acetaminophen 325 MG / Oxycodone Hydrochloride 10 MG O ral Tablet 04/22/2021 12:00:00 AM EDT eCW1 ([facility]) Acetaminophen 325 MG / Oxycodone Hydrochloride 10 MG O ral Tablet 04/22/2021 12:00:00 AM EDT eCW1 ([facility]) Acetaminophen 325 MG / Oxycodone Hydrochloride 10 MG O ral Tablet 03/30/2021 12:00:00 AM EDT eCW1 ([facility]) Acetaminophen 325 MG / Oxycodone Hydrochloride 10 MG O ral Tablet 03/30/2021 12:00:00 AM EDT eCW1 ([facility]) Acetaminophen 325 MG / Oxycodone Hydrochloride 10 MG O ral Tablet 02/28/2021 12:00:00 AM EDT eCW1 ([facility]) Acetaminophen 325 MG / Oxycodone Hydrochloride 10 MG O ral Tablet 02/28/2021 12:00:00 AM EDT eCW1 ([facility]) Acetaminophen 325 MG / Oxycodone Hydrochloride 7.5 MG Oral Tablet 02/21/2021 12:00:00 AM EDT eCW1 ([facility]) Acetaminophen 325 MG / Oxycodone Hydrochloride 7.5 MG Oral Tablet 02/21/2021 12:00:00 AM EDT eCW1 ([facility]) Acetaminophen 325 MG / Oxycodone Hydrochloride 7.5 MG Oral Tablet 01/31/2021 12:00:00 AM EDT eCW1 ([facility]) Acetaminophen 325 MG / Oxycodone Hydrochloride 7.5 MG Oral Tablet 01/31/2021 12:00:00 AM EDT eCW1 ([facility]) Acetaminophen 325 MG / Oxycodone Hydrochloride 7.5 MG Oral Tablet 01/31/2021 12:00:00 AM EDT eCW1 ([facility]) Acetaminophen 325 MG / Oxycodone Hydrochloride 7.5 MG Oral Tablet 01/31/2021 12:00:00 AM EDT eCW1 ([facility]) Acetaminophen 325 MG / Oxycodone Hydrochloride 7.5 MG Oral Tablet 01/03/2021 12:00:00 AM EDT eCW1 ([facility]) Acetaminophen 325 MG / Oxycodone Hydrochloride 7.5 MG Oral Tablet 01/03/2021 12:00:00 AM EDT eCW1 ([facility]) Acetaminophen 325 MG / Oxycodone Hydrochloride 7.5 MG Oral Tablet 12/03/2020 12:00:00 AM EDT eCW1 ([facility]) Acetaminophen 325 MG / Oxycodone Hydrochloride 7.5 MG Oral Tablet 11/04/2020 12:00:00 AM EDT eCW1 ([facility]) Acetaminophen 325 MG / Oxycodone Hydrochloride 7.5 MG Oral Tablet 11/04/2020 12:00:00 AM EDT eCW1 ([facility]) Acetaminophen 325 MG / Oxycodone Hydrochloride 7.5 MG Oral Tablet 10/05/2020 12:00:00 AM EDT eCW1 ([facility]) Acetaminophen 325 MG / Oxycodone Hydrochloride 7.5 MG Oral Tablet 09/06/2020 12:00:00 AM EST eCW1 ([facility]) Acetaminophen 325 MG / Oxycodone Hydrochloride 7.5 MG Oral Tablet 09/06/2020 12:00:00 AM EST eCW1 ([facility]) Acetaminophen 325 MG / Oxycodone Hydrochloride 7.5 MG Oral Tablet 09/06/2020 12:00:00 AM EST eCW1 ([facility]) Acetaminophen 325 MG / Oxycodone Hydrochloride 7.5 MG Oral Tablet 09/06/2020 12:00:00 AM EST eCW1 ([facility]) Acetaminophen 325 MG / Oxycodone Hydrochloride 7.5 MG Oral Tablet 09/06/2020 12:00:00 AM EST eCW1 ([facility]) Acetaminophen 325 MG / Oxycodone Hydrochloride 7.5 MG Oral Tablet 08/10/2020 12:00:00 AM EST eCW1 ([facility]) Acetaminophen 325 MG / Oxycodone Hydrochloride 7.5 MG Oral Tablet 08/10/2020 12:00:00 AM EST eCW1 ([facility]) Acetaminophen 325 MG / Oxycodone Hydrochloride 7.5 MG Oral Tablet 07/12/2020 12:00:00 AM EST eCW1 ([facility]) Acetaminophen 325 MG / Oxycodone Hydrochloride 7.5 MG Oral Tablet 07/12/2020 12:00:00 AM EST eCW1 ([facility]) Acetaminophen 325 MG / Oxycodone Hydrochloride 7.5 MG Oral Tablet 07/12/2020 12:00:00 AM EST eCW1 ([facility]) Acetaminophen 325 MG / Oxycodone Hydrochloride 7.5 MG Oral Tablet 06/14/2020 12:00:00 AM EST eCW1 ([facility]) Acetaminophen 325 MG / Oxycodone Hydrochloride 7.5 MG Oral Tablet 06/14/2020 12:00:00 AM EST eCW1 ([facility]) Acetaminophen 325 MG / Oxycodone Hydrochloride 7.5 MG Oral Tablet 06/14/2020 12:00:00 AM EST eCW1 ([facility]) Acetaminophen 325 MG / Oxycodone Hydrochloride 7.5 MG Oral Tablet 05/10/2020 12:00:00 AM EDT eCW1 ([facility]) Acetaminophen 325 MG / Oxycodone Hydrochloride 7.5 MG Oral Tablet 05/10/2020 12:00:00 AM EDT eCW1 ([facility]) Glucometer (Verio IQ) 04/29/2020 12:00:00 AM EDT eCW1 ([facility]) Vitamin D-3 25 MCG (1000 UT) 04/29/2020 12:00:00 AM EDT eCW1 ([facility]) Glucometer (Verio IQ) 04/29/2020 12:00:00 AM EDT eCW1 ([facility]) Vitamin D-3 25 MCG (1000 UT) 04/29/2020 12:00:00 AM EDT eCW1 ([facility]) Vitamin D-3 25 MCG (1000 UT) 04/29/2020 12:00:00 AM EDT eCW1 ([facility]) Vitamin D-3 25 MCG (1000 UT) 04/29/2020 12:00:00 AM EDT eCW1 ([facility]) Vitamin D-3 25 MCG (1000 UT) 04/29/2020 12:00:00 AM EDT eCW1 ([facility])
[2021-06-17] MEDS ORDERED: propofoL 200 MG/20 ML VIAL As Ordered ONE ×2 (06:58→07:43)
[2021-06-17] MEDS ORDERED: LIDOCAINE 2% 100MG/5ML SDV (FOR ANES.) As Ordered ONE (06:58)
[2021-06-17] MEDS ORDERED: SIMETHICONE 40MG/0.6ML DROPS 30ML As Ordered ONE (07:06)
--- NOTE | 2021-06-17 07:55 | ROOR ---
Patient Name: Caryn Bradley Procedure Date: 06/17/2021 7:30 AM Date of : 1955 Age: 65 Room: [facility] Gender: Female Note Status: Finalized Procedure: Colonoscopy Indications: Screening for colorectal malignant neoplasm Providers: Harpreet Moore MD Referring MD: Denisse Tejeda [facility] Requesting Provider: Medicines: Monitored Anesthesia Care Complications: No immediate complications. Procedure: Pre-Anesthesia Assessment: - The heart rate, respiratory rate, oxygen saturations, blood pressure, adequacy of pulmonary ventilation, and response to care were monitored throughout the procedure. The Colonoscope was introduced through the anus and advanced to the cecum. The colonoscopy was performed without difficulty. The patient tolerated the procedure well. The quality of the bowel preparation was inadequate. Findings: The perianal and digital rectal examinations were normal. A 5 mm polyp was found in the ileocecal valve. The polyp was sessile. The polyp was removed with a cold snare. Resection and retrieval were complete. Four sessile polyps were found in the hepatic flexure. The polyps were 4 to 5 mm in size. These polyps were removed with a cold snare. Resection and retrieval were complete. The exam was otherwise without abnormality. Impression: - Preparation of the colon was inadequate. - One 5 mm polyp at the ileocecal valve, removed with a cold snare. Resected and retrieved. - Four 4 to 5 mm polyps at the hepatic flexure, removed with a cold snare. Resected and retrieved. - The examination was otherwise normal. Recommendation: - Repeat colonoscopy in 2 years because the bowel preparation was suboptimal. - Repeat colonoscopy in 2 years for surveillance. - (Rec alternate colon preparation for next colonoscopy) Procedure Code(s): --- Professional --- 67417, Colonoscopy, flexible; with removal of tumor(s), polyp(s), or other lesion(s) by snare technique Diagnosis Code(s): --- Professional --- Z12.11, Encounter for screening for malignant neoplasm of colon K63.5, Polyp of colon CPT copyright 2019 [employer]. All rights reserved. The codes documented in this report are preliminary and upon java programmer analyst review may be revised to meet current compliance requirements. Harpreet Moore MD Harpreet Moore MD 06/17/2021 7:55:34 AM Electronically signed by Harpreet Moore MD Number of Addenda: 0 Note Initiated On: 06/17/2021 7:30 AM Estimated Blood Loss: Estimated blood loss: none.
[2021-06-17 08:18] VITALS: BP 125/71
== END 2021-06-17 09:08 | disposition home or self-care (01) ==
LOC: M OPP 06:49
PROVIDERS: ATTEND Internal Medicine Gastroenterology
DX: Z12.11 Encounter for screening for malignant neoplasm of colon (principal); D12.0 Benign neoplasm of cecum; D12.3 Benign neoplasm of transverse colon; Z79.84 Long term (current) use of oral hypoglycemic drugs; Z79.891 Long term (current) use of opiate analgesic; Z79.899 Other long term (current) drug therapy; Z86.51 Personal history of combat and operational stress reaction

== ENCOUNTER → 2021-06-21 | Outpatient (CLI) | payer OTHER ==
[~2021-06-21] MED LIST changes: -NS 1,000 ML IV ONE
--- NOTE | 2021-06-21 11:08 | REPMRS ---
Patient History The patient states she had a clinical breast exam in June 2021. No known family history of cancer. Took estrogen for 6 years. Patient states no breast complaints today. Patient has signed MRS History Sheet. Digital Woman Screen Mammo: June 21, 2021 - Exam #: [id number] Bilateral CC and MLO view(s) were taken. Technologist: Katie Oliveira, Technologist Prior study comparison: February 19, 2020, bilateral digital woman screen mammo performed at [facility]. August 23, 2018, bilateral digital mammo screening bilat, performed at [facility]. FINDINGS: There are scattered fibroglandular densities. Screening. Digital screening (2D) mammography was performed bilaterally in the CC and MLO projections. Additionally, breast tomosynthesis (3D mammography) was performed bilaterally in the CC and MLO projections. Todays exam was compared to the prior exam/exams. By history, the patient has no complaints of a palpable breast abnormality or other significant breast complaints. The Volpara volumetric breast density category is B, there are scattered areas of fibroglandular densities. The breasts are unchanged in size and shape. There are no keon-soft tissue densities or spiculated masses. There is no internal architectural distortion. Once again, stable benign appearing calcifications are seen. There are no suspicious keon-calcific clusters. Skin thickening or nipple retraction is not present. IMPRESSION: BI-RADS Category 2- Benign Findings. There is no evidence of malignant alteration of the breasts. Followup examination recommended in one year. This mammogram was read with the assistance of [facility],an FDA approved computer aided detection system for mammography. The lifetime Tyrer-Cuzick score is 5.5% Negative x-ray reports should not delay surgical consultation if a dominant or clinically suspicious mass is present. Not all breast cancers can be identified by mammography. Therefore, we recommend that you continue to perform regular breast self-examination and physical examination and then promptly contact your physician of any concerns or changes. Adenosis and dense breasts may obscure an underlying neoplasm. No significant changes when compared with prior studies. Assessment: BI-RADS/ACR category 2 mammogram. Benign Findings. Recommendation Routine screening mammogram of both breasts in 1 year. Electronically Signed By: Kleber Walker MD 06/21/21 [id number]
== END ==
LOC: M WHC 08:23
PROVIDERS: ATTEND Obstetrics & Gynecology
DX: Z12.31 Encounter for screening mammogram for malignant neoplasm of breast (principal); Z12.4 Encounter for screening for malignant neoplasm of cervix; Z92.23 Personal history of estrogen therapy; R92.1 Mammographic calcification found on diagnostic imaging of breast; N95.2 Postmenopausal atrophic vaginitis; R87.810 Cervical high risk human papillomavirus (HPV) DNA test positive
CPT/HCPCS: 77063; 77067; 87624; G0123; G0463

== ENCOUNTER → 2021-06-21 | Outpatient (REF) | payer OTHER | LOC: M SFHCWAGY 13:12 | PROVIDERS: ATTEND Obstetrics & Gynecology | DX: Z12.4 Encounter for screening for malignant neoplasm of cervix (principal); N95.2 Postmenopausal atrophic vaginitis; R87.810 Cervical high risk human papillomavirus (HPV) DNA test positive ==

== ENCOUNTER → 2021-06-29 | Outpatient (CLI) | payer OTHER | LOC: M LABSMTC 11:12 | PROVIDERS: ATTEND Anesthesiology | DX: Z01.812 Encounter for preprocedural laboratory examination (principal); Z11.52 Encounter for screening for COVID-19 ==

== ENCOUNTER → 2021-07-04 | Outpatient (CLI) | payer OTHER ==
[~2021-07-04] MED LIST changes: +ISOVUE-M 300 61% 15ML VIAL As Ordered ONE; +LIDOCAINE 1% SDV 30ML VIAL As Ordered ONE; +diazePAM 5MG TABLET As Ordered ONE; +methylPREDNISolone SUSP 40MG/ML 1ML VIAL (DEPO MEDROL) As Ordered ONE
--- NOTE | 2021-07-04 15:18 | REP ---
INDICATION: LUMBAR EPIDURAL STEROID INJECTION. COMPARISON: None. TECHNIQUE: Intraoperative fluoroscopic imaging using portable C-arm technique FINDINGS: AP and lateral views demonstrate catheter and contrast via posterior approach overlying the lower lumbar spine. Total fluoroscopic time 38.3 seconds IMPRESSION: Images consistent with lower lumbar epidural steroid injection <Electronically signed by Navjot Salcedo > 07/04/21 [id number]
== END ==
LOC: M PAIN 10:00
PROVIDERS: ATTEND Anesthesiology
DX: M51.17 Intervertebral disc disorders with radiculopathy, lumbosacral region (principal); L71.9 Rosacea, unspecified; N95.2 Postmenopausal atrophic vaginitis; E11.9 Type 2 diabetes mellitus without complications; Z79.84 Long term (current) use of oral hypoglycemic drugs; Z79.899 Other long term (current) drug therapy
CPT/HCPCS: 62323; J1030; Q9967

== ENCOUNTER → 2021-07-18 | Outpatient (CLI) | payer OTHER ==
[~2021-07-18] MED LIST changes: -ISOVUE-M 300 61% 15ML VIAL As Ordered ONE; -LIDOCAINE 1% SDV 30ML VIAL As Ordered ONE; -diazePAM 5MG TABLET As Ordered ONE; -methylPREDNISolone SUSP 40MG/ML 1ML VIAL (DEPO MEDROL) As Ordered ONE
== END ==
LOC: M PAIN 10:00
PROVIDERS: ATTEND Nurse Practitioner Family
DX: M96.1 Postlaminectomy syndrome, not elsewhere classified (principal); M51.16 Intervertebral disc disorders with radiculopathy, lumbar region; L71.9 Rosacea, unspecified; E11.9 Type 2 diabetes mellitus without complications; N95.2 Postmenopausal atrophic vaginitis; Z85.51 Personal history of malignant neoplasm of bladder; Z79.84 Long term (current) use of oral hypoglycemic drugs; Z79.891 Long term (current) use of opiate analgesic; Z79.899 Other long term (current) drug therapy

== ENCOUNTER → 2021-09-16 | Outpatient (REF) | payer OTHER | LOC: M SMT 17:00 | PROVIDERS: ATTEND Urology | DX: C67.9 Malignant neoplasm of bladder, unspecified (principal) ==

== ENCOUNTER → 2021-09-19 | Outpatient (CLI) | payer OTHER ==
[2021-09-19 17:30] LABS: BASO % 0.1 % (0.0-1.0); EOS % 0.5 % (0.0-3.0); HEMATOCRIT 40.6 % (36.0-47.0); HEMOGLOBIN 12.6 g/dl (12.0-15.5); LYMPH # 2.5 10^3/uL (1.5-5.0); LYMPH % 32.1 % (24.0-44.0); MEAN CORPUSCULAR HEMOGLOBIN 28.9 pg (27.0-33.0); MEAN CORPUSCULAR VOLUME 93.1 fl (80.0-96.0); MONO # 0.3 10^3/uL (0.0-0.8); MONO % 4.3 % (2.0-8.0); NEUTROPHILS # 4.8 10^3/uL (1.5-8.5); NEUTROPHILS % 62.5 % (36.0-66.0); PLATELET COUNT, AUTOMATED 354 10^3/uL (150-450); RED BLOOD COUNT 4.36 10^6/uL (4.00-5.40); WHITE BLOOD COUNT 7.7 10^3/uL (4.0-10.0)
[2021-09-19 17:47] LABS: ALBUMIN 3.5 GM/DL (3.2-5.2); ALT/SGPT 40 U/L (12-78); BILIRUBIN,TOTAL 0.5 MG/DL (0.2-1.0); BLOOD UREA NITROGEN 17 MG/DL (7-18); CALCIUM LEVEL 9.3 MG/DL (8.8-10.2); CARBON DIOXIDE LEVEL 30 MEQ/L (21-32); CHLORIDE LEVEL 109 MEQ/L (98-107); CHOLESTEROL LEVEL 158 MG/DL (<200); CHOLESTEROL RISK RATIO 2.771 (<5); CREATININE FOR GFR 0.82 MG/DL (0.55-1.30); GLOMERULAR FILTRATION RATE > 60.0 (>45); GLUCOSE, FASTING 79 MG/DL (70-100); HDL CHOLESTEROL 57 MG/DL (>40); LDL CHOLESTEROL 65 MG/DL (<100); NON-HDL-C 101 MG/DL; POTASSIUM SERUM 4.4 MEQ/L (3.5-5.1); SODIUM LEVEL 143 MEQ/L (136-145); TRIGLYCERIDES LEVEL 178 MG/DL (<150)
[2021-09-19 17:50] LABS: HEMOGLOBIN A1c 6.4 %
[2021-09-19 18:02] LABS: PTH INTACT 40.3 PG/ML (18.5-88.0)
[2021-09-20 13:08] LABS: TOTAL 25(OH) VITAMIN D 37.7 NG/ML (30.0-100.0)
== END ==
LOC: M PLALAB 14:40
PROVIDERS: ATTEND Physician Assistant Medical
DX: E78.2 Mixed hyperlipidemia (principal); E11.9 Type 2 diabetes mellitus without complications; E55.9 Vitamin D deficiency, unspecified; K21.00 Gastro-esophageal reflux disease with esophagitis, without bleeding

== ENCOUNTER → 2022-01-05 | Outpatient (CLI) | payer MEDICARE, OTHER | LOC: M PAIN 13:30 | PROVIDERS: ATTEND Nurse Practitioner Family | DX: M96.1 Postlaminectomy syndrome, not elsewhere classified (principal); L71.9 Rosacea, unspecified; N81.4 Uterovaginal prolapse, unspecified; M54.42 Lumbago with sciatica, left side; N95.2 Postmenopausal atrophic vaginitis; E11.9 Type 2 diabetes mellitus without complications; Z79.891 Long term (current) use of opiate analgesic; Z85.51 Personal history of malignant neoplasm of bladder; Z79.84 Long term (current) use of oral hypoglycemic drugs; Z79.899 Other long term (current) drug therapy ==

== ENCOUNTER → 2022-03-16 | Outpatient (CLI) | payer MEDICARE, OTHER | LOC: M PAIN 10:15 | PROVIDERS: ATTEND Nurse Practitioner Family | DX: M96.1 Postlaminectomy syndrome, not elsewhere classified (principal); G89.29 Other chronic pain; E11.9 Type 2 diabetes mellitus without complications; Z79.84 Long term (current) use of oral hypoglycemic drugs; Z79.899 Other long term (current) drug therapy ==

== ENCOUNTER → 2022-04-14 | Outpatient (RCR) | payer MEDICARE, OTHER | LOC: M PT 04-05 12:46 | PROVIDERS: ATTEND Nurse Practitioner Family | DX: M96.1 Postlaminectomy syndrome, not elsewhere classified (principal) ==

== ENCOUNTER 2022-05-05 14:15 | Outpatient (RCR) | payer MEDICARE, OTHER | END 2022-05-15 | LOC: M PT 14:15 | PROVIDERS: ATTEND Nurse Practitioner Family | DX: M96.1 Postlaminectomy syndrome, not elsewhere classified (principal) ==

== ENCOUNTER → 2022-06-20 | Outpatient (CLI) | payer MEDICARE, OTHER | LOC: M WHC 10:18 | PROVIDERS: ATTEND Physician Assistant Medical | DX: Z12.31 Encounter for screening mammogram for malignant neoplasm of breast (principal) ==

== ENCOUNTER → 2022-07-21 | Outpatient (CLI) | payer MEDICARE, OTHER | LOC: M PAIN 10:15 | PROVIDERS: ATTEND Nurse Practitioner Family | DX: M96.1 Postlaminectomy syndrome, not elsewhere classified (principal); Z79.891 Long term (current) use of opiate analgesic; G89.29 Other chronic pain; E11.9 Type 2 diabetes mellitus without complications; Z79.84 Long term (current) use of oral hypoglycemic drugs; Z79.899 Other long term (current) drug therapy; M54.42 Lumbago with sciatica, left side; N95.2 Postmenopausal atrophic vaginitis ==

== ENCOUNTER → 2022-08-14 | Outpatient (CLI) | payer MEDICARE, OTHER ==
[~2022-08-14] MED LIST changes: +FAMO40TA3 PO; +TIZA2TA PO; +VITA500075 PO; +VITA500C24 PO
== END ==
LOC: M LABSMTC 11:33
PROVIDERS: ATTEND Anesthesiology
DX: Z01.812 Encounter for preprocedural laboratory examination (principal); Z11.52 Encounter for screening for COVID-19

== ENCOUNTER 2022-08-18 06:56 | Day surgery (SDC) | payer MEDICARE, OTHER ==
[~2022-08-18] VITALS: Ht 154.9 cm; Wt 64.3 kg
[~2022-08-18 06:56] MED LIST changes: +NS 1,000 ML IV ONE
[2022-08-18] MEDS ORDERED: LIDOCAINE 2% 100MG/5ML SDV (FOR ANES.) As Ordered ONE (07:08)
[2022-08-18] MEDS ORDERED: propofoL 200 MG/20 ML VIAL As Ordered ONE ×2 (07:08→07:44)
[2022-08-18 08:15] VITALS: BP 131/67
== END 2022-08-18 08:30 | disposition home or self-care (01) ==
LOC: M OPP 06:56
PROVIDERS: ATTEND Internal Medicine Gastroenterology
DX: Z86.010 Personal history of colon polyps (principal); D12.3 Benign neoplasm of transverse colon; K63.5 Polyp of colon; Z79.02 Long term (current) use of antithrombotics/antiplatelets; Z79.84 Long term (current) use of oral hypoglycemic drugs; Z79.891 Long term (current) use of opiate analgesic; Z79.899 Other long term (current) drug therapy; E78.00 Pure hypercholesterolemia, unspecified; E11.9 Type 2 diabetes mellitus without complications; Z86.51 Personal history of combat and operational stress reaction; Z90.49 Acquired absence of other specified parts of digestive tract

== ENCOUNTER → 2022-09-18 | Outpatient (REF) | payer MEDICARE, OTHER ==
[~2022-09-18] MED LIST changes: -NS 1,000 ML IV ONE
== END ==
LOC: M SMT 17:23
PROVIDERS: ATTEND Urology
DX: C67.9 Malignant neoplasm of bladder, unspecified (principal)

== ENCOUNTER → 2022-10-02 | Outpatient (CLI) | payer MEDICARE, OTHER | LOC: M PAIN 09:00 | PROVIDERS: ATTEND Anesthesiology | DX: M96.1 Postlaminectomy syndrome, not elsewhere classified (principal); L71.9 Rosacea, unspecified; M54.42 Lumbago with sciatica, left side; E11.9 Type 2 diabetes mellitus without complications; Z79.84 Long term (current) use of oral hypoglycemic drugs; Z79.891 Long term (current) use of opiate analgesic; Z79.899 Other long term (current) drug therapy; Z11.52 Encounter for screening for COVID-19 | CPT/HCPCS: 87635; G0463 ==

== ENCOUNTER → 2022-10-02 | Outpatient (CLI) | payer MEDICARE, OTHER | LOC: M LABSMTC 11:46 | PROVIDERS: ATTEND Anesthesiology | DX: Z01.818 Encounter for other preprocedural examination (principal); Z11.52 Encounter for screening for COVID-19 ==

== ENCOUNTER → 2022-10-05 | Outpatient (CLI) | payer MEDICARE, OTHER ==
[~2022-10-05] MED LIST changes: +ISOVUE-M 300 61% 15ML VIAL As Ordered ONE; +LIDOCAINE 1% SDV 30ML VIAL As Ordered ONE; +MIDAZOLAM INJ 2MG/2ML VIAL As Ordered ONE; +diphenhydrAMINE 50MG/ML VIAL As Ordered ONE; +fentaNYL 100 MCG/2 ML INJECTION As Ordered ONE; +methylPREDNISolone SUSP 40MG/ML 1ML VIAL (DEPO MEDROL) As Ordered ONE
== END ==
LOC: M PAIN 11:30
PROVIDERS: ATTEND Anesthesiology
DX: M51.16 Intervertebral disc disorders with radiculopathy, lumbar region (principal); E11.9 Type 2 diabetes mellitus without complications; Z79.84 Long term (current) use of oral hypoglycemic drugs; Z79.891 Long term (current) use of opiate analgesic; Z79.899 Other long term (current) drug therapy
CPT/HCPCS: 62323; J1030; J1200; J2250; J3010; Q9967

== ENCOUNTER → 2022-10-19 | Outpatient (CLI) | payer MEDICARE, OTHER ==
[~2022-10-19] MED LIST changes: -ISOVUE-M 300 61% 15ML VIAL As Ordered ONE; -LIDOCAINE 1% SDV 30ML VIAL As Ordered ONE; -MIDAZOLAM INJ 2MG/2ML VIAL As Ordered ONE; -diphenhydrAMINE 50MG/ML VIAL As Ordered ONE; -fentaNYL 100 MCG/2 ML INJECTION As Ordered ONE; -methylPREDNISolone SUSP 40MG/ML 1ML VIAL (DEPO MEDROL) As Ordered ONE
[2022-10-19 17:49] LABS: HEMOGLOBIN A1c 5.8 % (4.0-6.0)
[2022-10-19 17:51] LABS: BASO % 0.3 % (0.0-1.0); EOS # 0.1 10^3/uL (0.0-0.5); HEMATOCRIT 40.5 % (36.0-47.0); HEMOGLOBIN 12.6 g/dl (12.0-15.5); LYMPH # 3.6 10^3/uL (1.5-5.0); LYMPH % 38.4 % (24.0-44.0); MEAN CORPUSCULAR HEMOGLOBIN 29.2 pg (27.0-33.0); MEAN CORPUSCULAR HGB CONC 31.1 g/dl (32.0-36.5); MEAN CORPUSCULAR VOLUME 93.8 fl (80.0-96.0); MONO # 0.4 10^3/uL (0.0-0.8); MONO % 4.7 % (2.0-8.0); NEUTROPHILS # 5.2 10^3/uL (1.5-8.5); NEUTROPHILS % 55.4 % (36.0-66.0); PLATELET COUNT, AUTOMATED 343 10^3/uL (150-450); RED BLOOD COUNT 4.32 10^6/uL (4.00-5.40); WHITE BLOOD COUNT 9.4 10^3/uL (4.0-10.0)
[2022-10-19 18:09] LABS: ALBUMIN 3.9 G/DL (3.2-5.2); ALKALINE PHOSPHATASE 102 U/L (46-116); ALT/SGPT 49 U/L (7.0-40); AST/SGOT 35 U/L (<34); BILIRUBIN,TOTAL 0.3 MG/DL (0.3-1.2); BLOOD UREA NITROGEN 18 MG/DL (9-23); CALCIUM LEVEL 9.7 MG/DL (8.3-10.6); CARBON DIOXIDE LEVEL 30 MMOL/L (20-31); CHLORIDE LEVEL 105 MMOL/L (98-107); CHOLESTEROL LEVEL 178 MG/DL (<200); CHOLESTEROL RISK RATIO 2.35 (<5); CREATININE FOR GFR 0.79 MG/DL (0.55-1.30); GLOMERULAR FILTRATION RATE > 60.0 (>45); GLUCOSE, FASTING 78 MG/DL (74-106); HDL CHOLESTEROL 75.5 MG/DL (>40); LDL CHOLESTEROL 62.7 MG/DL (<100); NON-HDL-C 102.5 MG/DL; POTASSIUM SERUM 4.8 MMOL/L (3.5-5.1); PTH INTACT 32.4 PG/ML (18.5-88.0); SODIUM LEVEL 141 MMOL/L (136-145); TRIGLYCERIDES LEVEL 199 MG/DL (<150)
[2022-10-19 18:13] LABS: TOTAL 25(OH) VITAMIN D 72.7 NG/ML (20.0-100.0)
== END ==
LOC: M PLALAB 15:57
PROVIDERS: ATTEND Physician Assistant Medical
DX: E55.9 Vitamin D deficiency, unspecified (principal); E11.9 Type 2 diabetes mellitus without complications; E78.2 Mixed hyperlipidemia; K21.00 Gastro-esophageal reflux disease with esophagitis, without bleeding; M96.1 Postlaminectomy syndrome, not elsewhere classified; Z79.899 Other long term (current) drug therapy

== ENCOUNTER → 2022-10-25 | Outpatient (CLI) | payer MEDICARE, OTHER | LOC: M TMPAIN 11:45 → M PAIN 11:45 | PROVIDERS: ATTEND Anesthesiology | DX: M51.16 Intervertebral disc disorders with radiculopathy, lumbar region (principal); G89.29 Other chronic pain; E11.9 Type 2 diabetes mellitus without complications; Z79.84 Long term (current) use of oral hypoglycemic drugs; Z79.899 Other long term (current) drug therapy ==

== ENCOUNTER → 2022-11-01 | Outpatient (REF) | payer MEDICARE, OTHER | LOC: M SFHCWAGY 17:46 | PROVIDERS: ATTEND Obstetrics & Gynecology | DX: Z01.419 Encounter for gynecological examination (general) (routine) without abnormal findings (principal); R87.612 Low grade squamous intraepithelial lesion on cytologic smear of cervix (LGSIL); R87.810 Cervical high risk human papillomavirus (HPV) DNA test positive; N95.2 Postmenopausal atrophic vaginitis ==

== ENCOUNTER → 2022-11-24 | Outpatient (REF) | payer MEDICARE, OTHER | LOC: M SFHCWAGY 17:28 | PROVIDERS: ATTEND Obstetrics & Gynecology | DX: R87.612 Low grade squamous intraepithelial lesion on cytologic smear of cervix (LGSIL) (principal) ==

== ENCOUNTER → 2022-12-08 | Outpatient (CLI) | payer MEDICARE, OTHER | LOC: M PAIN 14:15 | PROVIDERS: ATTEND Nurse Practitioner Family | DX: G89.29 Other chronic pain (principal); M96.1 Postlaminectomy syndrome, not elsewhere classified; L71.9 Rosacea, unspecified; E11.9 Type 2 diabetes mellitus without complications; Z79.84 Long term (current) use of oral hypoglycemic drugs; Z79.891 Long term (current) use of opiate analgesic; Z79.899 Other long term (current) drug therapy ==

== ENCOUNTER → 2023-02-08 | Outpatient (CLI) | payer MEDICARE, OTHER | LOC: M PAIN 13:45 | PROVIDERS: ATTEND Nurse Practitioner Family | DX: G89.29 Other chronic pain (principal); M96.1 Postlaminectomy syndrome, not elsewhere classified; L71.9 Rosacea, unspecified; E11.9 Type 2 diabetes mellitus without complications; M54.42 Lumbago with sciatica, left side; Z79.891 Long term (current) use of opiate analgesic; Z79.84 Long term (current) use of oral hypoglycemic drugs; Z79.899 Other long term (current) drug therapy ==

== ENCOUNTER → 2023-04-19 | Outpatient (REF) | payer MEDICARE, OTHER ==
[2023-04-23 18:50] LABS: CREATININE, URINE 123.4 MG/DL; MAU/CREAT RATIO 15.3 MCG/MG (0.0-30.0)
== END ==
LOC: M SFHCPLAZ 17:10
PROVIDERS: ATTEND Physician Assistant Medical
DX: E11.9 Type 2 diabetes mellitus without complications (principal)

== ENCOUNTER → 2023-04-26 | Outpatient (CLI) | payer MEDICARE, OTHER ==
[2023-04-26 15:42] LABS: BASO % 0.2 % (0.0-1.0); EOS # 0.1 10^3/uL (0.0-0.5); HEMATOCRIT 38.1 % (36.0-47.0); HEMOGLOBIN 12.2 g/dl (12.0-15.5); LYMPH # 3.2 10^3/uL (1.5-5.0); MEAN CORPUSCULAR HEMOGLOBIN 30.3 pg (27.0-33.0); MEAN CORPUSCULAR VOLUME 94.8 fl (80.0-96.0); MONO # 0.4 10^3/uL (0.0-0.8); MONO % 4.7 % (2.0-8.0); NEUTROPHILS # 4.3 10^3/uL (1.5-8.5); NEUTROPHILS % 53.9 % (36.0-66.0); PLATELET COUNT, AUTOMATED 321 10^3/uL (150-450); RED BLOOD COUNT 4.02 10^6/uL (4.00-5.40)
[2023-04-26 16:01] LABS: INR 0.86; PROTHROMBIN TIME 11.5 SECONDS (12.5-14.5)
[2023-04-26 16:02] LABS: PARTIAL THROMBOPLASTIN TIME 26.4 SECONDS (24.8-34.2)
[2023-04-26 16:11] LABS: HEMOGLOBIN A1c 5.8 % (4.0-6.0)
[2023-04-26 16:12] LABS: ALBUMIN 3.7 G/DL (3.2-5.2); ALKALINE PHOSPHATASE 97 U/L (46-116); ALT/SGPT 74 U/L (7.0-40); AST/SGOT 55 U/L (<34); BILIRUBIN,TOTAL 0.3 MG/DL (0.3-1.2); BLOOD UREA NITROGEN 22 MG/DL (9-23); CALCIUM LEVEL 9.8 MG/DL (8.3-10.6); CARBON DIOXIDE LEVEL 29 MMOL/L (20-31); CHLORIDE LEVEL 105 MMOL/L (98-107); CREATININE FOR GFR 0.77 MG/DL (0.55-1.30); GLOMERULAR FILTRATION RATE > 60.0 (>45); GLUCOSE, FASTING 100 MG/DL (74-106); POTASSIUM SERUM 4.6 MMOL/L (3.5-5.1); SODIUM LEVEL 142 MMOL/L (136-145); TOTAL PROTEIN 6.8 G/DL (5.7-8.2)
[2023-04-26 16:14] LABS: FERRITIN 14.5 NG/ML (7.3-270.7)
[2023-04-26 16:21] LABS: HEPATITIS B SURFACE ANTIBODY POSITIVE (POSITIVE)
[2023-04-26 16:53] LABS: HEPATITIS C VIRUS ABY INDEX 0.05 INDEX (<0.8)
== END ==
LOC: M PLALAB 14:22
PROVIDERS: ATTEND Physician Assistant Medical
DX: R79.89 Other specified abnormal findings of blood chemistry (principal); E11.9 Type 2 diabetes mellitus without complications; K21.00 Gastro-esophageal reflux disease with esophagitis, without bleeding; E55.9 Vitamin D deficiency, unspecified; G89.29 Other chronic pain; M79.7 Fibromyalgia; M96.1 Postlaminectomy syndrome, not elsewhere classified; M81.0 Age-related osteoporosis without current pathological fracture; R74.8 Abnormal levels of other serum enzymes

== ENCOUNTER → 2023-05-07 | Outpatient (CLI) | payer MEDICARE, OTHER | LOC: M WHC 08:21 | PROVIDERS: ATTEND Physician Assistant Medical | DX: R79.89 Other specified abnormal findings of blood chemistry (principal); R93.2 Abnormal findings on diagnostic imaging of liver and biliary tract ==

== ENCOUNTER → 2023-05-14 | Outpatient (CLI) | payer MEDICARE, OTHER | LOC: M PLAIMG 13:26 | PROVIDERS: ATTEND Anesthesiology | DX: M96.1 Postlaminectomy syndrome, not elsewhere classified (principal); M48.04 Spinal stenosis, thoracic region; M48.061 Spinal stenosis, lumbar region without neurogenic claudication ==

== ENCOUNTER → 2023-05-18 | Outpatient (CLI) | payer MEDICARE, OTHER | LOC: M PAIN 14:30 | PROVIDERS: ATTEND Nurse Practitioner Family | DX: M96.1 Postlaminectomy syndrome, not elsewhere classified (principal); Z79.891 Long term (current) use of opiate analgesic; G89.29 Other chronic pain; E11.9 Type 2 diabetes mellitus without complications; N95.2 Postmenopausal atrophic vaginitis; M54.41 Lumbago with sciatica, right side; Z79.84 Long term (current) use of oral hypoglycemic drugs; Z79.899 Other long term (current) drug therapy ==

== ENCOUNTER → 2023-05-24 | Outpatient (CLI) | payer MEDICARE, OTHER ==
[2023-05-24 17:41] LABS: BASO % 0.4 % (0.0-1.0); EOS # 0.1 10^3/uL (0.0-0.5); HEMATOCRIT 39.9 % (36.0-47.0); HEMOGLOBIN 12.4 g/dl (12.0-15.5); LYMPH # 3.6 10^3/uL (1.5-5.0); LYMPH % 43.1 % (24.0-44.0); MEAN CORPUSCULAR HEMOGLOBIN 29.2 pg (27.0-33.0); MEAN CORPUSCULAR HGB CONC 31.1 g/dl (32.0-36.5); MEAN CORPUSCULAR VOLUME 94.1 fl (80.0-96.0); MONO # 0.4 10^3/uL (0.0-0.8); MONO % 4.9 % (2.0-8.0); NEUTROPHILS # 4.2 10^3/uL (1.5-8.5); NEUTROPHILS % 50.5 % (36.0-66.0); PLATELET COUNT, AUTOMATED 354 10^3/uL (150-450); RED BLOOD COUNT 4.24 10^6/uL (4.00-5.40); WHITE BLOOD COUNT 8.2 10^3/uL (4.0-10.0)
[2023-05-24 18:10] LABS: ALBUMIN 3.7 G/DL (3.2-5.2); ALKALINE PHOSPHATASE 94 U/L (46-116); ALT/SGPT 48 U/L (7.0-40); AST/SGOT 36 U/L (<34); BILIRUBIN,TOTAL 0.3 MG/DL (0.3-1.2); BLOOD UREA NITROGEN 19 MG/DL (9-23); CARBON DIOXIDE LEVEL 29 MMOL/L (20-31); CHLORIDE LEVEL 106 MMOL/L (98-107); CREATININE FOR GFR 0.78 MG/DL (0.55-1.30); FERRITIN 14.9 NG/ML (7.3-270.7); FREE T4 0.95 NG/DL (0.89-1.76); GLOMERULAR FILTRATION RATE > 60.0 (>45); GLUCOSE, FASTING 80 MG/DL (74-106); POTASSIUM SERUM 5.3 MMOL/L (3.5-5.1); SODIUM LEVEL 142 MMOL/L (136-145); THYROID STIMULATING HORMONE 1.413 uIU/ML (0.55-4.78)
[2023-05-24 18:12] LABS: VITAMIN B12 LEVEL 454 PG/ML (211-911)
[2023-05-29 23:07] LABS: ANA (HEP2) Negative (.); ANTI-MITOCHONDRIAL ANTIBODY <20.0 Units (0.0-20.0)
== END ==
LOC: M PLALAB 15:18
PROVIDERS: ATTEND Family Medicine
DX: E11.9 Type 2 diabetes mellitus without complications (principal)

== ENCOUNTER 2023-06-01 11:14 | Day surgery (SDC) | payer MEDICARE, OTHER ==
[~2023-06-01] VITALS: Ht 154.9 cm; Wt 66.6 kg
[2023-06-01] MEDS ORDERED: ceFAZolin SOD 2 GM in IV 1 EA IV ONE (11:45)
[2023-06-01] MEDS ORDERED: LR 1,000 ML IV SCH (11:50)
[2023-06-01 12:00] LABS: HEMOGLOBIN 12.7 g/dl (12.0-15.5); MEAN CORPUSCULAR HGB CONC 31.8 g/dl (32.0-36.5); MEAN CORPUSCULAR VOLUME 94.6 fl (80.0-96.0); PLATELET COUNT, AUTOMATED 366 10^3/uL (150-450); RED BLOOD COUNT 4.23 10^6/uL (4.00-5.40); WHITE BLOOD COUNT 7.4 10^3/uL (4.0-10.0)
[2023-06-01] MEDS ORDERED: METHYLENE BLUE 0.5% (5MG/ML) 10 ML AMP (PROVAYBLUE) As Ordered ONE (12:14)
[2023-06-01] MEDS ORDERED: SUGAMMADEX SODIUM 500 MG/5 ML VIAL (BRIDION) As Ordered ONE (13:10)
[2023-06-01] MEDS ORDERED: ROCURONIUM BROMIDE 50MG/5ML VIAL As Ordered ONE (13:10)
[2023-06-01] MEDS ORDERED: KETOROLAC 60MG 2ML VIAL As Ordered ONE (13:10)
[2023-06-01] MEDS ORDERED: HYDROmorphone HCL 2MG/ML 1ML VIAL As Ordered ONE (13:10)
[2023-06-01] MEDS ORDERED: METOCLOPRAMIDE INJ 10MG/2ML VIAL As Ordered ONE (13:10)
[2023-06-01] MEDS ORDERED: MIDAZOLAM INJ 2MG/2ML VIAL As Ordered ONE (13:10)
[2023-06-01] MEDS ORDERED: dexmedeTOMIDine (4MCG/ML)200MCG/50ML BTL (PRECEDEX) As Ordered ONE (13:10)
[2023-06-01] MEDS ORDERED: fentaNYL 250 MCG/5 ML INJECTION As Ordered ONE (13:10)
[2023-06-01] MEDS ORDERED: propofoL 200 MG/20 ML VIAL As Ordered ONE (13:10)
[2023-06-01] MEDS ORDERED: ONDANSETRON 4MG 2ML VIAL As Ordered ONE (13:10)
[2023-06-01] MEDS ORDERED: LIDOCAINE 2% 100MG/5ML SDV (FOR ANES.) As Ordered ONE (13:10)
[2023-06-01] MEDS ORDERED: ePHEDrine SULFATE 25 MG/5 ML(5MG/ML) SYRINGE As Ordered ONE (14:26)
[2023-06-01] MEDS ORDERED: METOCLOPRAMIDE INJ 10MG/2ML VIAL IV PRN (14:30)
[2023-06-01] MEDS ORDERED: fentaNYL 100 MCG/2 ML INJECTION IV PRN (14:30)
[2023-06-01] MEDS ORDERED: ONDANSETRON 4MG 2ML VIAL IV PRN ×2 (14:30→15:15)
[2023-06-01] MEDS ORDERED: oxyCODONE 5MG TAB PO PRN (14:30)
[2023-06-01] MEDS: HYDROMORPHONE HCL 0.5 MG/ 0.5 ML SYRINGE IV PRN ×2 (14:48→14:54)
[2023-06-01] MEDS ORDERED: PERCOCET 5MG/325MG TAB PO PRN (15:10)
[2023-06-01] MEDS: LR 1,000 ML IV SCH ×2 (15:10→23:10)
[2023-06-01 16:50] VITALS: BP 100/65; TEMP 97.3; O2SAT 88
[2023-06-01 17:20] VITALS: BP 110/64; TEMP 97.2; O2SAT 93
[2023-06-01 18:20] VITALS: BP 121/66; TEMP 98; O2SAT 96
[2023-06-01 19:20] VITALS: BP 101/61; TEMP 98; O2SAT 93
[2023-06-01 20:20] VITALS: BP 108/63; TEMP 97.7; O2SAT 95
[2023-06-01] MEDS: PERCOCET 5MG/325MG TAB PO PRN (20:59)
[2023-06-01 21:20] VITALS: BP 123/60; TEMP 98.1; O2SAT 94
[2023-06-02] VITALS: BP 112/60; TEMP 97.5; O2SAT 94
[2023-06-02] MEDS ORDERED: UNRESOLVED CLARIFICATION ENTRY XX SCH (00:01)
[2023-06-02] MEDS: KETOROLAC 30 MG/ML 1ML VIAL IV SCH ×2 (05:20→10:22)
[2023-06-02 06:41] LABS: HEMATOCRIT 33.8 % (36.0-47.0); HEMOGLOBIN 10.8 g/dl (12.0-15.5); MEAN CORPUSCULAR HEMOGLOBIN 29.8 pg (27.0-33.0); MEAN CORPUSCULAR VOLUME 93.1 fl (80.0-96.0); PLATELET COUNT, AUTOMATED 302 10^3/uL (150-450); RED BLOOD COUNT 3.63 10^6/uL (4.00-5.40); WHITE BLOOD COUNT 8.7 10^3/uL (4.0-10.0)
[2023-06-02] MEDS: PERCOCET 5MG/325MG TAB PO PRN (08:26)
[2023-06-02 08:30] VITALS: BP 132/70; TEMP 98.1; O2SAT 96
[2023-06-02 12:11] VITALS: BP 137/60; TEMP 98.3; O2SAT 99
== END 2023-06-02 13:48 | disposition home or self-care (01) ==
LOC: M SDC 11:14 → M PED 16:50 → M SDC 06-02 13:48
PROVIDERS: ATTEND Obstetrics & Gynecology
DX: D25.1 Intramural leiomyoma of uterus (principal); N80.03 Adenomyosis of the uterus; N83.292 Other ovarian cyst, left side; N83.291 Other ovarian cyst, right side; N87.9 Dysplasia of cervix uteri, unspecified; E11.9 Type 2 diabetes mellitus without complications; E78.00 Pure hypercholesterolemia, unspecified; K21.9 Gastro-esophageal reflux disease without esophagitis; Z79.899 Other long term (current) drug therapy; Z79.84 Long term (current) use of oral hypoglycemic drugs; Z85.51 Personal history of malignant neoplasm of bladder
CPT/HCPCS: 36415; 58571; 85027; 86850; 86900; 86901; 87635; 88307; J0665; J1100; J1170; J1885; J2250; J2405; J2765; J3010

== ENCOUNTER → 2023-07-12 | Outpatient (CLI) | payer MEDICARE, OTHER | LOC: M WHC 10:46 | PROVIDERS: ATTEND Physician Assistant Medical | DX: Z12.31 Encounter for screening mammogram for malignant neoplasm of breast (principal); M81.0 Age-related osteoporosis without current pathological fracture ==

== ENCOUNTER → 2023-07-18 | Outpatient (CLI) | payer MEDICARE, OTHER | LOC: M PAIN 14:15 | PROVIDERS: ATTEND Anesthesiology | DX: M96.1 Postlaminectomy syndrome, not elsewhere classified (principal); G89.29 Other chronic pain; M54.42 Lumbago with sciatica, left side; Z79.891 Long term (current) use of opiate analgesic; Z79.84 Long term (current) use of oral hypoglycemic drugs; Z79.899 Other long term (current) drug therapy ==

== ENCOUNTER → 2023-07-24 | Outpatient (CLI) | payer MEDICARE, OTHER | LOC: M WHC 13:22 | PROVIDERS: ATTEND Physician Assistant Medical | DX: M85.89 Other specified disorders of bone density and structure, multiple sites (principal) ==

== ENCOUNTER → 2023-09-19 | Outpatient (CLI) | payer MEDICARE, OTHER | LOC: M PAIN 14:15 | PROVIDERS: ATTEND Anesthesiology | DX: M96.1 Postlaminectomy syndrome, not elsewhere classified (principal); M51.16 Intervertebral disc disorders with radiculopathy, lumbar region; G89.29 Other chronic pain; E11.9 Type 2 diabetes mellitus without complications; Z79.84 Long term (current) use of oral hypoglycemic drugs; Z79.891 Long term (current) use of opiate analgesic; Z79.899 Other long term (current) drug therapy ==

== ENCOUNTER → 2023-09-24 | Outpatient (REF) | payer MEDICARE, OTHER | LOC: M SMT 15:13 | PROVIDERS: ATTEND Urology | DX: C67.9 Malignant neoplasm of bladder, unspecified (principal) ==

== ENCOUNTER → 2023-11-21 | Outpatient (CLI) | payer MEDICARE, OTHER ==
[~2023-11-21] MED LIST changes: +DOXY-323 PO; -DOXY-443 PO
[2023-11-21 16:20] LABS: ALBUMIN 3.5 G/DL (3.2-5.2); ALKALINE PHOSPHATASE 103 U/L (46-116); ALT/SGPT 37 U/L (7.0-40); AST/SGOT 25 U/L (<34); BILIRUBIN,TOTAL 0.3 MG/DL (0.3-1.2); BLOOD UREA NITROGEN 21 MG/DL (9-23); CALCIUM LEVEL 9.7 MG/DL (8.3-10.6); CARBON DIOXIDE LEVEL 30 MMOL/L (20-31); CHLORIDE LEVEL 106 MMOL/L (98-107); CHOLESTEROL LEVEL 175 MG/DL (<200); CHOLESTEROL RISK RATIO 2.52 (<5); CREATININE FOR GFR 0.88 MG/DL (0.55-1.30); GLOMERULAR FILTRATION RATE > 60.0 (>45); GLUCOSE, FASTING 103 MG/DL (74-106); HDL CHOLESTEROL 69.4 MG/DL (>40); LDL CHOLESTEROL 59.6 MG/DL (<100); NON-HDL-C 105.6 MG/DL; POTASSIUM SERUM 4.4 MMOL/L (3.5-5.1); SODIUM LEVEL 142 MMOL/L (136-145); TOTAL PROTEIN 6.9 G/DL (5.7-8.2); TRIGLYCERIDES LEVEL 230 MG/DL (<150)
[2023-11-21 16:22] LABS: TOTAL 25(OH) VITAMIN D 60.1 NG/ML (20.0-100.0)
[2023-11-21 18:54] LABS: HEMOGLOBIN A1c 5.6 % (4.0-6.0)
== END ==
LOC: M LAB 15:29
PROVIDERS: ATTEND Physician Assistant Medical
DX: R79.89 Other specified abnormal findings of blood chemistry (principal); E11.9 Type 2 diabetes mellitus without complications; E78.2 Mixed hyperlipidemia; E55.9 Vitamin D deficiency, unspecified

== ENCOUNTER → 2023-11-21 | Outpatient (CLI) | payer MEDICARE, OTHER ==
[~2023-11-21] MED LIST changes: +ONDA-282 PO; -ONDA4TAB6 PO
== END ==
LOC: M PAIN 14:30
PROVIDERS: ATTEND Anesthesiology
DX: M96.1 Postlaminectomy syndrome, not elsewhere classified (principal); Z79.891 Long term (current) use of opiate analgesic; G89.29 Other chronic pain; M54.50 Low back pain, unspecified; E11.9 Type 2 diabetes mellitus without complications; Z79.84 Long term (current) use of oral hypoglycemic drugs; Z79.899 Other long term (current) drug therapy
CPT/HCPCS: 36415; 80053; 80061; 82107; 82306; 83036; 83970; G0463

== ENCOUNTER → 2024-01-21 | Outpatient (CLI) | payer MEDICARE, OTHER | LOC: M PAIN 14:45 | PROVIDERS: ATTEND Nurse Practitioner Family | DX: M96.1 Postlaminectomy syndrome, not elsewhere classified (principal); G89.29 Other chronic pain; E11.9 Type 2 diabetes mellitus without complications; Z79.84 Long term (current) use of oral hypoglycemic drugs; Z79.899 Other long term (current) drug therapy; Z79.891 Long term (current) use of opiate analgesic ==

== ENCOUNTER → 2024-03-25 | Outpatient (CLI) | payer MEDICARE, OTHER ==
[~2024-03-25] MED LIST changes: +GABA-1490 PO; -GABA600T4 PO
== END ==
LOC: M PAIN 15:00
PROVIDERS: ATTEND Nurse Practitioner Family
DX: M96.1 Postlaminectomy syndrome, not elsewhere classified (principal); G89.29 Other chronic pain; E11.9 Type 2 diabetes mellitus without complications; M54.42 Lumbago with sciatica, left side; Z79.891 Long term (current) use of opiate analgesic; Z79.84 Long term (current) use of oral hypoglycemic drugs; Z79.899 Other long term (current) drug therapy

== ENCOUNTER → 2024-07-14 | Outpatient (CLI) | payer MEDICARE, MEDICAID ==
[~2024-07-14] MED LIST changes: -DOXY-323 PO; +DOXY-441 PO; +GABA-1172 PO; -GABA-282 PO
[2024-07-14 14:53] LABS: BASO % 0.1 % (0.0-1.0); EOS # 0.1 10^3/uL (0.0-0.5); EOS % 0.9 % (0.0-3.0); HEMATOCRIT 39.3 % (36.0-47.0); HEMOGLOBIN 12.4 g/dl (12.0-15.5); LYMPH # 2.3 10^3/uL (1.5-5.0); LYMPH % 26.4 % (24.0-44.0); MEAN CORPUSCULAR HEMOGLOBIN 29.3 pg (27.0-33.0); MEAN CORPUSCULAR HGB CONC 31.6 g/dl (32.0-36.5); MEAN CORPUSCULAR VOLUME 92.9 fl (80.0-96.0); MONO # 0.4 10^3/uL (0.0-0.8); NEUTROPHILS % 68.3 % (36.0-66.0); PLATELET COUNT, AUTOMATED 368 10^3/uL (150-450); RED BLOOD COUNT 4.23 10^6/uL (4.00-5.40); WHITE BLOOD COUNT 8.8 10^3/uL (4.0-10.0)
[2024-07-14 15:23] LABS: ALBUMIN 3.7 G/DL (3.2-5.2); ALKALINE PHOSPHATASE 100 U/L (35-104); ALT/SGPT 37 U/L (7.0-40); AST/SGOT 30 U/L (<34); BILIRUBIN,TOTAL 0.4 MG/DL (0.3-1.2); BLOOD UREA NITROGEN 22 MG/DL (9-23); CALCIUM LEVEL 10.4 MG/DL (8.3-10.6); CARBON DIOXIDE LEVEL 28 MMOL/L (20-31); CHLORIDE LEVEL 106 MMOL/L (98-107); CREATININE FOR GFR 0.89 MG/DL (0.55-1.30); GLOMERULAR FILTRATION RATE > 60.0 (>45); GLUCOSE, FASTING 137 MG/DL (74-106); POTASSIUM SERUM 4.2 MMOL/L (3.5-5.1); SODIUM LEVEL 145 MMOL/L (136-145); TOTAL PROTEIN 6.9 G/DL (5.7-8.2)
[2024-07-14 15:41] LABS: HEMOGLOBIN A1c 5.9 % (4.0-6.0)
== END ==
LOC: M PLALAB 11:45
PROVIDERS: ATTEND Physician Assistant Medical
DX: R79.89 Other specified abnormal findings of blood chemistry (principal); E11.9 Type 2 diabetes mellitus without complications; K21.00 Gastro-esophageal reflux disease with esophagitis, without bleeding; M79.7 Fibromyalgia

== ENCOUNTER → 2024-07-31 | Outpatient (CLI) | payer MEDICARE, MEDICAID | LOC: M PAIN 16:30 | PROVIDERS: ATTEND Anesthesiology | DX: M96.1 Postlaminectomy syndrome, not elsewhere classified (principal); Z79.891 Long term (current) use of opiate analgesic; G89.29 Other chronic pain; E11.9 Type 2 diabetes mellitus without complications; Z79.84 Long term (current) use of oral hypoglycemic drugs; Z79.899 Other long term (current) drug therapy ==

== ENCOUNTER → 2024-10-20 | Outpatient (REF) | payer MEDICARE, MEDICAID | LOC: M SMT 13:01 | PROVIDERS: ATTEND Urology | DX: C67.9 Malignant neoplasm of bladder, unspecified (principal) ==

== ENCOUNTER → 2025-02-12 | Outpatient (CLI) | payer MEDICARE, MEDICAID ==
[2025-02-12 17:25] LABS: BASO # 0.0 10^3/uL (0.0-0.2); BASO % 0.3 % (0.0-1.0); EOS # 0.1 10^3/uL (0.0-0.5); EOS % 0.7 % (0.0-3.0); LYMPH # 3.1 10^3/uL (1.5-5.0); LYMPH % 34.6 % (24.0-44.0); MONO # 0.6 10^3/uL (0.0-0.8); MONO % 6.2 % (2.0-8.0); NEUTROPHILS # 5.1 10^3/uL (1.5-8.5); NEUTROPHILS % 58.0 % (36.0-66.0); PLATELET COUNT, AUTOMATED 400 10^3/uL (150-450)
[2025-02-12 17:56] LABS: ALT/SGPT 30.0 U/L (7.0-40); AST/SGOT 29.0 U/L (<34); CALCIUM LEVEL 9.6 MG/DL (8.3-10.6); CARBON DIOXIDE LEVEL 30.0 MMOL/L (20-31); CHLORIDE LEVEL 104.0 MMOL/L (98-107); CREATININE FOR GFR 0.87 MG/DL (0.55-1.30); GLOMERULAR FILTRATION RATE 72.5 (>45); POTASSIUM SERUM 4.2 MMOL/L (3.5-5.1); SODIUM LEVEL 143.0 MMOL/L (136-145)
[2025-02-12 18:08] LABS: ESTIMATED AVERAGE GLUCOSE 128.0 MG/DL (60-110)
== END ==
LOC: M PLALAB 14:34
PROVIDERS: ATTEND Physician Assistant Medical
DX: E11.9 Type 2 diabetes mellitus without complications (principal)

== ENCOUNTER → 2025-06-17 | Outpatient (CLI) | payer MEDICARE, MEDICAID ==
[2025-06-17 17:36] LABS: BASO # 0.0 10^3/uL (0.0-0.2); BASO % 0.2 % (0.0-1.0); EOS # 0.0 10^3/uL (0.0-0.5); EOS % 0.4 % (0.0-3.0); LYMPH # 2.4 10^3/uL (1.5-5.0); LYMPH % 26.4 % (24.0-44.0); MONO # 0.3 10^3/uL (0.0-0.8); MONO % 3.6 % (2.0-8.0); NEUTROPHILS # 6.2 10^3/uL (1.5-8.5); NEUTROPHILS % 69.2 % (36.0-66.0); PLATELET COUNT, AUTOMATED 415 10^3/uL (150-450)
[2025-06-17 17:39] LABS: TOTAL 25(OH) VITAMIN D 86.1 NG/ML (20.0-100.0)
[2025-06-17 17:40] LABS: ALT/SGPT 26.0 U/L (7.0-40); AST/SGOT 26.0 U/L (<34); CALCIUM LEVEL 10.0 MG/DL (8.3-10.6); CARBON DIOXIDE LEVEL 29.0 MMOL/L (20-31); CHLORIDE LEVEL 105.0 MMOL/L (98-107); CREATININE FOR GFR 0.84 MG/DL (0.55-1.30); GLOMERULAR FILTRATION RATE 75.7 (>45); POTASSIUM SERUM 4.9 MMOL/L (3.5-5.1); PTH INTACT 24.8 PG/ML (18.5-88.0); SODIUM LEVEL 146.0 MMOL/L (136-145)
== END ==
LOC: M PLALAB 15:05
PROVIDERS: ATTEND Physician Assistant Medical
DX: E55.9 Vitamin D deficiency, unspecified (principal); M81.0 Age-related osteoporosis without current pathological fracture; E11.9 Type 2 diabetes mellitus without complications; E78.2 Mixed hyperlipidemia